=== PATIENT | female | born 1950 | race Hispanic/Latino ===

== ENCOUNTER 2018-12-31 17:37 | Inpatient (IN) | payer MEDICARE ==
--- NOTE | 2018-12-31 18:53 | Cat Scan Report ---
CT head/brain wo con INDICATION / CLINICAL INFORMATION: 68 years Female; fall. TECHNIQUE: Routine CT head without contrast. All CT scans at this location are performed using CT dos e reduction for ALARA by means of automated exposure control. COMPARISON: None. FINDINGS: BRAIN / INTRACRANIAL CONTENTS: The motion and positioning degrade the image quality. However,, the br ain appears to demonstrate appropriate attenuation for age. There is no clear CT evidence of acute in tracranial hemorrhage or significant mass effect. There is prominence of the CSF attenuation along th e cerebral convexities compatible with milder to moderate atrophy at. ORBITS: No significant abnormality of visualized orbits. SINUSES / MASTOIDS: No significant abnormality the visualized paranasal sinuses or mastoid air cells. CRANIOCERVICAL JUNCTION: No significant abnormality. ADDITIONAL FINDINGS: None. IMPRESSION: 1. There is no clear CT evidence of acute intracranial process. Signer Name: Calvin Paige MD Signed: 12/31/2018 6:49 PM Workstation Name: [id number]
[2018-12-31] MEDS ORDERED: TORADOL IV ONE (18:56)
--- NOTE | 2018-12-31 19:02 | Emergency Department Report ---
HPI - General Chief Complaint: Fall Time Seen by Provider: 12/31/18 18:47 - HPI HPI: Room 36 The patient is a 68-year-old female presenting with a chief complaint frequent falls. Family states the patient has showed progressive weakness with increasing falls over the past 6 months. Over the past 2 weeks patient has fallen 5 times injuring her head. The patient states it feels as though her feet give him and she feels weak diffusely. Patient denies loss of consciousness during her falls. Patient has complained of headache and a septal region for the past 2-3 days. The patient received a nerve block in her back this morning and subsequently went to her primary physician afterwards about the frequent falls. The primary physician (Dr. Urrutia) sent the patient to the ED in preparation for admission. The patient gives her pain a score 7/10 ED Past Medical Hx - Past Medical History Previous Medical History?: Yes Hx Hypertension: Yes Hx Congestive Heart Failure: Yes Hx Diabetes: Yes Hx Arthritis: Yes Hx Headaches / Migraines: Yes Hx COPD: Yes (2 L nasal cannula) - Surgical History Past Surgical History?: Yes Additional Surgical History: thyroid surgery. neck surgery - Family History Family history: no significant - Social History Smoking Status: Former Smoker (none 1 year) Substance Use Type: None - Medications Home Medications: Home Medications Medication Instructions Recorded Confirmed Last Taken Type AtorvaSTATin [Lipitor] 40 mg PO HS #30 tablet 02/08/15 09/28/17 Unknown Rx FLUoxetine [PROzac] 40 mg PO QDAY #30 capsule 02/08/15 09/28/17 09/28/17 Rx Haloperidol 5 mg PO BID #60 tablet 02/08/15 09/28/17 09/28/17 Rx Omeprazole [PriLOSEC] 20 mg PO DAILY #30 capsule. 02/08/15 09/28/17 09/28/17 Rx Donepezil [Aricept] 10 mg PO HS 09/28/17 09/28/17 Unknown History Gabapentin [Neurontin] 900 mg PO Q8H 09/28/17 09/28/17 09/28/17 History Lisinopril [Zestril] 20 mg PO QDAY 09/28/17 09/28/17 09/28/17 History predniSONE [Deltasone] 10 mg PO QDAY 09/28/17 09/28/17 09/28/17 History hydrALAZINE [Apresoline TAB] 50 mg PO Q8HR #90 tablet 10/03/17 Unknown Rx ED Review of Systems ROS: Stated complaint: COPD/FREQUENT FALLS Other details as noted in HPI Constitutional: no symptoms reported Eyes: denies: eye pain ENT: denies: throat pain Respiratory: no symptoms reported Cardiovascular: denies: chest pain Endocrine: no symptoms reported Gastrointestinal: denies: abdominal pain Genitourinary: denies: dysuria Musculoskeletal: arthralgia Neurological: headache Physical Exam - Physical Exam Vital Signs: Vital Signs 12/31/18 17:47 Temperature 97.8 F Pulse Rate 55 L Respiratory 18 Rate Blood Pressure 111/33 O2 Sat by Pulse 93 Oximetry Physical Exam: GENERAL: The patient is well-developed well-nourished sitting in wheelchair not appearing to be in acute distress HEENT: Normocephalic. Atraumatic. Extraocular motions are intact. Patient has moist mucous membranes. NECK: Supple. Trachea midline CHEST/LUNGS: Clear to auscultation. There is no respiratory distress noted. HEART/CARDIOVASCULAR: Regular. There is no tachycardia. There is no gallop rub or murmur. ABDOMEN: Abdomen is soft, nontender. Patient has normal bowel sounds. There is no abdominal distention. SKIN: There is no rash. There is no edema. There is no diaphoresis. NEURO: The patient is awake, alert, and oriented. The patient is cooperative. The patient has normal speech MUSCULOSKELETAL: There is mild tenderness to palpation in the level of approximately C7. There is no evidence of acute injury. ED Course Vital Signs 12/31/18 17:47 Temperature 97.8 F Pulse Rate 55 L Respiratory 18 Rate Blood Pressure 111/33 O2 Sat by Pulse 93 Oximetry - Consultations Consultation #1: 12/31/18 20:43 Dr. Urrutia paged ED Medical Decision Making - Lab Data Result diagrams: 12/31/18 19:16 12/31/18 19:16 Laboratory Tests 12/31/18 12/31/18 12/31/18 19:16 19:16 19:16 WBC 8.2 RBC 3.04 L Hgb 8.6 L Hct 27.6 L MCV 91 MCH 28 MCHC 31 RDW 16.0 H Plt Count 318 Lymph % (Auto) 17.5 [place] % (Auto) 8.2 H Eos % (Auto) 3.3 Baso % (Auto) 1.0 Lymph # 1.4 [place] # 0.7 Eos # 0.3 Baso # 0.1 Seg Neutrophils % 70.0 Seg Neutrophils # 5.7 PT 13.3 INR 1.04 APTT 31.7 Sodium 141 Potassium 4.9 Chloride 100.9 Carbon Dioxide 28 Anion Gap 17 BUN 25 H Creatinine 1.0 Estimated GFR 55 BUN/Creatinine Ratio 25 Glucose 126 H Calcium 9.0 Total Creatine Kinase 121 CK-MB (CK-2) 3.7 CK-MB (CK-2) Rel Index 3.0 Troponin T < 0.010 TSH Free T4 12/31/18 19:16 WBC RBC Hgb Hct MCV MCH MCHC RDW Plt Count Lymph % (Auto) [place] % (Auto) Eos % (Auto) Baso % (Auto) Lymph # [place] # Eos # Baso # Seg Neutrophils % Seg Neutrophils # PT INR APTT Sodium Potassium Chloride Carbon Dioxide Anion Gap BUN Creatinine Estimated GFR BUN/Creatinine Ratio Glucose Calcium Total Creatine Kinase CK-MB (CK-2) CK-MB (CK-2) Rel Index Troponin T TSH 9.940 H Free T4 0.99 - EKG Data -: EKG Interpreted by Tx EKG shows normal: sinus rhythm Rate: bradycardia (53 beats per minute) - EKG Data When compared to previous EKG there are: previous EKG unavailable Interpretation: nonspecific ST-T wave charly (biphasic T-wave in lead V6) - Radiology Data Radiology results: report reviewed (CT head, CT cervical spine, CT facial bones), image reviewed (CT head, CT cervical spine, CT facial bones) [place] [address] Cat Scan Report Signed Patient: LANI SOSA MR#: [id number] : 1950 Acct:[id number] Age/Sex: 68 / F ADM Date: 12/31/18 Loc: ED Attending Dr: Ordering Physician: MARILOU KELLOGG Date of Service: 12/31/18 Procedure(s): CT head/brain wo con Accession Number(s): [id number] cc: MARILOU KELLOGG CT head/brain wo con INDICATION / CLINICAL INFORMATION: 68 years Female; fall. TECHNIQUE: Routine CT head without contrast. All CT scans at this location are performed using CT dose reduction for ALARA by means of automated exposure control. COMPARISON: None. FINDINGS: BRAIN / INTRACRANIAL CONTENTS: The motion and positioning degrade the image quality. However,, the brain appears to demonstrate appropriate attenuation for age. There is no clear CT evidence of acute intracranial hemorrhage or significant mass effect. There is prominence of the CSF attenuation along the cerebral convexities compatible with milder to moderate atrophy at. ORBITS: No significant abnormality of visualized orbits. SINUSES / MASTOIDS: No significant abnormality the visualized paranasal sinuses or mastoid air cells. CRANIOCERVICAL JUNCTION: No significant abnormality. ADDITIONAL FINDINGS: None. IMPRESSION: 1. There is no clear CT evidence of acute intracranial process. Signer Name: Calvin Paige MD Signed: 12/31/2018 6:49 PM Workstation Name: [id number] Transcribed By: MR Dictated By: Calvin Paige MD Electronically Authenticated By: Calvin Paige MD Signed Date/Time: 12/31/181848 DD/ 45 TD/TT: [place] [address] Cat Scan Report Signed Patient: LANI SOSA MR#: [id number] : 1950 Acct:[id number] Age/Sex: 68 / F ADM Date: 12/31/18 Loc: ED Attending Dr: Ordering Physician: MICHAEL SIMTH MD Date of Service: 12/31/18 Procedure(s): CT cervical spine wo con Accession Number(s): [id number] cc: MICHAEL SMITH MD Exam: CT cervical spine History: pain after fall; Technique: Contiguous thin cut axial images obtained through the cervical spine. Sagittal and coronal reconstructions performed by the technologist. All CT scans at this location are performed using CT dose reduction for ALARA by means of automated exposure control. Findings: No priors. Anterior cervical disc fusion is seen at C4-C5 C5-C6 disc levels with the ventral plate, vertebral body screws and disc spacer. Solid fusion is seen. I do not see vertebral compression fracture. Prevertebral space is normal. In the transverse images, I do not see fracture involving the bony canal. C2-C3 disc level, facet joint hypertrophic changes are seen on the right side. Neuroforamina are normal. At C3-C4 disc level, right neuroforamen is narrowed due to marked facet joint hypertrophic changes. Soft disc protrusion is seen towards the right side. At C4-C5 disc level, I do not see bony overgrowth. Neuroforamina are normal. At C5-C6 disc level, bony overgrowth is seen in the left paramedian area. Neuroforamina are normal. At C6-C7 disc level, broad-based bony spur is seen towards the left side. Neuroforamina are normal. Bony defect is seen in the left lamina of C7. This, unable to comment on this further. This is not a fracture. At C7-T1 disc level, grade 1 spondylolisthesis seen due to marked facet joint degenerative changes bilaterally. Erosive changes are seen along the lamina. IMPRESSION: I do not see fracture in the cervical spine Spondylotic changes as described about Signer Name: Vipul Verma MD Signed: 12/31/2018 7:40 PM Workstation Name: [id number] Transcribed By: BS Dictated By: Vipul Chavarria MD Electronically Authenticated By: Vipul Chavarria MD Signed Date/Time: 12/31/181939 DD/ 34 TD/TT: [place] [address] Cat Scan Report Signed Patient: LANI SOSA MR#: [id number] : 1950 Acct:[id number] Age/Sex: 68 / F ADM Date: 12/31/18 Loc: ED Attending Dr: Ordering Physician: MICHAEL SMITH MD Date of Service: 12/31/18 Procedure(s): CT facial bones wo con Accession Number(s): [id number] cc: MICHAEL SMITH MD CT FACE HISTORY: Pain after fall COMPARISON: Acute TECHNIQUE: Axial images of the face were obtained. Coronal and sagittal reformats were generated. All CT scans at this location are performed using CT dose reduction for ALARA by means of automated exposure control. CONTRAST: None. FINDINGS: Facial bones: Midface: Nasal bones normal. Perpendicular plate of ethmoid and median nasal septum deviating towards the right side. I do not see fracture. I do not see hematoma along the nasal septum. Bony orbit is normal bilaterally. Zygomaticomaxillary complexes normal bilaterally. Mandible is normal. Paranasal sinuses: Clear. Orbits: No significant abnormality. Additional findings: None. IMPRESSION: 1. No significant abnormality. Signer Name: Vipul Verma MD Signed: 12/31/2018 7:35 PM Workstation Name: [id number] Transcribed By: BS Dictated By: Vipul Chavarria MD Electronically Authenticated By: Vipul Chavarria MD Signed Date/Time: 12/31/181934 DD/ 28 TD/TT: - Differential Diagnosis closed head injury, ICH, facial fracture, cervical fracture Critical care attestation.: If time is entered above; I have spent that time in minutes in the direct care of this critically ill patient, excluding procedure time. ED Disposition Clinical Impression: Closed head injury, Frequent falls, Weakness Disposition: DC-09 OP ADMIT IP TO THIS HOSP Is pt being admited?: Yes Condition: Fair
[2018-12-31 19:31] LABS: Basophils # (Auto) 0.1 K/mm3 (0.0-0.1); Eosinophils # (Auto) 0.3 K/mm3 (0.0-0.4); Eosinophils % (Auto) 3.3 % (0.0-4.3); Hematocrit 27.6 % (30.3-42.9); Hemoglobin 8.6 gm/dl (10.1-14.3); Lymphocytes # (Auto) 1.4 K/mm3 (1.2-5.4); Lymphocytes % (Auto) 17.5 % (13.4-35.0); Mean Corpuscular HGB Conc 31 % (30-34); Mean Corpuscular Volume 91 fl (79-97); Monocytes # (Auto) 0.7 K/mm3 (0.0-0.8); Monocytes % (Auto) 8.2 % (0.0-7.3); Platelet Count 318 K/mm3 (140-440); Red Blood Count 3.04 M/mm3 (3.65-5.03)
--- NOTE | 2018-12-31 19:40 | Cat Scan Report ---
CT FACE HISTORY: Pain after fall COMPARISON: Acute TECHNIQUE: Axial images of the face were obtained. Coronal and sagittal reformats were generated. All CT scans at this location are performed using CT dose reduction for ALARA by means of automated expo sure control. CONTRAST: None. FINDINGS: Facial bones: Midface: Nasal bones normal. Perpendicular plate of ethmoid and median nasal septum deviating towards the righ t side. I do not see fracture. I do not see hematoma along the nasal septum. Bony orbit is normal bilaterally. Zygomaticomaxillary complexes normal bilaterally. Mandible is normal. Paranasal sinuses: Clear. Orbits: No significant abnormality. Additional findings: None. IMPRESSION: 1. No significant abnormality. Signer Name: Vipul Verma MD Signed: 12/31/2018 7:35 PM Workstation Name: [id number]
--- NOTE | 2018-12-31 19:45 | Cat Scan Report ---
Exam: CT cervical spine History: pain after fall; Technique: Contiguous thin cut axial images obtained through the cervical spine. Sagittal and dennis l reconstructions performed by the technologist. All CT scans at this location are performed using CT dose reduction for ALARA by means of automated exposure control. Findings: No priors. Anterior cervical disc fusion is seen at C4-C5 C5-C6 disc levels with the ventral plate, vertebral ever dy screws and disc spacer. Solid fusion is seen. I do not see vertebral compression fracture. Prevert ebral space is normal. In the transverse images, I do not see fracture involving the bony canal. C2-C3 disc level, facet joint hypertrophic changes are seen on the right side. Neuroforamina are norm al. At C3-C4 disc level, right neuroforamen is narrowed due to marked facet joint hypertrophic changes. S oft disc protrusion is seen towards the right side. At C4-C5 disc level, I do not see bony overgrowth. Neuroforamina are normal. At C5-C6 disc level, bony overgrowth is seen in the left paramedian area. Neuroforamina are normal. At C6-C7 disc level, broad-based bony spur is seen towards the left side. Neuroforamina are normal. B komal defect is seen in the left lamina of C7. This, unable to comment on this further. This is not a f racture. At C7-T1 disc level, grade 1 spondylolisthesis seen due to marked facet joint degenerative changes bi laterally. Erosive changes are seen along the lamina. IMPRESSION: I do not see fracture in the cervical spine Spondylotic changes as described about Signer Name: Vipul Verma MD Signed: 12/31/2018 7:40 PM Workstation Name: [id number]
[2018-12-31 19:46] LABS: INR 1.04 (0.87-1.13)
[2018-12-31 19:47] LABS: Partial Thromboplastin Time 31.7 Sec. (24.2-36.6)
[2018-12-31 19:59] LABS: Creatine Kinase MB 3.7 ng/mL (0.0-4.0)
[2018-12-31 20:00] LABS: BUN/Creatinine Ratio 25; Blood Urea Nitrogen 25 mg/dL (7-17); Hemolysis Index 2
[2018-12-31 20:05] LABS: Free T4 (Free Thyroxine) 0.99 ng/dL (0.76-1.46)
[2018-12-31] MEDS ORDERED: SODIUM CHLORIDE FLUSH SYRINGE 10 ML IV PRN (22:31)
[2018-12-31] MEDS ORDERED: ZOFRAN IV PRN (22:31)
[2018-12-31] MEDS ORDERED: NON-FORMULARY (Ipratropium/Albuter (Nf) 1 PUFF) IH PRN (22:43)
--- NOTE | 2018-12-31 22:54 | History and Physical Report ---
History of Present Illness Date of examination: 12/31/18 Date of admission: 12/31/18 Chief complaint: frequent falls with shortness of breath for 2 weeks History of present illness: The patient is a 68-year-old female well known to me present to my office, 12/31/18 in company of her adult daughter c/o or worsening shortness of breath, and frequent falls, 5x in the past two week. Her daughter states the patient has showed progressive weakness with increasing falls over the past 6 months. Over the past 2 weeks patient has fallen 5 times injuring her head. The patient states it feels as though her feet give out on her and she feels weak diffusely. Patient denies loss of consciousness during her falls. Patient has complained of headache for the past 2-3 days. Has shortness of breath on slight exertion. No orthopnea respiratory dyspnea. On admission to the ER, CT head was unremarkable for any acute event. Past History Past Medical History: COPD, diabetes, hypertension, hyperlipidemia, other Past Surgical History: Other (ankle surgery and ) Social history: denies: smoking (Quit smoking a year ago), alcohol abuse, prescription drug abuse, IV drug use Family history: other (COPD in her half sister) Medications and Allergies Allergies Allergy/AdvReac Type Severity Reaction Status Date / Time No Known Allergies Allergy Verified 12/10/12 08:15 Home Medications Medication Instructions Recorded Confirmed Last Taken Type Donepezil [Aricept] 10 mg PO HS 09/28/17 12/31/18 Unknown History ARIPiprazole [Abilify] 10 mg PO QAM 12/31/18 12/31/18 Unknown History AtorvaSTATin [Lipitor] 40 mg PO QPM 12/31/18 12/31/18 Unknown History Buprenorphine [Butrans] 1 each TD Q7D 12/31/18 12/31/18 Unknown History Diclofenac 1% topical gel 1 applic TP QID 12/31/18 12/31/18 Unknown History FLUoxetine HCL [PROzac] 40 mg PO QAM 12/31/18 12/31/18 Unknown History Fluticasone/Umeclidin/Vilanter 1 each IH QAM 12/31/18 12/31/18 Unknown History [Trelegy Ellipta 100-62.5-25] Gabapentin [Neurontin] 800 mg PO TID 12/31/18 12/31/18 Unknown History HYDROcodone/APAP 5-325 [[place] 1 each PO Q8H PRN 12/31/18 12/31/18 Unknown History 5-325 mg TAB] Haloperidol 5 mg PO QPM 12/31/18 12/31/18 Unknown History Ipratropium/Albuter (Nf) 1 puff IH Q6H PRN 12/31/18 12/31/18 Unknown History [Combivent (Nf)] Levothyroxine [Synthroid] 88 mcg PO QAM 12/31/18 12/31/18 Unknown History Lisinopril [Zestril] 20 mg PO QAM 12/31/18 12/31/18 Unknown History Metformin HCl [Metformin HCl ER] 500 mg PO QAM 12/31/18 12/31/18 Unknown History hydrALAZINE [Apresoline TAB] 25 mg PO TID 12/31/18 12/31/18 Unknown History Active Meds: Active Medications Acetaminophen (Tylenol) 650 mg PO Q4H PRN PRN Reason: Pain MILD(1-3)/Fever >100.5/SNYDER Aripiprazole (Abilify) 10 mg PO QAM MARKO Atorvastatin Calcium (Lipitor) 40 mg PO QPM MARKO Docusate Sodium (Colace) 100 mg PO BID MARKO Donepezil HCl (Aricept) 10 mg PO HS MARKO Hydralazine HCl (Apresoline) 25 mg PO TID MARKO Sodium Chloride (Nacl 0.45% 1000 Ml) 1,000 mls @ 100 mls/hr IV DIRECT MARKO Levothyroxine Sodium (Synthroid) 88 mcg PO QAM MARKO Lisinopril (Zestril) 20 mg PO QAM MARKO Metformin HCl (Glucophage Xr) 500 mg PO QAM [facility] Miscellaneous Medication (Fluoxetine Hcl [Prozac]) 40 mg PO QAM MARKO Miscellaneous Medication (Fluticasone/Umeclidin/Vilanter [Trelegy Ellipta 100-62.5-25]) 1 each IH QAM MARKO Miscellaneous Medication (Gabapentin [Neurontin]) 800 mg PO TID MARKO Miscellaneous Medication (Haloperidol [Haloperidol]) 5 mg PO QPM MARKO Miscellaneous Medication (Ipratropium/Albuter (Nf)) 1 puff IH Q6H PRN PRN Reason: Shortness Of Breath Ondansetron HCl (Zofran) 4 mg IV Q8H PRN PRN Reason: Nausea And Vomiting Sodium Chloride (Sodium Chloride Flush Syringe 10 Ml) 10 ml IV BID MARKO Sodium Chloride (Sodium Chloride Flush Syringe 10 Ml) 10 ml IV PRN PRN PRN Reason: LINE FLUSH Review of Systems Constitutional: no fever, no chills, no sweats Ears, nose, mouth and throat: no ear pain, no ear discharge, no tinnitis, no decreased hearing Breasts: tender (rashes under both breast) Cardiovascular: shortness of breath, no orthopnea Respiratory: shortness of breath, dyspnea on exertion, no cough, no cough with sputum, no excessive sputum, no hemoptysis Gastrointestinal: no nausea, no vomiting, no diarrhea, no constipation Menstruation: no premenarcheal, no post hysterectomy, no ammenorrhea, no ammenorrhea on BC Musculoskeletal: shooting arm pain, arm numbness/tingling, no neck pain, no low back pain Integumentary: rash (undere both breast), no pruritis, no redness Exam - Constitutional Vitals: Temp Pulse Resp BP Pulse Ox 97.8 F 55 L 18 111/33 93 12/31/18 17:47 12/31/18 17:47 12/31/18 17:47 12/31/18 17:47 12/31/18 17:47 General appearance: Present: no acute distress, well-nourished - EENT Eyes: Present: PERRL ENT: hearing intact - Neck Neck: Present: supple, normal ROM - Respiratory Respiratory effort: normal Respiratory: bilateral: diminished - Cardiovascular Heart Sounds: Present: S1 & S2. Absent: rub, click - Extremities Extremities: pulses symmetrical, No edema Peripheral Pulses: within normal limits - Abdominal General gastrointestinal: Present: soft, non-tender, non-distended, normal bowel sounds Female genitourinary: Present: normal - Integumentary Integumentary: Present: clear, warm, dry, erythema, rash (under bothj breasts) - Musculoskeletal Musculoskeletal: gait normal, strength equal bilaterally - Psychiatric Psychiatric: appropriate mood/affect, intact judgment & insight - Neurologic Neurologic: CNII-XII intact, moves all extremities Results - Labs CBC & Chem 7: 01/01/19 04:26 01/01/19 04:26 Labs: Abnormal lab results 12/31/18 12/31/18 12/31/18 Range/Units 19:16 19:16 19:16 RBC 3.04 L (3.65-5.03) M/mm3 Hgb 8.6 L (10.1-14.3) gm/dl Hct 27.6 L (30.3-42.9) % RDW 16.0 H (13.2-15.2) % [place] % (Auto) 8.2 H (0.0-7.3) % BUN 25 H (7-17) mg/dL Glucose 126 H (65-100) mg/dL TSH 9.940 H (0.270-4.200) mlU/mL Assessment and Plan The patient is a 68-year-old female well known to me present to my office, 12/31/18 in company of her adult daughter c/o or worsening shorntess of breath, and frequent falls, 5x in the past two week. Her daughter states the patient has showed progressive weakness with increasing falls over the past 6 months. Over the past 2 weeks patient has fallen 5 times injuring her head. The patient states it feels as though her feet give him and she feels weak diffusely. Patient denies loss of consciousness during her falls. Patient has complained of headache for the past 2-3 days. The patient received a nerve block in her back this morning pror to coming to my office. On admission to the ER, CT head was unremarkable for any acute event. - Frequent falls Fall precaution CT head was unremakable -Shortness of breath Bronchodilators in antibiotic adn iv solumedrol - Tenia cruris Ketoconazole crm - COPD execebation Dupplental oxygen brodnchodilatos IV solumderol Iv antibioic - Hypothyroidism Continue with supplementation with Synthroid - T2 DM Consistent carbohydrates diet Sliding Scale insulin - DVT and GI PPx with lovenox and pepcid
[2018-12-31] MEDS ORDERED: PROVENTIL IH PRN (23:00)
[2018-12-31] MEDS: SODIUM CHLORIDE FLUSH SYRINGE 10 ML IV SCH (23:06)
[2018-12-31] MEDS: COLACE PO SCH (23:06)
--- NOTE | 2018-12-31 23:59 | XRay Report ---
CHEST 1 VIEW INDICATION / CLINICAL INFORMATION: shorness of breath. COMPARISON: None available. FINDINGS: SUPPORT DEVICES: None. HEART / MEDIASTINUM: No significant abnormality. LUNGS / PLEURA: No significant pulmonary or pleural abnormality. No pneumothorax. ADDITIONAL FINDINGS: No significant additional findings. IMPRESSION: 1. No acute findings. Signer Name: Zackery Calvillo MD Signed: 12/31/2018 11:55 PM Workstation Name: [id number]
--- NOTE | 2019-01-01 00:02 | XRay Report ---
RIGHT FOOT, 2 VIEWS 12/31/2018 INDICATION / CLINICAL INFORMATION: pain right foot. COMPARISON: None available. FINDINGS: Orthopedic hardware in the calcaneus, talus and tibia. There is generalized bony demineralization of the foot and ankle. No acute fractures are demonstrated. Signer Name: Zackery Calvillo MD Signed: 12/31/2018 11:58 PM Workstation Name: [id number]
--- NOTE | 2019-01-01 00:02 | XRay Report ---
RIGHT ANKLE, AP AND LATERAL VIEWS 2018 INDICATION / CLINICAL INFORMATION: pain right foot and ankle. COMPARISON: None available. FINDINGS: Intramedullary hamlet transfixing the tibia talus and calcaneus. There is soft tissue swelling the lateral aspect of the ankle. No acute fractures demonstrated. No destructive bony change. Signer Name: Zackery Calvillo MD Signed: 12/31/2018 11:57 PM Workstation Name: [id number]
[2019-01-01] MEDS: NACL 0.45% 1000 ML 1,000 ML IV SCH ×3 (01:17→21:56)
[2019-01-01] MEDS: TYLENOL PO PRN (01:18)
[2019-01-01 05:16] LABS: Basophils # (Auto) 0.1 K/mm3 (0.0-0.1); Basophils % (Auto) 0.9 % (0.0-1.8); Eosinophils # (Auto) 0.4 K/mm3 (0.0-0.4); Eosinophils % (Auto) 4.8 % (0.0-4.3); Hematocrit 26.1 % (30.3-42.9); Hemoglobin 8.3 gm/dl (10.1-14.3); Lymphocytes # (Auto) 1.8 K/mm3 (1.2-5.4); Lymphocytes % (Auto) 24.6 % (13.4-35.0); Mean Corpuscular HGB Conc 32 % (30-34); Mean Corpuscular Volume 90 fl (79-97); Monocytes # (Auto) 0.6 K/mm3 (0.0-0.8); Monocytes % (Auto) 8.5 % (0.0-7.3); Platelet Count 299 K/mm3 (140-440); Red Blood Count 2.89 M/mm3 (3.65-5.03); Red Cell Distribution Width 16.2 % (13.2-15.2)
[2019-01-01 05:38] LABS: Alanine Aminotransferase 11 units/L (7-56); Albumin 3.6 g/dL (3.9-5); BUN/Creatinine Ratio 34; Blood Urea Nitrogen 31 mg/dL (7-17); Calcium 8.8 mg/dL (8.4-10.2); Hemolysis Index 2
[2019-01-01] MEDS: APRESOLINE PO SCH ×4 (07:46→20:15)
[2019-01-01] MEDS: NEURONTIN PO SCH ×3 (07:46→22:00)
[2019-01-01] MEDS ORDERED: NON-FORMULARY (Gabapentin [Neurontin] 800 MG) PO SCH (08:00)
[2019-01-01] MEDS: COLACE PO SCH ×2 (09:26→22:01)
[2019-01-01] MEDS: GLUCOPHAGE XR PO SCH (09:26)
[2019-01-01] MEDS: ZESTRIL PO SCH (09:27)
[2019-01-01] MEDS: SODIUM CHLORIDE FLUSH SYRINGE 10 ML IV SCH ×2 (09:27→22:02)
[2019-01-01] MEDS: PROzac PO SCH (09:27)
[2019-01-01] MEDS ORDERED: UMECLIDIN IH SCH (10:00)
[2019-01-01] MEDS ORDERED: FLUTICASONE IH SCH (10:00)
[2019-01-01] MEDS ORDERED: VILANTER IH SCH (10:00)
[2019-01-01] MEDS ORDERED: NON-FORMULARY (Fluoxetine Hcl [Prozac] 40 MG) PO SCH (10:00)
[2019-01-01] MEDS: ARIPiprazole PO SCH (10:25)
[2019-01-01] MEDS ORDERED: BUTRAN TP SCH (17:00)
[2019-01-01] MEDS ORDERED: HALOPERIDOL 5 MG PO SCH (18:00)
[2019-01-01] MEDS: HALDOL PO SCH (18:34)
[2019-01-01] MEDS: SYNTHROID PO SCH ×2 (21:59→22:43)
[2019-01-01] MEDS: ARICEPT PO SCH (22:00)
[2019-01-02 05:57] LABS: Alanine Aminotransferase 11 units/L (7-56); Albumin 3.3 g/dL (3.9-5); BUN/Creatinine Ratio 25; Blood Urea Nitrogen 15 mg/dL (7-17); Calcium 8.4 mg/dL (8.4-10.2); Hemolysis Index 4
[2019-01-02] MEDS: NACL 0.45% 1000 ML 1,000 ML IV SCH ×2 (06:03→09:51)
[2019-01-02] MEDS: SYNTHROID PO SCH (06:03)
[2019-01-02 06:31] LABS: Hematocrit 26.7 % (30.3-42.9); Hemoglobin 8.2 gm/dl (10.1-14.3); Mean Corpuscular HGB Conc 31 % (30-34); Mean Corpuscular Volume 90 fl (79-97); Platelet Count 294 K/mm3 (140-440); Red Blood Count 2.97 M/mm3 (3.65-5.03); Red Cell Distribution Width 16.4 % (13.2-15.2)
[2019-01-02] MEDS: APRESOLINE PO SCH ×2 (09:09→14:18)
[2019-01-02] MEDS: NEURONTIN PO SCH ×3 (09:09→22:26)
[2019-01-02] MEDS: PROzac PO SCH (09:46)
[2019-01-02] MEDS: COLACE PO SCH ×2 (09:47→22:29)
[2019-01-02] MEDS: SODIUM CHLORIDE FLUSH SYRINGE 10 ML IV SCH ×2 (09:47→22:28)
[2019-01-02] MEDS: ARIPiprazole PO SCH (09:47)
[2019-01-02] MEDS: GLUCOPHAGE XR PO SCH (09:47)
[2019-01-02] MEDS: ZESTRIL PO SCH (09:47)
[2019-01-02] MEDS: TYLENOL PO PRN ×2 (10:06→20:22)
[2019-01-02] MEDS: HALDOL PO SCH (17:25)
--- NOTE | 2019-01-02 22:02 | Progress Note ---
Assessment and Plan The patient is a 68-year-old female well known to me present to my office, 12/31/18 in company of her adult daughter c/o or worsening shorntess of breath, and frequent falls, 5x in the past two week. Her daughter states the patient has showed progressive weakness with increasing falls over the past 6 months. Over the past 2 weeks patient has fallen 5 times injuring her head. The patient states it feels as though her feet give him and she feels weak diffusely. Patient denies loss of consciousness during her falls. Patient has complained of headache for the past 2-3 days. The patient received a nerve block in her back this morning pror to coming to my office. On admission to the ER, CT head was unremarkable for any acute event. - Frequent falls Fall precaution CT head was unremakable for any acute event -Shortness of breath Bronchodilators in antibiotic adn iv solumedrol - Tenia cruris Ketoconazole 2%crm - COPD execebation Dupplental oxygen brodnchodilatos IV solumderol Iv antibioic - Pain Right ankle X-ray right apical shows intramedullary nail No bony destruction - Hypothyroidism Continue with supplementation with Synthroid - T2 DM Consistent carbohydrates diet Sliding Scale insulin - DVT and GI PPx with lovenox and pepcid - Disposition: Discussed with patient's daughter who wants patient is to be p laced in a group home facility as she is no longer capable of taking care of the Patient Subjective Date of service: 01/02/19 Principal diagnosis: COPD exacerbation, frequent falls, T2DM Interval history: Patient seen and examined. Remains afebrile. No chest pain. Shortness of breath improved. No falls since admission Objective - Exam Narrative Exam: Constitutional: Well-nourished well-developed. In no distress Head: Normocephalic atraumatic Eyes: Pupils are equal round and reactive to light Nose: No enlarged turbinates, no septal deviation. Mouth: Moist mucous membranes. Neck: Supple no thyromegaly. No bruit. No JVD Heart: Regular rate and rhythm, S1-S2 normal. No rubs murmurs or gallop Lungs: Clear to auscultation bilaterally. no rales or rhonchi Abdomen: Soft, nontender. Bowel sound are present. Extremities: No edema, no cyanosis, no clubbing. Neuro: Alert oriented Oriented x3. No focal sensory or motor deficit. Skin: No rashes or hyperpigmented spots Musculoskeletal system: No joint pain or swelling Hematological: No petechia or subcutanous hemorrhages. Immunological: No multiple septic spots on the skin Lymphatic: No generalized lymphadenopathy Psychiatry: Euthymic. Calm. - Constitutional Vitals: Vital Signs - 12hr 01/02/19 01/02/19 01/02/19 11:00 14:16 20:29 Temperature 98.0 F 98.7 F Pulse Rate 52 L 57 L Respiratory 18 18 Rate Blood Pressure 101/39 132/46 O2 Sat by Pulse 93 92 94 Oximetry 01/02/19 20:35 Temperature Pulse Rate Respiratory Rate Blood Pressure O2 Sat by Pulse 94 Oximetry - Labs CBC & Chem 7: 01/02/19 05:59 01/02/19 05:00 Labs: Abnormal lab results 01/02/19 01/02/19 01/02/19 Range/Units 05:00 05:59 07:30 RBC 2.97 L (3.65-5.03) M/mm3 Hgb 8.2 L (10.1-14.3) gm/dl Hct 26.7 L (30.3-42.9) % RDW 16.4 H (13.2-15.2) % Creatinine 0.6 L (0.7-1.2) mg/dL Glucose 105 H (65-100) mg/dL POC Glucose 109 H (70-105) Albumin 3.3 L (3.9-5) g/dL 01/02/19 01/02/19 01/02/19 Range/Units 12:59 16:15 21:53 RBC (3.65-5.03) M/mm3 Hgb (10.1-14.3) gm/dl Hct (30.3-42.9) % RDW (13.2-15.2) % Creatinine (0.7-1.2) mg/dL Glucose (65-100) mg/dL POC Glucose 136 H 107 H 141 H (70-105) Albumin (3.9-5) g/dL
--- NOTE | 2019-01-02 22:03 | Progress Note ---
Assessment and Plan The patient is a 68-year-old female well known to me present to my office, 12/31/18 in company of her adult daughter c/o or worsening shorntess of breath, and frequent falls, 5x in the past two week. Her daughter states the patient has showed progressive weakness with increasing falls over the past 6 months. Over the past 2 weeks patient has fallen 5 times injuring her head. The patient states it feels as though her feet give him and she feels weak diffusely. Patient denies loss of consciousness during her falls. Patient has complained of headache for the past 2-3 days. The patient received a nerve block in her back this morning pror to coming to my office. On admission to the ER, CT head was unremarkable for any acute event. - Frequent falls Fall precaution CT head was unremakable -Shortness of breath Bronchodilators in antibiotic adn iv solumedrol - Tenia cruris Ketoconazole crm - COPD execebation Dupplental oxygen brodnchodilatos IV solumderol Iv antibioic - Hypothyroidism Continue with supplementation with Synthroid - T2 DM Consistent carbohydrates diet Sliding Scale insulin - DVT and GI PPx with lovenox and pepcid - Disposition: Discussed with patient's daughter who wants patient is to be placed in a assisted facility as she is no longer capable of taking care of the Patient Subjective Date of service: 01/01/19 Principal diagnosis: Shortness of breath Interval history: Patient seen and examined. Remains afebrile. No chest pain. Shortness of breath improved. No falls since admission Objective - Exam Narrative Exam: Constitutional: Well-nourished well-developed. In no distress Head: Normocephalic atraumatic Eyes: Pupils are equal round and reactive to light Nose: No enlarged turbinates, no septal deviation. Mouth: Moist mucous membranes. Neck: Supple no thyromegaly. No bruit. No JVD Heart: Regular rate and rhythm, S1-S2 normal. No rubs murmurs or gallop Lungs: Clear to auscultation bilaterally. no rales or rhonchi Abdomen: Soft, nontender. Bowel sound are present. Extremities: No edema, no cyanosis, no clubbing. Neuro: Alert oriented Oriented x3. No focal sensory or motor deficit. Skin: No rashes or hyperpigmented spots Musculoskeletal system: No joint pain or swelling Hematological: No petechia or subcutanous hemorrhages. Immunological: No multiple septic spots on the skin Lymphatic: No generalized lymphadenopathy Psychiatry: Euthymic. Calm. - Constitutional Vitals: Vital Signs - 12hr 01/02/19 01/02/19 01/02/19 11:00 14:16 20:29 Temperature 98.0 F 98.7 F Pulse Rate 52 L 57 L Respiratory 18 18 Rate Blood Pressure 101/39 132/46 O2 Sat by Pulse 93 92 94 Oximetry 01/02/19 20:35 Temperature Pulse Rate Respiratory Rate Blood Pressure O2 Sat by Pulse 94 Oximetry - Labs CBC & Chem 7: 01/02/19 05:59 01/02/19 05:00 Labs: Abnormal lab results 01/02/19 01/02/19 01/02/19 Range/Units 05:00 05:59 07:30 RBC 2.97 L (3.65-5.03) M/mm3 Hgb 8.2 L (10.1-14.3) gm/dl Hct 26.7 L (30.3-42.9) % RDW 16.4 H (13.2-15.2) % Creatinine 0.6 L (0.7-1.2) mg/dL Glucose 105 H (65-100) mg/dL POC Glucose 109 H (70-105) Albumin 3.3 L (3.9-5) g/dL 01/02/19 01/02/19 01/02/19 Range/Units 12:59 16:15 21:53 RBC (3.65-5.03) M/mm3 Hgb (10.1-14.3) gm/dl Hct (30.3-42.9) % RDW (13.2-15.2) % Creatinine (0.7-1.2) mg/dL Glucose (65-100) mg/dL POC Glucose 136 H 107 H 141 H (70-105) Albumin (3.9-5) g/dL
[2019-01-02] MEDS: ARICEPT PO SCH (22:27)
[2019-01-03] MEDS: APRESOLINE PO SCH ×4 (03:42→22:44)
[2019-01-03] MEDS: TYLENOL PO PRN ×3 (05:50→22:44)
[2019-01-03] MEDS: SYNTHROID PO SCH (05:50)
[2019-01-03] MEDS: NACL 0.45% 1000 ML 1,000 ML IV SCH ×2 (05:53→17:42)
[2019-01-03 07:15] LABS: Basophils # (Auto) 0.1 K/mm3 (0.0-0.1); Basophils % (Auto) 0.9 % (0.0-1.8); Eosinophils # (Auto) 0.2 K/mm3 (0.0-0.4); Eosinophils % (Auto) 4.2 % (0.0-4.3); Hematocrit 25.8 % (30.3-42.9); Hemoglobin 8.1 gm/dl (10.1-14.3); Lymphocytes # (Auto) 1.3 K/mm3 (1.2-5.4); Lymphocytes % (Auto) 22.2 % (13.4-35.0); Mean Corpuscular HGB Conc 31 % (30-34); Mean Corpuscular Volume 90 fl (79-97); Monocytes # (Auto) 0.7 K/mm3 (0.0-0.8); Monocytes % (Auto) 12.4 % (0.0-7.3); Platelet Count 275 K/mm3 (140-440); Red Blood Count 2.87 M/mm3 (3.65-5.03); Red Cell Distribution Width 15.3 % (13.2-15.2)
[2019-01-03 07:33] LABS: Alanine Aminotransferase 13 units/L (7-56); Albumin 3.6 g/dL (3.9-5); BUN/Creatinine Ratio 20; Blood Urea Nitrogen 12 mg/dL (7-17); Calcium 8.6 mg/dL (8.4-10.2); Hemolysis Index 0
--- NOTE | 2019-01-03 10:02 | Progress Note ---
Assessment and Plan The patient is a 68-year-old female well known to me present to my office, 12/31/18 in company of her adult daughter c/o or worsening shorntess of breath, and frequent falls, 5x in the past two week. Her daughter states the patient has showed progressive weakness with increasing falls over the past 6 months. Over the past 2 weeks patient has fallen 5 times injuring her head. The patient states it feels as though her feet give him and she feels weak diffusely. Patient denies loss of consciousness during her falls. Patient has complained of headache for the past 2-3 days. The patient received a nerve block in her back this morning pror to coming to my office. On admission to the ER, CT head was unremarkable for any acute event. - Frequent falls Fall precaution CT head was unremakable for any acute event PT eval -Shortness of breath Bronchodilators in antibiotic and iv solumedrol - Tenia cruris Ketoconazole 2% crm - COPD execebation Dupplental oxygen brodnchodilatos IV solumderol Iv antibioic - Pain Right ankle X-ray right apical shows intramedullary nail No bony destruction - Hypothyroidism Continue with supplementation with Synthroid - T2 DM Consistent carbohydrates diet Sliding Scale insulin - DVT and GI PPx with lovenox and pepcid - Disposition: Discussed with patient's daughter who wants patient is to be placed in a care home facility as she is no longer capable of taking care of the Patient Subjective Date of service: 01/03/19 Principal diagnosis: COPD exacerbation, frequent falls, T2DM Interval history: Patient seen and examined. Remains afebrile. No chest pain. Shortness of breath improved. No falls since admission. c/o rahse under the breasts Objective - Exam Narrative Exam: Constitutional: Well-nourished well-developed. In no distress Head: Normocephalic atraumatic Eyes: Pupils are equal round and reactive to light Nose: No enlarged turbinates, no septal deviation. Mouth: Moist mucous membranes. Neck: Supple no thyromegaly. No bruit. No JVD Heart: Regular rate and rhythm, S1-S2 normal. No rubs murmurs or gallop Lungs: Clear to auscultation bilaterally. no rales or rhonchi Abdomen: Soft, nontender. Bowel sound are present. Extremities: No edema, no cyanosis, no clubbing. Neuro: Alert oriented Oriented x3. No focal sensory or motor deficit. Skin: No rashes or hyperpigmented spots Musculoskeletal system: No joint pain or swelling Hematological: No petechia or subcutanous hemorrhages. Immunological: No multiple septic spots on the skin Lymphatic: No generalized lymphadenopathy Psychiatry: Euthymic. Calm. - Constitutional Vitals: Vital Signs - 12hr 01/03/19 01/03/19 01/03/19 02:44 03:42 09:56 Temperature 98.7 F Pulse Rate 55 L 57 L Respiratory 16 Rate Blood Pressure 131/46 132/46 O2 Sat by Pulse 92 94 Oximetry - Labs CBC & Chem 7: 01/03/19 06:40 01/03/19 06:40 Labs: Abnormal lab results 01/02/19 01/02/19 01/02/19 Range/Units 12:59 16:15 21:53 RBC (3.65-5.03) M/mm3 Hgb (10.1-14.3) gm/dl Hct (30.3-42.9) % RDW (13.2-15.2) % [place] % (Auto) (0.0-7.3) % Creatinine (0.7-1.2) mg/dL Glucose (65-100) mg/dL POC Glucose 136 H 107 H 141 H (70-105) Albumin (3.9-5) g/dL 01/03/19 01/03/19 01/03/19 Range/Units 06:40 06:40 08:01 RBC 2.87 L (3.65-5.03) M/mm3 Hgb 8.1 L (10.1-14.3) gm/dl Hct 25.8 L (30.3-42.9) % RDW 15.3 H (13.2-15.2) % [place] % (Auto) 12.4 H (0.0-7.3) % Creatinine 0.6 L (0.7-1.2) mg/dL Glucose 143 H (65-100) mg/dL POC Glucose 121 H (70-105) Albumin 3.6 L (3.9-5) g/dL
[2019-01-03] MEDS: PROzac PO SCH (10:06)
[2019-01-03] MEDS: ARIPiprazole PO SCH (10:06)
[2019-01-03] MEDS: ZESTRIL PO SCH (10:06)
[2019-01-03] MEDS: NEURONTIN PO SCH ×3 (10:07→22:43)
[2019-01-03] MEDS: GLUCOPHAGE XR PO SCH (10:07)
[2019-01-03] MEDS: COLACE PO SCH ×2 (10:08→22:43)
[2019-01-03] MEDS: SODIUM CHLORIDE FLUSH SYRINGE 10 ML IV SCH ×2 (10:10→22:45)
[2019-01-03] MEDS: NIZORAL TP SCH ×2 (17:36→22:45)
[2019-01-03] MEDS: HALDOL PO SCH (17:36)
[2019-01-03] MEDS: ARICEPT PO SCH (22:43)
[2019-01-04] MEDS: SYNTHROID PO SCH (05:22)
[2019-01-04 06:28] LABS: Basophils # (Auto) 0.1 K/mm3 (0.0-0.1); Basophils % (Auto) 0.9 % (0.0-1.8); Eosinophils # (Auto) 0.3 K/mm3 (0.0-0.4); Eosinophils % (Auto) 3.3 % (0.0-4.3); Hematocrit 26.6 % (30.3-42.9); Hemoglobin 8.3 gm/dl (10.1-14.3); Lymphocytes # (Auto) 1.4 K/mm3 (1.2-5.4); Lymphocytes % (Auto) 14.2 % (13.4-35.0); Mean Corpuscular HGB Conc 31 % (30-34); Mean Corpuscular Volume 90 fl (79-97); Monocytes # (Auto) 0.7 K/mm3 (0.0-0.8); Monocytes % (Auto) 6.5 % (0.0-7.3); Platelet Count 290 K/mm3 (140-440); Red Blood Count 2.95 M/mm3 (3.65-5.03); Red Cell Distribution Width 15.7 % (13.2-15.2)
[2019-01-04 06:57] LABS: Alanine Aminotransferase 12 units/L (7-56); Albumin 3.4 g/dL (3.9-5); BUN/Creatinine Ratio 20; Blood Urea Nitrogen 10 mg/dL (7-17); Calcium 8.6 mg/dL (8.4-10.2); Hemolysis Index 4
[2019-01-04] MEDS: NEURONTIN PO SCH ×3 (08:45→22:53)
--- NOTE | 2019-01-04 09:07 | Discharge Summary ---
Providers - Providers Date of Admission: 12/31/18 22:31 Date of discharge: 01/04/19 Attending physician: YESSY HUSTON 01/03/19 10:03 Physical Therapy Evaluation and Treat [CONS] Routine Comment: Reason For Exam: frequent fall 01/04/19 08:49 Occupational Therapy Evaluate and Treat [CONS] Routine Comment: Reason For Exam: Debility Primary care physician: WELDER/FABRICATOR Hospitalization Reason for admission: shortness of breath, frequent falls, T2DM, Anemia of chronic disease Condition: Fair Pertinent studies: CT scan of the head was unremarkable for any acute event. CT scan of the cervical spine and neck showed no fracture or dislocation Chest x-ray was normal X-ray of the right ankle showed intramedullary nail with no new fractures Procedures: none Hospital course: The patient is a 68-year-old female well known to me present to my office, 12/31/18 in company of her adult daughter c/o or worsening shortness of breath, and frequent falls, 5x in the past two week. Her daughter states the patient has showed progressive weakness with increasing falls over the past 6 months. Over the past 2 weeks patient has fallen 5 times injuring her head. The patient states it feels as though her feet give out on her and she feels weak diffusely. Patient denies loss of consciousness during her falls. Patient has complained of headache for the past 2-3 days. Has shortness of breath on slight exertion. No orthopnea respiratory dyspnea. On admission to the ER, CT head was unremarkable for any acute event. CT scan of the cervical spine and face were normal. Conjunctivae is that patient had tinea coporis. Commenced on ketoconazole cream. Shortness of breath improved. Continue to be on oxygen while on admission as patient has been on home oxygen. Disposition: DC-01 TO HOME OR SELFCARE Time spent for discharge: 35 min - Discharge Diagnoses (1) Tinea corporis Status: Acute (2) Closed head injury Status: Acute (3) Frequent falls Status: Acute (4) COPD exacerbation Status: Acute (5) Generalized pain Status: Acute Core Measure Documentation - Palliative Care Palliative Care/ Comfort Measures: Not Applicable - Core Measures Any of the following diagnoses?: none Exam - Physical Exam Narrative exam: Constitutional: Well-nourished well-developed. In no distress Head: Normocephalic atraumatic Eyes: Pupils are equal round and reactive to light. Hematoma over the right Nose: No enlarged turbinates, no septal deviation. Mouth: Moist mucous membranes. Neck: Supple no thyromegaly. No bruit. No JVD Heart: Regular rate and rhythm, S1-S2 normal. No rubs murmurs or gallop Lungs: Clear to auscultation bilaterally. no rales or rhonchi Abdomen: Soft, nontender. Bowel sound are present. Extremities: No edema, no cyanosis, no clubbing. Neuro: Alert oriented Oriented x3. No focal sensory or motor deficit. Skin: rashes on the good breast or hyperpigmented spots Musculoskeletal system: No joint pain or swelling Hematological: No petechia or subcutanous hemorrhages. Immunological: No multiple septic spots on the skin Lymphatic: No generalized lymphadenopathy Psychiatry: Euthymic. Calm. - Constitutional Vitals: Temp Pulse Resp BP Pulse Ox 97.9 F 59 L 20 109/45 95 01/04/19 07:00 01/04/19 07:00 01/04/19 07:00 01/04/19 07:00 01/04/19 07:00 Plan Follow up with: PRIMARY MD CRISTOBAL [Primary Care Provider] - 7 Days
[2019-01-04] MEDS: GLUCOPHAGE XR PO SCH (09:14)
[2019-01-04] MEDS: ARIPiprazole PO SCH (09:14)
[2019-01-04] MEDS: PROzac PO SCH (09:14)
[2019-01-04] MEDS: COLACE PO SCH ×2 (09:14→22:54)
[2019-01-04] MEDS: APRESOLINE PO SCH ×3 (09:15→23:01)
[2019-01-04] MEDS: SODIUM CHLORIDE FLUSH SYRINGE 10 ML IV SCH ×2 (09:15→22:54)
[2019-01-04] MEDS: TYLENOL PO PRN ×2 (09:16→20:01)
[2019-01-04] MEDS: NIZORAL TP SCH ×2 (09:18→22:56)
--- NOTE | 2019-01-04 09:24 | Discharge Summary ---
Providers - Providers Date of Admission: 12/31/18 22:31 Date of discharge: 01/04/19 Attending physician: YESSY HUSTON 01/03/19 10:03 Physical Therapy Evaluation and Treat [CONS] Routine Comment: Reason For Exam: frequent fall 01/04/19 08:49 Occupational Therapy Evaluate and Treat [CONS] Routine Comment: Reason For Exam: Debility Primary care physician: DIRECTOR LOAN Hospitalization Reason for admission: shortness of breath, Frequent fall, COPD exacerbation, hypoxemia. Condition: Fair Pertinent studies: CT scan of the head was unremarkable for any acute event. CT scan of the cervical spine and neck showed no fracture or dislocation Chest x-ray was normal X-ray of the right ankle showed intramedullary nail with no new fractures Procedures: none Hospital course: The patient is a 68-year-old female well known to me present to my office, in company of her adult daughter c/o or worsening shortness of breath, and frequent falls, 5x in the past two week. Her daughter states the patient has showed progressive weakness with increasing falls over the past 6 months. Over the past 2 weeks patient has fallen 5 times injuring her head. The patient states it feels as though her feet give out on her and she feels weak diffusely. Patient denies loss of consciousness during her falls. Patient has complained of headache for the past 2-3 days. Has shortness of breath on slight exertion. No orthopnea respiratory dyspnea. On admission to the ER, CT head was unremarkable for any acute event. CT scan of the cervical spine and face were normal. Conjunctivae is that patient had tinea coporis. Commenced on ketoconazole cream. Shortness of breath improved. Continue to be on oxygen while on admission as patient has been on home oxygen. PT eval was done. Patient's daughter, her, care give had indicated that she can no longer take care of patient, therefore requested a SNF placement Disposition: DC-01 TO HOME OR SELFCARE Time spent for discharge: 33 min - Discharge Diagnoses (1) Tinea corporis Status: Acute (2) Closed head injury Status: Acute (3) Frequent falls Status: Acute (4) COPD exacerbation Status: Acute (5) Generalized pain Status: Acute Core Measure Documentation - Palliative Care Palliative Care/ Comfort Measures: Not Applicable Exam - Physical Exam Narrative exam: Constitutional: Well-nourished well-developed. In no distress Head: Normocephalic atraumatic Eyes: Pupils are equal round and reactive to light. Hematoma over the right Nose: No enlarged turbinates, no septal deviation. Mouth: Moist mucous membranes. Neck: Supple no thyromegaly. No bruit. No JVD Heart: Regular rate and rhythm, S1-S2 normal. No rubs murmurs or gallop Lungs: Clear to auscultation bilaterally. no rales or rhonchi Abdomen: Soft, nontender. Bowel sound are present. Extremities: No edema, no cyanosis, no clubbing. Neuro: Alert oriented Oriented x3. No focal sensory or motor deficit. Skin: rashes on the good breast or hyperpigmented spots Musculoskeletal system: No joint pain or swelling Hematological: No petechia or subcutanous hemorrhages. Immunological: No multiple septic spots on the skin Lymphatic: No generalized lymphadenopathy Psychiatry: Euthymic. Calm. - Constitutional Vitals: Temp Pulse Resp BP Pulse Ox 97.9 F 59 L 20 109/45 95 01/04/19 07:00 01/04/19 07:00 01/04/19 07:00 01/04/19 07:00 01/04/19 07:00 Plan Activity: fall precautions Weight Bearing Status: Non-Weight Bearing Diet: diabetic Follow up with: PRIMARY MD CRISTOBAL [Primary Care Provider] - 7 Days YESSY HUSTON MD [Staff Physician] - 3 Days Prescriptions: Clotrimazole/Betamethasone 1 applic TP BID #60 tube Docusate Sodium [Colace CAP] 100 mg PO BID #60 capsule fentaNYL [Fentanyl] 1 each TD Q72HR #3 patch.[id number]
[2019-01-04] MEDS: ZESTRIL PO SCH (10:21)
[2019-01-04] MEDS: HALDOL PO SCH (17:43)
[2019-01-04] MEDS: ARICEPT PO SCH (23:01)
[2019-01-05] MEDS: NACL 0.45% 1000 ML 1,000 ML IV SCH ×2 (01:53→22:36)
[2019-01-05] MEDS: SYNTHROID PO SCH (06:10)
[2019-01-05] MEDS: TYLENOL PO PRN ×4 (06:21→22:33)
[2019-01-05] MEDS: APRESOLINE PO SCH ×3 (07:27→22:52)
[2019-01-05] MEDS: NEURONTIN PO SCH ×3 (07:27→22:33)
[2019-01-05] MEDS: COLACE PO SCH ×2 (09:08→22:34)
[2019-01-05] MEDS: PROzac PO SCH (09:08)
[2019-01-05] MEDS: GLUCOPHAGE XR PO SCH (09:09)
[2019-01-05] MEDS: ARIPiprazole PO SCH (09:09)
[2019-01-05] MEDS: SODIUM CHLORIDE FLUSH SYRINGE 10 ML IV SCH (09:09)
[2019-01-05] MEDS: ZESTRIL PO SCH (09:10)
[2019-01-05] MEDS: NIZORAL TP SCH ×2 (09:10→22:34)
--- NOTE | 2019-01-05 15:54 | Progress Note ---
Assessment and Plan The patient is a 68-year-old female well known to me present to my office, 12/31/18 in company of her adult daughter c/o or worsening shorntess of breath, and frequent falls, 5x in the past two week. Her daughter states the patient has showed progressive weakness with increasing falls over the past 6 months. Over the past 2 weeks patient has fallen 5 times injuring her head. The patient states it feels as though her feet give him and she feels weak diffusely. Patient denies loss of consciousness during her falls. Patient has complained of headache for the past 2-3 days. The patient received a nerve block in her back this morning pror to coming to my office. On admission to the ER, CT head was unremarkable for any acute event. - Frequent falls Fall precaution CT head was unremarkable for any acute event PT eval -Acute on chronic hypoxemic respiratory failure with Shortness of breath Continue with Bronchodilators in antibiotic and iv solumedrol - Tenia corporis and cruris Ketoconazole 2% crm Oral Fluconazole - COPD execebation Dupplental oxygen brodnchodilatos IV solumderol Iv antibioic - Pain Right ankle X-ray right apical shows intramedullary nail No bony destruction - Hypothyroidism Continue with supplementation with Synthroid - T2 DM Consistent carbohydrates diet Sliding Scale insulin - DVT and GI PPx with lovenox and pepcid - Disposition: Discussed with patient's daughter who wants patient is to be placed in a custodial facility as she is no longer capable of taking care of the Patient. Discuissed with pt's nurse. Awaiting insurance approval of placement i ANT - Patient Problems (1) Tinea corporis Current Visit: Yes Status: Acute (2) Closed head injury Current Visit: Yes Status: Acute (3) Frequent falls Current Visit: Yes Status: Acute (4) COPD exacerbation Onset Date: 02/05/15 Current Visit: No Status: Acute (5) Generalized pain Current Visit: No Status: Acute Subjective Date of service: 01/05/19 Principal diagnosis: COPD exacerbation, frequent falls, T2DM, rashesd uner the breast Interval history: Patient seen and examined. Remains afebrile. No chest pain. Shortness of breath improved. No falls since admission. c/o rashes under the breasts Objective - Exam Narrative Exam: Constitutional: Well-nourished well-developed. In no distress Head: Normocephalic atraumatic Eyes: Pupils are equal round and reactive to light. Hematoma over the right Nose: No enlarged turbinates, no septal deviation. Mouth: Moist mucous membranes. Neck: Supple no thyromegaly. No bruit. No JVD Heart: Regular rate and rhythm, S1-S2 normal. No rubs murmurs or gallop Lungs: Clear to auscultation bilaterally. no rales or rhonchi Abdomen: Soft, nontender. Bowel sound are present. Extremities: No edema, no cyanosis, no clubbing. Neuro: Alert oriented Oriented x3. No focal sensory or motor deficit. Skin: rashes under the good breasts and armpit Musculoskeletal system: No joint pain or swelling Hematological: No petechia or subcutanous hemorrhages. Immunological: No multiple septic spots on the skin Lymphatic: No generalized lymphadenopathy Psychiatry: Euthymic. Calm. - Constitutional Vitals: Vital Signs - 12hr 01/05/19 01/05/19 01/05/19 07:24 07:27 08:11 Temperature 97.8 F Pulse Rate 54 L Pulse Rate [ From Monitor] Respiratory 22 Rate Blood Pressure 111/37 111/37 O2 Sat by Pulse 90 Oximetry 01/05/19 01/05/19 01/05/19 09:10 09:27 09:29 Temperature Pulse Rate 54 L 53 L Pulse Rate [ 53 L From Monitor] Respiratory 18 Rate Blood Pressure 112/37 O2 Sat by Pulse 90 Oximetry 01/05/19 01/05/19 13:10 13:23 Temperature 98.2 F Pulse Rate 52 L 52 L Pulse Rate [ From Monitor] Respiratory 20 Rate Blood Pressure 110/37 110/37 O2 Sat by Pulse 95 Oximetry - Labs CBC & Chem 7: 01/04/19 05:34 01/04/19 05:34 Labs: Abnormal lab results 01/04/19 01/04/19 01/05/19 Range/Units 16:25 21:51 07:10 POC Glucose 141 H 115 H 166 H (70-105) 01/05/19 Range/Units 11:32 POC Glucose 157 H (70-105)
[2019-01-05] MEDS: K-DUR PO SCH (16:59)
[2019-01-05] MEDS: DIFLUCAN PO SCH (16:59)
[2019-01-05] MEDS: HALDOL PO SCH (17:00)
[2019-01-05] MEDS: CLOTRIMAZOLE/BETAMETHASONE TP SCH ×2 (17:42→22:34)
[2019-01-05] MEDS: ARICEPT PO SCH (22:33)
[2019-01-06] MEDS: SYNTHROID PO SCH (05:39)
[2019-01-06] MEDS: SODIUM CHLORIDE FLUSH SYRINGE 10 ML IV SCH ×2 (05:39→09:18)
[2019-01-06 05:52] LABS: Basophils % (Auto) 0.7 % (0.0-1.8); Eosinophils # (Auto) 0.3 K/mm3 (0.0-0.4); Eosinophils % (Auto) 5.1 % (0.0-4.3); Hematocrit 25.3 % (30.3-42.9); Lymphocytes # (Auto) 1.5 K/mm3 (1.2-5.4); Lymphocytes % (Auto) 24.7 % (13.4-35.0); Mean Corpuscular HGB Conc 32 % (30-34); Mean Corpuscular Volume 90 fl (79-97); Monocytes # (Auto) 0.6 K/mm3 (0.0-0.8); Monocytes % (Auto) 10.1 % (0.0-7.3); Platelet Count 271 K/mm3 (140-440); Red Cell Distribution Width 15.6 % (13.2-15.2)
[2019-01-06 06:16] LABS: Alanine Aminotransferase 11 units/L (7-56); Albumin 3.4 g/dL (3.9-5); BUN/Creatinine Ratio 24; Blood Urea Nitrogen 12 mg/dL (7-17); Calcium 8.9 mg/dL (8.4-10.2); Hemolysis Index 0
[2019-01-06] MEDS: TYLENOL PO PRN ×3 (06:17→13:55)
[2019-01-06] MEDS: PROzac PO SCH (09:15)
[2019-01-06] MEDS: COLACE PO SCH (09:15)
[2019-01-06] MEDS: DIFLUCAN PO SCH (09:15)
[2019-01-06] MEDS: GLUCOPHAGE XR PO SCH (09:15)
[2019-01-06] MEDS: K-DUR PO SCH (09:15)
[2019-01-06] MEDS: NEURONTIN PO SCH ×2 (09:15→13:55)
[2019-01-06] MEDS: CLOTRIMAZOLE/BETAMETHASONE TP SCH (09:16)
[2019-01-06] MEDS: NACL 0.45% 1000 ML 1,000 ML IV SCH (09:16)
[2019-01-06] MEDS: APRESOLINE PO SCH (09:16)
[2019-01-06] MEDS: ZESTRIL PO SCH (09:17)
[2019-01-06] MEDS: NIZORAL TP SCH (09:17)
[2019-01-06] MEDS: ARIPiprazole PO SCH (09:24)
--- NOTE | 2019-01-06 11:22 | Progress Note ---
Assessment and Plan The patient is a 68-year-old female well known to me present to my office, 12/31/18 in company of her adult daughter c/o or worsening shorntess of breath, and frequent falls, 5x in the past two week. Her daughter states the patient has showed progressive weakness with increasing falls over the past 6 months. Over the past 2 weeks patient has fallen 5 times injuring her head. The patient states it feels as though her feet give him and she feels weak diffusely. Patient denies loss of consciousness during her falls. Patient has complained of headache for the past 2-3 days. The patient received a nerve block in her back this morning pror to coming to my office. On admission to the ER, CT head was unremarkable for any acute event. -Acute on chronic hypoxemic respiratory failure with Shortness of breath Continue with Bronchodilators in antibiotic and iv solumedrol - Frequent falls Fall precaution CT head was unremarkable for any acute event PT eval - Tenia corporis and cruris Ketoconazole 2% crm Oral Fluconazole - COPD execebation Dupplental oxygen brodnchodilatos IV solumderol Iv antibioic - Pain Right ankle X-ray right apical shows intramedullary nail No bony destruction - Hypothyroidism Continue with supplementation with Synthroid - T2 DM Consistent carbohydrates diet Sliding Scale insulin - DVT and GI PPx with lovenox and pepcid - Disposition: Discussed with patient's daughter who wants patient is to be placed in a snf facility as she is no longer capable of taking care of the Patient. Discuissed with pt's nurse. Awaiting insurance approval of placement i ANT - Patient Problems (1) Tinea corporis Current Visit: Yes Status: Acute (2) Closed head injury Current Visit: Yes Status: Acute (3) Frequent falls Current Visit: Yes Status: Acute (4) COPD exacerbation Onset Date: 02/05/15 Current Visit: No Status: Acute (5) Generalized pain Current Visit: No Status: Acute Subjective Date of service: 01/06/19 Principal diagnosis: COPD exacerbation, frequent falls, T2DM, rashesd uner the breast Interval history: Patient seen and examined. Remains afebrile. Shortness of breath improved. No falls since admission. c/o rashes under the breasts and groins. Getting better Objective - Exam Narrative Exam: Constitutional: Well-nourished well-developed. In no distress Head: Normocephalic atraumatic Eyes: Pupils are equal round and reactive to light. Hematoma over the right Nose: No enlarged turbinates, no septal deviation. Mouth: Moist mucous membranes. Neck: Supple no thyromegaly. No bruit. No JVD Heart: Regular rate and rhythm, S1-S2 normal. No rubs murmurs or gallop Lungs: Clear to auscultation bilaterally. no rales or rhonchi Abdomen: Soft, nontender. Bowel sound are present. Extremities: No edema, no cyanosis, no clubbing. Neuro: Alert oriented Oriented x3. No focal sensory or motor deficit. Skin: rashes under the good breasts and armpit Musculoskeletal system: No joint pain or swelling Hematological: No petechia or subcutanous hemorrhages. Immunological: No multiple septic spots on the skin Lymphatic: No generalized lymphadenopathy Psychiatry: Euthymic. Calm. - Constitutional Vitals: Vital Signs - 12hr 01/06/19 01/06/19 01/06/19 01:36 01:58 07:10 Temperature 98.3 F 97.9 F Pulse Rate 57 L 54 L 50 L Respiratory 20 18 Rate Blood Pressure 166/57 126/47 O2 Sat by Pulse 92 96 Oximetry 01/06/19 01/06/19 08:06 10:00 Temperature Pulse Rate 50 L Respiratory Rate Blood Pressure O2 Sat by Pulse 94 Oximetry - Labs CBC & Chem 7: 01/06/19 04:57 01/06/19 04:57 Labs: Abnormal lab results 01/05/19 01/05/19 01/05/19 Range/Units 11:32 16:48 21:14 RBC (3.65-5.03) M/mm3 Hgb (10.1-14.3) gm/dl Hct (30.3-42.9) % RDW (13.2-15.2) % [place] % (Auto) (0.0-7.3) % Eos % (Auto) (0.0-4.3) % Carbon Dioxide (22-30) mmol/L Creatinine (0.7-1.2) mg/dL Glucose (65-100) mg/dL POC Glucose 157 H 109 H 115 H (70-105) Albumin (3.9-5) g/dL 01/06/19 01/06/19 01/06/19 Range/Units 04:57 04:57 07:21 RBC 2.80 L (3.65-5.03) M/mm3 Hgb 8.0 L (10.1-14.3) gm/dl Hct 25.3 L (30.3-42.9) % RDW 15.6 H (13.2-15.2) % [place] % (Auto) 10.1 H (0.0-7.3) % Eos % (Auto) 5.1 H (0.0-4.3) % Carbon Dioxide 34 H (22-30) mmol/L Creatinine 0.5 L (0.7-1.2) mg/dL Glucose 102 H (65-100) mg/dL POC Glucose 112 H (70-105) Albumin 3.4 L (3.9-5) g/dL
[2019-01-06 13:54] VITALS: BP 153/47
== END 2019-01-06 15:15 | DRG 189 ==
LOC: ED 17:37 → 2B-ACE 22:31
PROVIDERS: ADMIT Family Medicine; ATTEND Family Medicine
DX: J96.21 Acute and chronic respiratory failure with hypoxia (principal); J44.1 Chronic obstructive pulmonary disease with (acute) exacerbation; E03.9 Hypothyroidism, unspecified; E11.9 Type 2 diabetes mellitus without complications; M25.571 Pain in right ankle and joints of right foot; B35.4 Tinea corporis; S09.90XA Unspecified injury of head, initial encounter; R29.6 Repeated falls; I11.0 Hypertensive heart disease with heart failure; I50.9 Heart failure, unspecified; M19.90 Unspecified osteoarthritis, unspecified site; G43.909 Migraine, unspecified, not intractable, without status migrainosus; Y93.89 Activity, other specified; Y92.89 Other specified places as the place of occurrence of the external cause; Y99.8 Other external cause status; Z79.899 Other long term (current) drug therapy
CPT/HCPCS: 36415; 70450; 70486; 71045; 72125; 80048; 80053; 82550; 82553; 82962; 83036; 84439; 84443; 84484; 85025; 85610; 85730; 93005; 93010; 94640; 94760; 96374; G0378; A9270-GY; J1885; J7030

== ENCOUNTER 2019-01-08 14:17 | Inpatient (IN) | payer MEDICARE ==
[2019-01-08] MEDS ORDERED: ACETAMINOPHEN 500 MG TAB PO STA (14:35)
[2019-01-08] MEDS ORDERED: ONDANSETRON 4 MG/2 ML INJ IV ONE (14:37)
[2019-01-08] MEDS ORDERED: SODIUM CHLORIDE 0.9% 250ML 250 ML ONE (14:52)
[2019-01-08] MEDS ORDERED: SODIUM CHLORIDE 0.9% 250ML 250 ML IV ONE (14:54)
--- NOTE | 2019-01-08 14:54 | Emergency Department Report ---
ED General Adult HPI - General Chief complaint: Dyspnea/Respdistress Stated complaint: DIFFICULTY BREATHING Time Seen by Provider: 01/08/19 14:51 Source: EMS Mode of arrival: Stretcher Limitations: No Limitations - History of Present Illness Initial comments: 68-year-old female with a history of COPD on home oxygen, diabetes, dementia and anemia presents with the complaint of shortness of breath. Patient was recently discharged from this hospital after having a fall. Patient has been transitioned to a rehabilitation facility where the daughter states that patient noted to be in respiratory distress and had a low-grade temp and EMS was called. Patient currently denies any chest pain. Patient appears in mild respiratory distress. - Related Data Home Medications Medication Instructions Recorded Confirmed Last Taken ARIPiprazole [Abilify TAB] 10 mg PO QAM 12/31/18 12/31/18 Unknown AtorvaSTATin [Lipitor] 40 mg PO QPM 12/31/18 12/31/18 Unknown Buprenorphine [Butrans] 1 each TD Q7D 12/31/18 12/31/18 Unknown Diclofenac 1% topical gel 1 applic TP QID 12/31/18 12/31/18 Unknown FLUoxetine HCL [PROzac] 40 mg PO QAM 12/31/18 12/31/18 Unknown Fluticasone/Umeclidin/Vilanter 1 each IH QAM 12/31/18 12/31/18 Unknown [Trelegy Ellipta 100-62.5-25] Gabapentin [Neurontin] 800 mg PO TID 12/31/18 12/31/18 Unknown Ipratropium/Albuter (Nf) 1 puff IH Q6H PRN 12/31/18 12/31/18 Unknown [Combivent Inhaler] Metformin HCl [Metformin HCl ER] 500 mg PO QAM 12/31/18 12/31/18 Unknown Previous Rx's Medication Instructions Recorded Last Taken Type ALBUTEROL NEB's [Proventil 0.083% 2.5 mg IH Q4HRT PRN nebu 01/04/19 Unknown Rx NEBS] Donepezil [Aricept] 10 mg PO HS tablet 01/04/19 Unknown Rx Haloperidol [Haldol] 5 mg PO QPM tablet 01/04/19 Unknown Rx Ketoconazole 2% [Nizoral] 1 applic TP BID tube 01/04/19 Unknown Rx Levothyroxine [Synthroid] 88 mcg PO QAM@0600 tablet 01/04/19 Unknown Rx Lisinopril [Zestril TAB] 20 mg PO QAM tablet 01/04/19 Unknown Rx Clotrimazole/Betamethasone 1 applic TP BID #60 tube 01/06/19 Unknown Rx Docusate Sodium [Colace CAP] 100 mg PO BID #60 capsule 01/06/19 Unknown Rx fentaNYL [Fentanyl] 1 each TD Q72HR #3 patch.td72 01/06/19 Unknown Rx Allergies Allergy/AdvReac Type Severity Reaction Status Date / Time No Known Allergies Allergy Verified 12/10/12 08:15 ED Review of Systems ROS: Stated complaint: DIFFICULTY BREATHING Other details as noted in HPI Constitutional: denies: chills, fever Eyes: denies: eye pain, eye discharge, vision change ENT: denies: ear pain, throat pain Respiratory: SOB at rest Cardiovascular: denies: chest pain, palpitations Endocrine: no symptoms reported Gastrointestinal: denies: abdominal pain, nausea, diarrhea Genitourinary: denies: urgency, dysuria, discharge Musculoskeletal: denies: back pain, joint swelling, arthralgia Skin: denies: rash, lesions Neurological: denies: headache, weakness, paresthesias Psychiatric: denies: anxiety, depression Hematological/Lymphatic: denies: easy bleeding, easy bruising ED Past Medical Hx - Past Medical History Previous Medical History?: Yes Hx Hypertension: Yes Hx Congestive Heart Failure: Yes Hx Diabetes: Yes Hx Arthritis: Yes Hx Headaches / Migraines: Yes Hx Asthma: No Hx COPD: Yes - Surgical History Past Surgical History?: Yes Additional Surgical History: thyroid surgery. neck surgery - Social History Smoking Status: Unknown if ever smoked Substance Use Type: None - Medications Home Medications: Home Medications Medication Instructions Recorded Confirmed Last Taken Type ARIPiprazole [Abilify TAB] 10 mg PO QAM 12/31/18 12/31/18 Unknown History AtorvaSTATin [Lipitor] 40 mg PO QPM 12/31/18 12/31/18 Unknown History Buprenorphine [Butrans] 1 each TD Q7D 12/31/18 12/31/18 Unknown History Diclofenac 1% topical gel 1 applic TP QID 12/31/18 12/31/18 Unknown History FLUoxetine HCL [PROzac] 40 mg PO QAM 12/31/18 12/31/18 Unknown History Fluticasone/Umeclidin/Vilanter 1 each IH QAM 12/31/18 12/31/18 Unknown History [Trelegy Ellipta 100-62.5-25] Gabapentin [Neurontin] 800 mg PO TID 12/31/18 12/31/18 Unknown History Ipratropium/Albuter (Nf) 1 puff IH Q6H PRN 12/31/18 12/31/18 Unknown History [Combivent Inhaler] Metformin HCl [Metformin HCl ER] 500 mg PO QAM 12/31/18 12/31/18 Unknown History ALBUTEROL NEB's [Proventil 0.083% 2.5 mg IH Q4HRT PRN nebu 01/04/19 Unknown Rx NEBS] Donepezil [Aricept] 10 mg PO HS tablet 01/04/19 Unknown Rx Haloperidol [Haldol] 5 mg PO QPM tablet 01/04/19 Unknown Rx Ketoconazole 2% [Nizoral] 1 applic TP BID tube 01/04/19 Unknown Rx Levothyroxine [Synthroid] 88 mcg PO QAM@0600 tablet 01/04/19 Unknown Rx Lisinopril [Zestril TAB] 20 mg PO QAM tablet 01/04/19 Unknown Rx Clotrimazole/Betamethasone 1 applic TP BID #60 tube 01/06/19 Unknown Rx Docusate Sodium [Colace CAP] 100 mg PO BID #60 capsule 01/06/19 Unknown Rx fentaNYL [Fentanyl] 1 each TD Q72HR #3 patch.td72 01/06/19 Unknown Rx ED Physical Exam - General Limitations: No Limitations General appearance: alert, other (moderate respiratory distress; uncomfortable) - Head Head exam: Present: normocephalic, other (facial bruising noted) - Eye Eye exam: Present: normal appearance - ENT ENT exam: Present: mucous membranes dry - Neck Neck exam: Present: normal inspection - Respiratory Respiratory exam: Present: respiratory distress, wheezes (diffuse) - Cardiovascular Cardiovascular Exam: Present: normal rhythm, tachycardia. Absent: systolic murmur, diastolic murmur, rubs, gallop - GI/Abdominal GI/Abdominal exam: Present: soft, normal bowel sounds. Absent: tenderness - Extremities Exam Extremities exam: Present: normal inspection - Back Exam Back exam: Present: normal inspection - Neurological Exam Neurological exam: Present: alert, oriented X3 - Psychiatric Psychiatric exam: Present: normal affect, normal mood - Skin Skin exam: Present: warm, dry, intact, normal color. Absent: rash ED Course Vital Signs 01/08/19 01/08/19 01/08/19 14:31 15:26 15:28 Temperature 100 F H Pulse Rate 68 64 Pulse Rate [ 67 Anterior Bilateral] Respiratory 20 18 Rate Respiratory 10 L Rate [Anterior Bilateral] Blood Pressure 93/38 Blood Pressure 85/59 [Right] O2 Sat by Pulse 93 95 Oximetry 01/08/19 15:53 Temperature Pulse Rate 72 Pulse Rate [ Anterior Bilateral] Respiratory 16 Rate Respiratory Rate [Anterior Bilateral] Blood Pressure Blood Pressure 100/42 [Right] O2 Sat by Pulse 94 Oximetry - Central Line Placement Left Femoral Consent Obtained: written consent Time Out Performed: Yes Patient Placed on Monitor/Pulse Ox: Yes MD Prep: mask, gown, gloves Central Line Prep: Chlorhexidine scrub, sterile drapes applied Local Anesthesia Used: Lidocaine 1% Amount of Anesthesia Used (mls): 5 Ultrasound Used for Placement: Yes Central Line Lumen Inserted: triple Bloods Obtained for Lab: No Central Line Position: good blood return, all ports aspirated, flus, sutured in place with 2-0 Dressing Applied: Tegaderm Patient Tolerated Procedure: well ED Medical Decision Making - Lab Data Result diagrams: 01/08/19 14:39 01/08/19 14:39 - EKG Data EKG shows normal: sinus rhythm Rate: normal - Differential Diagnosis Arrythmia; Dehydration; Electrolyte Abnormality; COPD exacerbation Critical Care Time: Yes Critical care time in (mins) excluding proc time.: 50 Critical care attestation.: If time is entered above; I have spent that time in minutes in the direct care of this critically ill patient, excluding procedure time. Critical care time includes time spent on physician consultation, bedside care, and physician consultation. ED Disposition Clinical Impression: COPD exacerbation, Acute respiratory failure, Hypotension Disposition: OP ADMIT IP TO THIS HOSP Is pt being admited?: Yes Does the pt Need Aspirin: No Condition: Fair Instructions: Chronic Bronchitis (ED) Time of Disposition: 16:53 Print Language: TAJIK
[2019-01-08] MEDS: SODIUM CHLORIDE 0.9% 500 ML 500 ML IV ONE ×2 (14:55→15:25)
[2019-01-08] MEDS ORDERED: ALBUTEROL 2.5 MG/3 ML NEBU IH ONE (15:00)
[2019-01-08] MEDS ORDERED: IPRATROPIUM 0.02% NEBU 2.5 ML IH ONE (15:00)
[2019-01-08] MEDS ORDERED: methylPREDNISolone Sod Succinate 125 MG/2 ML INJ IV ONE (15:00)
[2019-01-08] MEDS ORDERED: MAGNESIUM SULFATE 2 GM/50 ML BAG IV ONE (15:01)
[2019-01-08 15:02] LABS: Basophils # (Auto) 0.1 K/mm3 (0.0-0.1); Basophils % (Auto) 0.6 % (0.0-1.8); Eosinophils % (Auto) 0.2 % (0.0-4.3); Hematocrit 28.4 % (30.3-42.9); Lymphocytes # (Auto) 1.7 K/mm3 (1.2-5.4); Lymphocytes % (Auto) 19.5 % (13.4-35.0); Mean Corpuscular HGB Conc 32 % (30-34); Mean Corpuscular Volume 90 fl (79-97); Monocytes # (Auto) 0.7 K/mm3 (0.0-0.8); Monocytes % (Auto) 7.8 % (0.0-7.3); Platelet Count 303 K/mm3 (140-440); Red Blood Count 3.17 M/mm3 (3.65-5.03); Red Cell Distribution Width 15.9 % (13.2-15.2)
[2019-01-08] MEDS ORDERED: cefTRIAXone/NS 1 GM/50 ML 1 GM/50 ML BAG IV ONE (15:07)
[2019-01-08 15:12] LABS: INR 1.04 (0.87-1.13)
--- NOTE | 2019-01-08 15:19 | XRay Report ---
CHEST 1 VIEW INDICATION / CLINICAL INFORMATION: possible Sepsis. COMPARISON: None available. FINDINGS: SUPPORT DEVICES: None. HEART / MEDIASTINUM: Stable. LUNGS / PLEURA: No significant pulmonary or pleural abnormality. No pneumothorax. IMPRESSION: 1. No acute finding. Signer Name: Axel Estrada MD Signed: 01/08/2019 3:14 PM Workstation Name: [id number]
[2019-01-08 15:40] LABS: Bilirubin,Urine NEG (Negative); Blood,Urine NEG (Negative); Color,Urine Yellow (Yellow); Mucus,Urine FEW /HPF; Protein,Urine <15 mg/dL mg/dL (Negative); Urobilinogen,Urine < 2.0 mg/dL (<2.0)
[2019-01-08 15:46] LABS: Alanine Aminotransferase 9 units/L (7-56); Albumin 3.7 g/dL (3.9-5); BUN/Creatinine Ratio 16; Blood Urea Nitrogen 14 mg/dL (7-17); Calcium 8.9 mg/dL (8.4-10.2); Hemolysis Index 6
[2019-01-08] MEDS ORDERED: NORepinephrine/NS 4 MG-250 ML 4 MG/250 ML BAG IV ONE (16:23)
[2019-01-08] MEDS: NORepinephrine/NS 4 MG-250 ML 4 MG/250 ML BAG IV SCH ×3 (16:56→23:06)
[2019-01-08] MEDS ORDERED: SODIUM CHLORIDE 0.9% 1000 ML 1,000 ML IV ONE ×2 (17:19→20:00)
[2019-01-08] MEDS ORDERED: SODIUM CHLORIDE 0.9% 1000 ML 1,000 ML ONE (17:22)
[2019-01-08] MEDS ORDERED: fentaNYL 12 MCG/HR PATCH 72HR TD SCH (19:00)
--- NOTE | 2019-01-08 19:57 | History and Physical Report ---
History of Present Illness Date of examination: 01/08/19 Date of admission: 01/08/19 16:54 Chief complaint: Shortness of breath Denies weakness Cough Generalized body pain History of present illness: Covering for Dr. Urrutia Patient seen and examined medical records from the emergency department reviewed. 68-year-old female patient of Dr. Urrutiafor whom Im covering admitted to the emergency department for worsening shortness of breath as well as cough generalized body pain and weakness. The patient was recently admitted to [facility] was started home last by Dr. Urrutia after initial hospitalization for multiple fall shortness of breath and weakness patient was treated and discharged to rehabilitation due to inability to ambulate effectively. Patient [facility] and has been on treatment there but her breathing got progressively worse over the past 24 Hours and was thus referred back to the ER for further evaluation and treatment . Patient has history of COPD hypertension on therapy diabetes and has had multiple hospitalizations over the last year on account of recurrence of COPD. After the time of evaluation patient has ongoing shortness of breath, her blood pressure was also reported to be low in the emergency department for which patient was started on Levophed which is currently maxed out with MAP still low. Patient stated that her shortness of breath has not improved significantly since he was discharged from the hospital 2 days ago, cough is productive and she denied any chest pain, no fever or chills but appetite has been poor and she feels generally weak. Patient is currently on treatment for diabetes level of control is not clear at this time, patient also has history of chronic pain for which she is almost multiple medication including fentanyl. Patient is not very admitted to the intensive care unit for further evaluation and treatment for sepsis as well as exacerbation of COPD and hypertension Past History Past Medical History: COPD, diabetes, heart failure, hypertension Social history: , lives with family Family history: hypertension Medications and Allergies Allergies Allergy/AdvReac Type Severity Reaction Status Date / Time No Known Allergies Allergy Verified 12/10/12 08:15 Home Medications Medication Instructions Recorded Confirmed Last Taken Type ARIPiprazole [Abilify TAB] 10 mg PO QAM 12/31/18 12/31/18 Unknown History AtorvaSTATin [Lipitor] 40 mg PO QPM 12/31/18 12/31/18 Unknown History Buprenorphine [Butrans] 1 each TD Q7D 12/31/18 12/31/18 Unknown History Diclofenac 1% topical gel 1 applic TP QID 12/31/18 12/31/18 Unknown History FLUoxetine HCL [PROzac] 40 mg PO QAM 12/31/18 12/31/18 Unknown History Fluticasone/Umeclidin/Vilanter 1 each IH QAM 12/31/18 12/31/18 Unknown History [Trelegy Ellipta 100-62.5-25] Gabapentin [Neurontin] 800 mg PO TID 12/31/18 12/31/18 Unknown History Ipratropium/Albuter (Nf) 1 puff IH Q6H PRN 12/31/18 12/31/18 Unknown History [Combivent Inhaler] Metformin HCl [Metformin HCl ER] 500 mg PO QAM 12/31/18 12/31/18 Unknown History ALBUTEROL NEB's [Proventil 0.083% 2.5 mg IH Q4HRT PRN nebu 01/04/19 Unknown Rx NEBS] Donepezil [Aricept] 10 mg PO HS tablet 01/04/19 Unknown Rx Haloperidol [Haldol] 5 mg PO QPM tablet 01/04/19 Unknown Rx Ketoconazole 2% [Nizoral] 1 applic TP BID tube 01/04/19 Unknown Rx Levothyroxine [Synthroid] 88 mcg PO QAM@0600 tablet 01/04/19 Unknown Rx Lisinopril [Zestril TAB] 20 mg PO QAM tablet 01/04/19 Unknown Rx Clotrimazole/Betamethasone 1 applic TP BID #60 tube 01/06/19 Unknown Rx Docusate Sodium [Colace CAP] 100 mg PO BID #60 capsule 01/06/19 Unknown Rx Fluticasone/Umeclidin/Vilanter 1 each IH QAM 01/08/19 01/08/19 Unknown History [Trelegy Ellipta 100-62.5-25] HYDROcodone/APAP 5-325 Q8HR PRN 01/08/19 Unknown History Active Meds: Active Medications Fentanyl (Duragesic) mcg TD Q72HR MARKO Fluoxetine HCl (Prozac) 40 mg PO QDAY MARKO Gabapentin (Neurontin) 800 mg PO TID MARKO Haloperidol (Haldol) 5 mg PO QPM MARKO Norepinephrine (Levophed Drip 4 Mg/Ns 250 Ml) 4 mg in 250 mls @ 7.5 mls/hr IV TITR MARKO; Protocol Last Titration: 01/08/19 17:51 Dose: 25 mcg/min, 93.75 mls/hr Documented by: Sodium Chloride (Nacl 0.9% 1000 Ml) 1,000 mls @ 999 mls/hr IV BOLUS ONE Stop: 01/08/19 21:00 Piperacillin Sod/Tazobactam Sod (Zosyn/Ns 3.375gm/50ml) 3.375 gm in 50 mls @ 100 mls/hr IV Q8HR MARKO; Protocol Levothyroxine Sodium (Synthroid) 88 mcg PO QAM@0600 MARKO Review of Systems Constitutional: chills, anorexia, fatigue, weakness, poor appetite, daytime sleepiness, chronic pain Ears, nose, mouth and throat: decreased hearing Cardiovascular: orthopnea, edema, lightheadedness, shortness of breath, high blood pressure, decreased exercise tolerance Respiratory: cough, cough with sputum, shortness of breath, dyspnea on exertion, wheezing Gastrointestinal: nausea Genitourinary Female: urinary frequency, mixed incontinence Musculoskeletal: morning stiffness, limitation of motion, gait dysfunction Integumentary: blisters Neurological: weakness, parathesias, numbness Psychiatric: change in sleep habits, hallucinations, depression, irritability Allergic/Immunologic: wheezing Exam - Physical Exam Narrative exam: GENERAL:[Patient resting comfortably in bed, mild respiratory distress percent on facemask O2 saturation in the lower 90s moderately obese] HEENT: [Head examination showed normocephalic. Patient is not pale, not jaundiced, and not cyanosed.] [Mucous membrane is moist, pharynx is clear, no exudates or hemorrhage. Dentition is normal.] NECK: [Supple. Neck showed good range of motion. There is no adenopathy noted. No jugular venous distention and no thyromegaly.] [Neck auscultation showed no carotid bruit.] CHEST/LUNGS: [Poor air Exchange bilaterally reduced air exchange bibasilarly scattered inspiratory wheeze prolonged expiration.] HEART/CARDIOVASCULAR: [No murmur. Regular rate and rhythm. S1 and S2 only, no S3 gallop, no S4.] ABDOMEN: [Abdomen is soft, nontender. Patient has normal bowel sounds. There is no abdominal distention. Liver and spleen not palpably enlarged.] SKIN: [There is no rash. There is no edema. There is no diaphoresis.] NEURO: [The patient is awake, alert, and oriented. The patient is cooperative. The patient has no focal neurologic deficits. Cranial nerves 2-12 grossly normal, power is 5/5 in all the extremities tested. The patient has normal speech and gait.] MUSCULOSKELETAL: [There is no tenderness or deformity. There is no limitation range of motion. There is no evidence of acute injury.] EXTREMITIES: [No pedal edema, no varicose veins, good peripheral pulses symmetrical and bilaterally, no pretibial edema, no finger or toe clubbing.] - Constitutional Vitals: Temp Pulse Resp BP Pulse Ox 100 F H 68 12 97/58 93 01/08/19 14:31 01/08/19 19:41 01/08/19 19:41 01/08/19 19:41 01/08/19 19:41 Results - Labs CBC & Chem 7: 01/08/19 14:39 01/08/19 14:39 Labs: Abnormal lab results 01/08/19 01/08/19 01/08/19 Range/Units 14:39 14:39 16:55 RBC 3.17 L (3.65-5.03) M/mm3 Hgb 9.0 L (10.1-14.3) gm/dl Hct 28.4 L (30.3-42.9) % RDW 15.9 H (13.2-15.2) % [place] % (Auto) 7.8 H (0.0-7.3) % Seg Neutrophils % 71.9 H (40.0-70.0) % Glucose 140 H (65-100) mg/dL Lactic Acid 2.90 H* (0.7-2.0) mmol/L Albumin 3.7 L (3.9-5) g/dL Assessment and Plan - Patient Problems (1) Sepsis associated hypotension Current Visit: Yes Status: Acute Plan to address problem: Patient currently maxed out on Levophed we'll continue aggressive fluid rehydration had epinephrine IV is blood pressure continued to remain marginal patient was given Rocephin in the emergency room will Zosyn IV monitor input and outputs closely and continue IV fluids (2) Acute respiratory failure Current Visit: Yes Status: Acute Plan to address problem: History of COPD with recurrent COPD exacerbation we'll continue to maximize treatment including steroid has treatments and IV antibiotics (3) COPD exacerbation Onset Date: 02/05/15 Current Visit: Yes Status: Acute Plan to address problem: Continue aerosol treatment and steroids and O2 supplementation. We'll consult pulmonary for management of COPD and acute respiratory failure (4) Hypotension Current Visit: Yes Status: Acute Qualifiers: Hypotension type: other hypotension type Qualified Code(s): I95.89 - Other hypotension Plan to address problem: After potential possibly underlying sepsis protocol tonight. Antibiotics and aggressive fluid resuscitation continue vasopressors as ordered (5) Type 2 diabetes mellitus without complications Current Visit: Yes Status: Acute Plan to address problem: We will hold metformin and start patient on sliding scale coverage with regular insulin with parameters. (6) Essential (primary) hypertension Current Visit: Yes Status: Acute Plan to address problem: Her current blood pressure medications and consider monitor blood pressure until the patient is hemodynamically stable
[2019-01-08] MEDS ORDERED: NON-FORMULARY EACH (Gabapentin [Neurontin] 800 MG) PO SCH (20:00)
[2019-01-08] MEDS: GABAPENTIN 400 MG CAP PO SCH (20:10)
[2019-01-08] MEDS: ALBUTEROL 2.5 MG/3 ML NEBU IH SCH (20:15)
[2019-01-08] MEDS: IPRATROPIUM 0.02% NEBU 2.5 ML IH SCH (20:15)
[2019-01-08] MEDS: methylPREDNISolone Sod Succinate 40 MG/1 ML INJ IV SCH (21:19)
[2019-01-08] MEDS ORDERED: PIPERACILLIN/TAZOBACTAM 3.375 3.375 GM/50 ML BAG IV SCH (22:00)
[2019-01-08] MEDS: PIPERACILLIN/TAZOBACTAM 3.375 3.375 GM/50 ML BAG IV SCH (23:00)
[2019-01-08] MEDS: HALOPERIDOL 5 MG TAB PO SCH (23:13)
[2019-01-09] MEDS: IPRATROPIUM 0.02% NEBU 2.5 ML IH SCH ×4 (01:43→20:15)
[2019-01-09] MEDS: ALBUTEROL 2.5 MG/3 ML NEBU IH SCH ×4 (01:43→20:15)
[2019-01-09 05:25] LABS: Hematocrit 28.4 % (30.3-42.9); Hemoglobin 8.7 gm/dl (10.1-14.3); Mean Corpuscular HGB Conc 31 % (30-34); Mean Corpuscular Volume 91 fl (79-97); Platelet Count 287 K/mm3 (140-440); Red Blood Count 3.12 M/mm3 (3.65-5.03); Red Cell Distribution Width 16.2 % (13.2-15.2)
[2019-01-09] MEDS: LEVOTHYROXINE 88 MCG TAB PO SCH (05:25)
[2019-01-09] MEDS: methylPREDNISolone Sod Succinate 40 MG/1 ML INJ IV SCH ×3 (05:25→21:37)
[2019-01-09] MEDS: PIPERACILLIN/TAZOBACTAM 3.375 3.375 GM/50 ML BAG IV SCH ×3 (05:27→21:37)
[2019-01-09 05:52] LABS: Alanine Aminotransferase 10 units/L (7-56); Albumin 3.8 g/dL (3.9-5); BUN/Creatinine Ratio 21; Blood Urea Nitrogen 19 mg/dL (7-17); Calcium 8.4 mg/dL (8.4-10.2); Hemolysis Index 1
[2019-01-09 06:24] LABS: Basophils % (Manual) 0 % (0.0-1.8); Eosinophils % (Manual) 0 % (0.0-4.3); Total Cells Counted 100
[2019-01-09 06:25] LABS: Anisocytosis 1+; Platelet Estimate Consistent w Auto; Poikilocytosis 1+; Tear Drop Cells Few
--- NOTE | 2019-01-09 07:39 | Progress Note ---
Assessment and Plan - Patient Problems (1) Sepsis associated hypotension Current Visit: Yes Status: Acute Plan to address problem: Clinical improvement with aggressive hydration as well as a suppressor suppressor now discontinued will continue with IV fluid only continue IV antibiotics as ordered. Follow-up pending cultures for additional adjustments in antimicrobials as needed (2) Acute respiratory failure Current Visit: Yes Status: Acute Plan to address problem: Continue O2 supplementation patient currently on BiPAP will continue, IV antibiotics and aerosol treatments and steroids are started (3) COPD exacerbation Onset Date: 02/05/15 Current Visit: Yes Status: Acute Plan to address problem: Continue aerosol treatment and steroids and O2 supplementation. We'll consult pulmonary for management of COPD and acute respiratory failure (4) Hypotension Current Visit: Yes Status: Acute Qualifiers: Hypotension type: other hypotension type Qualified Code(s): I95.89 - Other hypotension Plan to address problem: Hypertension resolved with continued gentle hydration and monitor blood pressures closely as possible (5) Type 2 diabetes mellitus without complications Current Visit: Yes Status: Acute Plan to address problem: We will hold metformin and start patient on sliding scale coverage with regular insulin with parameters. (6) Essential (primary) hypertension Current Visit: Yes Status: Acute Plan to address problem: Her current blood pressure medications and consider monitor blood pressure until the patient is hemodynamically stable Subjective Date of service: 01/09/19 Principal diagnosis: sepsis, exacerbation of COPD Interval history: Patient seen and examined and charts reviewed. Patient feels better, less short of breath no fever reported. Blood pressure more stable and was able to be weaned off vasopressor during the night, still having intermittent drop in O2 saturation and now on BiPAP with improvement in saturation otherwise more hemodynamically stable. Patient complaining of pain in the lower back and the lower extremities Objective - Exam Narrative Exam: GENERAL:[Patient resting comfortably in bed, mild respiratory distress percent on facemask O2 saturation in the lower 90s moderately obese] HEENT: [Head examination showed normocephalic. Patient is not pale, not jaundiced, and not cyanosed.] [Mucous membrane is moist, pharynx is clear, no exudates or hemorrhage. Dentition is normal.] NECK: [Supple. Neck showed good range of motion. There is no adenopathy noted. No jugular venous distention and no thyromegaly.] [Neck auscultation showed no carotid bruit.] CHEST/LUNGS: [Poor air Exchange bilaterally reduced air exchange bibasilarly scattered inspiratory wheeze prolonged expiration.] HEART/CARDIOVASCULAR: [No murmur. Regular rate and rhythm. S1 and S2 only, no S3 gallop, no S4.] ABDOMEN: [Abdomen is soft, nontender. Patient has normal bowel sounds. There is no abdominal distention. Liver and spleen not palpably enlarged.] SKIN: [There is no rash. There is no edema. There is no diaphoresis.] NEURO: [The patient is awake, alert, and oriented. The patient is cooperative. The patient has no focal neurologic deficits. Cranial nerves 2-12 grossly normal, power is 5/5 in all the extremities tested. The patient has normal speech and gait.] MUSCULOSKELETAL: [There is no tenderness or deformity. There is no limitation range of motion. There is no evidence of acute injury.] EXTREMITIES: [No pedal edema, no varicose veins, good peripheral pulses symmet rical and bilaterally, no pretibial edema, no finger or toe clubbing.] - Constitutional Vitals: Vital Signs - 12hr 01/08/19 01/08/19 01/08/19 19:41 19:51 20:00 Temperature 98.7 F Pulse Rate 68 69 Pulse Rate [ Anterior Bilateral] Pulse Rate [ From Monitor] Respiratory 12 12 Rate Respiratory Rate [Anterior Bilateral] Blood Pressure 97/58 97/58 O2 Sat by Pulse 93 95 Oximetry 01/08/19 01/08/19 01/08/19 20:01 20:11 20:21 Temperature Pulse Rate 68 63 63 Pulse Rate [ Anterior Bilateral] Pulse Rate [ From Monitor] Respiratory 13 13 21 Rate Respiratory Rate [Anterior Bilateral] Blood Pressure 93/62 93/62 93/62 O2 Sat by Pulse 98 97 98 Oximetry 01/08/19 01/08/19 01/08/19 20:31 20:32 20:41 Temperature Pulse Rate 65 65 Pulse Rate [ Anterior Bilateral] Pulse Rate [ 63 From Monitor] Respiratory 15 16 Rate Respiratory Rate [Anterior Bilateral] Blood Pressure 93/62 123/62 O2 Sat by Pulse 99 95 100 Oximetry 01/08/19 01/08/19 01/08/19 20:51 21:01 21:10 Temperature Pulse Rate 65 65 61 Pulse Rate [ Anterior Bilateral] Pulse Rate [ From Monitor] Respiratory 17 14 17 Rate Respiratory Rate [Anterior Bilateral] Blood Pressure 142/81 138/56 O2 Sat by Pulse 95 97 98 Oximetry 01/08/19 01/08/19 01/08/19 21:20 21:31 21:41 Temperature Pulse Rate 64 72 66 Pulse Rate [ Anterior Bilateral] Pulse Rate [ From Monitor] Respiratory 15 19 22 Rate Respiratory Rate [Anterior Bilateral] Blood Pressure 130/43 103/56 130/43 O2 Sat by Pulse 96 97 94 Oximetry 01/08/19 01/08/19 01/08/19 21:51 22:00 22:01 Temperature Pulse Rate 66 94 H 65 Pulse Rate [ Anterior Bilateral] Pulse Rate [ From Monitor] Respiratory 16 17 Rate Respiratory Rate [Anterior Bilateral] Blood Pressure 120/52 109/58 O2 Sat by Pulse 91 100 Oximetry 01/08/19 01/08/19 01/08/19 22:11 22:21 22:31 Temperature Pulse Rate 69 73 74 Pulse Rate [ Anterior Bilateral] Pulse Rate [ From Monitor] Respiratory 23 20 20 Rate Respiratory Rate [Anterior Bilateral] Blood Pressure 109/58 113/41 139/62 O2 Sat by Pulse 93 91 93 Oximetry 01/08/19 01/08/19 01/08/19 22:32 22:41 22:51 Temperature Pulse Rate 75 67 Pulse Rate [ Anterior Bilateral] Pulse Rate [ 63 From Monitor] Respiratory 21 13 Rate Respiratory Rate [Anterior Bilateral] Blood Pressure 139/62 147/51 O2 Sat by Pulse 95 91 95 Oximetry 01/08/19 01/08/19 01/08/19 23:01 23:11 23:21 Temperature Pulse Rate 75 63 65 Pulse Rate [ Anterior Bilateral] Pulse Rate [ From Monitor] Respiratory 37 H 9 L 10 L Rate Respiratory Rate [Anterior Bilateral] Blood Pressure 143/58 143/58 104/36 O2 Sat by Pulse 86 96 98 Oximetry 01/08/19 01/08/19 01/08/19 23:31 23:34 23:41 Temperature Pulse Rate 66 63 62 Pulse Rate [ Anterior Bilateral] Pulse Rate [ From Monitor] Respiratory 11 L 17 20 Rate Respiratory Rate [Anterior Bilateral] Blood Pressure 116/99 116/99 116/99 O2 Sat by Pulse 83 L 93 97 Oximetry 01/08/19 01/08/19 01/08/19 23:48 23:51 23:52 Temperature 98.2 F Pulse Rate 63 60 62 Pulse Rate [ Anterior Bilateral] Pulse Rate [ From Monitor] Respiratory 18 17 16 Rate Respiratory Rate [Anterior Bilateral] Blood Pressure 116/99 116/99 116/99 O2 Sat by Pulse 90 91 90 Oximetry 01/09/19 01/09/19 01/09/19 00:00 00:11 00:21 Temperature Pulse Rate 62 63 59 L Pulse Rate [ Anterior Bilateral] Pulse Rate [ 63 From Monitor] Respiratory 18 18 16 Rate Respiratory Rate [Anterior Bilateral] Blood Pressure 132/55 132/55 132/55 O2 Sat by Pulse 91 89 88 Oximetry 01/09/19 01/09/19 01/09/19 00:31 00:41 00:51 Temperature Pulse Rate 65 62 62 Pulse Rate [ Anterior Bilateral] Pulse Rate [ From Monitor] Respiratory 15 13 13 Rate Respiratory Rate [Anterior Bilateral] Blood Pressure 99/30 99/30 99/30 O2 Sat by Pulse 97 96 97 Oximetry 01/09/19 01/09/19 01/09/19 01:00 01:11 01:21 Temperature Pulse Rate 62 58 L 59 L Pulse Rate [ Anterior Bilateral] Pulse Rate [ From Monitor] Respiratory 14 11 L 13 Rate Respiratory Rate [Anterior Bilateral] Blood Pressure 99/30 120/51 120/51 O2 Sat by Pulse 97 97 96 Oximetry 01/09/19 01/09/19 01/09/19 01:31 01:41 01:51 Temperature Pulse Rate 61 60 59 L Pulse Rate [ Anterior Bilateral] Pulse Rate [ From Monitor] Respiratory 13 12 14 Rate Respiratory Rate [Anterior Bilateral] Blood Pressure 109/39 109/39 120/51 O2 Sat by Pulse 96 100 93 Oximetry 01/09/19 01/09/19 01/09/19 02:00 02:03 02:04 Temperature Pulse Rate 59 L Pulse Rate [ 80 Anterior Bilateral] Pulse Rate [ From Monitor] Respiratory 13 Rate Respiratory 20 Rate [Anterior Bilateral] Blood Pressure 130/60 O2 Sat by Pulse 97 96 Oximetry 01/09/19 01/09/19 01/09/19 02:11 02:21 02:31 Temperature Pulse Rate 61 61 59 L Pulse Rate [ Anterior Bilateral] Pulse Rate [ From Monitor] Respiratory 19 17 25 H Rate Respiratory Rate [Anterior Bilateral] Blood Pressure 130/60 130/60 112/46 O2 Sat by Pulse 79 L 89 89 Oximetry 01/09/19 01/09/19 01/09/19 02:41 02:51 03:00 Temperature Pulse Rate 58 L 60 63 Pulse Rate [ Anterior Bilateral] Pulse Rate [ From Monitor] Respiratory 16 17 15 Rate Respiratory Rate [Anterior Bilateral] Blood Pressure 112/46 112/46 107/47 O2 Sat by Pulse 90 87 89 Oximetry 01/09/19 01/09/19 01/09/19 03:11 03:21 03:31 Temperature Pulse Rate 62 66 62 Pulse Rate [ Anterior Bilateral] Pulse Rate [ From Monitor] Respiratory 14 14 15 Rate Respiratory Rate [Anterior Bilateral] Blood Pressure 107/47 107/47 124/49 O2 Sat by Pulse 84 85 87 Oximetry 01/09/19 01/09/19 01/09/19 03:40 03:41 03:51 Temperature Pulse Rate 58 L 56 L Pulse Rate [ Anterior Bilateral] Pulse Rate [ From Monitor] Respiratory 16 15 Rate Respiratory Rate [Anterior Bilateral] Blood Pressure 124/49 124/49 O2 Sat by Pulse 92 90 87 Oximetry 01/09/19 01/09/19 01/09/19 04:00 04:01 04:11 Temperature 98.9 F Pulse Rate 57 L 56 L Pulse Rate [ Anterior Bilateral] Pulse Rate [ 57 L From Monitor] Respiratory 15 15 Rate Respiratory Rate [Anterior Bilateral] Blood Pressure 140/53 140/53 O2 Sat by Pulse 95 86 89 Oximetry 01/09/19 01/09/19 01/09/19 04:20 04:21 04:41 Temperature Pulse Rate 58 L 52 L Pulse Rate [ Anterior Bilateral] Pulse Rate [ From Monitor] Respiratory 15 12 Rate Respiratory Rate [Anterior Bilateral] Blood Pressure 140/53 152/59 O2 Sat by Pulse 84 87 92 Oximetry 01/09/19 01/09/19 01/09/19 04:46 05:50 06:00 Temperature Pulse Rate 56 L 55 L 57 L Pulse Rate [ Anterior Bilateral] Pulse Rate [ From Monitor] Respiratory 18 Rate Respiratory Rate [Anterior Bilateral] Blood Pressure 135/55 O2 Sat by Pulse 94 Oximetry - Labs CBC & Chem 7: 01/09/19 04:52 01/09/19 04:52 Labs: Abnormal lab results 01/08/19 01/08/19 01/08/19 Range/Units 14:39 14:39 16:55 RBC 3.17 L (3.65-5.03) M/mm3 Hgb 9.0 L (10.1-14.3) gm/dl Hct 28.4 L (30.3-42.9) % RDW 15.9 H (13.2-15.2) % [place] % (Auto) 7.8 H (0.0-7.3) % Seg Neutrophils % 71.9 H (40.0-70.0) % Seg Neuts % (Manual) (40.0-70.0) % Lymphocytes % (Manual) (13.4-35.0) % Seg Neutrophils # Man (1.8-7.7) K/mm3 Lymphocytes # (Manual) (1.2-5.4) K/mm3 POC ABG pH (7.35-7.45) POC ABG pCO2 (35-45) POC ABG pO2 (80-105) BUN (7-17) mg/dL Glucose 140 H (65-100) mg/dL POC Glucose (70-105) Lactic Acid 2.90 H* (0.7-2.0) mmol/L Albumin 3.7 L (3.9-5) g/dL 01/08/19 01/08/19 01/08/19 Range/Units 19:34 21:15 23:37 RBC (3.65-5.03) M/mm3 Hgb (10.1-14.3) gm/dl Hct (30.3-42.9) % RDW (13.2-15.2) % [place] % (Auto) (0.0-7.3) % Seg Neutrophils % (40.0-70.0) % Seg Neuts % (Manual) (40.0-70.0) % Lymphocytes % (Manual) (13.4-35.0) % Seg Neutrophils # Man (1.8-7.7) K/mm3 Lymphocytes # (Manual) (1.2-5.4) K/mm3 POC ABG pH (7.35-7.45) POC ABG pCO2 (35-45) POC ABG pO2 (80-105) BUN (7-17) mg/dL Glucose (65-100) mg/dL POC Glucose 224 H (70-105) Lactic Acid 3.50 H* 3.80 H* (0.7-2.0) mmol/L Albumin (3.9-5) g/dL 01/09/19 01/09/19 01/09/19 Range/Units 04:52 04:52 05:23 RBC 3.12 L (3.65-5.03) M/mm3 Hgb 8.7 L (10.1-14.3) gm/dl Hct 28.4 L (30.3-42.9) % RDW 16.2 H (13.2-15.2) % [place] % (Auto) (0.0-7.3) % Seg Neutrophils % (40.0-70.0) % Seg Neuts % (Manual) 95.0 H (40.0-70.0) % Lymphocytes % (Manual) 4.0 L (13.4-35.0) % Seg Neutrophils # Man 8.9 H (1.8-7.7) K/mm3 Lymphocytes # (Manual) 0.4 L (1.2-5.4) K/mm3 POC ABG pH 7.278 L (7.35-7.45) POC ABG pCO2 67.9 H (35-45) POC ABG pO2 73 L (80-105) BUN 19 H (7-17) mg/dL Glucose 173 H (65-100) mg/dL POC Glucose (70-105) Lactic Acid (0.7-2.0) mmol/L Albumin 3.8 L (3.9-5) g/dL 01/09/19 Range/Units 05:37 RBC (3.65-5.03) M/mm3 Hgb (10.1-14.3) gm/dl Hct (30.3-42.9) % RDW (13.2-15.2) % [place] % (Auto) (0.0-7.3) % Seg Neutrophils % (40.0-70.0) % Seg Neuts % (Manual) (40.0-70.0) % Lymphocytes % (Manual) (13.4-35.0) % Seg Neutrophils # Man (1.8-7.7) K/mm3 Lymphocytes # (Manual) (1.2-5.4) K/mm3 POC ABG pH (7.35-7.45) POC ABG pCO2 (35-45) POC ABG pO2 (80-105) BUN (7-17) mg/dL Glucose (65-100) mg/dL POC Glucose 177 H (70-105) Lactic Acid (0.7-2.0) mmol/L Albumin (3.9-5) g/dL
[2019-01-09] MEDS: GABAPENTIN 400 MG CAP PO SCH ×3 (08:00→20:17)
[2019-01-09] MEDS ORDERED: DEXTROSE 50% IN WATER (25GM) 50 ML SYRINGE IV PRN ×2 (08:00→19:18)
[2019-01-09] MEDS: FLUoxetine 20 MG CAP PO SCH (09:20)
[2019-01-09] MEDS: SODIUM CHLORIDE 0.9% 1000 ML 1,000 ML IV SCH ×2 (09:21→21:36)
[2019-01-09] MEDS ORDERED: NON-FORMULARY EACH (Fluoxetine Hcl [Prozac] 40 MG) PO SCH (10:00)
[2019-01-09] MEDS: ACETAMINOPHEN 325 MG TAB PO PRN ×3 (12:00→23:19)
--- NOTE | 2019-01-09 14:55 | Consultation ---
History of Present Illness Reason for consult: dyspnea, COPD History of present illness: This is an elderly WF with hx of copd who comes in with sob and cough. In the er she was noted to be in distress and hypoxic. She has been treated w neb tx, high flow o2 and Bipap. She reports that she is feeling better. She still has a cough productive of thick yellow to green sputum. She also was noted to be hypotensive and was started on pressors with improvement of MAP She has just been recently dc to rehab after a recent hospitalization for weakness. Her son has gotten progressively worse since her admission to rehab She has had multiple hospitalizations in the past year for copd exacerbation Past History Past Medical History: COPD, diabetes, heart failure, hypertension Past Surgical History: No surgical history Social history: , lives with family, other (presently in rehab, hx of tobacco abuse) Family history: hypertension Medications and Allergies Allergies Allergy/AdvReac Type Severity Reaction Status Date / Time No Known Allergies Allergy Verified 12/10/12 08:15 Home Medications Medication Instructions Recorded Confirmed Last Taken Type ARIPiprazole [Abilify TAB] 10 mg PO QAM 12/31/18 01/08/19 Unknown History AtorvaSTATin [Lipitor] 40 mg PO QPM 12/31/18 01/08/19 Unknown History Buprenorphine [Butrans] 1 each TD Q7D 12/31/18 01/08/19 Unknown History Diclofenac 1% topical gel 1 applic TP QID 12/31/18 01/08/19 Unknown History FLUoxetine HCL [PROzac] 40 mg PO QAM 12/31/18 01/08/19 Unknown History Fluticasone/Umeclidin/Vilanter 1 each IH QAM 12/31/18 01/09/19 Unknown History [Trelegy Ellipta 100-62.5-25] Gabapentin [Neurontin] 800 mg PO TID 12/31/18 01/08/19 Unknown History Ipratropium/Albuter (Nf) 1 puff IH Q6H PRN 12/31/18 01/08/19 Unknown History [Combivent Inhaler] Metformin HCl [Metformin HCl ER] 500 mg PO QAM 12/31/18 01/08/19 Unknown History ALBUTEROL NEB's [Proventil 0.083% 2.5 mg IH Q4HRT PRN nebu 01/04/19 01/08/19 Unknown Rx NEBS] Donepezil [Aricept] 10 mg PO HS tablet 01/04/19 01/08/19 Unknown Rx Haloperidol [Haldol] 5 mg PO QPM tablet 01/04/19 01/08/19 Unknown Rx Ketoconazole 2% [Nizoral] 1 applic TP BID tube 01/04/19 01/09/19 Unknown Rx Levothyroxine [Synthroid] 88 mcg PO QAM@0600 tablet 01/04/19 01/08/19 Unknown Rx Lisinopril [Zestril TAB] 20 mg PO QAM tablet 01/04/19 01/08/19 Unknown Rx Clotrimazole/Betamethasone 1 applic TP BID #60 tube 01/06/19 01/09/19 Unknown Rx Docusate Sodium [Colace CAP] 100 mg PO BID #60 capsule 01/06/19 01/09/19 Unknown Rx Fluticasone/Umeclidin/Vilanter 1 each IH QAM 01/08/19 01/08/19 Unknown History [Trelegy Ellipta 100-62.5-25] HYDROcodone/APAP 5-325 5 mg PO Q8HR PRN 01/08/19 01/09/19 Unknown History Active Meds: Active Medications Acetaminophen (Tylenol) 650 mg PO Q6H PRN PRN Reason: Pain, Mild (1-3) Last Admin: 01/09/19 12:00 Dose: 650 mg Documented by: Albuterol (Proventil) 2.5 mg IH Q6HRT [facility] Last Admin: 01/09/19 14:38 Dose: 2.5 mg Documented by: Dextrose (D50w (25gm) Syringe) 50 ml IV Q30MIN PRN PRN Reason: Hypoglycemia Fluoxetine HCl (Prozac) 40 mg PO QDAY [facility] Last Admin: 01/09/19 09:20 Dose: 40 mg Documented by: Gabapentin (Neurontin) 800 mg PO TID [facility] Last Admin: 01/09/19 08:00 Dose: 800 mg Documented by: Haloperidol (Haldol) 5 mg PO QPM [facility] Last Admin: 01/08/19 23:13 Dose: 5 mg Documented by: Norepinephrine (Levophed Drip 4 Mg/Ns 250 Ml) 4 mg in 250 mls @ 7.5 mls/hr IV TITR [facility]; Protocol Last Titration: 01/08/19 23:17 Dose: 0 mcg/min, 0 mls/hr Documented by: Piperacillin Sod/Tazobactam Sod (Zosyn/Ns 3.375gm/50ml) 3.375 gm in 50 mls @ 100 mls/hr IV Q8HR [facility]; Protocol Last Infusion: 01/09/19 06:00 Dose: Infused Documented by: Sodium Chloride (Nacl 0.9% 1000 Ml) 1,000 mls @ 75 mls/hr IV DIRECT [facility] Last Admin: 01/09/19 09:21 Dose: 75 mls/hr Documented by: Ipratropium [place] (Atrovent) 0.5 mg IH Q6HRT [facility] Last Admin: 01/09/19 14:38 Dose: 0.5 mg Documented by: Levothyroxine Sodium (Synthroid) 88 mcg PO QAM@0600 [facility] Last Admin: 01/09/19 05:25 Dose: 88 mcg Documented by: Methylprednisolone Sodium Succinate (Solu-Medrol) 60 mg IV Q8HR [facility] Last Admin: 01/09/19 05:25 Dose: 60 mg Documented by: Review of Systems Constitutional: poor appetite Ears, nose, mouth and throat: nasal congestion, nasal discharge Breasts: deferred Respiratory: cough with sputum, excessive sputum, shortness of breath, dyspnea on exertion, congestion, wheezing, respiratory infections Musculoskeletal: muscle weakness, frequent falls Allergic/Immunologic: wheezing Physical Examination Vital signs: Vital Signs Pulse Ox 92 01/08/19 14:24 General appearance: alert (mild distress on hi yolanda 50%), other Eyes: non-icteric ENT: oropharynx moist, other (adentulous) Neck: supple Effort: normal Ascultation: Bilateral: wheezes Tactile fremitus: Bilateral: normal Cardiovascular: regular rate and rhythm Gastrointestinal: normoactive bowel sounds, soft, non-tender, non-distended Integumentary: normal Extremities: no cyanosis, no edema Musculoskeletal: no deformities normal mental status, non-focal exam mood appropriate, affect normal Results - Laboratory Findings CBC and BMP: 01/09/19 04:52 01/09/19 04:52 ABG POC ABG pH 7.278 (7.35-7.45) L 01/09/19 05:23 POC ABG pCO2 67.9 (35-45) H 01/09/19 05:23 POC ABG pO2 73 (80-105) L 01/09/19 05:23 POC ABG HCO3 31.7 (22-26 mml/L) 01/09/19 05:23 POC ABG Total CO2 34 (23-27mmol/L) 01/09/19 05:23 POC ABG O2 Sat 91 01/09/19 05:23 PT/INR, D-dimer PT 13.3 Sec. (12.2-14.9) 01/08/19 14:39 INR 1.04 (0.87-1.13) 01/08/19 14:39 Abnormal lab findings: Abnormal Labs 01/08/19 01/08/19 01/08/19 14:39 14:39 16:55 RBC 3.17 L Hgb 9.0 L Hct 28.4 L RDW 15.9 H [place] % (Auto) 7.8 H Seg Neutrophils % 71.9 H Seg Neuts % (Manual) Lymphocytes % (Manual) Seg Neutrophils # Man Lymphocytes # (Manual) POC ABG pH POC ABG pCO2 POC ABG pO2 BUN Glucose 140 H POC Glucose Lactic Acid 2.90 H* Albumin 3.7 L 01/08/19 01/08/19 01/08/19 19:34 21:15 23:37 RBC Hgb Hct RDW [place] % (Auto) Seg Neutrophils % Seg Neuts % (Manual) Lymphocytes % (Manual) Seg Neutrophils # Man Lymphocytes # (Manual) POC ABG pH POC ABG pCO2 POC ABG pO2 BUN Glucose POC Glucose 224 H Lactic Acid 3.50 H* 3.80 H* Albumin 01/09/19 01/09/19 01/09/19 04:52 04:52 05:23 RBC 3.12 L Hgb 8.7 L Hct 28.4 L RDW 16.2 H [place] % (Auto) Seg Neutrophils % Seg Neuts % (Manual) 95.0 H Lymphocytes % (Manual) 4.0 L Seg Neutrophils # Man 8.9 H Lymphocytes # (Manual) 0.4 L POC ABG pH 7.278 L POC ABG pCO2 67.9 H POC ABG pO2 73 L BUN 19 H Glucose 173 H POC Glucose Lactic Acid Albumin 3.8 L 01/09/19 01/09/19 05:37 12:01 RBC Hgb Hct RDW [place] % (Auto) Seg Neutrophils % Seg Neuts % (Manual) Lymphocytes % (Manual) Seg Neutrophils # Man Lymphocytes # (Manual) POC ABG pH POC ABG pCO2 POC ABG pO2 BUN Glucose POC Glucose 177 H 186 H Lactic Acid Albumin - Diagnostic Findings Chest x-ray: report reviewed Assessment and Plan - Patient Problems (1) Acute respiratory failure Current Visit: Yes Status: Acute (2) COPD exacerbation Onset Date: 02/05/15 Current Visit: Yes Status: Acute (3) Essential (primary) hypertension Current Visit: Yes Status: Acute (4) Hypotension Current Visit: Yes Status: Acute Qualifiers: Hypotension type: other hypotension type Qualified Code(s): I95.89 - Other hypotension (5) Sepsis associated hypotension Current Visit: Yes Status: Acute (6) Type 2 diabetes mellitus without complications Current Visit: Yes Status: Acute (7) Frequent falls Current Visit: No Status: Acute (8) Obesity (BMI 30-39.9) Onset Date: 02/05/15 Current Visit: No Status: Acute (9) Sepsis Current Visit: No Status: Acute Qualifiers: Sepsis type: sepsis due to unspecified organism Qualified Code(s): A41.9 - Sepsis, unspecified organism (10) COPD (chronic obstructive pulmonary disease) Current Visit: No Status: Chronic (11) Dementia Current Visit: No Status: Chronic
[2019-01-09] MEDS: HALOPERIDOL 5 MG TAB PO SCH (17:47)
[2019-01-09] MEDS: INSULIN LISPRO 100 UNIT/ML SUB-Q SCH (23:14)
[2019-01-10] MEDS: IPRATROPIUM 0.02% NEBU 2.5 ML IH SCH ×4 (01:43→21:28)
[2019-01-10] MEDS: ALBUTEROL 2.5 MG/3 ML NEBU IH SCH ×4 (01:43→21:28)
[2019-01-10] MEDS: methylPREDNISolone Sod Succinate 40 MG/1 ML INJ IV SCH ×3 (05:54→21:54)
[2019-01-10] MEDS: LEVOTHYROXINE 88 MCG TAB PO SCH (05:55)
[2019-01-10] MEDS: PIPERACILLIN/TAZOBACTAM 3.375 3.375 GM/50 ML BAG IV SCH ×3 (05:55→21:54)
[2019-01-10] MEDS: ACETAMINOPHEN 325 MG TAB PO PRN ×3 (07:00→20:51)
[2019-01-10] MEDS: INSULIN LISPRO 100 UNIT/ML SUB-Q SCH ×4 (07:30→22:17)
[2019-01-10] MEDS: GABAPENTIN 400 MG CAP PO SCH ×3 (08:00→21:53)
--- NOTE | 2019-01-10 09:34 | Progress Note ---
Assessment and Plan Patient seen and examined medical records from the emergency department reviewed. 68-year-old female patient admitted to the emergency department for worsening shortness of breath as well as cough generalized body pain and weakness. The patient was admitteed to admitted to [facility] and has been on treatment there but her breathing got progressively worse over the past 24 Hours and was thus referred back to the ER for further evaluation and treatment . Patient has history of COPD hypertension on therapy diabetes and has had multiple hospitalizations over the last year on account of recurrence of COPD. After the time of evaluation patient has ongoing shortness of breath, her blood pressure was also reported to be low in the emergency department for which patient was started on Levophed which is currently maxed out with MAP still low. Patient stated that her shortness of breath has not improved significantly s anders he was discharged from the hospital 2 days ago, cough is productive and she denied any chest pain, no fever or chills but appetite has been poor and she feels generally weak. - Sepsis associated hypotension Has Leukocytosis with initial elevated lactic acid level Hypotension improved with iv hydration, pressors now discontinued Continue IV antibiotics as ordered. Blood culture no growth so far. - Acute respiratory failure Supplemental oxygen and Bronchodilator Continue O2 supplementation patient currently on BiPAP will continue, IV antibiotics and aerosol treatments and steroids are started Pulmonology has been consulted from admission and seeing the patient. - COPD exacerbation Continue aerosol treatment and steroids and O2 supplementation. IV antibiotics We'll consult pulmonary for management of COPD and acute respiratory failure - Hypotension - resolved Hypotension resolved with continued gentle hydration. monitor blood pressures closely as possible - Type 2 diabetes mellitus without complications We will hold metformin and start patient on sliding scale coverage with regular insulin with parameters. - Essential (primary) hypertension Her current blood pressure medications and consider monitor blood pressure until the patient is hemodynamically stable - DVT prophylaxis with Lovenox and GI with Pepcid Critical care time: 32 minutes Subjective Date of service: 01/10/19 Principal diagnosis: sepsis, exacerbation of COPD Interval history: Pt seen and examined. C/o pain and want pain meds. No longer on pressors. Afebrile Objective - Constitutional Vitals: Vital Signs - 12hr 01/09/19 01/09/19 01/09/19 21:41 21:51 22:00 Temperature Pulse Rate 59 L 71 58 L Pulse Rate [ Anterior Bilateral] Pulse Rate [ From Monitor] Respiratory 17 14 Rate Respiratory Rate [Anterior Bilateral] Blood Pressure 127/43 127/43 O2 Sat by Pulse 88 78 L Oximetry 01/09/19 01/09/19 01/09/19 22:01 22:11 22:21 Temperature Pulse Rate 57 L 60 56 L Pulse Rate [ Anterior Bilateral] Pulse Rate [ From Monitor] Respiratory 21 14 19 Rate Respiratory Rate [Anterior Bilateral] Blood Pressure 127/34 127/34 127/34 O2 Sat by Pulse 89 91 92 Oximetry 01/09/19 01/09/19 01/09/19 22:31 22:41 22:51 Temperature Pulse Rate 57 L 56 L 57 L Pulse Rate [ Anterior Bilateral] Pulse Rate [ From Monitor] Respiratory 19 16 15 Rate Respiratory Rate [Anterior Bilateral] Blood Pressure 118/43 127/34 127/34 O2 Sat by Pulse 91 90 90 Oximetry 01/09/19 01/09/19 01/09/19 23:01 23:11 23:21 Temperature Pulse Rate 58 L 61 62 Pulse Rate [ Anterior Bilateral] Pulse Rate [ From Monitor] Respiratory 16 17 16 Rate Respiratory Rate [Anterior Bilateral] Blood Pressure 118/43 118/43 118/43 O2 Sat by Pulse 93 87 91 Oximetry 01/09/19 01/09/19 01/09/19 23:31 23:41 23:51 Temperature Pulse Rate 57 L 57 L 58 L Pulse Rate [ Anterior Bilateral] Pulse Rate [ From Monitor] Respiratory 15 15 16 Rate Respiratory Rate [Anterior Bilateral] Blood Pressure 123/46 118/43 118/43 O2 Sat by Pulse 90 90 88 Oximetry 01/10/19 01/10/19 01/10/19 00:00 00:01 00:11 Temperature 98.8 F Pulse Rate 58 L 58 L Pulse Rate [ Anterior Bilateral] Pulse Rate [ 60 From Monitor] Respiratory 16 20 Rate Respiratory Rate [Anterior Bilateral] Blood Pressure 133/39 133/39 O2 Sat by Pulse 95 91 86 Oximetry 01/10/19 01/10/19 01/10/19 00:20 00:31 00:41 Temperature Pulse Rate 59 L 57 L 60 Pulse Rate [ Anterior Bilateral] Pulse Rate [ From Monitor] Respiratory 20 22 20 Rate Respiratory Rate [Anterior Bilateral] Blood Pressure 133/39 131/37 133/39 O2 Sat by Pulse 87 90 85 Oximetry 01/10/19 01/10/19 01/10/19 00:51 01:01 01:11 Temperature Pulse Rate 61 55 L 59 L Pulse Rate [ Anterior Bilateral] Pulse Rate [ From Monitor] Respiratory 13 17 20 Rate Respiratory Rate [Anterior Bilateral] Blood Pressure 133/39 133/39 133/39 O2 Sat by Pulse 89 88 86 Oximetry 01/10/19 01/10/19 01/10/19 01:21 01:30 01:41 Temperature Pulse Rate 58 L 57 L 57 L Pulse Rate [ Anterior Bilateral] Pulse Rate [ From Monitor] Respiratory 19 21 21 Rate Respiratory Rate [Anterior Bilateral] Blood Pressure 133/39 133/39 150/49 O2 Sat by Pulse 90 93 90 Oximetry 01/10/19 01/10/19 01/10/19 01:43 01:51 02:01 Temperature Pulse Rate 56 L 55 L Pulse Rate [ 54 L Anterior Bilateral] Pulse Rate [ From Monitor] Respiratory 17 18 Rate Respiratory 19 Rate [Anterior Bilateral] Blood Pressure 150/49 118/46 O2 Sat by Pulse 98 96 Oximetry 01/10/19 01/10/19 01/10/19 02:02 02:11 02:21 Temperature Pulse Rate 54 L 56 L 54 L Pulse Rate [ Anterior Bilateral] Pulse Rate [ From Monitor] Respiratory 16 19 18 Rate Respiratory Rate [Anterior Bilateral] Blood Pressure 118/46 118/46 150/49 O2 Sat by Pulse 97 96 98 Oximetry 01/10/19 01/10/19 01/10/19 02:31 02:41 02:51 Temperature Pulse Rate 57 L 55 L 56 L Pulse Rate [ Anterior Bilateral] Pulse Rate [ From Monitor] Respiratory 18 19 17 Rate Respiratory Rate [Anterior Bilateral] Blood Pressure 150/49 119/50 118/46 O2 Sat by Pulse 97 99 96 Oximetry 01/10/19 01/10/19 01/10/19 03:01 03:11 03:21 Temperature Pulse Rate 54 L 53 L 55 L Pulse Rate [ Anterior Bilateral] Pulse Rate [ From Monitor] Respiratory 18 16 16 Rate Respiratory Rate [Anterior Bilateral] Blood Pressure 155/57 155/57 155/57 O2 Sat by Pulse 96 88 97 Oximetry 01/10/19 01/10/19 01/10/19 03:31 03:41 03:51 Temperature Pulse Rate 59 L 60 59 L Pulse Rate [ Anterior Bilateral] Pulse Rate [ From Monitor] Respiratory 14 14 15 Rate Respiratory Rate [Anterior Bilateral] Blood Pressure 147/48 147/48 147/48 O2 Sat by Pulse 95 96 91 Oximetry 01/10/19 01/10/19 01/10/19 03:58 04:00 04:01 Temperature 98.7 F Pulse Rate 57 L 56 L Pulse Rate [ Anterior Bilateral] Pulse Rate [ 51 L From Monitor] Respiratory 16 16 Rate Respiratory Rate [Anterior Bilateral] Blood Pressure 147/48 143/41 O2 Sat by Pulse 96 98 100 Oximetry 01/10/19 01/10/19 01/10/19 04:11 06:00 08:00 Temperature 96.5 F L Pulse Rate 53 L 52 L Pulse Rate [ Anterior Bilateral] Pulse Rate [ 59 L From Monitor] Respiratory 14 Rate Respiratory Rate [Anterior Bilateral] Blood Pressure 143/41 O2 Sat by Pulse 100 98 Oximetry - Labs CBC & Chem 7: 01/10/19 10:09 01/10/19 10:09 Labs: Abnormal lab results 01/09/19 01/09/19 01/09/19 Range/Units 12:01 18:10 23:13 POC Glucose 186 H 257 H 187 H (70-105) 01/10/19 Range/Units 08:02 POC Glucose 185 H (70-105)
[2019-01-10] MEDS: FLUoxetine 20 MG CAP PO SCH (09:57)
[2019-01-10 10:24] LABS: Hemoglobin 8.2 gm/dl (10.1-14.3); Mean Corpuscular HGB Conc 31 % (30-34); Mean Corpuscular Volume 91 fl (79-97); Platelet Count 261 K/mm3 (140-440); Red Blood Count 2.97 M/mm3 (3.65-5.03); Red Cell Distribution Width 16.4 % (13.2-15.2)
[2019-01-10 10:45] LABS: Alanine Aminotransferase 24 units/L (7-56); Albumin 3.5 g/dL (3.9-5); BUN/Creatinine Ratio 30; Blood Urea Nitrogen 18 mg/dL (7-17); Calcium 8.4 mg/dL (8.4-10.2); Hemolysis Index 1
[2019-01-10] MEDS: CLOTRIMAZOLE/BETAMETHASONE CREAM 15 GM TP SCH ×2 (11:00→21:55)
--- NOTE | 2019-01-10 11:21 | Progress Note ---
Assessment and Plan 68 y/o female with acute respiratory failure secondary to COPD exacerbation. 1. Continue HFNC at current rate and wean for sats >88% 2. Will continue steroids at current dosing 3. Patient is not hypotensive anymore. Overall positive fluid balance. If still having trouble weaning oxygen requirements, will try lasix, likely tomorrow. 4. Primary care physician has been managing COPD, would suggest adding some longer acting bronchodilators to regimen but will defer to them. 5. Stable for transfer out of ICU. Will send to [facility] unit with remote tele given her oxygen requirement. Subjective Date of service: 01/10/19 Principal diagnosis: sepsis, exacerbation of COPD Interval history: No acute events. Currently on HFNC but stable. Awake and alert. No family at bedside. Objective Vital Signs - 12hr 01/09/19 01/09/19 01/09/19 23:21 23:31 23:41 Temperature Pulse Rate 62 57 L 57 L Pulse Rate [ Anterior Bilateral] Pulse Rate [ From Monitor] Respiratory 16 15 15 Rate Respiratory Rate [Anterior Bilateral] Blood Pressure 118/43 123/46 118/43 O2 Sat by Pulse 91 90 90 Oximetry 01/09/19 01/10/19 01/10/19 23:51 00:00 00:01 Temperature 98.8 F Pulse Rate 58 L 58 L Pulse Rate [ Anterior Bilateral] Pulse Rate [ 60 From Monitor] Respiratory 16 16 Rate Respiratory Rate [Anterior Bilateral] Blood Pressure 118/43 133/39 O2 Sat by Pulse 88 95 91 Oximetry 01/10/19 01/10/19 01/10/19 00:11 00:20 00:31 Temperature Pulse Rate 58 L 59 L 57 L Pulse Rate [ Anterior Bilateral] Pulse Rate [ From Monitor] Respiratory 20 20 22 Rate Respiratory Rate [Anterior Bilateral] Blood Pressure 133/39 133/39 131/37 O2 Sat by Pulse 86 87 90 Oximetry 01/10/19 01/10/19 01/10/19 00:41 00:51 01:01 Temperature Pulse Rate 60 61 55 L Pulse Rate [ Anterior Bilateral] Pulse Rate [ From Monitor] Respiratory 20 13 17 Rate Respiratory Rate [Anterior Bilateral] Blood Pressure 133/39 133/39 133/39 O2 Sat by Pulse 85 89 88 Oximetry 01/10/19 01/10/19 01/10/19 01:11 01:21 01:30 Temperature Pulse Rate 59 L 58 L 57 L Pulse Rate [ Anterior Bilateral] Pulse Rate [ From Monitor] Respiratory 20 19 21 Rate Respiratory Rate [Anterior Bilateral] Blood Pressure 133/39 133/39 133/39 O2 Sat by Pulse 86 90 93 Oximetry 01/10/19 01/10/19 01/10/19 01:41 01:43 01:51 Temperature Pulse Rate 57 L 56 L Pulse Rate [ 54 L Anterior Bilateral] Pulse Rate [ From Monitor] Respiratory 21 17 Rate Respiratory 19 Rate [Anterior Bilateral] Blood Pressure 150/49 150/49 O2 Sat by Pulse 90 98 Oximetry 01/10/19 01/10/19 01/10/19 02:01 02:02 02:11 Temperature Pulse Rate 55 L 54 L 56 L Pulse Rate [ Anterior Bilateral] Pulse Rate [ From Monitor] Respiratory 18 16 19 Rate Respiratory Rate [Anterior Bilateral] Blood Pressure 118/46 118/46 118/46 O2 Sat by Pulse 96 97 96 Oximetry 01/10/19 01/10/19 01/10/19 02:21 02:31 02:41 Temperature Pulse Rate 54 L 57 L 55 L Pulse Rate [ Anterior Bilateral] Pulse Rate [ From Monitor] Respiratory 18 18 19 Rate Respiratory Rate [Anterior Bilateral] Blood Pressure 150/49 150/49 119/50 O2 Sat by Pulse 98 97 99 Oximetry 01/10/19 01/10/19 01/10/19 02:51 03:01 03:11 Temperature Pulse Rate 56 L 54 L 53 L Pulse Rate [ Anterior Bilateral] Pulse Rate [ From Monitor] Respiratory 17 18 16 Rate Respiratory Rate [Anterior Bilateral] Blood Pressure 118/46 155/57 155/57 O2 Sat by Pulse 96 96 88 Oximetry 01/10/19 01/10/19 01/10/19 03:21 03:31 03:41 Temperature Pulse Rate 55 L 59 L 60 Pulse Rate [ Anterior Bilateral] Pulse Rate [ From Monitor] Respiratory 16 14 14 Rate Respiratory Rate [Anterior Bilateral] Blood Pressure 155/57 147/48 147/48 O2 Sat by Pulse 97 95 96 Oximetry 01/10/19 01/10/19 01/10/19 03:51 03:58 04:00 Temperature 98.7 F Pulse Rate 59 L 57 L Pulse Rate [ Anterior Bilateral] Pulse Rate [ 51 L From Monitor] Respiratory 15 16 Rate Respiratory Rate [Anterior Bilateral] Blood Pressure 147/48 147/48 O2 Sat by Pulse 91 96 98 Oximetry 01/10/19 01/10/1901/10/19 04:01 04:11 06:00 Temperature Pulse Rate 56 L 53 L 52 L Pulse Rate [ Anterior Bilateral] Pulse Rate [ From Monitor] Respiratory 16 14 Rate Respiratory Rate [Anterior Bilateral] Blood Pressure 143/41 143/41 O2 Sat by Pulse 100 100 Oximetry 01/10/19 01/10/19 07:06 08:00 Temperature 96.5 F L Pulse Rate Pulse Rate [ 55 L Anterior Bilateral] Pulse Rate [ 59 L From Monitor] Respiratory Rate Respiratory 18 Rate [Anterior Bilateral] Blood Pressure O2 Sat by Pulse 98 Oximetry Constitutional: alert (mild distress on hi yolanda 50%), other Eyes: non-icteric ENT: oropharynx moist, other (adentulous) Neck: supple Effort: normal Ascultation: Bilateral: wheezes Tactile fremitus: Bilateral: normal Cardiovascular: regular rate and rhythm Gastrointestinal: normoactive bowel sounds, soft, non-tender, non-distended Integumentary: normal Extremities: no cyanosis, no edema Neurologic: normal mental status, non-focal exam Psychiatric: mood appropriate, affect normal CBC and BMP: 01/10/19 10:09 01/10/19 10:09 ABG, PT/INR, D-dimer: ABG POC ABG pH 7.278 (7.35-7.45) L 01/09/19 05:23 POC ABG pCO2 67.9 (35-45) H 01/09/19 05:23 POC ABG pO2 73 (80-105) L 01/09/19 05:23 POC ABG HCO3 31.7 (22-26 mml/L) 01/09/19 05:23 POC ABG Total CO2 34 (23-27mmol/L) 01/09/19 05:23 POC ABG O2 Sat 91 01/09/19 05:23 PT/INR, D-dimer PT 13.3 Sec. (12.2-14.9) 01/08/19 14:39 INR 1.04 (0.87-1.13) 01/08/19 14:39 Abnormal lab findings: Abnormal Labs 01/08/19 01/08/19 01/08/19 14:39 14:39 16:55 WBC RBC 3.17 L Hgb 9.0 L Hct 28.4 L RDW 15.9 H [place] % (Auto) 7.8 H Seg Neutrophils % 71.9 H Seg Neuts % (Manual) Lymphocytes % (Manual) Seg Neutrophils # Man Lymphocytes # (Manual) POC ABG pH POC ABG pCO2 POC ABG pO2 BUN Creatinine Glucose 140 H POC Glucose Lactic Acid 2.90 H* Albumin 3.7 L 01/08/19 01/08/19 01/08/19 19:34 21:15 23:37 WBC RBC Hgb Hct RDW [place] % (Auto) Seg Neutrophils % Seg Neuts % (Manual) Lymphocytes % (Manual) Seg Neutrophils # Man Lymphocytes # (Manual) POC ABG pH POC ABG pCO2 POC ABG pO2 BUN Creatinine Glucose POC Glucose 224 H Lactic Acid 3.50 H* 3.80 H* Albumin 01/09/19 01/09/19 01/09/19 04:52 04:52 05:23 WBC RBC 3.12 L Hgb 8.7 L Hct 28.4 L RDW 16.2 H [place] % (Auto) Seg Neutrophils % Seg Neuts % (Manual) 95.0 H Lymphocytes % (Manual) 4.0 L Seg Neutrophils # Man 8.9 H Lymphocytes # (Manual) 0.4 L POC ABG pH 7.278 L POC ABG pCO2 67.9 H POC ABG pO2 73 L BUN 19 H Creatinine Glucose 173 H POC Glucose Lactic Acid Albumin 3.8 L 01/09/19 01/09/19 01/09/19 05:37 12:01 18:10 WBC RBC Hgb Hct RDW [place] % (Auto) Seg Neutrophils % Seg Neuts % (Manual) Lymphocytes % (Manual) Seg Neutrophils # Man Lymphocytes # (Manual) POC ABG pH POC ABG pCO2 POC ABG pO2 BUN Creatinine Glucose POC Glucose 177 H 186 H 257 H Lactic Acid Albumin 01/09/19 01/10/19 01/10/19 23:13 08:02 10:09 WBC 14.0 H RBC 2.97 L Hgb 8.2 L Hct 27.0 L RDW 16.4 H [place] % (Auto) Seg Neutrophils % Seg Neuts % (Manual) Lymphocytes % (Manual) Seg Neutrophils # Man Lymphocytes # (Manual) POC ABG pH POC ABG pCO2 POC ABG pO2 BUN Creatinine Glucose POC Glucose 187 H 185 H Lactic Acid Albumin 01/10/19 01/10/19 10:09 10:09 WBC RBC Hgb Hct RDW [place] % (Auto) Seg Neutrophils % Seg Neuts % (Manual) Lymphocytes % (Manual) Seg Neutrophils # Man Lymphocytes # (Manual) POC ABG pH POC ABG pCO2 POC ABG pO2 BUN 18 H Creatinine 0.6 L Glucose 251 H POC Glucose Lactic Acid 2.10 H* Albumin 3.5 L
[2019-01-10 13:29] LABS: Anisocytosis 1+; Basophils % (Manual) 0 % (0.0-1.8); Eosinophils % (Manual) 0 % (0.0-4.3); Hypochromasia 1+; Monocytes % (Manual) 0 % (0.0-7.3); Platelet Estimate Consistent w Auto; Total Cells Counted 100
[2019-01-10] MEDS: HALOPERIDOL 5 MG TAB PO SCH (17:21)
[2019-01-10] MEDS: ARFORMOTEROL 15 MCG/2 ML NEBU IH SCH (21:28)
[2019-01-11] MEDS: ALBUTEROL 2.5 MG/3 ML NEBU IH SCH ×3 (02:23→13:42)
[2019-01-11] MEDS: IPRATROPIUM 0.02% NEBU 2.5 ML IH SCH ×3 (02:23→13:42)
[2019-01-11] MEDS: methylPREDNISolone Sod Succinate 40 MG/1 ML INJ IV SCH ×3 (05:49→21:58)
[2019-01-11] MEDS: PIPERACILLIN/TAZOBACTAM 3.375 3.375 GM/50 ML BAG IV SCH ×2 (05:49→14:16)
[2019-01-11] MEDS: LEVOTHYROXINE 88 MCG TAB PO SCH (05:49)
[2019-01-11] MEDS: ACETAMINOPHEN 325 MG TAB PO PRN ×2 (05:59→19:56)
[2019-01-11] MEDS: GABAPENTIN 400 MG CAP PO SCH ×3 (08:03→21:59)
[2019-01-11] MEDS: INSULIN LISPRO 100 UNIT/ML SUB-Q SCH ×4 (08:04→23:47)
--- NOTE | 2019-01-11 08:18 | Progress Note ---
Assessment and Plan Patient seen and examined medical records from the emergency department reviewed. 68-year-old female patient admitted to the emergency department for worsening shortness of breath as well as cough generalized body pain and weakness. The patient was admitteed to admitted to [facility] and has been on treatment there but her breathing got progressively worse over the past 24 Hours and was thus referred back to the ER for further evaluation and treatment . Patient has history of COPD hypertension on therapy diabetes and has had multiple hospitalizations over the last year on account of recurrence of COPD. After the time of evaluation patient has ongoing shortness of breath, her blood pressure was also reported to be low in the emergency department for which patient was started on Levophed which is currently maxed out with MAP still low. Patient stated that her shortness of breath has not improved significantly s anders he was discharged from the hospital 2 days ago, cough is productive and she denied any chest pain, no fever or chills but appetite has been poor and she feels generally weak. - Sepsis associated hypotension Has Leukocytosis with initial elevated lactic acid level Hypotension improved with iv hydration, pressors now discontinued Continue IV antibiotics as ordered. Blood culture no growth so far. - Acute respiratory failure Supplemental oxygen and Bronchodilator Continue O2 supplementation patient currently on BiPAP will continue, IV antibiotics and aerosol treatments and steroids are started Pulmonology has been consulted from admission and seeing the patient. - COPD exacerbation Continue aerosol treatment and steroids and O2 supplementation. IV antibiotics We'll consult pulmonary for management of COPD and acute respiratory failure - Hypotension - resolved Hypotension resolved with continued gentle hydration. monitor blood pressures closely as possible - Type 2 diabetes mellitus without complications We will hold metformin and start patient on sliding scale coverage with regular insulin with parameters. - Essential (primary) hypertension Her current blood pressure medications and consider monitor blood pressure until the patient is hemodynamically stable - DVT prophylaxis with Lovenox and GI with Pepcid Time spent: 30 minutes Subjective Date of service: 01/11/19 Principal diagnosis: sepsis, exacerbation of COPD Interval history: Pt seen and examined. C/o pain and want pain meds. No longer on pressors. Afebrile. On supplemental oxygen via nasal cannula Objective - Exam Narrative Exam: Constitutional: Well-nourished well-developed. In no distress Head: Normocephalic atraumatic Eyes: Pupils are equal round and reactive to light Nose: No enlarged turbinates, no septal deviation. Mouth: Moist mucous membranes. Neck: Supple no thyromegaly. No bruit. No JVD Heart: Regular rate and rhythm, S1-S2 normal. No rubs murmurs or gallop Lungs: Decreased breath sounds on auscultation bilaterally. Abdomen: Soft, nontender. Bowel sound are present. Extremities: No edema, no cyanosis, no clubbing. Neuro: Alert oriented Oriented x3. No focal sensory or motor deficit. Skin: No rashes or hyperpigmented spots Musculoskeletal system: No joint pain or swelling Hematological: No petechia or subcutanous hemorrhages. Immunological: No multiple septic spots on the skin Lymphatic: No generalized lymphadenopathy Psychiatry: Euthymic. Calm. - Constitutional Vitals: Vital Signs - 12hr 01/10/19 01/10/19 01/10/19 21:25 21:39 21:40 Temperature Pulse Rate Pulse Rate [ 89 Anterior Bilateral] Respiratory Rate Respiratory 20 Rate [Anterior Bilateral] Blood Pressure O2 Sat by Pulse 92 92 Oximetry 01/11/19 01/11/19 01/11/19 00:07 02:25 02:48 Temperature 98.1 F Pulse Rate 57 L 54 L Pulse Rate [ 58 L Anterior Bilateral] Respiratory 20 Rate Respiratory 22 Rate [Anterior Bilateral] Blood Pressure 124/67 O2 Sat by Pulse 92 Oximetry 01/11/19 07:19 Temperature 97.8 F Pulse Rate 55 L Pulse Rate [ Anterior Bilateral] Respiratory 22 Rate Respiratory Rate [Anterior Bilateral] Blood Pressure 165/71 O2 Sat by Pulse 90 Oximetry - Labs CBC & Chem 7: 01/10/19 10:09 01/10/19 10:09 Labs: Abnormal lab results 01/10/19 01/10/19 01/10/19 Range/Units 10:09 10:09 10:09 WBC 14.0 H (4.5-11.0) K/mm3 RBC 2.97 L (3.65-5.03) M/mm3 Hgb 8.2 L (10.1-14.3) gm/dl Hct 27.0 L (30.3-42.9) % RDW 16.4 H (13.2-15.2) % Seg Neuts % (Manual) 95.0 H (40.0-70.0) % Lymphocytes % (Manual) 5.0 L (13.4-35.0) % Seg Neutrophils # Man 13.3 H (1.8-7.7) K/mm3 Lymphocytes # (Manual) 0.7 L (1.2-5.4) K/mm3 BUN 18 H (7-17) mg/dL Creatinine 0.6 L (0.7-1.2) mg/dL Glucose 251 H (65-100) mg/dL POC Glucose (70-105) Lactic Acid 2.10 H* (0.7-2.0) mmol/L Albumin 3.5 L (3.9-5) g/dL 01/10/19 01/10/19 01/10/19 Range/Units 12:25 16:27 21:44 WBC (4.5-11.0) K/mm3 RBC (3.65-5.03) M/mm3 Hgb (10.1-14.3) gm/dl Hct (30.3-42.9) % RDW (13.2-15.2) % Seg Neuts % (Manual) (40.0-70.0) % Lymphocytes % (Manual) (13.4-35.0) % Seg Neutrophils # Man (1.8-7.7) K/mm3 Lymphocytes # (Manual) (1.2-5.4) K/mm3 BUN (7-17) mg/dL Creatinine (0.7-1.2) mg/dL Glucose (65-100) mg/dL POC Glucose 216 H 160 H 210 H (70-105) Lactic Acid (0.7-2.0) mmol/L Albumin (3.9-5) g/dL 01/11/19 Range/Units 07:27 WBC (4.5-11.0) K/mm3 RBC (3.65-5.03) M/mm3 Hgb (10.1-14.3) gm/dl Hct (30.3-42.9) % RDW (13.2-15.2) % Seg Neuts % (Manual) (40.0-70.0) % Lymphocytes % (Manual) (13.4-35.0) % Seg Neutrophils # Man (1.8-7.7) K/mm3 Lymphocytes # (Manual) (1.2-5.4) K/mm3 BUN (7-17) mg/dL Creatinine (0.7-1.2) mg/dL Glucose (65-100) mg/dL POC Glucose 191 H (70-105) Lactic Acid (0.7-2.0) mmol/L Albumin (3.9-5) g/dL
[2019-01-11 08:54] LABS: Hematocrit 26.9 % (30.3-42.9); Hemoglobin 8.1 gm/dl (10.1-14.3); Mean Corpuscular HGB Conc 30 % (30-34); Mean Corpuscular Volume 91 fl (79-97); Platelet Count 284 K/mm3 (140-440); Red Blood Count 2.96 M/mm3 (3.65-5.03); Red Cell Distribution Width 16.3 % (13.2-15.2)
[2019-01-11] MEDS: ARFORMOTEROL 15 MCG/2 ML NEBU IH SCH (09:00)
[2019-01-11 09:22] LABS: Alanine Aminotransferase 30 units/L (7-56); BUN/Creatinine Ratio 35; Blood Urea Nitrogen 21 mg/dL (7-17); Calcium 8.9 mg/dL (8.4-10.2); Hemolysis Index 3
[2019-01-11] MEDS: BUDESONIDE 0.5 MG/2 ML NEBU IH SCH ×2 (10:03→10:04)
[2019-01-11] MEDS: FLUoxetine 20 MG CAP PO SCH (10:08)
[2019-01-11] MEDS: CLOTRIMAZOLE/BETAMETHASONE CREAM 15 GM TP SCH ×2 (10:08→22:00)
[2019-01-11 10:41] LABS: Basophils % (Manual) 0 % (0.0-1.8); Eosinophils % (Manual) 0 % (0.0-4.3); Total Cells Counted 100
[2019-01-11 10:42] LABS: Anisocytosis 1+
[2019-01-11 10:43] LABS: Ovalocytes Few; Platelet Estimate Consistent w Auto; Poikilocytosis Few
[2019-01-11] MEDS: amLODIPine 10 MG TAB PO SCH (14:17)
--- NOTE | 2019-01-11 15:42 | Consultation ---
History of Present Illness - Reason for Consult Consult date: 01/11/19 Sepsis, diarrhea Requesting physician: YESSY HUSTON - History of Present Illness The patient is a 68-year-old female with COPD, hypertension, diabetes, acute hypoxic respiratory failure on home oxygen, was recently [facility] from the [facility], returned back to the hospital in ~2 days with respiratory distress. Accordingly to her family member at bedside, patient had not been receiving her inhalers. Initially, patient was noted to have high PCO2, hypotension, requiring fluids and low-dose pressors. She was admitted to ICU. He was doing well, and was transferred to the floor yesterday. Overnight, she had 3 episodes of diarrhea, hence infectious diseases was consulted. Patient is a poor historian, denies any specific complaints at this time. Has pain all over her body. Review of Systems: General: no fevers, chills or rigors HEENT: no new visual disturbance Respiratory: shortness of breath + no cough or hemoptysis Cardiovascular: No chest pain, syncope Gastrointestinal: No nausea, vomiting. Few loose stools today Genitourinary: No dysuria or hematuria Musculoskeletal: No new or worsening neck pain or back pain Neurologic: No headaches, seizures Hematologic: No easy bruising or bleeding Endocrine: No night sweats or acute weight loss Skin: negative for rash, jaundice Psychiatric: No suicidal or homicidal ideation Past History Past Medical History: COPD, diabetes, heart failure, hypertension Past Surgical History: No surgical history Social history: , lives with family, other (presently in rehab, hx of tobacco abuse) Family history: hypertension Medications and Allergies Allergies Allergy/AdvReac Type Severity Reaction Status Date / Time No Known Allergies Allergy Verified 12/10/12 08:15 Home Medications Medication Instructions Recorded Confirmed Last Taken Type ARIPiprazole [Abilify TAB] 10 mg PO QAM 12/31/18 01/08/19 Unknown History AtorvaSTATin [Lipitor] 40 mg PO QPM 12/31/18 01/08/19 Unknown History Buprenorphine [Butrans] 1 each TD Q7D 12/31/18 01/08/19 Unknown History Diclofenac 1% topical gel 1 applic TP QID 12/31/18 01/08/19 Unknown History FLUoxetine HCL [PROzac] 40 mg PO QAM 12/31/18 01/08/19 Unknown History Fluticasone/Umeclidin/Vilanter 1 each IH QAM 12/31/18 01/09/19 Unknown History [Trelegy Ellipta 100-62.5-25] Gabapentin [Neurontin] 800 mg PO TID 12/31/18 01/08/19 Unknown History Ipratropium/Albuter (Nf) 1 puff IH Q6H PRN 12/31/18 01/08/19 Unknown History [Combivent Inhaler] Metformin HCl [Metformin HCl ER] 500 mg PO QAM 12/31/18 01/08/19 Unknown History ALBUTEROL NEB's [Proventil 0.083% 2.5 mg IH Q4HRT PRN nebu 01/04/19 01/08/19 Unknown Rx NEBS] Donepezil [Aricept] 10 mg PO HS tablet 01/04/19 01/08/19 Unknown Rx Haloperidol [Haldol] 5 mg PO QPM tablet 01/04/19 01/08/19 Unknown Rx Ketoconazole 2% [Nizoral] 1 applic TP BID tube 01/04/19 01/09/19 Unknown Rx Levothyroxine [Synthroid] 88 mcg PO QAM@0600 tablet 01/04/19 01/08/19 Unknown Rx Lisinopril [Zestril TAB] 20 mg PO QAM tablet 01/04/19 01/08/19 Unknown Rx Clotrimazole/Betamethasone 1 applic TP BID #60 tube 01/06/19 01/09/19 Unknown Rx Docusate Sodium [Colace CAP] 100 mg PO BID #60 capsule 01/06/19 01/09/19 Unknown Rx Fluticasone/Umeclidin/Vilanter 1 each IH QAM 01/08/19 01/08/19 Unknown History [Trelegy Ellipta 100-62.5-25] HYDROcodone/APAP 5-325 5 mg PO Q8HR PRN 01/08/19 01/09/19 Unknown History Active Meds: Active Medications Acetaminophen (Tylenol) 650 mg PO Q6H PRN PRN Reason: Pain, Mild (1-3) Last Admin: 01/11/19 05:59 Dose: 650 mg Documented by: Albuterol (Proventil) 2.5 mg IH Q6HRT [facility] Last Admin: 01/11/19 13:42 Dose: 2.5 mg Documented by: Amlodipine Besylate (Norvasc) 10 mg PO QDAY [facility] Last Admin: 01/11/19 14:17 Dose: 10 mg Documented by: Arformoterol Tartrate (Brovana Nebu) 15 mcg IH Q12HRT [facility] Last Admin: 01/11/19 09:00 Dose: 15 mcg Documented by: Budesonide (Pulmicort) 0.5 mg IH Q12HRT [facility] Last Admin: 01/11/19 10:04 Dose: 0.5 mg Documented by: Clotrimazole (Clotrimazole/Betamethasone) 1 applic TP BID [facility] Last Admin: 01/11/19 10:08 Dose: 1 applic Documented by: Dextrose (D50w (25gm) Syringe) 50 ml IV Q30MIN PRN PRN Reason: Hypoglycemia Fluoxetine HCl (Prozac) 40 mg PO QDAY [facility] Last Admin: 01/11/19 10:08 Dose: 40 mg Documented by: Gabapentin (Neurontin) 800 mg PO TID [facility] Last Admin: 01/11/19 14:16 Dose: 800 mg Documented by: Haloperidol (Haldol) 5 mg PO QPM [facility] Last Admin: 01/10/19 17:21 Dose: 5 mg Documented by: Hydralazine HCl (Apresoline) 10 mg IV Q6H PRN PRN Reason: Hypertension Piperacillin Sod/Tazobactam Sod (Zosyn/Ns 3.375gm/50ml) 3.375 gm in 50 mls @ 100 mls/hr IV Q8HR [facility]; Protocol Stop: 01/12/19 21:59 Last Admin: 01/11/19 14:16 Dose: 100 mls/hr Documented by: Insulin Human Lispro (Humalog) 0 unit SUB-Q ACHS [facility]; Protocol Last Admin: 01/11/19 12:00 Dose: 1 unit Documented by: Ipratropium [place] (Atrovent) 0.5 mg IH Q6HRT [facility] Last Admin: 01/11/19 13:42 Dose: 0.5 mg Documented by: Levothyroxine Sodium (Synthroid) 88 mcg PO QAM@0600 [facility] Last Admin: 01/11/19 05:49 Dose: 88 mcg Documented by: Methylprednisolone Sodium Succinate (Solu-Medrol) 60 mg IV Q8HR [facility] Last Admin: 01/11/19 14:18 Dose: 60 mg Documented by: Physical Examination - Physical Exam Narrative exam: Physical Exam: Constitutional: Alert, cooperative. No acute distress Head, Ears, Nose: Normocephalic, atraumatic. External ears, nose normal Eyes: Conjunctivae/corneas clear. No icterus. No ptosis. Neck: Supple, no meningeal signs Oral: edentulous, no thrush Cardiovascular: S1, S2 normal. Respiratory: diffuse rhonchi bilaterally GI: Soft, non-tender; bowel sounds normal. No peritoneal signs Musculoskeletal: No pedal edema, no cyanosis. Skin: No rash or abscess Hem/Lymphatic: No palpable cervical or supraclavicular nodes. No lymphangitis Psych: no agitation, flat affect Neurological: Awake, alert. - Constitutional Vitals: Vital Signs Temp Pulse Resp BP Pulse Ox 99.4 F 61 22 206/68 92 01/11/19 12:56 01/11/19 12:56 01/11/19 12:56 01/11/19 12:58 01/11/19 12:56 Temperature -Last 24 Hours Temperature 99.4 F Temperature 97.8 F Temperature 98.1 F Temperature 98.2 F Temperature 100.1 F Results - Labs CBC & Chem 7: 01/11/19 07:57 01/11/19 07:57 Labs: Abnormal lab results 01/10/19 01/10/19 01/10/19 Range/Units 12:25 16:27 21:44 WBC (4.5-11.0) K/mm3 RBC (3.65-5.03) M/mm3 Hgb (10.1-14.3) gm/dl Hct (30.3-42.9) % MCH (28-32) pg RDW (13.2-15.2) % Seg Neuts % (Manual) (40.0-70.0) % Lymphocytes % (Manual) (13.4-35.0) % Seg Neutrophils # Man (1.8-7.7) K/mm3 Lymphocytes # (Manual) (1.2-5.4) K/mm3 Sodium (137-145) mmol/L Carbon Dioxide (22-30) mmol/L BUN (7-17) mg/dL Creatinine (0.7-1.2) mg/dL Glucose (65-100) mg/dL POC Glucose 216 H 160 H 210 H (70-105) 01/11/19 01/11/19 01/11/19 Range/Units 07:27 07:57 07:57 WBC 12.2 H (4.5-11.0) K/mm3 RBC 2.96 L (3.65-5.03) M/mm3 Hgb 8.1 L (10.1-14.3) gm/dl Hct 26.9 L (30.3-42.9) % MCH 27 L (28-32) pg RDW 16.3 H (13.2-15.2) % Seg Neuts % (Manual) 90.0 H (40.0-70.0) % Lymphocytes % (Manual) 7.0 L (13.4-35.0) % Seg Neutrophils # Man 11.0 H (1.8-7.7) K/mm3 Lymphocytes # (Manual) 0.9 L (1.2-5.4) K/mm3 Sodium 147 H (137-145) mmol/L Carbon Dioxide 31 H (22-30) mmol/L BUN 21 H (7-17) mg/dL Creatinine 0.6 L (0.7-1.2) mg/dL Glucose 190 H (65-100) mg/dL POC Glucose 191 H (70-105) 01/11/19 Range/Units 11:16 WBC (4.5-11.0) K/mm3 RBC (3.65-5.03) M/mm3 Hgb (10.1-14.3) gm/dl Hct (30.3-42.9) % MCH (28-32) pg RDW (13.2-15.2) % Seg Neuts % (Manual) (40.0-70.0) % Lymphocytes % (Manual) (13.4-35.0) % Seg Neutrophils # Man (1.8-7.7) K/mm3 Lymphocytes # (Manual) (1.2-5.4) K/mm3 Sodium (137-145) mmol/L Carbon Dioxide (22-30) mmol/L BUN (7-17) mg/dL Creatinine (0.7-1.2) mg/dL Glucose (65-100) mg/dL POC Glucose 177 H (70-105) - Imaging and Cardiology Chest x-ray: report reviewed, image reviewed (no pneumonia seen) Assessment and Plan Cultures: 01/08/2019 blood culture: No growth 01/08/2019 urine culture: No growth A/P: 68-year-old female with COPD, hypertension, diabetes, acute hypoxic respiratory failure on home oxygen, was recently discharged from the hospital to [facility], returned back to the hospital in ~2 days with respiratory distress. Accordingly to her family member at bedside, patient had not been receiving her inhalers. Initially, patient was noted to have high PCO2, hypotension, requiring fluids and low-dose pressors: 1) Hypotension, possibly secondary to acute hypercapneic respiratory failure, acidosis: pulm following. No bacteremia, no fever, no initial leucocytosis, no UTI, no pneumonia on CXR. Leucocytosis now is likely from steroids. Sepsis seems unlikely. 2) Diarrhea: possibly overflow from constipation and impaction. Per RN, patient passed a hard chunk of stool. Recs: Zosyn d/marco a (avoid additional salt load) C.diff unlikely, possibly overflow diarrhea from constipation and impaction. Can d/c contact precautions monitor off abx procalcitonin, pro-BNP ordered d/w Dr. Renan Jimenez MD, FACP [facility] C: [phone] O: [phone] F: [phone]
[2019-01-11] MEDS: hydrALAZINE 20 MG/1 ML INJ IV PRN (17:20)
[2019-01-11] MEDS: HALOPERIDOL 5 MG TAB PO SCH (17:21)
[2019-01-11] MEDS ORDERED: FUROSEMIDE 40 MG/4 ML INJ IV ONE ×2 (17:39→19:38)
--- NOTE | 2019-01-11 17:42 | Progress Note ---
Assessment and Plan 68 y/o female with acute respiratory failure secondary to COPD exacerbation. 1. Continue HFNC at current rate and wean for sats >88% 2. Will continue steroids at current dosing 3. Lasix 40mg IVx1 today. 4. Per daughter, patient sees. Dr. Salazar who prescribed Trelegy but this is nonformulary. Will do a request and ask the patient's daughter bring in meds like last time for pharmacy to verify. 5. Will continue to follow. Subjective Date of service: 01/11/19 Principal diagnosis: sepsis, exacerbation of COPD Interval history: Per patient feels worse today. Daughter at bedside. Remains on HFNC at 40 and 45%. Reviewed ID note. BNP is greater than 2K Objective Vital Signs - 12hr 01/11/19 01/11/19 01/11/19 07:19 09:00 10:00 Temperature 97.8 F Pulse Rate 55 L 55 L Pulse Rate [ 101 H Anterior Bilateral] Respiratory 22 Rate Respiratory 23 Rate [Anterior Bilateral] Blood Pressure 165/71 O2 Sat by Pulse 90 97 Oximetry 01/11/19 01/11/19 01/11/19 12:56 12:58 17:20 Temperature 99.4 F Pulse Rate 61 54 L Pulse Rate [ Anterior Bilateral] Respiratory 22 Rate Respiratory Rate [Anterior Bilateral] Blood Pressure 192/77 206/68 187/45 O2 Sat by Pulse 92 Oximetry Constitutional: alert (mild distress on hi yolanda 50%), other Eyes: non-icteric ENT: oropharynx moist, other (adentulous) Neck: supple Effort: normal Ascultation: Bilateral: wheezes Tactile fremitus: Bilateral: normal Cardiovascular: regular rate and rhythm Gastrointestinal: normoactive bowel sounds, soft, non-tender, non-distended Integumentary: normal Extremities: no cyanosis, no edema Neurologic: normal mental status, non-focal exam Psychiatric: mood appropriate, affect normal CBC and BMP: 01/11/19 07:57 01/11/19 07:57 ABG, PT/INR, D-dimer: ABG POC ABG pH 7.278 (7.35-7.45) L 01/09/19 05:23 POC ABG pCO2 67.9 (35-45) H 01/09/19 05:23 POC ABG pO2 73 (80-105) L 01/09/19 05:23 POC ABG HCO3 31.7 (22-26 mml/L) 01/09/19 05:23 POC ABG Total CO2 34 (23-27mmol/L) 01/09/19 05:23 POC ABG O2 Sat 91 01/09/19 05:23 PT/INR, D-dimer PT 13.3 Sec. (12.2-14.9) 01/08/19 14:39 INR 1.04 (0.87-1.13) 01/08/19 14:39 Abnormal lab findings: Abnormal Labs 01/08/19 01/08/19 01/08/19 14:39 14:39 16:55 WBC RBC 3.17 L Hgb 9.0 L Hct 28.4 L MCH RDW 15.9 H [place] % (Auto) 7.8 H Seg Neutrophils % 71.9 H Seg Neuts % (Manual) Lymphocytes % (Manual) Seg Neutrophils # Man Lymphocytes # (Manual) POC ABG pH POC ABG pCO2 POC ABG pO2 Sodium Carbon Dioxide BUN Creatinine Glucose 140 H POC Glucose Lactic Acid 2.90 H* NT-Pro-B Natriuret Pep Albumin 3.7 L 01/08/19 01/08/19 01/08/19 19:34 21:15 23:37 WBC RBC Hgb Hct MCH RDW [place] % (Auto) Seg Neutrophils % Seg Neuts % (Manual) Lymphocytes % (Manual) Seg Neutrophils # Man Lymphocytes # (Manual) POC ABG pH POC ABG pCO2 POC ABG pO2 Sodium Carbon Dioxide BUN Creatinine Glucose POC Glucose 224 H Lactic Acid 3.50 H* 3.80 H* NT-Pro-B Natriuret Pep Albumin 01/09/19 01/09/19 01/09/19 04:52 04:52 05:23 WBC RBC 3.12 L Hgb 8.7 L Hct 28.4 L MCH RDW 16.2 H [place] % (Auto) Seg Neutrophils % Seg Neuts % (Manual) 95.0 H Lymphocytes % (Manual) 4.0 L Seg Neutrophils # Man 8.9 H Lymphocytes # (Manual) 0.4 L POC ABG pH 7.278 L POC ABG pCO2 67.9 H POC ABG pO2 73 L Sodium Carbon Dioxide BUN 19 H Creatinine Glucose 173 H POC Glucose Lactic Acid NT-Pro-B Natriuret Pep Albumin 3.8 L 10/01/09/19 01/09/19 05:37 12:01 18:10 WBC RBC Hgb Hct MCH RDW [place] % (Auto) Seg Neutrophils % Seg Neuts % (Manual) Lymphocytes % (Manual) Seg Neutrophils # Man Lymphocytes # (Manual) POC ABG pH POC ABG pCO2 POC ABG pO2 Sodium Carbon Dioxide BUN Creatinine Glucose POC Glucose 177 H 186 H 257 H Lactic Acid NT-Pro-B Natriuret Pep Albumin 01/09/19 01/10/19 01/10/19 23:13 08:02 10:09 WBC 14.0 H RBC 2.97 L Hgb 8.2 L Hct 27.0 L MCH RDW 16.4 H [place] % (Auto) Seg Neutrophils % Seg Neuts % (Manual) 95.0 H Lymphocytes % (Manual) 5.0 L Seg Neutrophils # Man 13.3 H Lymphocytes # (Manual) 0.7 L POC ABG pH POC ABG pCO2 POC ABG pO2 Sodium Carbon Dioxide BUN Creatinine Glucose POC Glucose 187 H 185 H Lactic Acid NT-Pro-B Natriuret Pep Albumin 01/10/19 01/10/19 01/10/19 10:09 10:09 12:25 WBC RBC Hgb Hct MCH RDW [place] % (Auto) Seg Neutrophils % Seg Neuts % (Manual) Lymphocytes % (Manual) Seg Neutrophils # Man Lymphocytes # (Manual) POC ABG pH POC ABG pCO2 POC ABG pO2 Sodium Carbon Dioxide BUN 18 H Creatinine 0.6 L Glucose 251 H POC Glucose 216 H Lactic Acid 2.10 H* NT-Pro-B Natriuret Pep Albumin 3.5 L 01/10/19 01/10/19 01/11/19 16:27 21:44 07:27 WBC RBC Hgb Hct MCH RDW [place] % (Auto) Seg Neutrophils % Seg Neuts % (Manual) Lymphocytes % (Manual) Seg Neutrophils # Man Lymphocytes # (Manual) POC ABG pH POC ABG pCO2 POC ABG pO2 Sodium Carbon Dioxide BUN Creatinine Glucose POC Glucose 160 H 210 H 191 H Lactic Acid NT-Pro-B Natriuret Pep Albumin 01/11/19 01/11/19 01/11/19 07:57 07:57 11:16 WBC 12.2 H RBC 2.96 L Hgb 8.1 L Hct 26.9 L MCH 27 L RDW 16.3 H [place] % (Auto) Seg Neutrophils % Seg Neuts % (Manual) 90.0 H Lymphocytes % (Manual) 7.0 L Seg Neutrophils # Man 11.0 H Lymphocytes # (Manual) 0.9 L POC ABG pH POC ABG pCO2 POC ABG pO2 Sodium 147 H Carbon Dioxide 31 H BUN 21 H Creatinine 0.6 L Glucose 190 H POC Glucose 177 H Lactic Acid NT-Pro-B Natriuret Pep Albumin 01/11/19 01/11/19 16:03 16:27 WBC RBC Hgb Hct MCH RDW [place] % (Auto) Seg Neutrophils % Seg Neuts % (Manual) Lymphocytes % (Manual) Seg Neutrophils # Man Lymphocytes # (Manual) POC ABG pH POC ABG pCO2 POC ABG pO2 Sodium Carbon Dioxide BUN Creatinine Glucose POC Glucose 217 H Lactic Acid NT-Pro-B Natriuret Pep 2547 H Albumin
[2019-01-11] MEDS ORDERED: ALBUTEROL 2.5 MG/3 ML NEBU IH PRN (17:51)
[2019-01-11] MEDS: IPRATROPIUM/ALBUTEROL SULFATE 3 ML AMPUL.NEB IH SCH (20:20)
[2019-01-12] MEDS: ACETAMINOPHEN 325 MG TAB PO PRN ×2 (03:22→10:37)
[2019-01-12] MEDS: hydrALAZINE 20 MG/1 ML INJ IV PRN (03:43)
[2019-01-12] MEDS: IPRATROPIUM/ALBUTEROL SULFATE 3 ML AMPUL.NEB IH SCH ×5 (03:53→20:15)
[2019-01-12] MEDS: LEVOTHYROXINE 88 MCG TAB PO SCH (05:52)
[2019-01-12] MEDS: methylPREDNISolone Sod Succinate 40 MG/1 ML INJ IV SCH ×2 (05:52→13:59)
[2019-01-12 06:30] LABS: Hematocrit 27.4 % (30.3-42.9); Hemoglobin 8.6 gm/dl (10.1-14.3); Lymphocytes # (Auto) 0.6 K/mm3 (1.2-5.4); Mean Corpuscular HGB Conc 32 % (30-34); Mean Corpuscular Volume 88 fl (79-97); Monocytes # (Auto) 0.5 K/mm3 (0.0-0.8); Monocytes % (Auto) 5.5 % (0.0-7.3); Platelet Count 279 K/mm3 (140-440); Red Blood Count 3.11 M/mm3 (3.65-5.03); Red Cell Distribution Width 15.6 % (13.2-15.2)
[2019-01-12 06:52] LABS: Alanine Aminotransferase 30 units/L (7-56); Albumin 3.9 g/dL (3.9-5); BUN/Creatinine Ratio 28; Blood Urea Nitrogen 17 mg/dL (7-17); Calcium 8.7 mg/dL (8.4-10.2); Hemolysis Index 0
[2019-01-12] MEDS: GABAPENTIN 400 MG CAP PO SCH ×3 (08:03→23:34)
[2019-01-12] MEDS: INSULIN LISPRO 100 UNIT/ML SUB-Q SCH ×4 (08:04→23:41)
--- NOTE | 2019-01-12 08:29 | Progress Note ---
Assessment and Plan Patient seen and examined medical records from the emergency department reviewed. 68-year-old female patient admitted to the emergency department for worsening shortness of breath as well as cough generalized body pain and weakness. The patient was admitteed to admitted to [facility] and has been on treatment there but her breathing got progressively worse over the past 24 Hours and was thus referred back to the ER for further evaluation and treatment . Patient has history of COPD hypertension on therapy diabetes and has had multiple hospitalizations over the last year on account of recurrence of COPD. After the time of evaluation patient has ongoing shortness of breath, her blood pressure was also reported to be low in the emergency department for which patient was started on Levophed which is currently maxed out with MAP still low. Patient stated that her shortness of breath has not improved significantly s anders he was discharged from the hospital 2 days ago, cough is productive and she denied any chest pain, no fever or chills but appetite has been poor and she feels generally weak. - Acute respiratory failure Supplemental oxygen and Bronchodilator Continue O2 supplementation patient currently on BiPAP , IV antibiotics and aerosol treatments and steroids are started Pulmonology has been consulted from admission and seeing the patient. - Heart Failure with elevated BNP 2547 Will obtains ECHO for ventricular function eval. Commence ACEI, BB, stain and diuresis with stick Is and Os Cardiology consult - Sepsis associated hypotension- resolved. Now hypertensive Has Leukocytosis with initial elevated lactic acid level - resolved Hypotension improved with iv hydration, pressors now discontinued Continue IV antibiotics as ordered. Blood culture no growth so far. - Hypokalemia Will supplement and recheck - COPD exacerbation Continue aerosol treatment and steroids and O2 supplementation. IV antibiotics We'll consult pulmonary for management of COPD and acute respiratory failure - Type 2 diabetes mellitus without complications We will hold metformin and start patient on sliding scale coverage with regular insulin with parameters. - Essential (primary) hypertension Her current blood pressure medications and consider monitor blood pressure until the patient is hemodynamically stable - DVT prophylaxis with Lovenox and GI with Pepcid Time spent: 30 minutes Subjective Date of service: 01/12/19 Principal diagnosis: sepsis, exacerbation of COPD Interval history: Pt seen and examined. C/o pain and want pain meds. still having shortness of breath. No longer on pressors. Afebrile. On supplemental oxygen via nasal cannula. No diarrhea Objective - Exam Narrative Exam: Constitutional: Well-nourished well-developed. In no distress Head: Normocephalic atraumatic Eyes: Pupils are equal round and reactive to light Nose: No enlarged turbinates, no septal deviation. Mouth: Moist mucous membranes. Neck: Supple no thyromegaly. No bruit. No JVD Heart: Regular rate and rhythm, S1-S2 normal. No rubs murmurs or gallop Lungs: Decreased breath sounds on auscultation bilaterally. Abdomen: Soft, nontender. Bowel sound are present. Extremities: No edema, no cyanosis, no clubbing. Neuro: Alert oriented Oriented x3. No focal sensory or motor deficit. Skin: No rashes or hyperpigmented spots Musculoskeletal system: No joint pain or swelling Hematological: No petechia or subcutanous hemorrhages. Immunological: No multiple septic spots on the skin Lymphatic: No generalized lymphadenopathy Psychiatry: Euthymic. Calm. - Constitutional Vitals: Vital Signs - 12hr 01/11/19 01/11/19 01/11/19 20:22 20:28 22:00 Temperature 97.5 F L Pulse Rate 61 Pulse Rate [ 74 Anterior Bilateral] Pulse Rate [ 52 L From Monitor] Respiratory 24 18 Rate Respiratory 24 Rate [Anterior Bilateral] Blood Pressure 171/55 Blood Pressure [Right] O2 Sat by Pulse 91 94 90 Oximetry 01/12/19 01/12/19 01/12/19 02:02 03:42 03:43 Temperature 98.0 F Pulse Rate 47 L 52 L 52 L Pulse Rate [ Anterior Bilateral] Pulse Rate [ From Monitor] Respiratory 22 Rate Respiratory Rate [Anterior Bilateral] Blood Pressure 168/69 174/54 Blood Pressure 174/54 [Right] O2 Sat by Pulse 90 90 Oximetry 01/12/19 01/12/19 01/12/19 03:54 04:23 07:23 Temperature 98.8 F Pulse Rate 49 L 59 L Pulse Rate [ 62 Anterior Bilateral] Pulse Rate [ From Monitor] Respiratory 20 Rate Respiratory 24 Rate [Anterior Bilateral] Blood Pressure 175/65 Blood Pressure [Right] O2 Sat by Pulse 90 Oximetry - Labs CBC & Chem 7: 01/12/19 05:34 01/12/19 05:34 Labs: Abnormal lab results 01/11/19 01/11/19 01/11/19 Range/Units 07:57 07:57 11:16 WBC 12.2 H (4.5-11.0) K/mm3 RBC 2.96 L (3.65-5.03) M/mm3 Hgb 8.1 L (10.1-14.3) gm/dl Hct 26.9 L (30.3-42.9) % MCH 27 L (28-32) pg RDW 16.3 H (13.2-15.2) % Lymph % (Auto) (13.4-35.0) % Lymph # (1.2-5.4) K/mm3 Seg Neutrophils % (40.0-70.0) % Seg Neuts % (Manual) 90.0 H (40.0-70.0) % Lymphocytes % (Manual) 7.0 L (13.4-35.0) % Seg Neutrophils # Man 11.0 H (1.8-7.7) K/mm3 Lymphocytes # (Manual) 0.9 L (1.2-5.4) K/mm3 Sodium 147 H (137-145) mmol/L Potassium (3.6-5.0) mmol/L Chloride (98-107) mmol/L Carbon Dioxide 31 H (22-30) mmol/L BUN 21 H (7-17) mg/dL Creatinine 0.6 L (0.7-1.2) mg/dL Glucose 190 H (65-100) mg/dL POC Glucose 177 H (70-105) NT-Pro-B Natriuret Pep (0-900) pg/mL 01/11/19 01/11/19 01/11/19 Range/Units 16:03 16:27 22:23 WBC (4.5-11.0) K/mm3 RBC (3.65-5.03) M/mm3 Hgb (10.1-14.3) gm/dl Hct (30.3-42.9) % MCH (28-32) pg RDW (13.2-15.2) % Lymph % (Auto) (13.4-35.0) % Lymph # (1.2-5.4) K/mm3 Seg Neutrophils % (40.0-70.0) % Seg Neuts % (Manual) (40.0-70.0) % Lymphocytes % (Manual) (13.4-35.0) % Seg Neutrophils # Man (1.8-7.7) K/mm3 Lymphocytes # (Manual) (1.2-5.4) K/mm3 Sodium (137-145) mmol/L Potassium (3.6-5.0) mmol/L Chloride (98-107) mmol/L Carbon Dioxide (22-30) mmol/L BUN (7-17) mg/dL Creatinine (0.7-1.2) mg/dL Glucose (65-100) mg/dL POC Glucose 217 H 243 H (70-105) NT-Pro-B Natriuret Pep 2547 H (0-900) pg/mL 01/12/19 01/12/19 01/12/19 Range/Units 05:34 05:34 07:22 WBC (4.5-11.0) K/mm3 RBC 3.11 L (3.65-5.03) M/mm3 Hgb 8.6 L (10.1-14.3) gm/dl Hct 27.4 L (30.3-42.9) % MCH (28-32) pg RDW 15.6 H (13.2-15.2) % Lymph % (Auto) 7.0 L (13.4-35.0) % Lymph # 0.6 L (1.2-5.4) K/mm3 Seg Neutrophils % 87.5 H (40.0-70.0) % Seg Neuts % (Manual) (40.0-70.0) % Lymphocytes % (Manual) (13.4-35.0) % Seg Neutrophils # Man (1.8-7.7) K/mm3 Lymphocytes # (Manual) (1.2-5.4) K/mm3 Sodium 146 H (137-145) mmol/L Potassium 3.5 L D (3.6-5.0) mmol/L Chloride 95.9 L (98-107) mmol/L Carbon Dioxide 35 H (22-30) mmol/L BUN (7-17) mg/dL Creatinine 0.6 L (0.7-1.2) mg/dL Glucose 248 H (65-100) mg/dL POC Glucose 249 H (70-105) NT-Pro-B Natriuret Pep (0-900) pg/mL
[2019-01-12] MEDS ORDERED: POTASSIUM CHLORIDE 20 MEQ 20 MEQ/100 ML BAG IV ONE (08:41)
--- NOTE | 2019-01-12 09:04 | XRay Report ---
CHEST 1 VIEW INDICATION: copd. COMPARISON: 01/08/2019 FINDINGS: Support devices: None. Heart: Borderline heart size Lungs/Pleura: Interstitial markings in both lungs are prominent. This probably represents chronic int erstitial changes as well as mild pulmonary venous congestion. No consolidation, pleural effusion or pneumothorax is identified. Additional findings: None. IMPRESSION: Borderline heart size and mild congestive changes. Signer Name: Daren Miguel Jr, MD Signed: 01/12/2019 9:00 AM Workstation Name: [id number]
--- NOTE | 2019-01-12 09:53 | Consultation ---
History of Present Illness Consult date: 01/12/19 Requesting physician: YESSY HUSTON Consult reason: congestive heart failure History of present illness: The pt is a 68 YO female with a past medical history significant for HTN, HLP, DM, CAD s/p angioplasty approx 10 years ago at [facility] per pt report, COPD, chronic respiratory failure (noncompliant with home O2), RAE (noncompliant with CPAP), former tobacco smoker, hypothyroidism, spinal stenosis, dementia. She has been seen by our practice on prior hospitalization. Her PCP is Dr. Huston. She presented with complaints "COPD". She reports progressively worsening SOB and productive cough over the past few days. She denies any chest pain, palpitations, n/v, diaphoresis, dizziness or syncope. Cardiology has been co nsulted for HF. Echo done 09/2017 showed EF 50%, mild LVH, mod LA enlargement, thickened mitral valve leaflets, dense mitral annular calcification, mild TR, 1.24cm size posterior MV echo dense calcified structure, negative bubble study. LUCY done 09/2017 showed no evidence of valve related vegetations, thickened and mildly calcified MV leaflets with dense mitral annular calcification, calcification more marked over posterior mitral valve leavlet, no MS, trace MR, negative bubble study, no thrombus. Past History Past Medical History: CAD, COPD, diabetes, hypertension, hyperlipidemia, hypothyroidism Past Surgical History: No surgical history Social history: , lives with family, other (presently in rehab, hx of tobacco abuse) Family history: hypertension Medications and Allergies Allergies Allergy/AdvReac Type Severity Reaction Status Date / Time No Known Allergies Allergy Verified 12/10/12 08:15 Home Medications Medication Instructions Recorded Confirmed Last Taken Type ARIPiprazole [Abilify TAB] 10 mg PO QAM 12/31/18 01/08/19 Unknown History AtorvaSTATin [Lipitor] 40 mg PO QPM 12/31/18 01/08/19 Unknown History Buprenorphine [Butrans] 1 each TD Q7D 12/31/18 01/08/19 Unknown History Diclofenac 1% topical gel 1 applic TP QID 12/31/18 01/08/19 Unknown History FLUoxetine HCL [PROzac] 40 mg PO QAM 12/31/18 01/08/19 Unknown History Fluticasone/Umeclidin/Vilanter 1 each IH QAM 12/31/18 01/09/19 Unknown History [Trelegy Ellipta 100-62.5-25] Gabapentin [Neurontin] 800 mg PO TID 12/31/18 01/08/19 Unknown History Ipratropium/Albuter (Nf) 1 puff IH Q6H PRN 12/31/18 01/08/19 Unknown History [Combivent Inhaler] Metformin HCl [Metformin HCl ER] 500 mg PO QAM 12/31/18 01/08/19 Unknown History ALBUTEROL NEB's [Proventil 0.083% 2.5 mg IH Q4HRT PRN nebu 01/04/19 01/08/19 Unknown Rx NEBS] Donepezil [Aricept] 10 mg PO HS tablet 01/04/19 01/08/19 Unknown Rx Haloperidol [Haldol] 5 mg PO QPM tablet 01/04/19 01/08/19 Unknown Rx Ketoconazole 2% [Nizoral] 1 applic TP BID tube 01/04/19 01/09/19 Unknown Rx Levothyroxine [Synthroid] 88 mcg PO QAM@0600 tablet 01/04/19 01/08/19 Unknown Rx Lisinopril [Zestril TAB] 20 mg PO QAM tablet 01/04/19 01/08/19 Unknown Rx Clotrimazole/Betamethasone 1 applic TP BID #60 tube 01/06/19 01/09/19 Unknown Rx Docusate Sodium [Colace CAP] 100 mg PO BID #60 capsule 01/06/19 01/09/19 Unknown Rx Fluticasone/Umeclidin/Vilanter 1 each IH QAM 01/08/19 01/08/19 Unknown History [Trelegy Ellipta 100-62.5-25] HYDROcodone/APAP 5-325 5 mg PO Q8HR PRN 01/08/19 01/09/19 Unknown History Active Meds: Active Medications Acetaminophen (Tylenol) 650 mg PO Q6H PRN PRN Reason: Pain, Mild (1-3) Last Admin: 01/12/19 03:22 Dose: 650 mg Documented by: Albuterol (Proventil) 2.5 mg IH Q6HRT PRN PRN Reason: Wheezing Albuterol/Ipratropium (Duoneb *Not For Prn Use*) 1 ampul IH Q6HRT [facility] Last Admin: 01/12/19 03:53 Dose: 1 ampul Documented by: Amlodipine Besylate (Norvasc) 10 mg PO QDAY [facility] Last Admin: 01/11/19 14:17 Dose: 10 mg Documented by: Aripiprazole (Aripiprazole) 10 mg PO QAM [facility] Carvedilol (Coreg) 25 mg PO BID [facility] Clotrimazole (Clotrimazole/Betamethasone) 1 applic TP BID [facility] Last Admin: 01/11/19 22:00 Dose: 1 applic Documented by: Dextrose (D50w (25gm) Syringe) 50 ml IV Q30MIN PRN PRN Reason: Hypoglycemia Donepezil HCl (Aricept) 10 mg PO HS [facility] Fluoxetine HCl (Prozac) 40 mg PO QDAY [facility] Last Admin: 01/11/19 10:08 Dose: 40 mg Documented by: Furosemide (Lasix) 20 mg IV QDAY [facility] Gabapentin (Neurontin) 800 mg PO TID [facility] Last Admin: 01/12/19 08:03 Dose: 800 mg Documented by: Haloperidol (Haldol) 5 mg PO QPM [facility] Last Admin: 01/11/19 17:21 Dose: 5 mg Documented by: Hydralazine HCl (Apresoline) 10 mg IV Q6H PRN PRN Reason: Hypertension Last Admin: 01/12/19 03:43 Dose: 10 mg Documented by: Potassium Chloride (Kcl 10meq/100ml) 10 meq in 100 mls @ 100 mls/hr IV Q1H [facility] Stop: 01/12/19 11:59 Insulin Human Lispro (Humalog) 0 unit SUB-Q ACHS [facility]; Protocol Last Admin: 01/12/19 08:04 Dose: 2 unit Documented by: Levothyroxine Sodium (Synthroid) 88 mcg PO QAM@0600 [facility] Last Admin: 01/12/19 05:52 Dose: 88 mcg Documented by: Lisinopril (Zestril) 20 mg PO QAM [facility] Methylprednisolone Sodium Succinate (Solu-Medrol) 60 mg IV Q8HR [facility] Last Admin: 01/12/19 05:52 Dose: 60 mg Documented by: Miscellaneous Medication (Nf Trelegy) 1 puff PO DAILY [facility] Review of Systems Constitutional: no weight loss, no weight gain, no fever, no chills, no sweats Ears, nose, mouth and throat: no ear pain, no nose pain, no sinus pressure, no sinus pain Cardiovascular: shortness of breath, dyspnea on exertion, no chest pain, no orthopnea, no palpitations, no rapid/irregular heart beat, no edema, no syncope, no lightheadedness, no leg edema Respiratory: cough with sputum, shortness of breath, dyspnea on exertion, congestion, wheezing, no pain on inspiration Gastrointestinal: no abdominal pain, no nausea, no vomiting, no diarrhea, no constipation, no change in bowel habits Genitourinary Female: no pelvic pain, no flank pain, no dysuria, no urinary frequency, no urgency Musculoskeletal: no neck stiffness, no neck pain, no shooting arm pain, no arm numbness/tingling, no low back pain, no shooting leg pain Integumentary: no rash, no pruritis, no redness, no sores, no wounds Neurological: no head injury, no paralysis, no weakness, no parathesias, no numbness, no tingling, no seizures, no syncope Psychiatric: no anxiety Endocrine: no cold intolerance, no heat intolerance Hematologic/Lymphatic: no easy bruising, no easy bleeding Allergic/Immunologic: no urticaria Physical Examination Vital Signs Pulse Ox 92 01/08/19 14:24 General appearance: no acute distress HEENT: Positive: PERRL, Normocephaly, Mucus Membranes Moist Neck: Positive: neck supple Cardiac: Positive: Reg Rate and Rhythm, S1/S2 Lungs: Positive: Decreased Breath Sounds, Oxygen Neuro: Positive: Grossly Intact Abdomen: Negative: Tender Skin: Negative: Rash Musculoskeletal: No Pain Extremities: Absent: edema Results 01/12/19 05:34 01/12/19 05:34 Cardiac Enzymes 01/12/19 Range/Units 05:34 AST 22 (5-40) units/L CBC 01/12/19 Range/Units 05:34 WBC 8.5 (4.5-11.0) K/mm3 RBC 3.11 L (3.65-5.03) M/mm3 Hgb 8.6 L (10.1-14.3) gm/dl Hct 27.4 L (30.3-42.9) % Plt Count 279 (140-440) K/mm3 Lymph # 0.6 L (1.2-5.4) K/mm3 Josephine # 0.5 (0.0-0.8) K/mm3 Eos # 0.0 (0.0-0.4) K/mm3 Baso # 0.0 (0.0-0.1) K/mm3 Comprehensive Metabolic Panel 01/12/19 Range/Units 05:34 Sodium 146 H (137-145) mmol/L Potassium 3.5 L D (3.6-5.0) mmol/L Chloride 95.9 L (98-107) mmol/L Carbon Dioxide 35 H (22-30) mmol/L BUN 17 (7-17) mg/dL Creatinine 0.6 L (0.7-1.2) mg/dL Glucose 248 H (65-100) mg/dL Calcium 8.7 (8.4-10.2) mg/dL AST 22 (5-40) units/L ALT 30 (7-56) units/L Alkaline Phosphatase 75 (35-129) units/L Total Protein 7.1 (6.3-8.2) g/dL Albumin 3.9 (3.9-5) g/dL - Imaging and Cardiology Echo: report reviewed ( 09/2017 showed EF 50%, mild LVH, mod LA enlargement, thickened mitral valve leaflets, dense mitral annular calcification, mild TR, 1.24cm size posterior MV echo dense calcified structure, negative bubble study. ) EKG: report reviewed, image reviewed EKG interpretations - Telemetry EKG Rhythm: Sinus Rhythm - EKG Sinus rhythms and dysrhythmias: sinus rhythm Assessment and Plan Resume home ASA and statin. Optimize BPs - avoid coreg in setting of COPD with acute exacerbation, initiate hydralazine and titrate as necessary. Agree with gentle diuresis. F/u echo. The patient has been seen in conjunction with Dr. KHARI Galindo who agrees with the assessment and plan of care. - Patient Problems (1) Acute on chronic respiratory failure Current Visit: Yes Status: Acute (2) COPD exacerbation Current Visit: Yes Status: Acute (3) Acute heart failure with preserved ejection fraction Current Visit: Yes Status: Acute (4) CAD (coronary artery disease) Current Visit: Yes Status: Chronic (5) Mitral valve annular calcification Current Visit: Yes Status: Chronic (6) HTN (hypertension) Current Visit: Yes Status: Chronic (7) Obstructive sleep apnea Current Visit: Yes Status: Chronic (8) Hyperlipidemia Current Visit: Yes Status: Chronic (9) Diabetes Current Visit: Yes Status: Chronic Qualifiers: Diabetes mellitus type: type 2 Diabetes mellitus intermediate insulin use: without intermediate use Diabetes mellitus complication status: without complication Qualified Code(s): E11.9 - Type 2 diabetes mellitus without complications (10) Hypothyroidism Current Visit: Yes Status: Chronic
[2019-01-12] MEDS ORDERED: LOSARTAN 50 MG TAB PO SCH (10:00)
[2019-01-12] MEDS ORDERED: carvediloL 25 MG TAB PO SCH (10:00)
[2019-01-12] MEDS: FLUoxetine 20 MG CAP PO SCH (10:22)
[2019-01-12] MEDS: CLOTRIMAZOLE/BETAMETHASONE CREAM 15 GM TP SCH ×2 (10:23→23:42)
[2019-01-12] MEDS: TRELEGY PO SCH (10:23)
[2019-01-12] MEDS: amLODIPine 10 MG TAB PO SCH (10:24)
[2019-01-12] MEDS: FUROSEMIDE 20 MG/2 ML INJ IV SCH (10:24)
[2019-01-12] MEDS: LISINOPRIL 20 MG TAB PO SCH (10:25)
[2019-01-12] MEDS: POTASSIUM CHLORIDE 10 MEQ 10 MEQ/100 ML BAG IV SCH ×2 (10:41→11:50)
[2019-01-12] MEDS: ARIPiprazole 10 MG TAB PO SCH (11:25)
--- NOTE | 2019-01-12 12:36 | Progress Note ---
Assessment and Plan Cultures: 01/08/2019 blood culture: No growth 01/08/2019 urine culture: No growth A/P: 68-year-old female with COPD, hypertension, diabetes, acute hypoxic respiratory failure on home oxygen, was [facility], returned back to the hospital in ~2 days with respiratory distress. Accordingly to her family member at bedside, patient had not been receiving her inhalers. Initially, patient was noted to have high PCO2, hypotension, requiring fluids and low-dose pressors: 1) Hypotension, possibly secondary to acute hypercapneic respiratory failure, acidosis: pulm following. No bacteremia, no fever, no initial leucocytosis, no UTI, no pneumonia on CXR. Leucocytosis now is likely from steroids. Sepsis seems unlikely. Procalcitonin is low (<0.05) and pro-BNP is high suggestive of possible CHF 2) Diarrhea: possibly overflow from constipation and impaction. Per RN, patient passed a hard chunk of stool. Recs: procalcitonin is low (<0.05) and pro-BNP is high suggestive of possible CHF Continue off abx Diuresis per cardiology and IMS Diarrhea probably overflow from constipation Lb Jimenez MD, FACP [facility] C: [phone] O: [phone] F: [phone] Subjective Date of service: 01/12/19 Principal diagnosis: sepsis, exacerbation of COPD Interval history: No fever. Still having loose stools. Denies any new breathing complaints. Getting breathing treatment. Objective - Exam Narrative Exam: Physical Exam: Constitutional: Alert, cooperative. No acute distress Head, Ears, Nose: Normocephalic, atraumatic. External ears, nose normal Eyes: Conjunctivae/corneas clear. No icterus. No ptosis. Neck: Supple, no meningeal signs Oral: edentulous, no thrush Cardiovascular: S1, S2 normal Respiratory: more clear bilaterally GI: Soft, non-tender; bowel sounds normal. No peritoneal signs Musculoskeletal: No pedal edema, no cyanosis. Skin: No rash or abscess Hem/Lymphatic: No palpable cervical or supraclavicular nodes. No lymphangitis Psych: no agitation, flat affect Neurological: Awake, alert - Constitutional Vitals: Vital Signs Temp Pulse Resp BP Pulse Ox 98.8 F 58 L 20 177/68 90 01/12/19 07:23 01/12/19 10:24 01/12/19 07:23 01/12/19 10:24 01/12/19 07:23 Temperature -Last 24 Hours Temperature 98.8 F Temperature 98.0 F Temperature 97.5 F Temperature 99.4 F - Labs CBC & Chem 7: 01/12/19 05:34 01/12/19 05:34 Labs: Abnormal lab results 01/11/19 01/11/19 01/11/19 Range/Units 16:03 16:27 22:23 RBC (3.65-5.03) M/mm3 Hgb (10.1-14.3) gm/dl Hct (30.3-42.9) % RDW (13.2-15.2) % Lymph % (Auto) (13.4-35.0) % Lymph # (1.2-5.4) K/mm3 Seg Neutrophils % (40.0-70.0) % Sodium (137-145) mmol/L Potassium (3.6-5.0) mmol/L Chloride (98-107) mmol/L Carbon Dioxide (22-30) mmol/L Creatinine (0.7-1.2) mg/dL Glucose (65-100) mg/dL POC Glucose 217 H 243 H (70-105) NT-Pro-B Natriuret Pep 2547 H (0-900) pg/mL 01/12/19 01/12/19 01/12/19 Range/Units 05:34 05:34 07:22 RBC 3.11 L (3.65-5.03) M/mm3 Hgb 8.6 L (10.1-14.3) gm/dl Hct 27.4 L (30.3-42.9) % RDW 15.6 H (13.2-15.2) % Lymph % (Auto) 7.0 L (13.4-35.0) % Lymph # 0.6 L (1.2-5.4) K/mm3 Seg Neutrophils % 87.5 H (40.0-70.0) % Sodium 146 H (137-145) mmol/L Potassium 3.5 L D (3.6-5.0) mmol/L Chloride 95.9 L (98-107) mmol/L Carbon Dioxide 35 H (22-30) mmol/L Creatinine 0.6 L (0.7-1.2) mg/dL Glucose 248 H (65-100) mg/dL POC Glucose 249 H (70-105) NT-Pro-B Natriuret Pep (0-900) pg/mL 01/12/19 Range/Units 11:35 RBC (3.65-5.03) M/mm3 Hgb (10.1-14.3) gm/dl Hct (30.3-42.9) % RDW (13.2-15.2) % Lymph % (Auto) (13.4-35.0) % Lymph # (1.2-5.4) K/mm3 Seg Neutrophils % (40.0-70.0) % Sodium (137-145) mmol/L Potassium (3.6-5.0) mmol/L Chloride (98-107) mmol/L Carbon Dioxide (22-30) mmol/L Creatinine (0.7-1.2) mg/dL Glucose (65-100) mg/dL POC Glucose 190 H (70-105) NT-Pro-B Natriuret Pep (0-900) pg/mL
--- NOTE | 2019-01-12 13:52 | Progress Note ---
Assessment and Plan 68 y/o female with acute respiratory failure secondary to COPD exacerbation. 1. Continue HFNC at current rate and wean for sats >88% 2. Will continue steroids at current dosing 3. Lasix 40mg IVx1 again today. 4. Ordered daily Trelegy to be used by patient. Nursing states they can administer 5. Will continue to follow. Subjective Date of service: 01/12/19 Principal diagnosis: sepsis, exacerbation of COPD Interval history: Not sure if I/O accurate but patient still positive based upon charting. No changes in HFNC. BP remains elevated Objective Vital Signs - 12hr 01/12/19 01/12/19 01/12/19 02:02 03:42 03:43 Temperature 98.0 F Pulse Rate 47 L 52 L 52 L Pulse Rate [ Anterior Bilateral] Respiratory 22 Rate Respiratory Rate [Anterior Bilateral] Blood Pressure 168/69 174/54 Blood Pressure 174/54 [Right] O2 Sat by Pulse 90 90 Oximetry 01/12/19 01/12/19 01/12/19 03:54 04:23 07:23 Temperature 98.8 F Pulse Rate 49 L 59 L Pulse Rate [ 62 Anterior Bilateral] Respiratory 20 Rate Respiratory 24 Rate [Anterior Bilateral] Blood Pressure 175/65 Blood Pressure [Right] O2 Sat by Pulse 90 Oximetry 01/12/19 01/12/19 10:00 10:24 Temperature Pulse Rate 73 58 L Pulse Rate [ Anterior Bilateral] Respiratory 18 Rate Respiratory Rate [Anterior Bilateral] Blood Pressure 177/68 Blood Pressure [Right] O2 Sat by Pulse Oximetry Constitutional: alert (mild distress on hi yolanda 50%), other Eyes: non-icteric ENT: oropharynx moist, other (adentulous) Neck: supple Effort: normal Ascultation: Bilateral: wheezes Tactile fremitus: Bilateral: normal Cardiovascular: regular rate and rhythm Gastrointestinal: normoactive bowel sounds, soft, non-tender, non-distended Integumentary: normal Extremities: no cyanosis, no edema Neurologic: normal mental status, non-focal exam Psychiatric: mood appropriate, affect normal CBC and BMP: 01/12/19 05:34 01/12/19 05:34 ABG, PT/INR, D-dimer: ABG POC ABG pH 7.278 (7.35-7.45) L 01/09/19 05:23 POC ABG pCO2 67.9 (35-45) H 01/09/19 05:23 POC ABG pO2 73 (80-105) L 01/09/19 05:23 POC ABG HCO3 31.7 (22-26 mml/L) 01/09/19 05:23 POC ABG Total CO2 34 (23-27mmol/L) 01/09/19 05:23 POC ABG O2 Sat 91 01/09/19 05:23 PT/INR, D-dimer PT 13.3 Sec. (12.2-14.9) 01/08/19 14:39 INR 1.04 (0.87-1.13) 01/08/19 14:39 Abnormal lab findings: Abnormal Labs 01/08/19 01/08/19 01/08/19 14:39 14:39 16:55 WBC RBC 3.17 L Hgb 9.0 L Hct 28.4 L MCH RDW 15.9 H Lymph % (Auto) Bonner % (Auto) 7.8 H Lymph # Seg Neutrophils % 71.9 H Seg Neuts % (Manual) Lymphocytes % (Manual) Seg Neutrophils # Man Lymphocytes # (Manual) POC ABG pH POC ABG pCO2 POC ABG pO2 Sodium Potassium Chloride Carbon Dioxide BUN Creatinine Glucose 140 H POC Glucose Lactic Acid 2.90 H* NT-Pro-B Natriuret Pep Albumin 3.7 L 01/08/19 01/08/19 01/08/19 19:34 21:15 23:37 WBC RBC Hgb Hct MCH RDW Lymph % (Auto) Bonner % (Auto) Lymph # Seg Neutrophils % Seg Neuts % (Manual) Lymphocytes % (Manual) Seg Neutrophils # Man Lymphocytes # (Manual) POC ABG pH POC ABG pCO2 POC ABG pO2 Sodium Potassium Chloride Carbon Dioxide BUN Creatinine Glucose POC Glucose 224 H Lactic Acid 3.50 H* 3.80 H* NT-Pro-B Natriuret Pep Albumin 01/09/19 01/09/19 01/09/19 04:52 04:52 05:23 WBC RBC 3.12 L Hgb 8.7 L Hct 28.4 L MCH RDW 16.2 H Lymph % (Auto) Bonner % (Auto) Lymph # Seg Neutrophils % Seg Neuts % (Manual) 95.0 H Lymphocytes % (Manual) 4.0 L Seg Neutrophils # Man 8.9 H Lymphocytes # (Manual) 0.4 L POC ABG pH 7.278 L POC ABG pCO2 67.9 H POC ABG pO2 73 L Sodium Potassium Chloride Carbon Dioxide BUN 19 H Creatinine Glucose 173 H POC Glucose Lactic Acid NT-Pro-B Natriuret Pep Albumin 3.8 L 01/09/19 01/09/19 01/09/19 05:37 12:01 18:10 WBC RBC Hgb Hct MCH RDW Lymph % (Auto) Bonner % (Auto) Lymph # Seg Neutrophils % Seg Neuts % (Manual) Lymphocytes % (Manual) Seg Neutrophils # Man Lymphocytes # (Manual) POC ABG pH POC ABG pCO2 POC ABG pO2 Sodium Potassium Chloride Carbon Dioxide BUN Creatinine Glucose POC Glucose 177 H 186 H 257 H Lactic Acid NT-Pro-B Natriuret Pep Albumin 01/09/19 01/10/19 01/10/19 23:13 08:02 10:09 WBC 14.0 H RBC 2.97 L Hgb 8.2 L Hct 27.0 L MCH RDW 16.4 H Lymph % (Auto) Bonner % (Auto) Lymph # Seg Neutrophils % Seg Neuts % (Manual) 95.0 H Lymphocytes % (Manual) 5.0 L Seg Neutrophils # Man 13.3 H Lymphocytes # (Manual) 0.7 L POC ABG pH POC ABG pCO2 POC ABG pO2 Sodium Potassium Chloride Carbon Dioxide BUN Creatinine Glucose POC Glucose 187 H 185 H Lactic Acid NT-Pro-B Natriuret Pep Albumin 01/10/19 01/10/19 01/10/19 10:09 10:09 12:25 WBC RBC Hgb Hct MCH RDW Lymph % (Auto) Bonner % (Auto) Lymph # Seg Neutrophils % Seg Neuts % (Manual) Lymphocytes % (Manual) Seg Neutrophils # Man Lymphocytes # (Manual) POC ABG pH POC ABG pCO2 POC ABG pO2 Sodium Potassium Chloride Carbon Dioxide BUN 18 H Creatinine 0.6 L Glucose 251 H POC Glucose 216 H Lactic Acid 2.10 H* NT-Pro-B Natriuret Pep Albumin 3.5 L 01/10/19 01/10/19 01/11/19 16:27 21:44 07:27 WBC RBC Hgb Hct MCH RDW Lymph % (Auto) Bonner % (Auto) Lymph # Seg Neutrophils % Seg Neuts % (Manual) Lymphocytes % (Manual) Seg Neutrophils # Man Lymphocytes # (Manual) POC ABG pH POC ABG pCO2 POC ABG pO2 Sodium Potassium Chloride Carbon Dioxide BUN Creatinine Glucose POC Glucose 160 H 210 H 191 H Lactic Acid NT-Pro-B Natriuret Pep Albumin 01/11/19 01/11/19 01/11/19 07:57 07:57 11:16 WBC 12.2 H RBC 2.96 L Hgb 8.1 L Hct 26.9 L MCH 27 L RDW 16.3 H Lymph % (Auto) Bonner % (Auto) Lymph # Seg Neutrophils % Seg Neuts % (Manual) 90.0 H Lymphocytes % (Manual) 7.0 L Seg Neutrophils # Man 11.0 H Lymphocytes # (Manual) 0.9 L POC ABG pH POC ABG pCO2 POC ABG pO2 Sodium 147 H Potassium Chloride Carbon Dioxide 31 H BUN 21 H Creatinine 0.6 L Glucose 190 H POC Glucose 177 H Lactic Acid NT-Pro-B Natriuret Pep Albumin 01/11/19 01/11/19 01/11/19 16:03 16:27 22:23 WBC RBC Hgb Hct MCH RDW Lymph % (Auto) Bonner % (Auto) Lymph # Seg Neutrophils % Seg Neuts % (Manual) Lymphocytes % (Manual) Seg Neutrophils # Man Lymphocytes # (Manual) POC ABG pH POC ABG pCO2 POC ABG pO2 Sodium Potassium Chloride Carbon Dioxide BUN Creatinine Glucose POC Glucose 217 H 243 H Lactic Acid NT-Pro-B Natriuret Pep 2547 H Albumin 01/12/19 01/12/19 01/12/19 05:34 05:34 07:22 WBC RBC 3.11 L Hgb 8.6 L Hct 27.4 L MCH RDW 15.6 H Lymph % (Auto) 7.0 L Bonner % (Auto) Lymph # 0.6 L Seg Neutrophils % 87.5 H Seg Neuts % (Manual) Lymphocytes % (Manual) Seg Neutrophils # Man Lymphocytes # (Manual) POC ABG pH POC ABG pCO2 POC ABG pO2 Sodium 146 H Potassium 3.5 L D Chloride 95.9 L Carbon Dioxide 35 H BUN Creatinine 0.6 L Glucose 248 H POC Glucose 249 H Lactic Acid NT-Pro-B Natriuret Pep Albumin 01/12/19 11:35 WBC RBC Hgb Hct MCH RDW Lymph % (Auto) Bonner % (Auto) Lymph # Seg Neutrophils % Seg Neuts % (Manual) Lymphocytes % (Manual) Seg Neutrophils # Man Lymphocytes # (Manual) POC ABG pH POC ABG pCO2 POC ABG pO2 Sodium Potassium Chloride Carbon Dioxide BUN Creatinine Glucose POC Glucose 190 H Lactic Acid NT-Pro-B Natriuret Pep Albumin
[2019-01-12] MEDS ORDERED: FUROSEMIDE 40 MG/4 ML INJ IV NR (13:53)
[2019-01-12] MEDS: hydrALAZINE 25 MG TAB PO SCH ×2 (14:00→23:35)
[2019-01-12] MEDS ORDERED: APAP PO PRN (16:50)
[2019-01-12] MEDS ORDERED: HYDROCODONE PO PRN (16:50)
[2019-01-12] MEDS ORDERED: BUPRENORPHINE TP SCH (17:00)
[2019-01-12] MEDS ORDERED: HYDROcodone/ACETAMINOPHEN 5-325 MG TAB PO PRN (17:01)
[2019-01-12] MEDS: HALOPERIDOL 5 MG TAB PO SCH (17:15)
[2019-01-12] MEDS: HYDROcodone/ACETAMINOPHEN 5-325 MG TAB PO PRN ×2 (17:17→23:38)
[2019-01-12] MEDS: DONEPEZIL 10 MG TAB PO SCH (23:38)
[2019-01-13] MEDS: IPRATROPIUM/ALBUTEROL SULFATE 3 ML AMPUL.NEB IH SCH ×4 (02:00→20:21)
[2019-01-13] MEDS: methylPREDNISolone Sod Succinate 125 MG/2 ML INJ IV SCH ×3 (05:57→21:30)
[2019-01-13] MEDS: hydrALAZINE 25 MG TAB PO SCH ×3 (05:57→21:31)
[2019-01-13] MEDS: LEVOTHYROXINE 88 MCG TAB PO SCH (05:58)
[2019-01-13 06:03] LABS: Basophils % (Auto) 0.2 % (0.0-1.8); Hematocrit 29.3 % (30.3-42.9); Hemoglobin 9.2 gm/dl (10.1-14.3); Lymphocytes # (Auto) 1.2 K/mm3 (1.2-5.4); Lymphocytes % (Auto) 15.2 % (13.4-35.0); Mean Corpuscular HGB Conc 31 % (30-34); Mean Corpuscular Volume 88 fl (79-97); Monocytes # (Auto) 0.8 K/mm3 (0.0-0.8); Monocytes % (Auto) 9.8 % (0.0-7.3); Platelet Count 285 K/mm3 (140-440); Red Blood Count 3.32 M/mm3 (3.65-5.03); Red Cell Distribution Width 15.3 % (13.2-15.2)
[2019-01-13 06:26] LABS: Alanine Aminotransferase 28 units/L (7-56); Albumin 3.6 g/dL (3.9-5); BUN/Creatinine Ratio 32; Blood Urea Nitrogen 16 mg/dL (7-17); Calcium 8.8 mg/dL (8.4-10.2); Hemolysis Index 6
[2019-01-13] MEDS: INSULIN LISPRO 100 UNIT/ML SUB-Q SCH ×4 (08:13→21:32)
[2019-01-13] MEDS: amLODIPine 10 MG TAB PO SCH ×2 (08:18→16:53)
[2019-01-13] MEDS: HYDROcodone/ACETAMINOPHEN 5-325 MG TAB PO PRN ×2 (08:18→18:10)
[2019-01-13] MEDS: LISINOPRIL 20 MG TAB PO SCH (08:19)
[2019-01-13] MEDS: GABAPENTIN 400 MG CAP PO SCH ×3 (08:19→21:30)
[2019-01-13] MEDS: TRELEGY PO SCH ×2 (08:39→10:59)
--- NOTE | 2019-01-13 08:56 | Progress Note ---
Assessment and Plan Patient seen and examined medical records from the emergency department reviewed. 68-year-old female patient admitted to the emergency department for worsening shortness of breath as well as cough generalized body pain and weakness. The patient was admitteed to admitted to [facility] and has been on treatment there but her breathing got progressively worse over the past 24 Hours and was thus referred back to the ER for further evaluation and treatment . Patient has history of COPD hypertension on therapy diabetes and has had multiple hospitalizations over the last year on account of recurrence of COPD. After the time of evaluation patient has ongoing shortness of breath, her blood pressure was also reported to be low in the emergency department for which patient was started on Levophed which is currently maxed out with MAP still low. Patient stated that her shortness of breath has not improved significantly s anders he was discharged from the hospital 2 days ago, cough is productive and she denied any chest pain, no fever or chills but appetite has been poor and she feels generally weak. - Acute respiratory failure Supplemental oxygen and Bronchodilator Continue O2 supplementation patient currently on BiPAP, IV antibiotics and aerosol treatments and steroids Pulmonology consulted amnd following - Heart Failure preserved EF (LVEF as of 10/07 was 50%) F/u ECHO Commence ACEI, hold BB b/c acute respiratory failure, gently diuresis with strick Is and Os Cardiology consult and following -CAD s/p angioplasty 10 yrs ago ASA, Statin. Holding BB b/c acute on chr Respr failure - Sepsis associated hypotension- resolved. Now hypertensive Has Leukocytosis with initial elevated lactic acid level - resolved Hypotension improved with iv hydration, pressors now discontinued Continue IV antibiotics as ordered. Blood culture no growth so far. - Diarrhea - overflow resolved - Chronic pain continue with hydrocordone APAP - Hypokalemia -corrected Will supplement and recheck - COPD exacerbation Continue aerosol treatment and steroids and O2 supplementation. IV antibiotics We'll consult pulmonary for management of COPD and acute respiratory failure - Type 2 diabetes mellitus without complications We will hold metformin and start patient on sliding scale coverage with regular insulin with parameters. - Essential (primary) hypertension Optimized BP control - DVT prophylaxis with Lovenox and GI with Pepcid Time spent: 32 minutes Subjective Date of service: 01/13/19 Principal diagnosis: sepsis, exacerbation of COPD, acute on Chronic HFpEF, CAD Interval history: Pt seen and examined. Still having shortness of breath. No longer on pressors. Afebrile. On supplemental oxygen via nasal cannula. No diarrhea. Objective - Exam Narrative Exam: Constitutional: Well-nourished well-developed. In no distress Head: Normocephalic atraumatic Eyes: Pupils are equal round and reactive to light Nose: No enlarged turbinates, no septal deviation. Mouth: Moist mucous membranes. Neck: Supple no thyromegaly. No bruit. No JVD Heart: Regular rate and rhythm, S1-S2 normal. No rubs murmurs or gallop Lungs: Decreased breath sounds on auscultation bilaterally. Abdomen: Soft, nontender. Bowel sound are present. Extremities: No edema, no cyanosis, no clubbing. Neuro: Alert oriented Oriented x3. No focal sensory or motor deficit. Skin: No rashes or hyperpigmented spots Musculoskeletal system: No joint pain or swelling Hematological: No petechia or subcutanous hemorrhages. Immunological: No multiple septic spots on the skin Lymphatic: No generalized lymphadenopathy Psychiatry: Euthymic. Calm. - Constitutional Vitals: Vital Signs - 12hr 01/12/19 01/12/19 01/13/19 22:00 23:35 01:55 Temperature 98.3 F Pulse Rate 46 L Pulse Rate [ Anterior Bilateral] Pulse Rate [ 58 L From Monitor] Respiratory 20 20 Rate Respiratory Rate [Anterior Bilateral] Blood Pressure 158/55 170/63 O2 Sat by Pulse 94 97 Oximetry 01/13/19 01/13/19 01/13/19 02:00 05:57 06:39 Temperature Pulse Rate 43 L 51 L Pulse Rate [ 45 L Anterior Bilateral] Pulse Rate [ From Monitor] Respiratory Rate Respiratory 20 Rate [Anterior Bilateral] Blood Pressure 177/53 O2 Sat by Pulse 97 Oximetry 01/13/19 08:18 Temperature Pulse Rate Pulse Rate [ Anterior Bilateral] Pulse Rate [ From Monitor] Respiratory Rate Respiratory Rate [Anterior Bilateral] Blood Pressure 180/56 O2 Sat by Pulse Oximetry - Labs CBC & Chem 7: 01/13/19 05:07 01/13/19 05:07 Labs: Abnormal lab results 01/12/19 01/12/19 01/12/19 Range/Units 11:35 16:21 22:07 RBC (3.65-5.03) M/mm3 Hgb (10.1-14.3) gm/dl Hct (30.3-42.9) % RDW (13.2-15.2) % [place] % (Auto) (0.0-7.3) % Seg Neutrophils % (40.0-70.0) % Chloride (98-107) mmol/L Carbon Dioxide (22-30) mmol/L Creatinine (0.7-1.2) mg/dL Glucose (65-100) mg/dL POC Glucose 190 H 268 H 263 H (70-105) Albumin (3.9-5) g/dL 01/13/19 01/13/19 01/13/19 Range/Units 05:07 05:07 07:31 RBC 3.32 L (3.65-5.03) M/mm3 Hgb 9.2 L (10.1-14.3) gm/dl Hct 29.3 L (30.3-42.9) % RDW 15.3 H (13.2-15.2) % [place] % (Auto) 9.8 H (0.0-7.3) % Seg Neutrophils % 74.8 H (40.0-70.0) % Chloride 97.9 L (98-107) mmol/L Carbon Dioxide 37 H (22-30) mmol/L Creatinine 0.5 L (0.7-1.2) mg/dL Glucose 165 H (65-100) mg/dL POC Glucose 147 H (70-105) Albumin 3.6 L (3.9-5) g/dL
--- NOTE | 2019-01-13 10:16 | Progress Note ---
Assessment and Plan Cont home ASA and statin. Optimize BPs - avoid coreg in setting of COPD with acute exacerbation and sinus bradycardia, increase hydralazine, lisinopril initiated per primary team. Agree with gentle diuresis. Await echo. The patient has been seen in conjunction with Dr. Marsha Galindo who agrees with the assessment and plan of care. - Patient Problems (1) Acute on chronic respiratory failure Current Visit: Yes Status: Acute (2) COPD exacerbation Current Visit: Yes Status: Acute (3) Acute heart failure with preserved ejection fraction Current Visit: Yes Status: Acute (4) CAD (coronary artery disease) Current Visit: Yes Status: Chronic (5) Mitral valve annular calcification Current Visit: Yes Status: Chronic (6) HTN (hypertension) Current Visit: Yes Status: Chronic (7) Obstructive sleep apnea Current Visit: Yes Status: Chronic (8) Hyperlipidemia Current Visit: Yes Status: Chronic (9) Diabetes Current Visit: Yes Status: Chronic Qualifiers: Diabetes mellitus type: type 2 Diabetes mellitus usp insulin use: without long term care pharmacist use Diabetes mellitus complication status: without complication Qualified Code(s): E11.9 - Type 2 diabetes mellitus without complications (10) Hypothyroidism Current Visit: Yes Status: Chronic Subjective Date of service: 01/13/19 Principal diagnosis: sepsis, exacerbation of COPD Interval history: pt resting in bed, no current complaints, remains on HiFlo NC. in SR HR 50s with HR low 43bpm overnight. Objective Last Vital Signs Temp 97.7 F 01/13/19 07:27 Pulse 49 L 01/13/19 07:27 Resp 22 01/13/19 07:27 BP 180/56 01/13/19 08:18 Pulse Ox 93 01/13/19 07:27 - Physical Examination General: No Apparent Distress HEENT: Positive: PERRL, Normocephaly, Mucus Membranes Moist Neck: Positive: neck supple Cardiac: Positive: Reg Rate and Rhythm, S1/S2 Lungs: Positive: Decreased Breath Sounds, Oxygen Neuro: Positive: Grossly Intact Abdomen: Negative: Tender Skin: Negative: Rash Musculoskeletal: No Pain Extremities: Absent: edema - Labs and Meds Cardiac Enzymes 01/13/19 Range/Units 05:07 AST 18 (5-40) units/L CBC 01/13/19 Range/Units 05:07 WBC 7.7 (4.5-11.0) K/mm3 RBC 3.32 L (3.65-5.03) M/mm3 Hgb 9.2 L (10.1-14.3) gm/dl Hct 29.3 L (30.3-42.9) % Plt Count 285 (140-440) K/mm3 Lymph # 1.2 (1.2-5.4) K/mm3 [place] # 0.8 (0.0-0.8) K/mm3 Eos # 0.0 (0.0-0.4) K/mm3 Baso # 0.0 (0.0-0.1) K/mm3 Comprehensive Metabolic Panel 01/13/19 Range/Units 05:07 Sodium 145 (137-145) mmol/L Potassium 3.8 (3.6-5.0) mmol/L Chloride 97.9 L (98-107) mmol/L Carbon Dioxide 37 H (22-30) mmol/L BUN 16 (7-17) mg/dL Creatinine 0.5 L (0.7-1.2) mg/dL Glucose 165 H (65-100) mg/dL Calcium 8.8 (8.4-10.2) mg/dL AST 18 (5-40) units/L ALT 28 (7-56) units/L Alkaline Phosphatase 70 (35-129) units/L Total Protein 6.8 (6.3-8.2) g/dL Albumin 3.6 L (3.9-5) g/dL - Imaging and Cardiology EKG: report reviewed, image reviewed Echo: report reviewed ( 09/2017 showed EF 50%, mild LVH, mod LA enlargement, thickened mitral valve leaflets, dense mitral annular calcification, mild TR, 1.24cm size posterior MV echo dense calcified structure, negative bubble study. ) - EKG Sinus rhythms and dysrhythmias: sinus rhythm
[2019-01-13] MEDS: FUROSEMIDE 20 MG/2 ML INJ IV SCH ×2 (10:57→13:00)
[2019-01-13] MEDS: ARIPiprazole 10 MG TAB PO SCH (10:57)
[2019-01-13] MEDS: FLUoxetine 20 MG CAP PO SCH (10:57)
[2019-01-13] MEDS: ASPIRIN 81 MG TAB CHEW PO SCH (10:57)
[2019-01-13] MEDS: CLOTRIMAZOLE/BETAMETHASONE CREAM 15 GM TP SCH ×2 (10:58→21:33)
[2019-01-13] MEDS: LISINOPRIL 40 MG TAB PO SCH ×2 (11:03→21:32)
--- NOTE | 2019-01-13 12:33 | Progress Note ---
Assessment and Plan Cultures: 01/08/2019 blood culture: No growth 01/08/2019 urine culture: No growth A/P: 68-year-old female with COPD, hypertension, diabetes, acute hypoxic respiratory failure on home oxygen, was [facility], returned back to the hospital in ~2 days with respiratory distress. Accordingly to her family member at bedside, patient had not been receiving her inhalers. Initially, patient was noted to have high PCO2, hypotension, requiring fluids and low-dose pressors: 1) Hypotension, possibly secondary to acute hypercapneic respiratory failure, acidosis: pulm following. No bacteremia, no fever, no initial leucocytosis, no UTI, no pneumonia on CXR. Leucocytosis now is likely from steroids. Sepsis seems unlikely. Procalcitonin is low (<0.05) and pro-BNP is high suggestive of possible CHF 2) Diarrhea: possibly overflow from constipation and impaction. Per RN, patient passed a hard chunk of stool. Resolved. Recs: Diarrhea resolved Procalcitonin is low (<0.05) and pro-BNP is high suggestive of possible CHF Continue off abx ID will sign off. Please call with questions. Lb Jimenez MD, FACP [facility] C: [phone] O: [phone] F: [phone] Subjective Date of service: 01/13/19 Principal diagnosis: sepsis, exacerbation of COPD Interval history: No fever. Diarrhea has resolved, patient had formed stools per RN. No new complaints. Objective - Exam Narrative Exam: Physical Exam: Constitutional: Alert, cooperative. No acute distress Head, Ears, Nose: Normocephalic, atraumatic. External ears, nose normal Eyes: Conjunctivae/corneas clear. No icterus. No ptosis. Neck: Supple, no meningeal signs Oral: edentulous, no thrush Cardiovascular: S1, S2 normal Respiratory: clear b/l GI: Soft, non-tender; bowel sounds normal. No peritoneal signs Musculoskeletal: No pedal edema, no cyanosis. Skin: No rash or abscess Hem/Lymphatic: No palpable cervical or supraclavicular nodes. No lymphangitis Psych: no agitation, flat affect Neurological: Awake, alert - Constitutional Vitals: Vital Signs Temp Pulse Resp BP Pulse Ox 97.7 F 56 L 18 180/56 97 01/13/19 07:27 01/13/19 08:10 01/13/19 08:10 01/13/19 08:18 01/13/19 08:25 Temperature -Last 24 Hours Temperature 97.7 F Temperature 98.3 F Temperature 98.0 F Temperature 98.9 F - Labs CBC & Chem 7: 01/13/19 05:07 01/13/19 05:07 Labs: Abnormal lab results 01/12/19 01/12/19 01/13/19 Range/Units 16:21 22:07 05:07 RBC 3.32 L (3.65-5.03) M/mm3 Hgb 9.2 L (10.1-14.3) gm/dl Hct 29.3 L (30.3-42.9) % RDW 15.3 H (13.2-15.2) % [place] % (Auto) 9.8 H (0.0-7.3) % Seg Neutrophils % 74.8 H (40.0-70.0) % Chloride (98-107) mmol/L Carbon Dioxide (22-30) mmol/L Creatinine (0.7-1.2) mg/dL Glucose (65-100) mg/dL POC Glucose 268 H 263 H (70-105) Albumin (3.9-5) g/dL 01/13/19 01/13/19 Range/Units 05:07 07:31 RBC (3.65-5.03) M/mm3 Hgb (10.1-14.3) gm/dl Hct (30.3-42.9) % RDW (13.2-15.2) % [place] % (Auto) (0.0-7.3) % Seg Neutrophils % (40.0-70.0) % Chloride 97.9 L (98-107) mmol/L Carbon Dioxide 37 H (22-30) mmol/L Creatinine 0.5 L (0.7-1.2) mg/dL Glucose 165 H (65-100) mg/dL POC Glucose 147 H (70-105) Albumin 3.6 L (3.9-5) g/dL
--- NOTE | 2019-01-13 12:51 | Progress Note ---
Assessment and Plan 68 y/o female with acute respiratory failure secondary to COPD exacerbation. 1. Continue HFNC at current rate and wean for sats >88%. Sats have been in the high 90's on each documentation. 2. Would suggest starting to wean steroids. 3. Ordered daily Trelegy to be used by patient. Nursing states they can administer 4. Will continue to follow. At this point, will see on a PRN basis. If patient cannot be compliant or does not want to be compliant with my care and suggestions, not much else I can offer. Subjective Date of service: 01/13/19 Principal diagnosis: sepsis, exacerbation of COPD Interval history: patient refused additional lasix on yesterday. Nursing called and informed me of this. Remains on HFNC at same flow and FiO2. Objective Vital Signs - 12hr 01/13/19 01/13/19 01/13/19 01:55 02:00 05:57 Temperature 98.3 F Pulse Rate 46 L 43 L Pulse Rate [ 45 L Anterior Bilateral] Respiratory 20 Rate Respiratory 20 Rate [Anterior Bilateral] Blood Pressure 170/63 177/53 O2 Sat by Pulse 97 97 Oximetry 01/13/19 01/13/19 01/13/19 06:39 07:27 08:10 Temperature 97.7 F Pulse Rate 51 L 49 L Pulse Rate [ 56 L Anterior Bilateral] Respiratory 22 Rate Respiratory 18 Rate [Anterior Bilateral] Blood Pressure 180/56 O2 Sat by Pulse 93 Oximetry 01/13/19 01/13/19 08:18 08:25 Temperature Pulse Rate Pulse Rate [ Anterior Bilateral] Respiratory Rate Respiratory Rate [Anterior Bilateral] Blood Pressure 180/56 O2 Sat by Pulse 97 Oximetry Constitutional: alert (mild distress on hi yolanda 50%), other Eyes: non-icteric ENT: oropharynx moist, other (adentulous) Neck: supple Effort: normal Ascultation: Bilateral: wheezes Tactile fremitus: Bilateral: normal Cardiovascular: regular rate and rhythm Gastrointestinal: normoactive bowel sounds, soft, non-tender, non-distended Integumentary: normal Extremities: no cyanosis, no edema Neurologic: normal mental status, non-focal exam Psychiatric: mood appropriate, affect normal CBC and BMP: 01/13/19 05:07 01/13/19 05:07 ABG, PT/INR, D-dimer: ABG POC ABG pH 7.278 (7.35-7.45) L 01/09/19 05:23 POC ABG pCO2 67.9 (35-45) H 01/09/19 05:23 POC ABG pO2 73 (80-105) L 01/09/19 05:23 POC ABG HCO3 31.7 (22-26 mml/L) 01/09/19 05:23 POC ABG Total CO2 34 (23-27mmol/L) 01/09/19 05:23 POC ABG O2 Sat 91 01/09/19 05:23 PT/INR, D-dimer PT 13.3 Sec. (12.2-14.9) 01/08/19 14:39 INR 1.04 (0.87-1.13) 01/08/19 14:39 Abnormal lab findings: Abnormal Labs 01/08/19 01/08/19 01/08/19 14:39 14:39 16:55 WBC RBC 3.17 L Hgb 9.0 L Hct 28.4 L MCH RDW 15.9 H Lymph % (Auto) [place] % (Auto) 7.8 H Lymph # Seg Neutrophils % 71.9 H Seg Neuts % (Manual) Lymphocytes % (Manual) Seg Neutrophils # Man Lymphocytes # (Manual) POC ABG pH POC ABG pCO2 POC ABG pO2 Sodium Potassium Chloride Carbon Dioxide BUN Creatinine Glucose 140 H POC Glucose Lactic Acid 2.90 H* NT-Pro-B Natriuret Pep Albumin 3.7 L 01/08/19 01/08/19 01/08/19 19:34 21:15 23:37 WBC RBC Hgb Hct MCH RDW Lymph % (Auto) [place] % (Auto) Lymph # Seg Neutrophils % Seg Neuts % (Manual) Lymphocytes % (Manual) Seg Neutrophils # Man Lymphocytes # (Manual) POC ABG pH POC ABG pCO2 POC ABG pO2 Sodium Potassium Chloride Carbon Dioxide BUN Creatinine Glucose POC Glucose 224 H Lactic Acid 3.50 H* 3.80 H* NT-Pro-B Natriuret Pep Albumin 01/09/19 01/09/19 01/09/19 04:52 04:52 05:23 WBC RBC 3.12 L Hgb 8.7 L Hct 28.4 L MCH RDW 16.2 H Lymph % (Auto) [place] % (Auto) Lymph # Seg Neutrophils % Seg Neuts % (Manual) 95.0 H Lymphocytes % (Manual) 4.0 L Seg Neutrophils # Man 8.9 H Lymphocytes # (Manual) 0.4 L POC ABG pH 7.278 L POC ABG pCO2 67.9 H POC ABG pO2 73 L Sodium Potassium Chloride Carbon Dioxide BUN 19 H Creatinine Glucose 173 H POC Glucose Lactic Acid NT-Pro-B Natriuret Pep Albumin 3.8 L 01/09/19 01/09/19 01/09/19 05:37 12:01 18:10 WBC RBC Hgb Hct MCH RDW Lymph % (Auto) [place] % (Auto) Lymph # Seg Neutrophils % Seg Neuts % (Manual) Lymphocytes % (Manual) Seg Neutrophils # Man Lymphocytes # (Manual) POC ABG pH POC ABG pCO2 POC ABG pO2 Sodium Potassium Chloride Carbon Dioxide BUN Creatinine Glucose POC Glucose 177 H 186 H 257 H Lactic Acid NT-Pro-B Natriuret Pep Albumin 01/09/19 01/10/19 01/10/19 23:13 08:02 10:09 WBC 14.0 H RBC 2.97 L Hgb 8.2 L Hct 27.0 L MCH RDW 16.4 H Lymph % (Auto) [place] % (Auto) Lymph # Seg Neutrophils % Seg Neuts % (Manual) 95.0 H Lymphocytes % (Manual) 5.0 L Seg Neutrophils # Man 13.3 H Lymphocytes # (Manual) 0.7 L POC ABG pH POC ABG pCO2 POC ABG pO2 Sodium Potassium Chloride Carbon Dioxide BUN Creatinine Glucose POC Glucose 187 H 185 H Lactic Acid NT-Pro-B Natriuret Pep Albumin 01/10/19 01/10/19 01/10/19 10:09 10:09 12:25 WBC RBC Hgb Hct MCH RDW Lymph % (Auto) [place] % (Auto) Lymph # Seg Neutrophils % Seg Neuts % (Manual) Lymphocytes % (Manual) Seg Neutrophils # Man Lymphocytes # (Manual) POC ABG pH POC ABG pCO2 POC ABG pO2 Sodium Potassium Chloride Carbon Dioxide BUN 18 H Creatinine 0.6 L Glucose 251 H POC Glucose 216 H Lactic Acid 2.10 H* NT-Pro-B Natriuret Pep Albumin 3.5 L 01/10/19 01/10/19 01/11/19 16:27 21:44 07:27 WBC RBC Hgb Hct MCH RDW Lymph % (Auto) [place] % (Auto) Lymph # Seg Neutrophils % Seg Neuts % (Manual) Lymphocytes % (Manual) Seg Neutrophils # Man Lymphocytes # (Manual) POC ABG pH POC ABG pCO2 POC ABG pO2 Sodium Potassium Chloride Carbon Dioxide BUN Creatinine Glucose POC Glucose 160 H 210 H 191 H Lactic Acid NT-Pro-B Natriuret Pep Albumin 01/11/19 01/11/19 01/11/19 07:57 07:57 11:16 WBC 12.2 H RBC 2.96 L Hgb 8.1 L Hct 26.9 L MCH 27 L RDW 16.3 H Lymph % (Auto) [place] % (Auto) Lymph # Seg Neutrophils % Seg Neuts % (Manual) 90.0 H Lymphocytes % (Manual) 7.0 L Seg Neutrophils # Man 11.0 H Lymphocytes # (Manual) 0.9 L POC ABG pH POC ABG pCO2 POC ABG pO2 Sodium 147 H Potassium Chloride Carbon Dioxide 31 H BUN 21 H Creatinine 0.6 L Glucose 190 H POC Glucose 177 H Lactic Acid NT-Pro-B Natriuret Pep Albumin 01/11/19 01/11/19 01/11/19 16:03 16:27 22:23 WBC RBC Hgb Hct MCH RDW Lymph % (Auto) [place] % (Auto) Lymph # Seg Neutrophils % Seg Neuts % (Manual) Lymphocytes % (Manual) Seg Neutrophils # Man Lymphocytes # (Manual) POC ABG pH POC ABG pCO2 POC ABG pO2 Sodium Potassium Chloride Carbon Dioxide BUN Creatinine Glucose POC Glucose 217 H 243 H Lactic Acid NT-Pro-B Natriuret Pep 2547 H Albumin 01/12/19 01/12/19 01/12/19 05:34 05:34 07:22 WBC RBC 3.11 L Hgb 8.6 L Hct 27.4 L MCH RDW 15.6 H Lymph % (Auto) 7.0 L [place] % (Auto) Lymph # 0.6 L Seg Neutrophils % 87.5 H Seg Neuts % (Manual) Lymphocytes % (Manual) Seg Neutrophils # Man Lymphocytes # (Manual) POC ABG pH POC ABG pCO2 POC ABG pO2 Sodium 146 H Potassium 3.5 L D Chloride 95.9 L Carbon Dioxide 35 H BUN Creatinine 0.6 L Glucose 248 H POC Glucose 249 H Lactic Acid NT-Pro-B Natriuret Pep Albumin 01/12/19 01/12/19 01/12/19 11:35 16:21 22:07 WBC RBC Hgb Hct MCH RDW Lymph % (Auto) [place] % (Auto) Lymph # Seg Neutrophils % Seg Neuts % (Manual) Lymphocytes % (Manual) Seg Neutrophils # Man Lymphocytes # (Manual) POC ABG pH POC ABG pCO2 POC ABG pO2 Sodium Potassium Chloride Carbon Dioxide BUN Creatinine Glucose POC Glucose 190 H 268 H 263 H Lactic Acid NT-Pro-B Natriuret Pep Albumin 01/13/19 01/13/19 01/13/19 05:07 05:07 07:31 WBC RBC 3.32 L Hgb 9.2 L Hct 29.3 L MCH RDW 15.3 H Lymph % (Auto) [place] % (Auto) 9.8 H Lymph # Seg Neutrophils % 74.8 H Seg Neuts % (Manual) Lymphocytes % (Manual) Seg Neutrophils # Man Lymphocytes # (Manual) POC ABG pH POC ABG pCO2 POC ABG pO2 Sodium Potassium Chloride 97.9 L Carbon Dioxide 37 H BUN Creatinine 0.5 L Glucose 165 H POC Glucose 147 H Lactic Acid NT-Pro-B Natriuret Pep Albumin 3.6 L 01/13/19 12:37 WBC RBC Hgb Hct MCH RDW Lymph % (Auto) [place] % (Auto) Lymph # Seg Neutrophils % Seg Neuts % (Manual) Lymphocytes % (Manual) Seg Neutrophils # Man Lymphocytes # (Manual) POC ABG pH POC ABG pCO2 POC ABG pO2 Sodium Potassium Chloride Carbon Dioxide BUN Creatinine Glucose POC Glucose 301 H Lactic Acid NT-Pro-B Natriuret Pep Albumin
[2019-01-13] MEDS: ACETAMINOPHEN 325 MG TAB PO PRN ×2 (13:10→21:31)
[2019-01-13] MEDS: HALOPERIDOL 5 MG TAB PO SCH (18:11)
[2019-01-13] MEDS: DONEPEZIL 10 MG TAB PO SCH (21:31)
[2019-01-14] MEDS: IPRATROPIUM/ALBUTEROL SULFATE 3 ML AMPUL.NEB IH SCH ×4 (01:47→20:07)
[2019-01-14 05:40] LABS: Hematocrit 30.9 % (30.3-42.9); Hemoglobin 9.7 gm/dl (10.1-14.3); Mean Corpuscular HGB Conc 31 % (30-34); Mean Corpuscular Volume 88 fl (79-97); Platelet Count 322 K/mm3 (140-440); Red Cell Distribution Width 15.5 % (13.2-15.2)
[2019-01-14] MEDS: HYDROcodone/ACETAMINOPHEN 5-325 MG TAB PO PRN ×2 (05:41→18:49)
[2019-01-14] MEDS: LEVOTHYROXINE 88 MCG TAB PO SCH (05:42)
[2019-01-14] MEDS: methylPREDNISolone Sod Succinate 125 MG/2 ML INJ IV SCH ×3 (05:42→22:00)
[2019-01-14] MEDS: hydrALAZINE 25 MG TAB PO SCH ×3 (05:42→22:00)
[2019-01-14 06:08] LABS: Alanine Aminotransferase 26 units/L (7-56); Albumin 3.8 g/dL (3.9-5); BUN/Creatinine Ratio 30; Blood Urea Nitrogen 18 mg/dL (7-17); Calcium 9.1 mg/dL (8.4-10.2); Hemolysis Index 12
[2019-01-14] MEDS: INSULIN LISPRO 100 UNIT/ML SUB-Q SCH ×4 (08:30→22:00)
[2019-01-14] MEDS: GABAPENTIN 400 MG CAP PO SCH ×3 (09:00→20:00)
[2019-01-14] MEDS: ARIPiprazole 10 MG TAB PO SCH (09:03)
[2019-01-14] MEDS: FUROSEMIDE 20 MG/2 ML INJ IV SCH (09:04)
[2019-01-14] MEDS: FLUoxetine 20 MG CAP PO SCH (09:04)
[2019-01-14] MEDS: ASPIRIN 81 MG TAB CHEW PO SCH (09:05)
[2019-01-14] MEDS: LISINOPRIL 40 MG TAB PO SCH ×2 (09:05→22:00)
[2019-01-14] MEDS: amLODIPine 10 MG TAB PO SCH (09:05)
[2019-01-14 09:07] LABS: Basophils % (Manual) 0 % (0.0-1.8); Eosinophils % (Manual) 0 % (0.0-4.3); Total Cells Counted 100
[2019-01-14 09:08] LABS: Stomatocytes Few
[2019-01-14 09:09] LABS: Platelet Estimate Consistent w Auto
[2019-01-14] MEDS: CLOTRIMAZOLE/BETAMETHASONE CREAM 15 GM TP SCH (09:10)
[2019-01-14] MEDS: TRELEGY PO SCH (09:21)
--- NOTE | 2019-01-14 10:47 | Progress Note ---
Assessment and Plan Echo reviewed - EF 55-60%, impaired relaxation, pulm HTN with RVSP 44mmHg. Optimize anti-hypertensive regimen - increase hydralazine. Cont all other present cardiac management. The patient has been seen in conjunction with Dr. Marsha Galindo who agrees with the assessment and plan of care. - Patient Problems (1) Acute on chronic respiratory failure Current Visit: Yes Status: Acute (2) COPD exacerbation Current Visit: Yes Status: Acute (3) Acute heart failure with preserved ejection fraction Current Visit: Yes Status: Acute (4) CAD (coronary artery disease) Current Visit: Yes Status: Chronic (5) Mitral valve annular calcification Current Visit: Yes Status: Chronic (6) HTN (hypertension) Current Visit: Yes Status: Chronic (7) Obstructive sleep apnea Current Visit: Yes Status: Chronic (8) Hyperlipidemia Current Visit: Yes Status: Chronic (9) Diabetes Current Visit: Yes Status: Chronic Qualifiers: Diabetes mellitus type: type 2 Diabetes mellitus watcher autom[employer] goods insulin use: without watcher automat [employer] goods use Diabetes mellitus complication status: without complication Qualified Code(s): E11.9 - Type 2 diabetes mellitus without complications (10) Hypothyroidism Current Visit: Yes Status: Chronic (11) Pulmonary HTN Current Visit: Yes Status: Chronic Subjective Date of service: 01/14/19 Principal diagnosis: sepsis, exacerbation of COPD Interval history: pt resting in bed, no current complaints, remains on HiFlo NC. Objective Last Vital Signs Temp 98.2 F 01/14/19 07:26 Pulse 59 L 01/14/19 09:05 Resp 20 01/14/19 07:36 BP 167/64 01/14/19 09:05 Pulse Ox 98 01/14/19 07:46 - Physical Examination General: No Apparent Distress HEENT: Positive: PERRL, Normocephaly, Mucus Membranes Moist Neck: Positive: neck supple Cardiac: Positive: Reg Rate and Rhythm, S1/S2 Lungs: Positive: Decreased Breath Sounds, Oxygen Neuro: Positive: Grossly Intact Abdomen: Negative: Tender Skin: Negative: Rash Musculoskeletal: No Pain Extremities: Absent: edema - Labs and Meds Cardiac Enzymes 01/14/19 Range/Units 04:02 AST 14 (5-40) units/L CBC 01/14/19 Range/Units 04:02 WBC 8.6 (4.5-11.0) K/mm3 RBC 3.50 L (3.65-5.03) M/mm3 Hgb 9.7 L (10.1-14.3) gm/dl Hct 30.9 (30.3-42.9) % Plt Count 322 (140-440) K/mm3 Comprehensive Metabolic Panel 01/14/19 Range/Units 04:02 Sodium 143 (137-145) mmol/L Potassium 3.9 (3.6-5.0) mmol/L Chloride 97.0 L (98-107) mmol/L Carbon Dioxide 34 H (22-30) mmol/L BUN 18 H (7-17) mg/dL Creatinine 0.6 L (0.7-1.2) mg/dL Glucose 287 H (65-100) mg/dL Calcium 9.1 (8.4-10.2) mg/dL AST 14 (5-40) units/L ALT 26 (7-56) units/L Alkaline Phosphatase 69 (35-129) units/L Total Protein 7.1 (6.3-8.2) g/dL Albumin 3.8 L (3.9-5) g/dL - Imaging and Cardiology EKG: report reviewed, image reviewed Echo: report reviewed ( 09/2017 showed EF 50%, mild LVH, mod LA enlargement, thickened mitral valve leaflets, dense mitral annular calcification, mild TR, 1.24cm size posterior MV echo dense calcified structure, negative bubble study. ) - EKG Sinus rhythms and dysrhythmias: sinus rhythm
--- NOTE | 2019-01-14 12:21 | Progress Note ---
Assessment and Plan 68 y/o female with acute respiratory failure secondary to COPD exacerbation. No new recs, same from below. 1. Continue HFNC at current rate and wean for sats >88%. Sats have been in the high 90's on each documentation. 2. Would suggest starting to wean steroids. 3. Ordered daily Trelegy to be used by patient. Nursing states they can administer 4. Will continue to follow. At this point, will see on a PRN basis. If patient cannot be compliant or does not want to be compliant with my care and suggestions, not much else I can offer. Subjective Date of service: 01/14/19 Principal diagnosis: sepsis, exacerbation of COPD Interval history: Down to Venturi mask today. Objective Vital Signs - 12hr 01/14/19 01/14/19 01/14/19 01:39 01:47 01:48 Temperature 98.7 F Pulse Rate 54 L Pulse Rate [ 55 L Anterior Bilateral] Pulse Rate [ From Monitor] Respiratory 18 Rate Respiratory 20 Rate [Anterior Bilateral] Blood Pressure 174/57 O2 Sat by Pulse 90 88 Oximetry 01/14/19 01/14/19 01/14/19 07:26 07:34 07:36 Temperature 98.2 F Pulse Rate 59 L Pulse Rate [ 50 L Anterior Bilateral] Pulse Rate [ From Monitor] Respiratory 22 Rate Respiratory 20 Rate [Anterior Bilateral] Blood Pressure 167/64 O2 Sat by Pulse 90 94 Oximetry 01/14/19 01/14/19 01/14/19 07:46 09:05 10:00 Temperature Pulse Rate 59 L Pulse Rate [ Anterior Bilateral] Pulse Rate [ 58 L From Monitor] Respiratory Rate Respiratory Rate [Anterior Bilateral] Blood Pressure 167/64 O2 Sat by Pulse 98 Oximetry Constitutional: alert (mild distress on hi yolanda 50%), other Eyes: non-icteric ENT: oropharynx moist, other (adentulous) Neck: supple Effort: normal Ascultation: Bilateral: wheezes Tactile fremitus: Bilateral: normal Cardiovascular: regular rate and rhythm Gastrointestinal: normoactive bowel sounds, soft, non-tender, non-distended Integumentary: normal Extremities: no cyanosis, no edema Neurologic: normal mental status, non-focal exam Psychiatric: mood appropriate, affect normal CBC and BMP: 01/14/19 04:02 01/14/19 04:02 ABG, PT/INR, D-dimer: ABG POC ABG pH 7.278 (7.35-7.45) L 01/09/19 05:23 POC ABG pCO2 67.9 (35-45) H 01/09/19 05:23 POC ABG pO2 73 (80-105) L 01/09/19 05:23 POC ABG HCO3 31.7 (22-26 mml/L) 01/09/19 05:23 POC ABG Total CO2 34 (23-27mmol/L) 01/09/19 05:23 POC ABG O2 Sat 91 01/09/19 05:23 PT/INR, D-dimer PT 13.3 Sec. (12.2-14.9) 01/08/19 14:39 INR 1.04 (0.87-1.13) 01/08/19 14:39 Abnormal lab findings: Abnormal Labs 01/08/19 01/08/19 01/08/19 14:39 14:39 16:55 WBC RBC 3.17 L Hgb 9.0 L Hct 28.4 L MCH RDW 15.9 H Lymph % (Auto) [place] % (Auto) 7.8 H Lymph # Seg Neutrophils % 71.9 H Seg Neuts % (Manual) Lymphocytes % (Manual) Seg Neutrophils # Man Lymphocytes # (Manual) POC ABG pH POC ABG pCO2 POC ABG pO2 Sodium Potassium Chloride Carbon Dioxide BUN Creatinine Glucose 140 H POC Glucose Lactic Acid 2.90 H* NT-Pro-B Natriuret Pep Albumin 3.7 L 01/08/19 01/08/19 01/08/19 19:34 21:15 23:37 WBC RBC Hgb Hct MCH RDW Lymph % (Auto) [place] % (Auto) Lymph # Seg Neutrophils % Seg Neuts % (Manual) Lymphocytes % (Manual) Seg Neutrophils # Man Lymphocytes # (Manual) POC ABG pH POC ABG pCO2 POC ABG pO2 Sodium Potassium Chloride Carbon Dioxide BUN Creatinine Glucose POC Glucose 224 H Lactic Acid 3.50 H* 3.80 H* NT-Pro-B Natriuret Pep Albumin 01/09/19 01/09/19 01/09/19 04:52 04:52 05:23 WBC RBC 3.12 L Hgb 8.7 L Hct 28.4 L MCH RDW 16.2 H Lymph % (Auto) [place] % (Auto) Lymph # Seg Neutrophils % Seg Neuts % (Manual) 95.0 H Lymphocytes % (Manual) 4.0 L Seg Neutrophils # Man 8.9 H Lymphocytes # (Manual) 0.4 L POC ABG pH 7.278 L POC ABG pCO2 67.9 H POC ABG pO2 73 L Sodium Potassium Chloride Carbon Dioxide BUN 19 H Creatinine Glucose 173 H POC Glucose Lactic Acid NT-Pro-B Natriuret Pep Albumin 3.8 L 01/09/19 01/09/19 01/09/19 05:37 12:01 18:10 WBC RBC Hgb Hct MCH RDW Lymph % (Auto) [place] % (Auto) Lymph # Seg Neutrophils % Seg Neuts % (Manual) Lymphocytes % (Manual) Seg Neutrophils # Man Lymphocytes # (Manual) POC ABG pH POC ABG pCO2 POC ABG pO2 Sodium Potassium Chloride Carbon Dioxide BUN Creatinine Glucose POC Glucose 177 H 186 H 257 H Lactic Acid NT-Pro-B Natriuret Pep Albumin 01/09/19 01/10/19 01/10/19 23:13 08:02 10:09 WBC 14.0 H RBC 2.97 L Hgb 8.2 L Hct 27.0 L MCH RDW 16.4 H Lymph % (Auto) [place] % (Auto) Lymph # Seg Neutrophils % Seg Neuts % (Manual) 95.0 H Lymphocytes % (Manual) 5.0 L Seg Neutrophils # Man 13.3 H Lymphocytes # (Manual) 0.7 L POC ABG pH POC ABG pCO2 POC ABG pO2 Sodium Potassium Chloride Carbon Dioxide BUN Creatinine Glucose POC Glucose 187 H 185 H Lactic Acid NT-Pro-B Natriuret Pep Albumin 01/10/19 01/10/19 01/10/19 10:09 10:09 12:25 WBC RBC Hgb Hct MCH RDW Lymph % (Auto) [place] % (Auto) Lymph # Seg Neutrophils % Seg Neuts % (Manual) Lymphocytes % (Manual) Seg Neutrophils # Man Lymphocytes # (Manual) POC ABG pH POC ABG pCO2 POC ABG pO2 Sodium Potassium Chloride Carbon Dioxide BUN 18 H Creatinine 0.6 L Glucose 251 H POC Glucose 216 H Lactic Acid 2.10 H* NT-Pro-B Natriuret Pep Albumin 3.5 L 01/10/19 01/10/19 01/11/19 16:27 21:44 07:27 WBC RBC Hgb Hct MCH RDW Lymph % (Auto) [place] % (Auto) Lymph # Seg Neutrophils % Seg Neuts % (Manual) Lymphocytes % (Manual) Seg Neutrophils # Man Lymphocytes # (Manual) POC ABG pH POC ABG pCO2 POC ABG pO2 Sodium Potassium Chloride Carbon Dioxide BUN Creatinine Glucose POC Glucose 160 H 210 H 191 H Lactic Acid NT-Pro-B Natriuret Pep Albumin 01/11/19 01/11/19 01/11/19 07:57 07:57 11:16 WBC 12.2 H RBC 2.96 L Hgb 8.1 L Hct 26.9 L MCH 27 L RDW 16.3 H Lymph % (Auto) [place] % (Auto) Lymph # Seg Neutrophils % Seg Neuts % (Manual) 90.0 H Lymphocytes % (Manual) 7.0 L Seg Neutrophils # Man 11.0 H Lymphocytes # (Manual) 0.9 L POC ABG pH POC ABG pCO2 POC ABG pO2 Sodium 147 H Potassium Chloride Carbon Dioxide 31 H BUN 21 H Creatinine 0.6 L Glucose 190 H POC Glucose 177 H Lactic Acid NT-Pro-B Natriuret Pep Albumin 01/11/19 01/11/19 01/11/19 16:03 16:27 22:23 WBC RBC Hgb Hct MCH RDW Lymph % (Auto) [place] % (Auto) Lymph # Seg Neutrophils % Seg Neuts % (Manual) Lymphocytes % (Manual) Seg Neutrophils # Man Lymphocytes # (Manual) POC ABG pH POC ABG pCO2 POC ABG pO2 Sodium Potassium Chloride Carbon Dioxide BUN Creatinine Glucose POC Glucose 217 H 243 H Lactic Acid NT-Pro-B Natriuret Pep 2547 H Albumin 01/12/19 01/12/19 01/12/19 05:34 05:34 07:22 WBC RBC 3.11 L Hgb 8.6 L Hct 27.4 L MCH RDW 15.6 H Lymph % (Auto) 7.0 L [place] % (Auto) Lymph # 0.6 L Seg Neutrophils % 87.5 H Seg Neuts % (Manual) Lymphocytes % (Manual) Seg Neutrophils # Man Lymphocytes # (Manual) POC ABG pH POC ABG pCO2 POC ABG pO2 Sodium 146 H Potassium 3.5 L D Chloride 95.9 L Carbon Dioxide 35 H BUN Creatinine 0.6 L Glucose 248 H POC Glucose 249 H Lactic Acid NT-Pro-B Natriuret Pep Albumin 01/12/19 01/12/19 01/12/19 11:35 16:21 22:07 WBC RBC Hgb Hct MCH RDW Lymph % (Auto) [place] % (Auto) Lymph # Seg Neutrophils % Seg Neuts % (Manual) Lymphocytes % (Manual) Seg Neutrophils # Man Lymphocytes # (Manual) POC ABG pH POC ABG pCO2 POC ABG pO2 Sodium Potassium Chloride Carbon Dioxide BUN Creatinine Glucose POC Glucose 190 H 268 H 263 H Lactic Acid NT-Pro-B Natriuret Pep Albumin 01/13/19 01/13/19 01/13/19 05:07 05:07 07:31 WBC RBC 3.32 L Hgb 9.2 L Hct 29.3 L MCH RDW 15.3 H Lymph % (Auto) [place] % (Auto) 9.8 H Lymph # Seg Neutrophils % 74.8 H Seg Neuts % (Manual) Lymphocytes % (Manual) Seg Neutrophils # Man Lymphocytes # (Manual) POC ABG pH POC ABG pCO2 POC ABG pO2 Sodium Potassium Chloride 97.9 L Carbon Dioxide 37 H BUN Creatinine 0.5 L Glucose 165 H POC Glucose 147 H Lactic Acid NT-Pro-B Natriuret Pep Albumin 3.6 L 01/13/19 01/13/19 01/13/19 12:37 16:51 21:25 WBC RBC Hgb Hct MCH RDW Lymph % (Auto) [place] % (Auto) Lymph # Seg Neutrophils % Seg Neuts % (Manual) Lymphocytes % (Manual) Seg Neutrophils # Man Lymphocytes # (Manual) POC ABG pH POC ABG pCO2 POC ABG pO2 Sodium Potassium Chloride Carbon Dioxide BUN Creatinine Glucose POC Glucose 301 H 149 H 318 H Lactic Acid NT-Pro-B Natriuret Pep Albumin 01/14/19 01/14/19 01/14/19 04:02 04:02 07:34 WBC RBC 3.50 L Hgb 9.7 L Hct MCH RDW 15.5 H Lymph % (Auto) [place] % (Auto) Lymph # Seg Neutrophils % Seg Neuts % (Manual) 94.0 H Lymphocytes % (Manual) 3.0 L Seg Neutrophils # Man 8.1 H Lymphocytes # (Manual) 0.3 L POC ABG pH POC ABG pCO2 POC ABG pO2 Sodium Potassium Chloride 97.0 L Carbon Dioxide 34 H BUN 18 H Creatinine 0.6 L Glucose 287 H POC Glucose 266 H Lactic Acid NT-Pro-B Natriuret Pep Albumin 3.8 L 01/14/19 11:28 WBC RBC Hgb Hct MCH RDW Lymph % (Auto) [place] % (Auto) Lymph # Seg Neutrophils % Seg Neuts % (Manual) Lymphocytes % (Manual) Seg Neutrophils # Man Lymphocytes # (Manual) POC ABG pH POC ABG pCO2 POC ABG pO2 Sodium Potassium Chloride Carbon Dioxide BUN Creatinine Glucose POC Glucose 396 H Lactic Acid NT-Pro-B Natriuret Pep Albumin
[2019-01-14] MEDS: ACETAMINOPHEN 325 MG TAB PO PRN (13:12)
--- NOTE | 2019-01-14 14:38 | Progress Note ---
Assessment and Plan Patient seen and examined medical records from the emergency department reviewed. 68-year-old female patient admitted to the emergency department for worsening shortness of breath as well as cough generalized body pain and weakness. The patient was admitteed to admitted to [facility] and has been on treatment there but her breathing got progressively worse over the past 24 Hours and was thus referred back to the ER for further evaluation and treatment . Patient has history of COPD hypertension on therapy diabetes and has had multiple hospitalizations over the last year on account of recurrence of COPD. After the time of evaluation patient has ongoing shortness of breath, her blood pressure was also reported to be low in the emergency department for which patient was started on Levophed which is currently maxed out with MAP still low. Patient stated that her shortness of breath has not improved significantly s anders he was discharged from the hospital 2 days ago, cough is productive and she denied any chest pain, no fever or chills but appetite has been poor and she feels generally weak. - Acute respiratory failure. Still on HF oxygen. Continue with same made and other Supplemental oxygen and Bronchodilator Continue O2 supplementation patient currently on BiPAP , IV antibiotics and aerosol treatments and steroids are started Pulmonology has been consulted from admission and seeing the patient. - Heart Failure with elevated BNP 2547 Will obtains ECHO for ventricular function eval. Commence ACEI, BB, stain and diuresis with stick Is and Os Cardiology consult - Sepsis associated hypotension- resolved. Now hypertensive Has Leukocytosis with initial elevated lactic acid level - resolved Hypotension improved with iv hydration, pressors now discontinued Continue IV antibiotics as ordered. Blood culture no growth so far. - Hypokalemia Will supplement and recheck - COPD exacerbation Continue aerosol treatment and steroids and O2 supplementation. IV antibiotics We'll consult pulmonary for management of COPD and acute respiratory failure - Type 2 diabetes mellitus without complications We will hold metformin and start patient on sliding scale coverage with regular insulin with parameters. - Essential (primary) hypertension Her current blood pressure medications and consider monitor blood pressure until the patient is hemodynamically stable - DVT prophylaxis with Lovenox and GI with Pepcid Time spent: 30 minutes Subjective Date of service: 01/14/19 Principal diagnosis: sepsis, exacerbation of COPD Interval history: Pt seen and examined. C/o pain and want pain meds. still having shortness of breath. No longer on pressors. Afebrile. On supplemental oxygen via nasal cannula. No diarrhea. Pt refusing diuresis. Objective - Exam Narrative Exam: Constitutional: Well-nourished well-developed. In no distress Head: Normocephalic atraumatic Eyes: Pupils are equal round and reactive to light Nose: No enlarged turbinates, no septal deviation. Mouth: Moist mucous membranes. Neck: Supple no thyromegaly. No bruit. No JVD Heart: Regular rate and rhythm, S1-S2 normal. No rubs murmurs or gallop Lungs: Decreased breath sounds on auscultation bilaterally. Abdomen: Soft, nontender. Bowel sound are present. Extremities: No edema, no cyanosis, no clubbing. Neuro: Alert oriented Oriented x3. No focal sensory or motor deficit. Skin: No rashes or hyperpigmented spots Musculoskeletal system: No joint pain or swelling Hematological: No petechia or subcutanous hemorrhages. Immunological: No multiple septic spots on the skin Lymphatic: No generalized lymphadenopathy Psychiatry: Euthymic. Calm. - Constitutional Vitals: Vital Signs - 12hr 01/14/19 01/14/19 01/14/19 07:26 07:34 07:36 Temperature 98.2 F Pulse Rate 59 L Pulse Rate [ 50 L Anterior Bilateral] Pulse Rate [ From Monitor] Respiratory 22 Rate Respiratory 20 Rate [Anterior Bilateral] Blood Pressure 167/64 O2 Sat by Pulse 90 94 Oximetry 01/14/19 01/14/19 01/14/19 07:46 09:05 10:00 Temperature Pulse Rate 59 L Pulse Rate [ Anterior Bilateral] Pulse Rate [ 58 L From Monitor] Respiratory Rate Respiratory Rate [Anterior Bilateral] Blood Pressure 167/64 O2 Sat by Pulse 98 Oximetry 01/14/19 01/14/19 01/14/19 13:12 13:14 13:23 Temperature 98.2 F Pulse Rate 61 61 Pulse Rate [ Anterior Bilateral] Pulse Rate [ From Monitor] Respiratory 22 18 Rate Respiratory Rate [Anterior Bilateral] Blood Pressure 150/68 150/68 O2 Sat by Pulse 96 Oximetry - Labs CBC & Chem 7: 01/14/19 04:02 01/14/19 04:02 Labs: Abnormal lab results 01/13/19 01/13/19 01/14/19 Range/Units 16:51 21:25 04:02 RBC 3.50 L (3.65-5.03) M/mm3 Hgb 9.7 L (10.1-14.3) gm/dl RDW 15.5 H (13.2-15.2) % Seg Neuts % (Manual) 94.0 H (40.0-70.0) % Lymphocytes % (Manual) 3.0 L (13.4-35.0) % Seg Neutrophils # Man 8.1 H (1.8-7.7) K/mm3 Lymphocytes # (Manual) 0.3 L (1.2-5.4) K/mm3 Chloride (98-107) mmol/L Carbon Dioxide (22-30) mmol/L BUN (7-17) mg/dL Creatinine (0.7-1.2) mg/dL Glucose (65-100) mg/dL POC Glucose 149 H 318 H (70-105) Albumin (3.9-5) g/dL 01/14/19 01/14/19 01/14/19 Range/Units 04:02 07:34 11:28 RBC (3.65-5.03) M/mm3 Hgb (10.1-14.3) gm/dl RDW (13.2-15.2) % Seg Neuts % (Manual) (40.0-70.0) % Lymphocytes % (Manual) (13.4-35.0) % Seg Neutrophils # Man (1.8-7.7) K/mm3 Lymphocytes # (Manual) (1.2-5.4) K/mm3 Chloride 97.0 L (98-107) mmol/L Carbon Dioxide 34 H (22-30) mmol/L BUN 18 H (7-17) mg/dL Creatinine 0.6 L (0.7-1.2) mg/dL Glucose 287 H (65-100) mg/dL POC Glucose 266 H 396 H (70-105) Albumin 3.8 L (3.9-5) g/dL
[2019-01-14] MEDS: HALOPERIDOL 5 MG TAB PO SCH (18:35)
[2019-01-14] MEDS: DONEPEZIL 10 MG TAB PO SCH (22:00)
[2019-01-15] MEDS: IPRATROPIUM/ALBUTEROL SULFATE 3 ML AMPUL.NEB IH SCH ×4 (02:12→19:04)
[2019-01-15] MEDS: ACETAMINOPHEN 325 MG TAB PO PRN ×2 (05:17→15:36)
[2019-01-15] MEDS: INSULIN LISPRO 100 UNIT/ML SUB-Q SCH ×4 (08:42→22:36)
[2019-01-15] MEDS: FLUoxetine 20 MG CAP PO SCH (09:23)
[2019-01-15] MEDS: ASPIRIN 81 MG TAB CHEW PO SCH (09:23)
[2019-01-15] MEDS: GABAPENTIN 400 MG CAP PO SCH ×3 (09:23→20:59)
[2019-01-15] MEDS: amLODIPine 10 MG TAB PO SCH (09:24)
[2019-01-15] MEDS: LISINOPRIL 40 MG TAB PO SCH ×2 (09:24→21:17)
[2019-01-15] MEDS: ARIPiprazole 10 MG TAB PO SCH (09:25)
[2019-01-15] MEDS: FUROSEMIDE 20 MG/2 ML INJ IV SCH (09:26)
[2019-01-15 09:35] LABS: Alanine Aminotransferase 35 units/L (7-56); Albumin 3.7 g/dL (3.9-5); BUN/Creatinine Ratio 30; Blood Urea Nitrogen 18 mg/dL (7-17); Calcium 8.6 mg/dL (8.4-10.2); Hemolysis Index 3
[2019-01-15 09:36] LABS: Hematocrit 30.7 % (30.3-42.9); Hemoglobin 9.4 gm/dl (10.1-14.3); Mean Corpuscular HGB Conc 31 % (30-34); Mean Corpuscular Volume 88 fl (79-97); Platelet Count 333 K/mm3 (140-440); Red Blood Count 3.48 M/mm3 (3.65-5.03); Red Cell Distribution Width 15.4 % (13.2-15.2)
[2019-01-15] MEDS: TRELEGY PO SCH (10:24)
[2019-01-15 10:42] LABS: Basophils % (Manual) 0 % (0.0-1.8); Total Cells Counted 100
[2019-01-15 10:43] LABS: Anisocytosis 1+; Eosinophils % (Manual) 0 % (0.0-4.3); Hypochromasia Few; Platelet Estimate Consistent w Auto
[2019-01-15] MEDS: methylPREDNISolone Sod Succinate 125 MG/2 ML INJ IV SCH ×3 (15:17→21:18)
[2019-01-15] MEDS: hydrALAZINE 25 MG TAB PO SCH ×4 (15:18→21:18)
[2019-01-15] MEDS: CLOTRIMAZOLE/BETAMETHASONE CREAM 15 GM TP SCH ×3 (15:44→21:19)
[2019-01-15] MEDS: HALOPERIDOL 5 MG TAB PO SCH (17:28)
[2019-01-15] MEDS: LEVOTHYROXINE 88 MCG TAB PO SCH (20:00)
--- NOTE | 2019-01-15 20:50 | Progress Note ---
Assessment and Plan Patient seen and examined medical records from the emergency department reviewed. 68-year-old female patient admitted to the emergency department for worsening shortness of breath as well as cough generalized body pain and weakness. The patient was admitteed to admitted to [facility] and has been on treatment there but her breathing got progressively worse over the past 24 Hours and was thus referred back to the ER for further evaluation and treatment . Patient has history of COPD hypertension on therapy diabetes and has had multiple hospitalizations over the last year on account of recurrence of COPD. After the time of evaluation patient has ongoing shortness of breath, her blood pressure was also reported to be low in the emergency department for which patient was started on Levophed which is currently maxed out with MAP still low. Patient stated that her shortness of breath has not improved significantly s anders he was discharged from the hospital 2 days ago, cough is productive and she denied any chest pain, no fever or chills but appetite has been poor and she feels generally weak. - Acute respiratory failure. Still on HF oxygen. Continue with same made and other Supplemental HF oxygen. wean to [place] Continue with Bronchodilator IV antibiotics and aerosol treatments and steroids are started Pulmonology has been consulted from admission and seeing the patient. - Heart Failure with preserved EF of 55-60% Commence ACEI, BB, stain and gentle with strick Is and Os Cardiology consult - Cor Pulm Continue with Hydrallazina nd gently diuresis - Sepsis associated hypotension - resolved. Now hypertensive Has Leukocytosis with initial elevated lactic acid level - resolved Hypotension improved with iv hydration, pressors now discontinued Continue IV antibiotics as ordered. Blood culture no growth so far. - Hypokalemia Will supplement and recheck - COPD exacerbation Continue aerosol treatment and steroids and O2 supplementation. IV antibiotics We'll consult pulmonary for management of COPD and acute respiratory failure - Type 2 diabetes mellitus without complications We will hold metformin and start patient on sliding scale coverage with regular insulin with parameters. - Essential (primary) hypertension Her current blood pressure medications and consider monitor blood pressure until the patient is hemodynamically stable - DVT prophylaxis with Lovenox and GI with Pepcid Time spent: 25 minutes Subjective Date of service: 01/15/19 Principal diagnosis: sepsis, exacerbation of COPD Interval history: Pt seen and examined. still C/o pain and wants more pain meds. Still having shortness of breath though better. No longer on pressors. Afebrile. On supplemental oxygen via nasal canula. No diarrhea. Pt refusing diuretics. Objective - Exam Narrative Exam: Constitutional: Well-nourished well-developed. In no distress Head: Normocephalic atraumatic Eyes: Pupils are equal round and reactive to light Nose: No enlarged turbinates, no septal deviation. On high flow oxygen via NC Mouth: Moist mucous membranes. Neck: Supple no thyromegaly. No bruit. No JVD Heart: Regular rate and rhythm, S1-S2 normal. No rubs murmurs or gallop Lungs: Decreased breath sounds on auscultation bilaterally. Abdomen: Soft, nontender. Bowel sound are present. Extremities: No edema, no cyanosis, no clubbing. Neuro: Alert oriented Oriented x3. No focal sensory or motor deficit. Skin: No rashes or hyperpigmented spots Musculoskeletal system: No joint pain or swelling Hematological: No petechia or subcutanous hemorrhages. Immunological: No multiple septic spots on the skin Lymphatic: No generalized lymphadenopathy Psychiatry: Euthymic. Calm. - Constitutional Vitals: Vital Signs - 12hr 01/15/19 01/15/19 01/15/19 09:17 09:24 13:17 Temperature 98.7 F Pulse Rate 57 L Pulse Rate [ Anterior Bilateral] Respiratory 20 Rate Respiratory Rate [Anterior Bilateral] Blood Pressure 139/107 139/107 121/33 O2 Sat by Pulse 93 Oximetry 01/15/19 01/15/19 01/15/19 13:34 15:14 15:20 Temperature Pulse Rate Pulse Rate [ 94 H Anterior Bilateral] Respiratory Rate Respiratory 17 Rate [Anterior Bilateral] Blood Pressure 153/56 153/56 O2 Sat by Pulse Oximetry 01/15/19 01/15/19 19:05 19:47 Temperature 99.1 F Pulse Rate 57 L Pulse Rate [ 96 H Anterior Bilateral] Respiratory 20 Rate Respiratory 17 Rate [Anterior Bilateral] Blood Pressure 142/56 O2 Sat by Pulse 93 90 Oximetry - Labs CBC & Chem 7: 01/15/19 08:31 01/15/19 08:31 Labs: Abnormal lab results 01/14/19 01/15/19 01/15/19 Range/Units 22:08 07:38 08:31 WBC 11.3 H (4.5-11.0) K/mm3 RBC 3.48 L (3.65-5.03) M/mm3 Hgb 9.4 L (10.1-14.3) gm/dl MCH 27 L (28-32) pg RDW 15.4 H (13.2-15.2) % Seg Neuts % (Manual) 98.0 H (40.0-70.0) % Lymphocytes % (Manual) 0 L (13.4-35.0) % Seg Neutrophils # Man 11.1 H (1.8-7.7) K/mm3 Lymphocytes # (Manual) 0.0 L (1.2-5.4) K/mm3 Chloride (98-107) mmol/L Carbon Dioxide (22-30) mmol/L BUN (7-17) mg/dL Creatinine (0.7-1.2) mg/dL Glucose (65-100) mg/dL POC Glucose 315 H 321 H (70-105) Albumin (3.9-5) g/dL 01/15/19 01/15/19 01/15/19 Range/Units 08:31 11:13 16:13 WBC (4.5-11.0) K/mm3 RBC (3.65-5.03) M/mm3 Hgb (10.1-14.3) gm/dl MCH (28-32) pg RDW (13.2-15.2) % Seg Neuts % (Manual) (40.0-70.0) % Lymphocytes % (Manual) (13.4-35.0) % Seg Neutrophils # Man (1.8-7.7) K/mm3 Lymphocytes # (Manual) (1.2-5.4) K/mm3 Chloride 96.0 L (98-107) mmol/L Carbon Dioxide 33 H (22-30) mmol/L BUN 18 H (7-17) mg/dL Creatinine 0.6 L (0.7-1.2) mg/dL Glucose 371 H (65-100) mg/dL POC Glucose 353 H 150 H (70-105) Albumin 3.7 L (3.9-5) g/dL
[2019-01-15] MEDS: DONEPEZIL 10 MG TAB PO SCH (21:17)
[2019-01-15] MEDS: HYDROcodone/ACETAMINOPHEN 5-325 MG TAB PO PRN (21:58)
[2019-01-16] MEDS: IPRATROPIUM/ALBUTEROL SULFATE 3 ML AMPUL.NEB IH SCH ×4 (01:57→19:35)
[2019-01-16] MEDS: hydrALAZINE 100 MG TAB PO SCH ×3 (05:33→22:36)
[2019-01-16] MEDS: methylPREDNISolone Sod Succinate 125 MG/2 ML INJ IV SCH ×3 (05:33→22:17)
[2019-01-16] MEDS: LEVOTHYROXINE 88 MCG TAB PO SCH (05:33)
[2019-01-16] MEDS: INSULIN LISPRO 100 UNIT/ML SUB-Q SCH ×4 (08:14→22:31)
[2019-01-16] MEDS: GABAPENTIN 400 MG CAP PO SCH ×3 (08:14→19:57)
[2019-01-16] MEDS: FLUoxetine 20 MG CAP PO SCH (09:12)
[2019-01-16] MEDS: ASPIRIN 81 MG TAB CHEW PO SCH (09:12)
[2019-01-16] MEDS: LISINOPRIL 40 MG TAB PO SCH ×2 (09:12→22:36)
[2019-01-16] MEDS: FUROSEMIDE 20 MG/2 ML INJ IV SCH (09:13)
[2019-01-16] MEDS: TRELEGY PO SCH (09:13)
[2019-01-16] MEDS: amLODIPine 10 MG TAB PO SCH (09:13)
[2019-01-16] MEDS: ARIPiprazole 10 MG TAB PO SCH (09:13)
[2019-01-16] MEDS: CLOTRIMAZOLE/BETAMETHASONE CREAM 15 GM TP SCH ×2 (09:14→22:45)
[2019-01-16] MEDS: ACETAMINOPHEN 325 MG TAB PO PRN ×2 (09:51→19:18)
[2019-01-16] MEDS: HYDROcodone/ACETAMINOPHEN 5-325 MG TAB PO PRN (13:30)
--- NOTE | 2019-01-16 13:36 | Progress Note ---
Assessment and Plan 68 y/o female with acute respiratory failure secondary to COPD exacerbation. patient appears to be stagnant or even worsening given documented sats. She is positive daily since I last saw her. If she is continuing to refuse therapy, not much else can be done. Given her High oxygen requirements, may need to look at LTACH for further weaning. Would continue IV steroids, may need to increase the frequency At this point, will see on a PRN basis. If patient cannot be compliant or does not want to be compliant with my care and suggestions, not much else I can offer. Subjective Date of service: 01/16/19 Principal diagnosis: sepsis, exacerbation of COPD Interval history: Following peripherally. Remains on HFNC Objective Vital Signs - 12hr 01/16/19 01/16/19 01/16/19 01:58 01:59 02:07 Temperature 98.3 F Pulse Rate 57 L 52 L Pulse Rate [ 90 Anterior Bilateral] Respiratory 16 16 Rate Respiratory 20 Rate [Anterior Bilateral] Blood Pressure 142/56 130/52 O2 Sat by Pulse 97 94 Oximetry 01/16/19 01/16/19 01/16/19 02:14 04:30 07:17 Temperature 97.7 F Pulse Rate 66 52 L Pulse Rate [ Anterior Bilateral] Respiratory 18 Rate Respiratory Rate [Anterior Bilateral] Blood Pressure 156/53 O2 Sat by Pulse 97 95 92 Oximetry 01/16/19 01/16/19 01/16/19 07:46 07:48 09:51 Temperature Pulse Rate Pulse Rate [ 59 L Anterior Bilateral] Respiratory 16 Rate Respiratory 17 Rate [Anterior Bilateral] Blood Pressure O2 Sat by Pulse 89 Oximetry Constitutional: alert (mild distress on hi yolanda 50%), other Eyes: non-icteric ENT: oropharynx moist, other (adentulous) Neck: supple Effort: normal Ascultation: Bilateral: wheezes Tactile fremitus: Bilateral: normal Cardiovascular: regular rate and rhythm Gastrointestinal: normoactive bowel sounds, soft, non-tender, non-distended Integumentary: normal Extremities: no cyanosis, no edema Neurologic: normal mental status, non-focal exam Psychiatric: mood appropriate, affect normal CBC and BMP: 01/15/19 08:31 01/15/19 08:31 ABG, PT/INR, D-dimer: ABG POC ABG pH 7.278 (7.35-7.45) L 01/09/19 05:23 POC ABG pCO2 67.9 (35-45) H 01/09/19 05:23 POC ABG pO2 73 (80-105) L 01/09/19 05:23 POC ABG HCO3 31.7 (22-26 mml/L) 01/09/19 05:23 POC ABG Total CO2 34 (23-27mmol/L) 01/09/19 05:23 POC ABG O2 Sat 91 01/09/19 05:23 PT/INR, D-dimer PT 13.3 Sec. (12.2-14.9) 01/08/19 14:39 INR 1.04 (0.87-1.13) 01/08/19 14:39 Abnormal lab findings: Abnormal Labs 01/08/19 01/08/19 01/08/19 14:39 14:39 16:55 WBC RBC 3.17 L Hgb 9.0 L Hct 28.4 L MCH RDW 15.9 H Lymph % (Auto) [place] % (Auto) 7.8 H Lymph # Seg Neutrophils % 71.9 H Seg Neuts % (Manual) Lymphocytes % (Manual) Seg Neutrophils # Man Lymphocytes # (Manual) POC ABG pH POC ABG pCO2 POC ABG pO2 Sodium Potassium Chloride Carbon Dioxide BUN Creatinine Glucose 140 H POC Glucose Lactic Acid 2.90 H* NT-Pro-B Natriuret Pep Albumin 3.7 L 01/08/19 01/08/19 01/08/19 19:34 21:15 23:37 WBC RBC Hgb Hct MCH RDW Lymph % (Auto) [place] % (Auto) Lymph # Seg Neutrophils % Seg Neuts % (Manual) Lymphocytes % (Manual) Seg Neutrophils # Man Lymphocytes # (Manual) POC ABG pH POC ABG pCO2 POC ABG pO2 Sodium Potassium Chloride Carbon Dioxide BUN Creatinine Glucose POC Glucose 224 H Lactic Acid 3.50 H* 3.80 H* NT-Pro-B Natriuret Pep Albumin 01/09/19 01/09/19 01/09/19 04:52 04:52 05:23 WBC RBC 3.12 L Hgb 8.7 L Hct 28.4 L MCH RDW 16.2 H Lymph % (Auto) [place] % (Auto) Lymph # Seg Neutrophils % Seg Neuts % (Manual) 95.0 H Lymphocytes % (Manual) 4.0 L Seg Neutrophils # Man 8.9 H Lymphocytes # (Manual) 0.4 L POC ABG pH 7.278 L POC ABG pCO2 67.9 H POC ABG pO2 73 L Sodium Potassium Chloride Carbon Dioxide BUN 19 H Creatinine Glucose 173 H POC Glucose Lactic Acid NT-Pro-B Natriuret Pep Albumin 3.8 L 01/09/19 01/09/19 01/09/19 05:37 12:01 18:10 WBC RBC Hgb Hct MCH RDW Lymph % (Auto) [place] % (Auto) Lymph # Seg Neutrophils % Seg Neuts % (Manual) Lymphocytes % (Manual) Seg Neutrophils # Man Lymphocytes # (Manual) POC ABG pH POC ABG pCO2 POC ABG pO2 Sodium Potassium Chloride Carbon Dioxide BUN Creatinine Glucose POC Glucose 177 H 186 H 257 H Lactic Acid NT-Pro-B Natriuret Pep Albumin 01/09/19 01/10/19 01/10/19 23:13 08:02 10:09 WBC 14.0 H RBC 2.97 L Hgb 8.2 L Hct 27.0 L MCH RDW 16.4 H Lymph % (Auto) [place] % (Auto) Lymph # Seg Neutrophils % Seg Neuts % (Manual) 95.0 H Lymphocytes % (Manual) 5.0 L Seg Neutrophils # Man 13.3 H Lymphocytes # (Manual) 0.7 L POC ABG pH POC ABG pCO2 POC ABG pO2 Sodium Potassium Chloride Carbon Dioxide BUN Creatinine Glucose POC Glucose 187 H 185 H Lactic Acid NT-Pro-B Natriuret Pep Albumin 01/10/19 01/10/19 01/10/19 10:09 10:09 12:25 WBC RBC Hgb Hct MCH RDW Lymph % (Auto) [place] % (Auto) Lymph # Seg Neutrophils % Seg Neuts % (Manual) Lymphocytes % (Manual) Seg Neutrophils # Man Lymphocytes # (Manual) POC ABG pH POC ABG pCO2 POC ABG pO2 Sodium Potassium Chloride Carbon Dioxide BUN 18 H Creatinine 0.6 L Glucose 251 H POC Glucose 216 H Lactic Acid 2.10 H* NT-Pro-B Natriuret Pep Albumin 3.5 L 01/10/19 01/10/19 01/11/19 16:27 21:44 07:27 WBC RBC Hgb Hct MCH RDW Lymph % (Auto) [place] % (Auto) Lymph # Seg Neutrophils % Seg Neuts % (Manual) Lymphocytes % (Manual) Seg Neutrophils # Man Lymphocytes # (Manual) POC ABG pH POC ABG pCO2 POC ABG pO2 Sodium Potassium Chloride Carbon Dioxide BUN Creatinine Glucose POC Glucose 160 H 210 H 191 H Lactic Acid NT-Pro-B Natriuret Pep Albumin 01/11/19 01/11/19 01/11/19 07:57 07:57 11:16 WBC 12.2 H RBC 2.96 L Hgb 8.1 L Hct 26.9 L MCH 27 L RDW 16.3 H Lymph % (Auto) [place] % (Auto) Lymph # Seg Neutrophils % Seg Neuts % (Manual) 90.0 H Lymphocytes % (Manual) 7.0 L Seg Neutrophils # Man 11.0 H Lymphocytes # (Manual) 0.9 L POC ABG pH POC ABG pCO2 POC ABG pO2 Sodium 147 H Potassium Chloride Carbon Dioxide 31 H BUN 21 H Creatinine 0.6 L Glucose 190 H POC Glucose 177 H Lactic Acid NT-Pro-B Natriuret Pep Albumin 01/11/19 01/11/19 01/11/19 16:03 16:27 22:23 WBC RBC Hgb Hct MCH RDW Lymph % (Auto) [place] % (Auto) Lymph # Seg Neutrophils % Seg Neuts % (Manual) Lymphocytes % (Manual) Seg Neutrophils # Man Lymphocytes # (Manual) POC ABG pH POC ABG pCO2 POC ABG pO2 Sodium Potassium Chloride Carbon Dioxide BUN Creatinine Glucose POC Glucose 217 H 243 H Lactic Acid NT-Pro-B Natriuret Pep 2547 H Albumin 01/12/19 01/12/19 01/12/19 05:34 05:34 07:22 WBC RBC 3.11 L Hgb 8.6 L Hct 27.4 L MCH RDW 15.6 H Lymph % (Auto) 7.0 L [place] % (Auto) Lymph # 0.6 L Seg Neutrophils % 87.5 H Seg Neuts % (Manual) Lymphocytes % (Manual) Seg Neutrophils # Man Lymphocytes # (Manual) POC ABG pH POC ABG pCO2 POC ABG pO2 Sodium 146 H Potassium 3.5 L D Chloride 95.9 L Carbon Dioxide 35 H BUN Creatinine 0.6 L Glucose 248 H POC Glucose 249 H Lactic Acid NT-Pro-B Natriuret Pep Albumin 01/12/19 01/12/19 01/12/19 11:35 16:21 22:07 WBC RBC Hgb Hct MCH RDW Lymph % (Auto) [place] % (Auto) Lymph # Seg Neutrophils % Seg Neuts % (Manual) Lymphocytes % (Manual) Seg Neutrophils # Man Lymphocytes # (Manual) POC ABG pH POC ABG pCO2 POC ABG pO2 Sodium Potassium Chloride Carbon Dioxide BUN Creatinine Glucose POC Glucose 190 H 268 H 263 H Lactic Acid NT-Pro-B Natriuret Pep Albumin 01/13/19 01/13/19 01/13/19 05:07 05:07 07:31 WBC RBC 3.32 L Hgb 9.2 L Hct 29.3 L MCH RDW 15.3 H Lymph % (Auto) [place] % (Auto) 9.8 H Lymph # Seg Neutrophils % 74.8 H Seg Neuts % (Manual) Lymphocytes % (Manual) Seg Neutrophils # Man Lymphocytes # (Manual) POC ABG pH POC ABG pCO2 POC ABG pO2 Sodium Potassium Chloride 97.9 L Carbon Dioxide 37 H BUN Creatinine 0.5 L Glucose 165 H POC Glucose 147 H Lactic Acid NT-Pro-B Natriuret Pep Albumin 3.6 L 01/13/19 01/13/19 01/13/19 12:37 16:51 21:25 WBC RBC Hgb Hct MCH RDW Lymph % (Auto) [place] % (Auto) Lymph # Seg Neutrophils % Seg Neuts % (Manual) Lymphocytes % (Manual) Seg Neutrophils # Man Lymphocytes # (Manual) POC ABG pH POC ABG pCO2 POC ABG pO2 Sodium Potassium Chloride Carbon Dioxide BUN Creatinine Glucose POC Glucose 301 H 149 H 318 H Lactic Acid NT-Pro-B Natriuret Pep Albumin 01/14/19 01/14/19 01/14/19 04:02 04:02 07:34 WBC RBC 3.50 L Hgb 9.7 L Hct MCH RDW 15.5 H Lymph % (Auto) [place] % (Auto) Lymph # Seg Neutrophils % Seg Neuts % (Manual) 94.0 H Lymphocytes % (Manual) 3.0 L Seg Neutrophils # Man 8.1 H Lymphocytes # (Manual) 0.3 L POC ABG pH POC ABG pCO2 POC ABG pO2 Sodium Potassium Chloride 97.0 L Carbon Dioxide 34 H BUN 18 H Creatinine 0.6 L Glucose 287 H POC Glucose 266 H Lactic Acid NT-Pro-B Natriuret Pep Albumin 3.8 L 01/14/19 01/14/19 01/14/19 11:28 16:40 22:08 WBC RBC Hgb Hct MCH RDW Lymph % (Auto) [place] % (Auto) Lymph # Seg Neutrophils % Seg Neuts % (Manual) Lymphocytes % (Manual) Seg Neutrophils # Man Lymphocytes # (Manual) POC ABG pH POC ABG pCO2 POC ABG pO2 Sodium Potassium Chloride Carbon Dioxide BUN Creatinine Glucose POC Glucose 396 H 272 H 315 H Lactic Acid NT-Pro-B Natriuret Pep Albumin 01/15/19 01/15/19 01/15/19 07:38 08:31 08:31 WBC 11.3 H RBC 3.48 L Hgb 9.4 L Hct MCH 27 L RDW 15.4 H Lymph % (Auto) [place] % (Auto) Lymph # Seg Neutrophils % Seg Neuts % (Manual) 98.0 H Lymphocytes % (Manual) 0 L Seg Neutrophils # Man 11.1 H Lymphocytes # (Manual) 0.0 L POC ABG pH POC ABG pCO2 POC ABG pO2 Sodium Potassium Chloride 96.0 L Carbon Dioxide 33 H BUN 18 H Creatinine 0.6 L Glucose 371 H POC Glucose 321 H Lactic Acid NT-Pro-B Natriuret Pep Albumin 3.7 L 01/15/19 01/15/19 01/15/19 11:13 16:13 22:38 WBC RBC Hgb Hct MCH RDW Lymph % (Auto) [place] % (Auto) Lymph # Seg Neutrophils % Seg Neuts % (Manual) Lymphocytes % (Manual) Seg Neutrophils # Man Lymphocytes # (Manual) POC ABG pH POC ABG pCO2 POC ABG pO2 Sodium Potassium Chloride Carbon Dioxide BUN Creatinine Glucose POC Glucose 353 H 150 H 404 H Lactic Acid NT-Pro-B Natriuret Pep Albumin 01/16/19 01/16/19 07:36 12:09 WBC RBC Hgb Hct MCH RDW Lymph % (Auto) [place] % (Auto) Lymph # Seg Neutrophils % Seg Neuts % (Manual) Lymphocytes % (Manual) Seg Neutrophils # Man Lymphocytes # (Manual) POC ABG pH POC ABG pCO2 POC ABG pO2 Sodium Potassium Chloride Carbon Dioxide BUN Creatinine Glucose POC Glucose 317 H 351 H Lactic Acid NT-Pro-B Natriuret Pep Albumin
--- NOTE | 2019-01-16 14:44 | Progress Note ---
Assessment and Plan Patient seen and examined medical records from the emergency department reviewed. 68-year-old female patient admitted to the emergency department for worsening shortness of breath as well as cough generalized body pain and weakness. The patient was [facility]te[facility] and has been on treatment there but her breathing got progressively worse over the past 24 Hours and was thus referred back to the ER for further evaluation and treatment . Patient has history of COPD hypertension on therapy diabetes and has had multiple hospitalizations over the last year on account of recurrence of COPD. After the time of evaluation patient has ongoing shortness of breath, her blood pressure was also reported to be low in the emergency department for which patient was started on Levophed and weaned off of same. Has cough that is productive and she denied any chest pain, no fever or chills but appetite has been poor and she feels generally weak. - Acute respiratory failure. Still on HF oxygen. Continue with same made and other Supplemental HF oxygen. Wean off HC oxygen Continue with Bronchodilator IV antibiotics and aerosol treatments and steroids are started Pulmonology has been consulted from admission and seeing the patient. - Heart Failure with preserved EF of 55-60% Commence ACEI, hold b/c acute of chronic respr failure, continue statin and gentle with strick Is and Os Cardiology consult - Cor Pulm Continue with Hydrallazine and gently diuresis - Sepsis associated hypotension - resolved. Now hypertensive Has Leukocytosis with initial elevated lactic acid level - resolved Hypotension improved with iv hydration, pressors now discontinued Continue IV antibiotics as ordered. Blood culture no growth so far. - Hypokalemia Will supplement and recheck - COPD exacerbation Continue aerosol treatment and steroids and O2 supplementation. IV antibiotics We'll consult pulmonary for management of COPD and acute respiratory failure - Type 2 diabetes mellitus without complications We will hold metformin and start patient on sliding scale coverage with regular insulin with parameters. - Essential (primary) hypertension Her current blood pressure medications and consider monitor blood pressure until the patient is hemodynamically stable - DVT prophylaxis with Lovenox and GI with Pepcid Time spent: 25 minutes Subjective Date of service: 01/16/19 Principal diagnosis: sepsis, exacerbation of COPD Interval history: Pt seen and examined. Still having shortness of breath though better. Afebrile. On supplemental oxygen via nasal canula. No diarrhea. Pt refusing diuretics. Objective - Exam Narrative Exam: Constitutional: Well-nourished well-developed. In no distress Head: Normocephalic atraumatic Eyes: Pupils are equal round and reactive to light Nose: No enlarged turbinates, no septal deviation. On high flow oxygen via NC Mouth: Moist mucous membranes. Neck: Supple no thyromegaly. No bruit. No JVD Heart: Regular rate and rhythm, S1-S2 normal. No rubs murmurs or gallop Lungs: Decreased breath sounds on auscultation bilaterally. Abdomen: Soft, nontender. Bowel sound are present. Extremities: No edema, no cyanosis, no clubbing. Neuro: Alert oriented Oriented x3. No focal sensory or motor deficit. Skin: No rashes or hyperpigmented spots Musculoskeletal system: No joint pain or swelling Hematological: No petechia or subcutanous hemorrhages. Immunological: No multiple septic spots on the skin Lymphatic: No generalized lymphadenopathy Psychiatry: Euthymic. Calm. - Constitutional Vitals: Vital Signs - 12hr 01/16/19 01/16/19 01/16/19 04:30 07:17 07:46 Temperature 97.7 F Pulse Rate 52 L Pulse Rate [ 59 L Anterior Bilateral] Respiratory 18 Rate Respiratory 17 Rate [Anterior Bilateral] Blood Pressure 156/53 O2 Sat by Pulse 95 92 Oximetry 01/16/19 01/16/19 01/16/19 07:48 09:51 13:48 Temperature 98.1 F Pulse Rate 59 L Pulse Rate [ Anterior Bilateral] Respiratory 16 18 Rate Respiratory Rate [Anterior Bilateral] Blood Pressure 143/52 O2 Sat by Pulse 89 91 Oximetry - Labs CBC & Chem 7: 01/15/19 08:31 01/15/19 08:31 Labs: Abnormal lab results 01/15/19 01/15/19 01/16/19 Range/Units 16:13 22:38 07:36 POC Glucose 150 H 404 H 317 H (70-105) 01/16/19 Range/Units 12:09 POC Glucose 351 H (70-105)
[2019-01-16] MEDS: HALOPERIDOL 5 MG TAB PO SCH (17:00)
[2019-01-16] MEDS: DONEPEZIL 10 MG TAB PO SCH (22:17)
[2019-01-17] MEDS: IPRATROPIUM/ALBUTEROL SULFATE 3 ML AMPUL.NEB IH SCH ×4 (01:39→21:57)
[2019-01-17] MEDS: methylPREDNISolone Sod Succinate 125 MG/2 ML INJ IV SCH ×3 (05:33→21:26)
[2019-01-17] MEDS: LEVOTHYROXINE 88 MCG TAB PO SCH (05:33)
[2019-01-17] MEDS: hydrALAZINE 100 MG TAB PO SCH ×3 (05:50→21:26)
[2019-01-17] MEDS: INSULIN LISPRO 100 UNIT/ML SUB-Q SCH ×4 (08:23→21:27)
[2019-01-17] MEDS: GABAPENTIN 400 MG CAP PO SCH ×3 (08:24→21:26)
[2019-01-17] MEDS: FLUoxetine 20 MG CAP PO SCH (09:11)
[2019-01-17] MEDS: amLODIPine 10 MG TAB PO SCH (09:11)
[2019-01-17] MEDS: ASPIRIN 81 MG TAB CHEW PO SCH (09:11)
[2019-01-17] MEDS: ARIPiprazole 10 MG TAB PO SCH (09:11)
[2019-01-17] MEDS: HYDROcodone/ACETAMINOPHEN 5-325 MG TAB PO PRN ×2 (09:12→21:25)
[2019-01-17] MEDS: LISINOPRIL 40 MG TAB PO SCH ×2 (09:12→21:26)
[2019-01-17] MEDS: TRELEGY PO SCH (09:13)
[2019-01-17] MEDS: CLOTRIMAZOLE/BETAMETHASONE CREAM 15 GM TP SCH ×2 (09:16→21:28)
[2019-01-17] MEDS: FUROSEMIDE 20 MG/2 ML INJ IV SCH (09:16)
--- NOTE | 2019-01-17 11:49 | Progress Note ---
Assessment and Plan Echo reviewed - EF 55-60%, impaired relaxation, pulm HTN with RVSP 44mmHg. Currently stable cardiac status. Convert IV lasix to PO lasix daily. Cont all other present cardiac management. Nothing further to add from cardiac perspective at this time. Will sign off. Recommend follow up in our office with Dr. KHARI Galindo within 3-5 days of hospital discharge ([phone]). The patient has been seen in conjunction with Dr. Antony who agrees with the assessment and plan of care. - Patient Problems (1) Acute on chronic respiratory failure Current Visit: Yes Status: Acute (2) COPD exacerbation Current Visit: Yes Status: Acute (3) Acute heart failure with preserved ejection fraction Current Visit: Yes Status: Acute (4) CAD (coronary artery disease) Current Visit: Yes Status: Chronic (5) Mitral valve annular calcification Current Visit: Yes Status: Chronic (6) HTN (hypertension) Current Visit: Yes Status: Chronic (7) Obstructive sleep apnea Current Visit: Yes Status: Chronic (8) Hyperlipidemia Current Visit: Yes Status: Chronic (9) Diabetes Current Visit: Yes Status: Chronic Qualifiers: Diabetes mellitus type: type 2 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 in SB with HR 50s on telemetry. Objective Last Vital Signs Temp 98.4 F 01/17/19 07:10 Pulse 54 L 01/17/19 09:12 Resp 18 01/17/19 07:48 BP 152/56 01/17/19 09:12 Pulse Ox 95 01/17/19 08:00 - Physical Examination General: No Apparent Distress HEENT: Positive: PERRL, Normocephaly, Mucus Membranes Moist Neck: Positive: neck supple Cardiac: Positive: Reg Rate and Rhythm, S1/S2 Lungs: Positive: Decreased Breath Sounds Neuro: Positive: Grossly Intact Abdomen: Negative: Tender Skin: Negative: Rash Musculoskeletal: No Pain Extremities: Absent: edema - Imaging and Cardiology EKG: report reviewed, image reviewed Echo: report reviewed ( 09/2017 showed EF 50%, mild LVH, mod LA enlargement, thickened mitral valve leaflets, dense mitral annular calcification, mild TR, 1.24cm size posterior MV echo dense calcified structure, negative bubble study. ) - Telemetry EKG Rhythm: Sinus Rhythm - EKG Sinus rhythms and dysrhythmias: sinus rhythm
--- NOTE | 2019-01-17 12:00 | Progress Note ---
Assessment and Plan Patient seen and examined medical records from the emergency department reviewed. 68-year-old female patient admitted to the emergency department for worsening shortness of breath as well as cough generalized body pain and weakness. The patient was admitteed to admitted to [facility] and has been on treatment there but her breathing got progressively worse over the past 24 Hours and was thus referred back to the ER for further evaluation and treatment . Patient has history of COPD hypertension on therapy diabetes and has had multiple hospitalizations over the last year on account of recurrence of COPD. After the time of evaluation patient has ongoing shortness of breath, her blood pressure was also reported to be low in the emergency department for which patient was started on Levophed and weaned off of same. Has cough that is productive and she denied any chest pain, no fever or chills but appetite has been poor and she feels generally weak. - Acute respiratory failure. NC oxygen. Continue with same Continue with Bronchodilator IV antibiotics and aerosol treatments and steroids are started Adolfo steriod Pulmonology has been consulted from admission and seeing the patient. - Heart Failure with preserved EF of 55-60% Commence ACEI, hold BB b/c acute of chronic respr failure, continue statin and gentle with strick Is and Os Cardiology consulted - Cor Pulm Continue with Hydrallazine and gently diuresis - Sepsis associated hypotension - resolved. Now hypertensive Has Leukocytosis with initial elevated lactic acid level - resolved No growth so far in the blood or urine Hypotension improved with iv hydration, pressors now discontinued Continue IV antibiotics as ordered. Blood culture no growth so far. - Hypokalemia corrected recheck -Debility of senility continue with PT - COPD exacerbation Continue aerosol treatment and steroids and O2 supplementation. IV antibiotics Weaned pt from High flow oxygen to NC and maintaining a saturation of > 90 on 5 liters - Type 2 diabetes mellitus without complications We will hold metformin and start patient on sliding scale coverage with regular insulin with parameters. - Essential (primary) hypertension Her current blood pressure medications and consider monitor blood pressure until the patient is hemodynamically stable - DVT prophylaxis with Lovenox and GI with Pepcid - Disposition: Patient now tolerating oxygen via NC. continue wit wean and t ransfer to SNF once insurance approves. Discussed at length with patients daughter. Time spent: 25 minutes Subjective Date of service: 01/17/19 Principal diagnosis: sepsis, exacerbation of COPD Interval history: Pt seen and examined. Still having shortness of breath though better. Afebrile. On supplemental oxygen via nasal canula. No diarrhea. Pt refusing diuretics. Objective - Exam Narrative Exam: Constitutional: Well-nourished well-developed. In no distress Head: Normocephalic atraumatic Eyes: Pupils are equal round and reactive to light Nose: No enlarged turbinates, no septal deviation. On high flow oxygen via NC Mouth: Moist mucous membranes. Neck: Supple no thyromegaly. No bruit. No JVD Heart: Regular rate and rhythm, S1-S2 normal. No rubs murmurs or gallop Lungs: Decreased breath sounds on auscultation bilaterally. Abdomen: Soft, nontender. Bowel sound are present. Extremities: No edema, no cyanosis, no clubbing. Neuro: Alert oriented Oriented x3. No focal sensory or motor deficit. Skin: No rashes or hyperpigmented spots Musculoskeletal system: No joint pain or swelling.unstable gait and has had frequent falls prior to admission because her legs give way. Hematological: No petechia or subcutanous hemorrhages. Immunological: No multiple septic spots on the skin Lymphatic: No generalized lymphadenopathy Psychiatry: Euthymic. Calm. - Constitutional Vitals: Vital Signs - 12hr 01/17/19 01/17/19 01/17/19 00:36 01:39 01:41 Temperature Pulse Rate Pulse Rate [ 66 Anterior Bilateral] Respiratory Rate Respiratory 19 Rate [Anterior Bilateral] Blood Pressure O2 Sat by Pulse 91 95 Oximetry 01/17/19 01/17/19 01/17/19 02:33 04:33 05:49 Temperature 98.9 F Pulse Rate 57 L 55 L 53 L Pulse Rate [ Anterior Bilateral] Respiratory 20 Rate Respiratory Rate [Anterior Bilateral] Blood Pressure 134/45 153/58 O2 Sat by Pulse 93 90 Oximetry 01/17/19 01/17/19 01/17/19 05:50 07:10 07:48 Temperature 98.4 F Pulse Rate 54 L 54 L Pulse Rate [ 60 Anterior Bilateral] Respiratory 20 Rate Respiratory 18 Rate [Anterior Bilateral] Blood Pressure 152/56 O2 Sat by Pulse 89 91 Oximetry 01/17/19 01/17/19 01/17/19 08:00 09:11 09:12 Temperature Pulse Rate 54 L 54 L Pulse Rate [ Anterior Bilateral] Respiratory Rate Respiratory Rate [Anterior Bilateral] Blood Pressure 152/56 152/56 O2 Sat by Pulse 95 Oximetry - Labs CBC & Chem 7: 01/18/19 04:09 01/18/19 04:09 Labs: Abnormal lab results 01/16/19 01/16/19 01/16/19 Range/Units 12:09 16:12 22:04 POC Glucose 351 H 293 H 382 H (70-105) 01/17/19 01/17/19 Range/Units 07:22 11:29 POC Glucose 356 H 376 H (70-105)
--- NOTE | 2019-01-17 13:47 | Progress Note ---
Assessment and Plan 68 y/o female with acute respiratory failure secondary to COPD exacerbation. Continue to wean oxygen for sats >88% agree with PO lasix therapy if patient will take it Continue home trelegy At discharge follow up with Martin in 10-14 days. Subjective Date of service: 01/17/19 Principal diagnosis: sepsis, exacerbation of COPD Interval history: No acute events. Down to Nasal cannula based on documentation. Objective Vital Signs - 12hr 01/17/19 01/17/19 01/17/19 02:33 04:33 05:49 Temperature 98.9 F Pulse Rate 57 L 55 L 53 L Pulse Rate [ Anterior Bilateral] Respiratory 20 Rate Respiratory Rate [Anterior Bilateral] Blood Pressure 134/45 153/58 O2 Sat by Pulse 93 90 Oximetry 01/17/19 01/17/19 01/17/19 05:50 07:10 07:48 Temperature 98.4 F Pulse Rate 54 L 54 L Pulse Rate [ 60 Anterior Bilateral] Respiratory 20 Rate Respiratory 18 Rate [Anterior Bilateral] Blood Pressure 152/56 O2 Sat by Pulse 89 91 Oximetry 01/17/19 01/17/19 01/17/19 08:00 09:11 09:12 Temperature Pulse Rate 54 L 54 L Pulse Rate [ Anterior Bilateral] Respiratory Rate Respiratory Rate [Anterior Bilateral] Blood Pressure 152/56 152/56 O2 Sat by Pulse 95 Oximetry Constitutional: alert (mild distress on hi yolanda 50%), other Eyes: non-icteric ENT: oropharynx moist, other (adentulous) Neck: supple Effort: normal Ascultation: Bilateral: wheezes Tactile fremitus: Bilateral: normal Cardiovascular: regular rate and rhythm Gastrointestinal: normoactive bowel sounds, soft, non-tender, non-distended Integumentary: normal Extremities: no cyanosis, no edema Neurologic: normal mental status, non-focal exam Psychiatric: mood appropriate, affect normal CBC and BMP: 01/15/19 08:31 01/15/19 08:31 ABG, PT/INR, D-dimer: ABG POC ABG pH 7.278 (7.35-7.45) L 01/09/19 05:23 POC ABG pCO2 67.9 (35-45) H 01/09/19 05:23 POC ABG pO2 73 (80-105) L 01/09/19 05:23 POC ABG HCO3 31.7 (22-26 mml/L) 01/09/19 05:23 POC ABG Total CO2 34 (23-27mmol/L) 01/09/19 05:23 POC ABG O2 Sat 91 01/09/19 05:23 PT/INR, D-dimer PT 13.3 Sec. (12.2-14.9) 01/08/19 14:39 INR 1.04 (0.87-1.13) 01/08/19 14:39 Abnormal lab findings: Abnormal Labs 01/08/19 01/08/19 01/08/19 14:39 14:39 16:55 WBC RBC 3.17 L Hgb 9.0 L Hct 28.4 L MCH RDW 15.9 H Lymph % (Auto) [place] % (Auto) 7.8 H Lymph # Seg Neutrophils % 71.9 H Seg Neuts % (Manual) Lymphocytes % (Manual) Seg Neutrophils # Man Lymphocytes # (Manual) POC ABG pH POC ABG pCO2 POC ABG pO2 Sodium Potassium Chloride Carbon Dioxide BUN Creatinine Glucose 140 H POC Glucose Lactic Acid 2.90 H* NT-Pro-B Natriuret Pep Albumin 3.7 L 01/08/19 01/08/19 01/08/19 19:34 21:15 23:37 WBC RBC Hgb Hct MCH RDW Lymph % (Auto) [place] % (Auto) Lymph # Seg Neutrophils % Seg Neuts % (Manual) Lymphocytes % (Manual) Seg Neutrophils # Man Lymphocytes # (Manual) POC ABG pH POC ABG pCO2 POC ABG pO2 Sodium Potassium Chloride Carbon Dioxide BUN Creatinine Glucose POC Glucose 224 H Lactic Acid 3.50 H* 3.80 H* NT-Pro-B Natriuret Pep Albumin 01/09/19 01/09/19 01/09/19 04:52 04:52 05:23 WBC RBC 3.12 L Hgb 8.7 L Hct 28.4 L MCH RDW 16.2 H Lymph % (Auto) [place] % (Auto) Lymph # Seg Neutrophils % Seg Neuts % (Manual) 95.0 H Lymphocytes % (Manual) 4.0 L Seg Neutrophils # Man 8.9 H Lymphocytes # (Manual) 0.4 L POC ABG pH 7.278 L POC ABG pCO2 67.9 H POC ABG pO2 73 L Sodium Potassium Chloride Carbon Dioxide BUN 19 H Creatinine Glucose 173 H POC Glucose Lactic Acid NT-Pro-B Natriuret Pep Albumin 3.8 L 01/09/19 01/09/19 01/09/19 05:37 12:01 18:10 WBC RBC Hgb Hct MCH RDW Lymph % (Auto) [place] % (Auto) Lymph # Seg Neutrophils % Seg Neuts % (Manual) Lymphocytes % (Manual) Seg Neutrophils # Man Lymphocytes # (Manual) POC ABG pH POC ABG pCO2 POC ABG pO2 Sodium Potassium Chloride Carbon Dioxide BUN Creatinine Glucose POC Glucose 177 H 186 H 257 H Lactic Acid NT-Pro-B Natriuret Pep Albumin 01/09/19 01/10/19 01/10/19 23:13 08:02 10:09 WBC 14.0 H RBC 2.97 L Hgb 8.2 L Hct 27.0 L MCH RDW 16.4 H Lymph % (Auto) [place] % (Auto) Lymph # Seg Neutrophils % Seg Neuts % (Manual) 95.0 H Lymphocytes % (Manual) 5.0 L Seg Neutrophils # Man 13.3 H Lymphocytes # (Manual) 0.7 L POC ABG pH POC ABG pCO2 POC ABG pO2 Sodium Potassium Chloride Carbon Dioxide BUN Creatinine Glucose POC Glucose 187 H 185 H Lactic Acid NT-Pro-B Natriuret Pep Albumin 01/10/19 01/10/19 01/10/19 10:09 10:09 12:25 WBC RBC Hgb Hct MCH RDW Lymph % (Auto) [place] % (Auto) Lymph # Seg Neutrophils % Seg Neuts % (Manual) Lymphocytes % (Manual) Seg Neutrophils # Man Lymphocytes # (Manual) POC ABG pH POC ABG pCO2 POC ABG pO2 Sodium Potassium Chloride Carbon Dioxide BUN 18 H Creatinine 0.6 L Glucose 251 H POC Glucose 216 H Lactic Acid 2.10 H* NT-Pro-B Natriuret Pep Albumin 3.5 L 01/10/19 01/10/19 01/11/19 16:27 21:44 07:27 WBC RBC Hgb Hct MCH RDW Lymph % (Auto) [place] % (Auto) Lymph # Seg Neutrophils % Seg Neuts % (Manual) Lymphocytes % (Manual) Seg Neutrophils # Man Lymphocytes # (Manual) POC ABG pH POC ABG pCO2 POC ABG pO2 Sodium Potassium Chloride Carbon Dioxide BUN Creatinine Glucose POC Glucose 160 H 210 H 191 H Lactic Acid NT-Pro-B Natriuret Pep Albumin 01/11/19 01/11/1919 07:57 07:57 11:16 WBC 12.2 H RBC 2.96 L Hgb 8.1 L Hct 26.9 L MCH 27 L RDW 16.3 H Lymph % (Auto) [place] % (Auto) Lymph # Seg Neutrophils % Seg Neuts % (Manual) 90.0 H Lymphocytes % (Manual) 7.0 L Seg Neutrophils # Man 11.0 H Lymphocytes # (Manual) 0.9 L POC ABG pH POC ABG pCO2 POC ABG pO2 Sodium 147 H Potassium Chloride Carbon Dioxide 31 H BUN 21 H Creatinine 0.6 L Glucose 190 H POC Glucose 177 H Lactic Acid NT-Pro-B Natriuret Pep Albumin 01/11/19 01/11/19 01/11/19 16:03 16:27 22:23 WBC RBC Hgb Hct MCH RDW Lymph % (Auto) [place] % (Auto) Lymph # Seg Neutrophils % Seg Neuts % (Manual) Lymphocytes % (Manual) Seg Neutrophils # Man Lymphocytes # (Manual) POC ABG pH POC ABG pCO2 POC ABG pO2 Sodium Potassium Chloride Carbon Dioxide BUN Creatinine Glucose POC Glucose 217 H 243 H Lactic Acid NT-Pro-B Natriuret Pep 2547 H Albumin 01/12/19 01/12/19 01/12/19 05:34 05:34 07:22 WBC RBC 3.11 L Hgb 8.6 L Hct 27.4 L MCH RDW 15.6 H Lymph % (Auto) 7.0 L [place] % (Auto) Lymph # 0.6 L Seg Neutrophils % 87.5 H Seg Neuts % (Manual) Lymphocytes % (Manual) Seg Neutrophils # Man Lymphocytes # (Manual) POC ABG pH POC ABG pCO2 POC ABG pO2 Sodium 146 H Potassium 3.5 L D Chloride 95.9 L Carbon Dioxide 35 H BUN Creatinine 0.6 L Glucose 248 H POC Glucose 249 H Lactic Acid NT-Pro-B Natriuret Pep Albumin 01/12/19 01/12/19 01/12/19 11:35 16:21 22:07 WBC RBC Hgb Hct MCH RDW Lymph % (Auto) [place] % (Auto) Lymph # Seg Neutrophils % Seg Neuts % (Manual) Lymphocytes % (Manual) Seg Neutrophils # Man Lymphocytes # (Manual) POC ABG pH POC ABG pCO2 POC ABG pO2 Sodium Potassium Chloride Carbon Dioxide BUN Creatinine Glucose POC Glucose 190 H 268 H 263 H Lactic Acid NT-Pro-B Natriuret Pep Albumin 01/13/19 01/13/19 01/13/19 05:07 05:07 07:31 WBC RBC 3.32 L Hgb 9.2 L Hct 29.3 L MCH RDW 15.3 H Lymph % (Auto) [place] % (Auto) 9.8 H Lymph # Seg Neutrophils % 74.8 H Seg Neuts % (Manual) Lymphocytes % (Manual) Seg Neutrophils # Man Lymphocytes # (Manual) POC ABG pH POC ABG pCO2 POC ABG pO2 Sodium Potassium Chloride 97.9 L Carbon Dioxide 37 H BUN Creatinine 0.5 L Glucose 165 H POC Glucose 147 H Lactic Acid NT-Pro-B Natriuret Pep Albumin 3.6 L 01/13/19 01/13/19 01/13/19 12:37 16:51 21:25 WBC RBC Hgb Hct MCH RDW Lymph % (Auto) [place] % (Auto) Lymph # Seg Neutrophils % Seg Neuts % (Manual) Lymphocytes % (Manual) Seg Neutrophils # Man Lymphocytes # (Manual) POC ABG pH POC ABG pCO2 POC ABG pO2 Sodium Potassium Chloride Carbon Dioxide BUN Creatinine Glucose POC Glucose 301 H 149 H 318 H Lactic Acid NT-Pro-B Natriuret Pep Albumin 01/14/19 01/14/19 01/14/19 04:02 04:02 07:34 WBC RBC 3.50 L Hgb 9.7 L Hct MCH RDW 15.5 H Lymph % (Auto) [place] % (Auto) Lymph # Seg Neutrophils % Seg Neuts % (Manual) 94.0 H Lymphocytes % (Manual) 3.0 L Seg Neutrophils # Man 8.1 H Lymphocytes # (Manual) 0.3 L POC ABG pH POC ABG pCO2 POC ABG pO2 Sodium Potassium Chloride 97.0 L Carbon Dioxide 34 H BUN 18 H Creatinine 0.6 L Glucose 287 H POC Glucose 266 H Lactic Acid NT-Pro-B Natriuret Pep Albumin 3.8 L 01/14/19 01/14/19 01/14/19 11:28 16:40 22:08 WBC RBC Hgb Hct MCH RDW Lymph % (Auto) [place] % (Auto) Lymph # Seg Neutrophils % Seg Neuts % (Manual) Lymphocytes % (Manual) Seg Neutrophils # Man Lymphocytes # (Manual) POC ABG pH POC ABG pCO2 POC ABG pO2 Sodium Potassium Chloride Carbon Dioxide BUN Creatinine Glucose POC Glucose 396 H 272 H 315 H Lactic Acid NT-Pro-B Natriuret Pep Albumin 01/15/19 01/15/19 01/15/19 07:38 08:31 08:31 WBC 11.3 H RBC 3.48 L Hgb 9.4 L Hct MCH 27 L RDW 15.4 H Lymph % (Auto) [place] % (Auto) Lymph # Seg Neutrophils % Seg Neuts % (Manual) 98.0 H Lymphocytes % (Manual) 0 L Seg Neutrophils # Man 11.1 H Lymphocytes # (Manual) 0.0 L POC ABG pH POC ABG pCO2 POC ABG pO2 Sodium Potassium Chloride 96.0 L Carbon Dioxide 33 H BUN 18 H Creatinine 0.6 L Glucose 371 H POC Glucose 321 H Lactic Acid NT-Pro-B Natriuret Pep Albumin 3.7 L 01/15/19 01/15/19 01/15/19 11:13 16:13 22:38 WBC RBC Hgb Hct MCH RDW Lymph % (Auto) [place] % (Auto) Lymph # Seg Neutrophils % Seg Neuts % (Manual) Lymphocytes % (Manual) Seg Neutrophils # Man Lymphocytes # (Manual) POC ABG pH POC ABG pCO2 POC ABG pO2 Sodium Potassium Chloride Carbon Dioxide BUN Creatinine Glucose POC Glucose 353 H 150 H 404 H Lactic Acid NT-Pro-B Natriuret Pep Albumin 01/16/19 01/16/19 01/16/19 07:36 12:09 16:12 WBC RBC Hgb Hct MCH RDW Lymph % (Auto) [place] % (Auto) Lymph # Seg Neutrophils % Seg Neuts % (Manual) Lymphocytes % (Manual) Seg Neutrophils # Man Lymphocytes # (Manual) POC ABG pH POC ABG pCO2 POC ABG pO2 Sodium Potassium Chloride Carbon Dioxide BUN Creatinine Glucose POC Glucose 317 H 351 H 293 H Lactic Acid NT-Pro-B Natriuret Pep Albumin 01/16/19 01/17/19 01/17/19 22:04 07:22 11:29 WBC RBC Hgb Hct MCH RDW Lymph % (Auto) [place] % (Auto) Lymph # Seg Neutrophils % Seg Neuts % (Manual) Lymphocytes % (Manual) Seg Neutrophils # Man Lymphocytes # (Manual) POC ABG pH POC ABG pCO2 POC ABG pO2 Sodium Potassium Chloride Carbon Dioxide BUN Creatinine Glucose POC Glucose 382 H 356 H 376 H Lactic Acid NT-Pro-B Natriuret Pep Albumin
[2019-01-17] MEDS: ACETAMINOPHEN 325 MG TAB PO PRN (15:53)
[2019-01-17] MEDS ORDERED: INSULIN LISPRO 100 UNIT/ML SUB-Q ONE (18:01)
[2019-01-17] MEDS: HALOPERIDOL 5 MG TAB PO SCH (18:27)
[2019-01-17] MEDS: DONEPEZIL 10 MG TAB PO SCH (21:26)
[2019-01-18] MEDS: IPRATROPIUM/ALBUTEROL SULFATE 3 ML AMPUL.NEB IH SCH ×4 (03:35→21:17)
[2019-01-18 04:56] LABS: Hematocrit 31.4 % (30.3-42.9); Hemoglobin 9.6 gm/dl (10.1-14.3); Mean Corpuscular HGB Conc 31 % (30-34); Mean Corpuscular Volume 89 fl (79-97); Platelet Count 331 K/mm3 (140-440); Red Blood Count 3.55 M/mm3 (3.65-5.03); Red Cell Distribution Width 15.6 % (13.2-15.2)
[2019-01-18] MEDS: ACETAMINOPHEN 325 MG TAB PO PRN (05:14)
[2019-01-18] MEDS: FUROSEMIDE 20 MG TAB PO SCH (05:15)
[2019-01-18] MEDS: LEVOTHYROXINE 88 MCG TAB PO SCH (05:15)
[2019-01-18] MEDS: methylPREDNISolone Sod Succinate 125 MG/2 ML INJ IV SCH (05:15)
[2019-01-18] MEDS: hydrALAZINE 100 MG TAB PO SCH ×3 (05:15→21:45)
[2019-01-18 05:17] LABS: Alanine Aminotransferase 22 units/L (7-56); Albumin 3.5 g/dL (3.9-5); BUN/Creatinine Ratio 31; Blood Urea Nitrogen 22 mg/dL (7-17); Calcium 8.7 mg/dL (8.4-10.2); Hemolysis Index 3
[2019-01-18 08:12] LABS: Basophils % (Manual) 0 % (0.0-1.8); Eosinophils % (Manual) 0 % (0.0-4.3); Monocytes % (Manual) 0 % (0.0-7.3); Total Cells Counted 100
[2019-01-18 08:13] LABS: Anisocytosis 1+; Ovalocytes Few; Platelet Estimate Consistent w Auto; Poikilocytosis 1+; Tear Drop Cells Few
[2019-01-18] MEDS: INSULIN LISPRO 100 UNIT/ML SUB-Q SCH ×4 (08:30→23:20)
[2019-01-18] MEDS: GABAPENTIN 400 MG CAP PO SCH ×3 (08:50→21:44)
--- NOTE | 2019-01-18 09:18 | Discharge Summary ---
Providers - Providers Date of Admission: 01/08/19 16:54 Date of discharge: 01/18/19 Attending physician: YESSY HUSTON 01/08/19 20:12 Consult to Physician [CONS] Routine Comment: Consulting Provider: JOSEE BENNETT Physician Instructions: Reason For Exam: Acute Respiratory failure 01/09/19 19:18 Consult to Dietitian/Nutrition [CONS] Routine Physician Instructions: Reason For Exam: Reason for Consult: Diet education 01/10/19 12:01 Occupational Therapy Evaluate and Treat [CONS] Routine Comment: Reason For Exam: Debility Physical Therapy Evaluation and Treat [CONS] Routine Comment: Reason For Exam: Debility 01/11/19 09:32 Consult to Physician [CONS] Routine Comment: Consulting Provider: CHANO MENEZES Physician Instructions: Reason For Exam: sepsis, diarrhea 01/12/19 08:33 Consult to Physician [CONS] Routine Comment: ROLDAN Consulting Provider: IVAN ACHARYA Physician Instructions: JASPAL WAS NOTIFIED. Reason For Exam: heart failure Primary care physician: KILN FEEDER Hospitalization Condition: Fair Pertinent studies: Chest x-ray Echocardiogram ejection fraction of 55-60% and diastolic dysfunction, increased right ventricular pressure Procedures: None Hospital course: Patient is a 68-year-old lady who has terminal COPD on home oxygen at 2 L/m recently was admitted to residential facility presented emergency department on 01/09/1940 was no shortness of breath cough congestion. On admission patient was commenced on broncho-dilators. Was still hypoxic. Was placed on high flow oxygen. Pulmonary Consult was obtained. Patient was also placed on IV Solu- Medrol and IV antibiotics. Chest x-ray was unremarkable for any acute event. Echocardiogram was done. Ejection fraction was found to be 55-60% with impaired relaxation. There was also evidence of increased right ventricular pressure. Diagnosis of carpal row was done. Patient was gently diuresed. Wean off of high flow oxygen and placed back oxygen via nasal cannula. Shortness of breath improved. Has chronic pain from spinal stenosis that was controlled with narcotics. Symptoms improved. Patient was therefore discharged back to residential facility. Condition on discharge was satisfactory. 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 Disposition: [id number] Time spent for discharge: 40 minutes - Discharge Diagnoses (1) Acute heart failure with preserved ejection fraction Status: Acute (2) Acute on chronic respiratory failure Status: Acute (3) Acute respiratory failure Status: Acute (4) COPD exacerbation Status: Acute Core Measure Documentation - Palliative Care Palliative Care/ Comfort Measures: Not Applicable - Core Measures Any of the following diagnoses?: heart failure - Heart Failure Discharge Requirements KASIE/ARB for LVSD if EF <40%: Yes Beta connor at discharge: No Reason for no beta connor on DC: COPD Exam - Physical Exam Narrative exam: Constitutional: Well-nourished well-developed. In no distress Head: Normocephalic atraumatic Eyes: Pupils are equal round and reactive to light Nose: No enlarged turbinates, no septal deviation. On high flow oxygen via NC Mouth: Moist mucous membranes. Neck: Supple no thyromegaly. No bruit. No JVD Heart: Regular rate and rhythm, S1-S2 normal. No rubs murmurs or gallop Lungs: Decreased breath sounds on auscultation bilaterally. Abdomen: Soft, nontender. Bowel sound are present. Extremities: No edema, no cyanosis, no clubbing. Neuro: Alert oriented Oriented x3. No focal sensory or motor deficit. Skin: No rashes or hyperpigmented spots Musculoskeletal system: No joint pain or swelling.unstable gait and has had frequent falls prior to admission because her legs give way. Hematological: No petechia or subcutanous hemorrhages. Immunological: No multiple septic spots on the skin Lymphatic: No generalized lymphadenopathy Psychiatry: Euthymic. Calm. - Constitutional Vitals: Temp Pulse Resp BP Pulse Ox 97.8 F 57 L 20 143/49 95 01/18/19 07:35 01/18/19 07:35 01/18/19 07:35 01/18/19 07:35 01/18/19 07:35 Plan Weight Bearing Status: Weight Bear as Tolerated Diet: diabetic Follow up with: YESSY HUSTON MD [Staff Physician] - 3 Days PRIMARY CARE, [Primary Care Provider] - 6 Weeks Prescriptions: HYDROcodone/APAP 5-325 5 mg PO Q8HR PRN #8 PRN Reason: Pain, Moderate (4-6) Prednisone [predniSONE (Doug) ER TAB] 20 mg PO QDAY #30 tablet.
[2019-01-18] MEDS: ARIPiprazole 10 MG TAB PO SCH (09:22)
[2019-01-18] MEDS: FLUoxetine 20 MG CAP PO SCH (09:22)
[2019-01-18] MEDS: ASPIRIN 81 MG TAB CHEW PO SCH (09:22)
[2019-01-18] MEDS: amLODIPine 10 MG TAB PO SCH (09:24)
[2019-01-18] MEDS: TRELEGY PO SCH (09:25)
[2019-01-18] MEDS: CLOTRIMAZOLE/BETAMETHASONE CREAM 15 GM TP SCH ×2 (09:26→21:46)
[2019-01-18] MEDS: HYDROcodone/ACETAMINOPHEN 5-325 MG TAB PO PRN ×2 (10:17→21:45)
[2019-01-18] MEDS: methylPREDNISolone Sod Succinate 40 MG/1 ML INJ IV SCH ×3 (10:17→21:43)
[2019-01-18] MEDS: LISINOPRIL 40 MG TAB PO SCH ×2 (12:17→21:44)
--- NOTE | 2019-01-18 13:45 | Progress Note ---
Assessment and Plan 68 y/o female with acute respiratory failure secondary to COPD exacerbation. Continue to wean oxygen for sats >88% agree with PO lasix therapy if patient will take it Continue home trelegy At discharge follow up with Martin in 10-14 days. Subjective Date of service: 01/18/19 Principal diagnosis: sepsis, exacerbation of COPD Interval history: Patient being discharged today. Objective Vital Signs - 12hr 01/18/19 01/18/19 01/18/19 02:25 02:27 03:35 Temperature 98.2 F Pulse Rate 49 L 54 L Pulse Rate [ 58 L Anterior Bilateral] Respiratory 18 Rate Respiratory 20 Rate [Anterior Bilateral] Blood Pressure 130/54 O2 Sat by Pulse 92 94 Oximetry 01/18/19 01/18/19 01/18/19 07:24 07:25 07:35 Temperature 97.8 F Pulse Rate 57 L Pulse Rate [ 62 Anterior Bilateral] Respiratory 20 Rate Respiratory 20 Rate [Anterior Bilateral] Blood Pressure 143/49 O2 Sat by Pulse 93 95 Oximetry 01/18/19 01/18/19 01/18/19 09:24 10:17 12:12 Temperature 98.2 F Pulse Rate 57 L 60 Pulse Rate [ Anterior Bilateral] Respiratory 20 20 Rate Respiratory Rate [Anterior Bilateral] Blood Pressure 143/49 133/50 O2 Sat by Pulse 95 Oximetry 01/18/19 12:17 Temperature Pulse Rate 60 Pulse Rate [ Anterior Bilateral] Respiratory Rate Respiratory Rate [Anterior Bilateral] Blood Pressure 133/50 O2 Sat by Pulse Oximetry Constitutional: alert (mild distress on hi yolanda 50%), other Eyes: non-icteric ENT: oropharynx moist, other (adentulous) Neck: supple Effort: normal Ascultation: Bilateral: wheezes Tactile fremitus: Bilateral: normal Cardiovascular: regular rate and rhythm Gastrointestinal: normoactive bowel sounds, soft, non-tender, non-distended Integumentary: normal Extremities: no cyanosis, no edema Neurologic: normal mental status, non-focal exam Psychiatric: mood appropriate, affect normal CBC and BMP: 01/18/19 04:09 01/18/19 04:09 ABG, PT/INR, D-dimer: ABG POC ABG pH 7.278 (7.35-7.45) L 01/09/19 05:23 POC ABG pCO2 67.9 (35-45) H 01/09/19 05:23 POC ABG pO2 73 (80-105) L 01/09/19 05:23 POC ABG HCO3 31.7 (22-26 mml/L) 01/09/19 05:23 POC ABG Total CO2 34 (23-27mmol/L) 01/09/19 05:23 POC ABG O2 Sat 91 01/09/19 05:23 PT/INR, D-dimer PT 13.3 Sec. (12.2-14.9) 01/08/19 14:39 INR 1.04 (0.87-1.13) 01/08/19 14:39 Abnormal lab findings: Abnormal Labs 01/08/19 01/08/19 01/08/19 14:39 14:39 16:55 WBC RBC 3.17 L Hgb 9.0 L Hct 28.4 L MCH RDW 15.9 H Lymph % (Auto) [place] % (Auto) 7.8 H Lymph # Seg Neutrophils % 71.9 H Seg Neuts % (Manual) Lymphocytes % (Manual) Seg Neutrophils # Man Lymphocytes # (Manual) POC ABG pH POC ABG pCO2 POC ABG pO2 Sodium Potassium Chloride Carbon Dioxide BUN Creatinine Glucose 140 H POC Glucose Lactic Acid 2.90 H* NT-Pro-B Natriuret Pep Albumin 3.7 L 01/08/19 01/08/19 01/08/19 19:34 21:15 23:37 WBC RBC Hgb Hct MCH RDW Lymph % (Auto) [place] % (Auto) Lymph # Seg Neutrophils % Seg Neuts % (Manual) Lymphocytes % (Manual) Seg Neutrophils # Man Lymphocytes # (Manual) POC ABG pH POC ABG pCO2 POC ABG pO2 Sodium Potassium Chloride Carbon Dioxide BUN Creatinine Glucose POC Glucose 224 H Lactic Acid 3.50 H* 3.80 H* NT-Pro-B Natriuret Pep Albumin 01/09/19 01/09/19 01/09/19 04:52 04:52 05:23 WBC RBC 3.12 L Hgb 8.7 L Hct 28.4 L MCH RDW 16.2 H Lymph % (Auto) [place] % (Auto) Lymph # Seg Neutrophils % Seg Neuts % (Manual) 95.0 H Lymphocytes % (Manual) 4.0 L Seg Neutrophils # Man 8.9 H Lymphocytes # (Manual) 0.4 L POC ABG pH 7.278 L POC ABG pCO2 67.9 H POC ABG pO2 73 L Sodium Potassium Chloride Carbon Dioxide BUN 19 H Creatinine Glucose 173 H POC Glucose Lactic Acid NT-Pro-B Natriuret Pep Albumin 3.8 L 01/09/19 01/09/19 01/09/19 05:37 12:01 18:10 WBC RBC Hgb Hct MCH RDW Lymph % (Auto) [place] % (Auto) Lymph # Seg Neutrophils % Seg Neuts % (Manual) Lymphocytes % (Manual) Seg Neutrophils # Man Lymphocytes # (Manual) POC ABG pH POC ABG pCO2 POC ABG pO2 Sodium Potassium Chloride Carbon Dioxide BUN Creatinine Glucose POC Glucose 177 H 186 H 257 H Lactic Acid NT-Pro-B Natriuret Pep Albumin 01/09/19 01/10/19 01/10/19 23:13 08:02 10:09 WBC 14.0 H RBC 2.97 L Hgb 8.2 L Hct 27.0 L MCH RDW 16.4 H Lymph % (Auto) [place] % (Auto) Lymph # Seg Neutrophils % Seg Neuts % (Manual) 95.0 H Lymphocytes % (Manual) 5.0 L Seg Neutrophils # Man 13.3 H Lymphocytes # (Manual) 0.7 L POC ABG pH POC ABG pCO2 POC ABG pO2 Sodium Potassium Chloride Carbon Dioxide BUN Creatinine Glucose POC Glucose 187 H 185 H Lactic Acid NT-Pro-B Natriuret Pep Albumin 01/10/19 01/10/19 01/10/19 10:09 10:09 12:25 WBC RBC Hgb Hct MCH RDW Lymph % (Auto) [place] % (Auto) Lymph # Seg Neutrophils % Seg Neuts % (Manual) Lymphocytes % (Manual) Seg Neutrophils # Man Lymphocytes # (Manual) POC ABG pH POC ABG pCO2 POC ABG pO2 Sodium Potassium Chloride Carbon Dioxide BUN 18 H Creatinine 0.6 L Glucose 251 H POC Glucose 216 H Lactic Acid 2.10 H* NT-Pro-B Natriuret Pep Albumin 3.5 L 01/10/19 01/10/19 01/11/19 16:27 21:44 07:27 WBC RBC Hgb Hct MCH RDW Lymph % (Auto) [place] % (Auto) Lymph # Seg Neutrophils % Seg Neuts % (Manual) Lymphocytes % (Manual) Seg Neutrophils # Man Lymphocytes # (Manual) POC ABG pH POC ABG pCO2 POC ABG pO2 Sodium Potassium Chloride Carbon Dioxide BUN Creatinine Glucose POC Glucose 160 H 210 H 191 H Lactic Acid NT-Pro-B Natriuret Pep Albumin 01/11/19 01/11/19 01/11/19 07:57 07:57 11:16 WBC 12.2 H RBC 2.96 L Hgb 8.1 L Hct 26.9 L MCH 27 L RDW 16.3 H Lymph % (Auto) [place] % (Auto) Lymph # Seg Neutrophils % Seg Neuts % (Manual) 90.0 H Lymphocytes % (Manual) 7.0 L Seg Neutrophils # Man 11.0 H Lymphocytes # (Manual) 0.9 L POC ABG pH POC ABG pCO2 POC ABG pO2 Sodium 147 H Potassium Chloride Carbon Dioxide 31 H BUN 21 H Creatinine 0.6 L Glucose 190 H POC Glucose 177 H Lactic Acid NT-Pro-B Natriuret Pep Albumin 01/11/19 01/11/19 01/11/19 16:03 16:27 22:23 WBC RBC Hgb Hct MCH RDW Lymph % (Auto) [place] % (Auto) Lymph # Seg Neutrophils % Seg Neuts % (Manual) Lymphocytes % (Manual) Seg Neutrophils # Man Lymphocytes # (Manual) POC ABG pH POC ABG pCO2 POC ABG pO2 Sodium Potassium Chloride Carbon Dioxide BUN Creatinine Glucose POC Glucose 217 H 243 H Lactic Acid NT-Pro-B Natriuret Pep 2547 H Albumin 01/12/19 01/12/19 01/12/19 05:34 05:34 07:22 WBC RBC 3.11 L Hgb 8.6 L Hct 27.4 L MCH RDW 15.6 H Lymph % (Auto) 7.0 L [place] % (Auto) Lymph # 0.6 L Seg Neutrophils % 87.5 H Seg Neuts % (Manual) Lymphocytes % (Manual) Seg Neutrophils # Man Lymphocytes # (Manual) POC ABG pH POC ABG pCO2 POC ABG pO2 Sodium 146 H Potassium 3.5 L D Chloride 95.9 L Carbon Dioxide 35 H BUN Creatinine 0.6 L Glucose 248 H POC Glucose 249 H Lactic Acid NT-Pro-B Natriuret Pep Albumin 01/12/19 01/12/19 01/12/19 11:35 16:21 22:07 WBC RBC Hgb Hct MCH RDW Lymph % (Auto) [place] % (Auto) Lymph # Seg Neutrophils % Seg Neuts % (Manual) Lymphocytes % (Manual) Seg Neutrophils # Man Lymphocytes # (Manual) POC ABG pH POC ABG pCO2 POC ABG pO2 Sodium Potassium Chloride Carbon Dioxide BUN Creatinine Glucose POC Glucose 190 H 268 H 263 H Lactic Acid NT-Pro-B Natriuret Pep Albumin 01/13/19 01/13/19 01/13/19 05:07 05:07 07:31 WBC RBC 3.32 L Hgb 9.2 L Hct 29.3 L MCH RDW 15.3 H Lymph % (Auto) [place] % (Auto) 9.8 H Lymph # Seg Neutrophils % 74.8 H Seg Neuts % (Manual) Lymphocytes % (Manual) Seg Neutrophils # Man Lymphocytes # (Manual) POC ABG pH POC ABG pCO2 POC ABG pO2 Sodium Potassium Chloride 97.9 L Carbon Dioxide 37 H BUN Creatinine 0.5 L Glucose 165 H POC Glucose 147 H Lactic Acid NT-Pro-B Natriuret Pep Albumin 3.6 L 01/13/19 01/13/19 01/13/19 12:37 16:51 21:25 WBC RBC Hgb Hct MCH RDW Lymph % (Auto) [place] % (Auto) Lymph # Seg Neutrophils % Seg Neuts % (Manual) Lymphocytes % (Manual) Seg Neutrophils # Man Lymphocytes # (Manual) POC ABG pH POC ABG pCO2 POC ABG pO2 Sodium Potassium Chloride Carbon Dioxide BUN Creatinine Glucose POC Glucose 301 H 149 H 318 H Lactic Acid NT-Pro-B Natriuret Pep Albumin 01/14/19 01/14/19 01/14/19 04:02 04:02 07:34 WBC RBC 3.50 L Hgb 9.7 L Hct MCH RDW 15.5 H Lymph % (Auto) [place] % (Auto) Lymph # Seg Neutrophils % Seg Neuts % (Manual) 94.0 H Lymphocytes % (Manual) 3.0 L Seg Neutrophils # Man 8.1 H Lymphocytes # (Manual) 0.3 L POC ABG pH POC ABG pCO2 POC ABG pO2 Sodium Potassium Chloride 97.0 L Carbon Dioxide 34 H BUN 18 H Creatinine 0.6 L Glucose 287 H POC Glucose 266 H Lactic Acid NT-Pro-B Natriuret Pep Albumin 3.8 L 01/14/19 01/14/19 01/14/19 11:28 16:40 22:08 WBC RBC Hgb Hct MCH RDW Lymph % (Auto) [place] % (Auto) Lymph # Seg Neutrophils % Seg Neuts % (Manual) Lymphocytes % (Manual) Seg Neutrophils # Man Lymphocytes # (Manual) POC ABG pH POC ABG pCO2 POC ABG pO2 Sodium Potassium Chloride Carbon Dioxide BUN Creatinine Glucose POC Glucose 396 H 272 H 315 H Lactic Acid NT-Pro-B Natriuret Pep Albumin 01/15/19 01/15/19 01/15/19 07:38 08:31 08:31 WBC 11.3 H RBC 3.48 L Hgb 9.4 L Hct MCH 27 L RDW 15.4 H Lymph % (Auto) [place] % (Auto) Lymph # Seg Neutrophils % Seg Neuts % (Manual) 98.0 H Lymphocytes % (Manual) 0 L Seg Neutrophils # Man 11.1 H Lymphocytes # (Manual) 0.0 L POC ABG pH POC ABG pCO2 POC ABG pO2 Sodium Potassium Chloride 96.0 L Carbon Dioxide 33 H BUN 18 H Creatinine 0.6 L Glucose 371 H POC Glucose 321 H Lactic Acid NT-Pro-B Natriuret Pep Albumin 3.7 L 01/15/19 01/15/19 01/15/19 11:13 16:13 22:38 WBC RBC Hgb Hct MCH RDW Lymph % (Auto) [place] % (Auto) Lymph # Seg Neutrophils % Seg Neuts % (Manual) Lymphocytes % (Manual) Seg Neutrophils # Man Lymphocytes # (Manual) POC ABG pH POC ABG pCO2 POC ABG pO2 Sodium Potassium Chloride Carbon Dioxide BUN Creatinine Glucose POC Glucose 353 H 150 H 404 H Lactic Acid NT-Pro-B Natriuret Pep Albumin 01/16/19 01/16/19 01/16/19 07:36 12:09 16:12 WBC RBC Hgb Hct MCH RDW Lymph % (Auto) [place] % (Auto) Lymph # Seg Neutrophils % Seg Neuts % (Manual) Lymphocytes % (Manual) Seg Neutrophils # Man Lymphocytes # (Manual) POC ABG pH POC ABG pCO2 POC ABG pO2 Sodium Potassium Chloride Carbon Dioxide BUN Creatinine Glucose POC Glucose 317 H 351 H 293 H Lactic Acid NT-Pro-B Natriuret Pep Albumin 01/16/19 01/17/19 01/17/19 22:04 07:22 11:29 WBC RBC Hgb Hct MCH RDW Lymph % (Auto) [place] % (Auto) Lymph # Seg Neutrophils % Seg Neuts % (Manual) Lymphocytes % (Manual) Seg Neutrophils # Man Lymphocytes # (Manual) POC ABG pH POC ABG pCO2 POC ABG pO2 Sodium Potassium Chloride Carbon Dioxide BUN Creatinine Glucose POC Glucose 382 H 356 H 376 H Lactic Acid NT-Pro-B Natriuret Pep Albumin 01/17/19 01/17/19 01/18/19 17:30 21:09 04:09 WBC 13.6 H RBC 3.55 L Hgb 9.6 L Hct MCH 27 L RDW 15.6 H Lymph % (Auto) [place] % (Auto) Lymph # Seg Neutrophils % Seg Neuts % (Manual) 99.0 H Lymphocytes % (Manual) 1.0 L Seg Neutrophils # Man 13.5 H Lymphocytes # (Manual) 0.1 L POC ABG pH POC ABG pCO2 POC ABG pO2 Sodium Potassium Chloride Carbon Dioxide BUN Creatinine Glucose POC Glucose 409 H 404 H Lactic Acid NT-Pro-B Natriuret Pep Albumin 01/18/19 01/18/19 01/18/19 04:09 07:42 11:30 WBC RBC Hgb Hct MCH RDW Lymph % (Auto) [place] % (Auto) Lymph # Seg Neutrophils % Seg Neuts % (Manual) Lymphocytes % (Manual) Seg Neutrophils # Man Lymphocytes # (Manual) POC ABG pH POC ABG pCO2 POC ABG pO2 Sodium Potassium Chloride 94.2 L Carbon Dioxide 33 H BUN 22 H Creatinine Glucose 355 H POC Glucose 390 H 387 H Lactic Acid NT-Pro-B Natriuret Pep Albumin 3.5 L
[2019-01-18] MEDS: HALOPERIDOL 5 MG TAB PO SCH (17:44)
[2019-01-18] MEDS: DONEPEZIL 10 MG TAB PO SCH (21:44)
[2019-01-19] MEDS: IPRATROPIUM/ALBUTEROL SULFATE 3 ML AMPUL.NEB IH SCH ×4 (02:59→21:02)
[2019-01-19] MEDS: ACETAMINOPHEN 325 MG TAB PO PRN ×3 (05:27→20:05)
[2019-01-19] MEDS: FUROSEMIDE 20 MG TAB PO SCH (05:27)
[2019-01-19] MEDS: hydrALAZINE 100 MG TAB PO SCH ×4 (05:27→21:45)
[2019-01-19] MEDS: LEVOTHYROXINE 88 MCG TAB PO SCH (05:27)
[2019-01-19] MEDS: methylPREDNISolone Sod Succinate 40 MG/1 ML INJ IV SCH ×3 (05:27→21:46)
[2019-01-19] MEDS: GABAPENTIN 400 MG CAP PO SCH ×3 (07:59→19:46)
[2019-01-19] MEDS: INSULIN LISPRO 100 UNIT/ML SUB-Q SCH ×4 (08:00→22:31)
--- NOTE | 2019-01-19 08:24 | Progress Note ---
Assessment and Plan Patient seen and examined medical records from the emergency department reviewed. 68-year-old female patient admitted to the emergency department for worsening shortness of breath as well as cough generalized body pain and weakness. The patient was admitteed to admitted to [facility] and has been on treatment there but her breathing got progressively worse over the past 24 Hours and was thus referred back to the ER for further evaluation and treatment . Patient has history of COPD hypertension on therapy diabetes and has had multiple hospitalizations over the last year on account of recurrence of COPD. After the time of evaluation patient has ongoing shortness of breath, her blood pressure was also reported to be low in the emergency department for which patient was started on Levophed and weaned off of same. Has cough that is productive and she denied any chest pain, no fever or chills but appetite has been poor. - Acute respiratory failure. NC oxygen. Continue with same Continue with Bronchodilator IV antibiotics and aerosol treatments and steroids are started Adolfo steriod some more Pulmonology has been consulted from admission and seeing the patient. - Heart Failure with preserved EF of 55-60% Commence ACEI, hold BB b/c acute of chronic respr failure, continue statin and gentle with strick Is and Os Cardiology consulted - Cor Pulm Continue with Hydrallazine and gently diuresis - Sepsis associated hypotension - resolved. Now hypertensive Has Leukocytosis with initial elevated lactic acid level - resolved No growth so far in the blood or urine Hypotension improved with iv hydration, pressors now discontinued Continue IV antibiotics as ordered. Blood culture no growth so far. - Leukocytosis secondary to steriod admin - Hypokalemia corrected recheck -Debility of senility continue with PT - COPD exacerbation Continue aerosol treatment and steroids and O2 supplementation. IV antibiotics Weaned pt from High flow oxygen to NC and maintaining a saturation of > 90 on 5 liters Adolfo steriod. - Type 2 diabetes mellitus without complications We will hold metformin and start patient on sliding scale coverage with regular insulin with parameters. - Essential (primary) hypertension Her current blood pressure medications and consider monitor blood pressure until the patient is hemodynamically stable - DVT prophylaxis with Lovenox and GI with Pepcid - Disposition: Patient now tolerating oxygen via NC at 5L/min. continue jose wean and transfer to SNF once insurance approves. She had been erlier denied by her insurance for transfer to SNF with PT as she has a histoyr fo frequent fall. Alejandroieal is been appealed Discussed at length with patients daughter. Time spent: 25 minutes Subjective Date of service: 01/19/19 Principal diagnosis: sepsis, exacerbation of COPD Interval history: Pt seen and examined. Still having shortness of breath though better. Afebrile. On supplemental oxygen via nasal canula. No diarrhea. Objective - Exam Narrative Exam: Constitutional: Well-nourished well-developed. In no distress Head: Normocephalic atraumatic Eyes: Pupils are equal round and reactive to light Nose: No enlarged turbinates, no septal deviation. On high flow oxygen via NC Mouth: Moist mucous membranes. Neck: Supple no thyromegaly. No bruit. No JVD Heart: Regular rate and rhythm, S1-S2 normal. No rubs murmurs or gallop Lungs: Decreased breath sounds on auscultation bilaterally. Abdomen: Soft, nontender. Bowel sound are present. Extremities: No edema, no cyanosis, no clubbing. Neuro: Alert oriented Oriented x3. No focal sensory or motor deficit. Skin: No rashes or hyperpigmented spots Musculoskeletal system: No joint pain or swelling.unstable gait and has had frequent falls prior to admission because her legs give way. Hematological: No petechia or subcutanous hemorrhages. Immunological: No multiple septic spots on the skin Lymphatic: No generalized lymphadenopathy Psychiatry: Euthymic. Calm. - Constitutional Vitals: Vital Signs - 12hr 01/18/19 01/18/19 01/19/19 20:51 21:44 02:00 Temperature Pulse Rate 60 64 Pulse Rate [ 64 Anterior Bilateral] Respiratory Rate Respiratory 18 Rate [Anterior Bilateral] Blood Pressure 136/48 O2 Sat by Pulse 95 Oximetry 01/19/19 01/19/19 01/19/19 02:07 02:11 07:12 Temperature 97.3 F L 98.4 F Pulse Rate 58 L 57 L 57 L Pulse Rate [ Anterior Bilateral] Respiratory 22 20 Rate Respiratory Rate [Anterior Bilateral] Blood Pressure 115/43 122/49 O2 Sat by Pulse 89 90 90 Oximetry 01/19/19 01/19/19 07:40 07:41 Temperature Pulse Rate Pulse Rate [ 53 L Anterior Bilateral] Respiratory Rate Respiratory 16 Rate [Anterior Bilateral] Blood Pressure O2 Sat by Pulse 94 Oximetry - Labs CBC & Chem 7: 01/18/19 04:09 01/18/19 04:09 Labs: Abnormal lab results 01/18/19 01/18/19 01/18/19 Range/Units 11:30 17:01 22:28 POC Glucose 387 H 378 H 363 H (70-105) 01/19/19 Range/Units 07:29 POC Glucose 371 H (70-105)
[2019-01-19] MEDS: TRELEGY PO SCH (09:42)
[2019-01-19] MEDS: ASPIRIN 81 MG TAB CHEW PO SCH (09:42)
[2019-01-19] MEDS: FLUoxetine 20 MG CAP PO SCH (09:43)
[2019-01-19] MEDS: ARIPiprazole 10 MG TAB PO SCH (09:43)
[2019-01-19] MEDS: LISINOPRIL 40 MG TAB PO SCH ×2 (09:46→21:44)
[2019-01-19] MEDS: amLODIPine 10 MG TAB PO SCH (09:46)
[2019-01-19] MEDS: CLOTRIMAZOLE/BETAMETHASONE CREAM 15 GM TP SCH ×2 (09:47→21:47)
[2019-01-19] MEDS: HYDROcodone/ACETAMINOPHEN 5-325 MG TAB PO PRN (16:52)
[2019-01-19] MEDS: HALOPERIDOL 5 MG TAB PO SCH (18:28)
[2019-01-19] MEDS: DONEPEZIL 10 MG TAB PO SCH (21:45)
[2019-01-20] MEDS: HYDROcodone/ACETAMINOPHEN 5-325 MG TAB PO PRN (00:16)
[2019-01-20] MEDS: IPRATROPIUM/ALBUTEROL SULFATE 3 ML AMPUL.NEB IH SCH ×4 (02:00→20:14)
[2019-01-20] MEDS: LEVOTHYROXINE 88 MCG TAB PO SCH (05:58)
[2019-01-20] MEDS: FUROSEMIDE 20 MG TAB PO SCH (05:59)
[2019-01-20] MEDS: ACETAMINOPHEN 325 MG TAB PO PRN ×3 (06:00→22:38)
[2019-01-20] MEDS: methylPREDNISolone Sod Succinate 40 MG/1 ML INJ IV SCH ×3 (06:00→22:37)
[2019-01-20] MEDS: hydrALAZINE 100 MG TAB PO SCH ×2 (06:28→13:18)
[2019-01-20] MEDS: INSULIN LISPRO 100 UNIT/ML SUB-Q SCH ×3 (08:30→16:33)
[2019-01-20] MEDS: GABAPENTIN 400 MG CAP PO SCH ×3 (08:39→20:48)
--- NOTE | 2019-01-20 09:18 | Progress Note ---
Assessment and Plan Patient seen and examined medical records from the emergency department reviewed. 68-year-old female patient admitted to the emergency department for worsening shortness of breath as well as cough generalized body pain and weakness. The patient was admitteed to admitted to [facility] and has been on treatment there but her breathing got progressively worse over the past 24 Hours and was thus referred back to the ER for further evaluation and treatment . Patient has history of COPD hypertension on therapy diabetes and has had multiple hospitalizations over the last year on account of recurrence of COPD. After the time of evaluation patient has ongoing shortness of breath, her blood pressure was also reported to be low in the emergency department for which patient was started on Levophed and weaned off of same. Has cough that is productive and she denied any chest pain, no fever or chills but appetite has been poor. - Hypotensive Likely from sepsis Hold all antihypertenidve CXR, UA Blood and urine CX Hold lasix - Acute respiratory failure. NC oxygen. Continue with same Continue with Bronchodilator IV antibiotics and aerosol treatments and steroids are started Adolfo steriod some more Pulmonology has been consulted from admission and seeing the patient. - Heart Failure with preserved EF of 55-60% Commence ACEI, hold BB b/c acute of chronic respr failure, continue statin and gentle with strick Is and Os Cardiology consulted - Cor Pulm Continue with Hydrallazine and gently diuresis - Sepsis associated hypotension - resolved. Now hypertensive Has Leukocytosis with initial elevated lactic acid level - resolved No growth so far in the blood or urine Hypotension improved with iv hydration, pressors now discontinued Continue IV antibiotics as ordered. Blood culture no growth so far. - Leukocytosis secondary to steriod admin - Hypokalemia corrected recheck -Debility of senility continue with PT - COPD exacerbation Continue aerosol treatment and steroids and O2 supplementation. IV antibiotics Weaned pt from High flow oxygen to NC and maintaining a saturation of > 90 on 5 liters Adolfo steriod. - Type 2 diabetes mellitus without complications We will hold metformin and start patient on sliding scale coverage with regular insulin with parameters. - Essential (primary) hypertension Her current blood pressure medications and consider monitor blood pressure until the patient is hemodynamically stable - DVT prophylaxis with Lovenox and GI with Pepcid - Disposition: Patient now tolerating oxygen via NC at 5L/min. continue jose wean and transfer to SNF once insurance approves. She had been erlier denied by her insurance for transfer to SNF with PT as she has a histoyr fo frequent fall. Meera is been appealed Discussed at length with patients daughter. Time spent: 25 minutes Subjective Date of service: 01/20/19 Principal diagnosis: sepsis, exacerbation of COPD, acute on chronic respiratory failure Interval history: Pt seen and examined. Still having shortness of breath though better. Low- grade fever of 100.1. Stated to be hypertensive by her nurse. On supplemental oxygen via nasal cannula. Documented Oxygen sat 88-95% Objective - Exam Narrative Exam: Constitutional: Well-nourished well-developed. Lying quietly in bed. Weak but easily arousable and interactive. In no distress Head: Normocephalic atraumatic Eyes: Pupils are equal round and reactive to light Nose: No enlarged turbinates, no septal deviation. On high flow oxygen via NC Mouth: Moist mucous membranes. Neck: Supple no thyromegaly. No bruit. No JVD Heart: Regular rate and rhythm, S1-S2 normal. No rubs murmurs or gallop Lungs: Decreased breath sounds on auscultation bilaterally. Abdomen: Soft, nontender. Bowel sound are present. Extremities: No edema, no cyanosis, no clubbing. Neuro: Alert oriented Oriented x3. No focal sensory or motor deficit. Skin: No rashes or hyperpigmented spots Musculoskeletal system: No joint pain or swelling.unstable gait and has had frequent falls prior to admission because her legs give way. Hematological: No petechia or subcutanous hemorrhages. Immunological: No multiple septic spots on the skin Lymphatic: No generalized lymphadenopathy Psychiatry: Euthymic. Calm. - Constitutional Vitals: Vital Signs - 12hr 01/19/19 01/20/19 01/20/19 21:44 02:00 02:16 Temperature Pulse Rate 59 L 83 Pulse Rate [ 53 L Anterior Bilateral] Respiratory 27 H Rate Respiratory 18 Rate [Anterior Bilateral] Blood Pressure 125/51 91/40 O2 Sat by Pulse 94 94 Oximetry 01/20/19 01/20/19 01/20/19 02:24 02:31 06:22 Temperature 100.1 F H Pulse Rate 83 Pulse Rate [ Anterior Bilateral] Respiratory Rate Respiratory Rate [Anterior Bilateral] Blood Pressure 91/40 145/115 O2 Sat by Pulse 88 Oximetry 01/20/19 01/20/19 06:25 07:33 Temperature 100.0 F H Pulse Rate 72 Pulse Rate [ Anterior Bilateral] Respiratory 22 Rate Respiratory Rate [Anterior Bilateral] Blood Pressure 82/34 77/34 O2 Sat by Pulse 95 Oximetry - Labs CBC & Chem 7: 01/18/19 04:09 01/18/19 04:09 Labs: Abnormal lab results 01/19/19 01/19/19 01/19/19 Range/Units 11:16 16:13 22:02 POC Glucose 365 H 341 H 416 H (70-105) 01/20/19 Range/Units 07:37 POC Glucose 377 H (70-105)
[2019-01-20 10:31] LABS: Hematocrit 27.7 % (30.3-42.9); Hemoglobin 8.4 gm/dl (10.1-14.3); Mean Corpuscular HGB Conc 30 % (30-34); Mean Corpuscular Volume 88 fl (79-97); Platelet Count 273 K/mm3 (140-440); Red Blood Count 3.15 M/mm3 (3.65-5.03); Red Cell Distribution Width 15.9 % (13.2-15.2)
[2019-01-20] MEDS: FLUoxetine 20 MG CAP PO SCH (10:49)
[2019-01-20] MEDS: ARIPiprazole 10 MG TAB PO SCH (10:49)
[2019-01-20] MEDS: ASPIRIN 81 MG TAB CHEW PO SCH (10:50)
[2019-01-20] MEDS: CLOTRIMAZOLE/BETAMETHASONE CREAM 15 GM TP SCH ×2 (10:50→22:38)
[2019-01-20] MEDS: amLODIPine 10 MG TAB PO SCH (10:50)
[2019-01-20] MEDS: TRELEGY PO SCH (10:50)
[2019-01-20] MEDS: LISINOPRIL 40 MG TAB PO SCH (10:51)
--- NOTE | 2019-01-20 10:54 | XRay Report ---
CHEST 1 VIEW 10:33 AM INDICATION / CLINICAL INFORMATION: Shortness of breath. COMPARISON: 01/12/2019. FINDINGS: SUPPORT DEVICES: None. HEART / MEDIASTINUM: Mild cardiomegaly is stable. LUNGS / PLEURA: Diffuse interstitial lung disease is similar to the prior study and may be related to interstitial edema rather than fibrosis. Minimal left basilar subsegmental atelectasis has increased . No pneumothorax. ADDITIONAL FINDINGS: Surgical changes in the lower cervical spine. IMPRESSION: 1. Mild diffuse nonspecific interstitial lung disease is stable. 2. Minimal left basilar subsegmental atelectasis is new. Signer Name: Magan Wilson MD Signed: 01/20/2019 10:49 AM Workstation Name: [id number]
[2019-01-20 11:20] LABS: Basophils % (Manual) 0 % (0.0-1.8); Eosinophils % (Manual) 0 % (0.0-4.3); Total Cells Counted 100
[2019-01-20 11:22] LABS: Anisocytosis Few; Ovalocytes Rare; Platelet Estimate Consistent w Auto
[2019-01-20] MEDS ORDERED: VANCOMYCIN/NS 1 GM/250 ML 1 GM/250 ML BAG IV SCH (13:00)
[2019-01-20] MEDS ORDERED: PIPERACILLIN/TAZOBACTAM 3.375 3.375 GM/50 ML BAG IV SCH (14:00)
[2019-01-20] MEDS: PIPERACILLIN/TAZOBACTAM 3.375 3.375 GM/50 ML BAG IV SCH ×2 (14:43→22:41)
[2019-01-20] MEDS ORDERED: VANCOMYCIN 1,750 MG in SODIUM CHLORIDE 0.9% 500 ML 500 ML IV ONE (15:00)
[2019-01-20] MEDS: HALOPERIDOL 5 MG TAB PO SCH (17:07)
[2019-01-20] MEDS: DONEPEZIL 10 MG TAB PO SCH (22:37)
[2019-01-21] MEDS: INSULIN LISPRO 100 UNIT/ML SUB-Q SCH ×5 (00:15→23:19)
[2019-01-21] MEDS: hydrALAZINE 100 MG TAB PO SCH ×4 (00:18→22:25)
[2019-01-21] MEDS: LISINOPRIL 40 MG TAB PO SCH ×3 (00:18→22:27)
[2019-01-21] MEDS: SODIUM CHLORIDE 0.9% 1000 ML 1,000 ML IV SCH ×2 (01:44→19:55)
[2019-01-21] MEDS: IPRATROPIUM/ALBUTEROL SULFATE 3 ML AMPUL.NEB IH SCH ×4 (02:30→23:53)
[2019-01-21 05:02] LABS: Hematocrit 29.1 % (30.3-42.9); Mean Corpuscular HGB Conc 31 % (30-34); Mean Corpuscular Volume 89 fl (79-97); Platelet Count 227 K/mm3 (140-440); Red Blood Count 3.28 M/mm3 (3.65-5.03); Red Cell Distribution Width 15.9 % (13.2-15.2)
[2019-01-21 05:10] LABS: INR 1.31 (0.87-1.13)
[2019-01-21] MEDS: methylPREDNISolone Sod Succinate 40 MG/1 ML INJ IV SCH (05:24)
[2019-01-21] MEDS: FUROSEMIDE 20 MG TAB PO SCH (05:24)
[2019-01-21] MEDS: LEVOTHYROXINE 88 MCG TAB PO SCH (05:24)
[2019-01-21 05:25] LABS: Albumin 3.1 g/dL (3.9-5); Calcium 8.3 mg/dL (8.4-10.2)
[2019-01-21 06:38] LABS: Band Neutrophils # (Manual) 1.1 K/mm3; Basophils % (Manual) 0 % (0.0-1.8); Eosinophils % (Manual) 0 % (0.0-4.3); Rouleaux 1+; Total Cells Counted 100
[2019-01-21 06:39] LABS: Schistocytes Rare; Stomatocytes Few
[2019-01-21 06:40] LABS: Ovalocytes Few; Platelet Estimate Consistent w Auto
--- NOTE | 2019-01-21 07:11 | Progress Note ---
Assessment and Plan Patient seen and examined medical records from the emergency department reviewed. 68-year-old female patient admitted to the emergency department for worsening shortness of breath as well as cough generalized body pain and weakness. The patient was admitteed to admitted to [facility] and has been on treatment there but her breathing got progressively worse over the past 24 Hours and was thus referred back to the ER for further evaluation and treatment . Patient has history of COPD hypertension on therapy diabetes and has had multiple hospitalizations over the last year on account of recurrence of COPD. After the time of evaluation patient has ongoing shortness of breath, her blood pressure was also reported to be low in the emergency department for which patient was started on Levophed and weaned off of same. Has cough that is productive and she denied any chest pain, no fever or chills but appetite has been poor. - Hypotensive Likely from sepsis Hold all antihypertenidve CXR showed no infiltrate, UA - pending Blood and urine CX of 01/20 - no growth so far Hold lasix - Acute respiratory failure. Back on high flow oxygen. Continue with same Continue with Bronchodilator IV antibiotics and aerosol treatments and steroids are restarted hold Tappering of steriod Discussed with Pulmonologigst yesterday regarding chnge in pt's status. Advised holding taping of seroid - Heart Failure with preserved EF of 55-60% Commence ACEI, hold BB b/c acute of chronic respr failure, continue statin and gentle with strick Is and Os Cardiology consulted - Cor Pulm Continue with Hydrallazine and gently diuresis - Sepsis associated hypotension - Has Leukocytosis No growth so far in the blood or urine Hypotension improved with iv hydration, recommenced Continue IV antibiotics as ordered. -Debility of senility continue with PT - COPD exacerbation Continue aerosol treatment and steroids and O2 supplementation. IV antibiotics Weaned pt from High flow oxygen to NC and maintaining a saturation of > 90 on 5 liters Adolfo steriod. - Type 2 diabetes mellitus without complications We will hold metformin and start patient on sliding scale coverage with regular insulin with parameters. - Essential (primary) hypertension Her current blood pressure medications and consider monitor blood pressure until the patient is hemodynamically stable - DVT prophylaxis with Lovenox and GI with Pepcid - Disposition: continue to wean off high flow oxygen and transfer to SNF once insurance approves and pt is stable. She had been earlier denied by her insurance for transfer to SNF with PT as she has a history of frequent fall. Denial has been appealed Time spent: 30 mins Subjective Date of service: 01/21/19 Principal diagnosis: sepsis, exacerbation of COPD, acute on chronic respiratory failure Interval history: Pt seen and examined. Still having shortness of breath though better. Low- grade fever of 100.1. Stated to be hypertensive by her nurse. On supplemental oxygen via nasal cannula. feeling better Objective - Exam Narrative Exam: Constitutional: Well-nourished well-developed. Lying quietly in bed. Weak but easily arousable and interactive. Back on high flow oxygen. In no distress Head: Normocephalic atraumatic Eyes: Pupils are equal round and reactive to light Nose: No enlarged turbinates, no septal deviation. On high flow oxygen via NC Mouth: Moist mucous membranes. Neck: Supple no thyromegaly. No bruit. No JVD Heart: Regular rate and rhythm, S1-S2 normal. No rubs murmurs or gallop Lungs: Decreased breath sounds on auscultation bilaterally. Abdomen: Soft, nontender. Bowel sound are present. Extremities: No edema, no cyanosis, no clubbing. Neuro: Alert oriented Oriented x3. No focal sensory or motor deficit. Skin: No rashes or hyperpigmented spots Musculoskeletal system: No joint pain or swelling.unstable gait and has had frequent falls prior to admission because her legs give way. Hematological: No petechia or subcutanous hemorrhages. Immunological: No multiple septic spots on the skin Lymphatic: No generalized lymphadenopathy Psychiatry: Euthymic. Calm. - Constitutional Vitals: Vital Signs - 12hr 01/20/19 01/20/19 01/20/19 20:30 23:17 23:21 Temperature 98.5 F Pulse Rate 71 Pulse Rate [ 68 Anterior Bilateral] Respiratory 24 Rate Respiratory 20 Rate [Anterior Bilateral] Blood Pressure 104/47 O2 Sat by Pulse 96 93 91 Oximetry 01/20/19 01/21/19 01/21/19 23:49 00:18 02:00 Temperature Pulse Rate 74 71 Pulse Rate [ 69 Anterior Bilateral] Respiratory 22 Rate Respiratory 22 Rate [Anterior Bilateral] Blood Pressure 104/47 O2 Sat by Pulse 96 Oximetry 01/21/19 01/21/19 04:31 05:33 Temperature Pulse Rate 75 Pulse Rate [ Anterior Bilateral] Respiratory 28 H Rate Respiratory Rate [Anterior Bilateral] Blood Pressure 97/46 O2 Sat by Pulse 96 Oximetry - Labs CBC & Chem 7: 01/21/19 03:53 01/21/19 03:53 Labs: Abnormal lab results 01/20/19 01/20/19 01/20/19 Range/Units 07:37 10:05 10:15 WBC 44.1 H* (4.5-11.0) K/mm3 RBC 3.15 L (3.65-5.03) M/mm3 Hgb 8.4 L (10.1-14.3) gm/dl Hct 27.7 L (30.3-42.9) % MCH 27 L (28-32) pg RDW 15.9 H (13.2-15.2) % Seg Neuts % (Manual) 96.0 H (40.0-70.0) % Lymphocytes % (Manual) 2.0 L (13.4-35.0) % Seg Neutrophils # Man 42.3 H (1.8-7.7) K/mm3 Lymphocytes # (Manual) 0.9 L (1.2-5.4) K/mm3 Monocytes # (Manual) 0.9 H (0.0-0.8) K/mm3 PT (12.2-14.9) Sec. INR (0.87-1.13) Chloride 95.5 L (98-107) mmol/L Carbon Dioxide (22-30) mmol/L BUN 40 H (7-17) mg/dL Creatinine 1.3 H D (0.7-1.2) mg/dL Glucose 365 H (65-100) mg/dL POC Glucose 377 H (70-105) Calcium 8.0 L (8.4-10.2) mg/dL Magnesium (1.7-2.3) mg/dL Albumin (3.9-5) g/dL 01/20/19 01/20/19 01/20/19 Range/Units 11:12 16:05 23:22 WBC (4.5-11.0) K/mm3 RBC (3.65-5.03) M/mm3 Hgb (10.1-14.3) gm/dl Hct (30.3-42.9) % MCH (28-32) pg RDW (13.2-15.2) % Seg Neuts % (Manual) (40.0-70.0) % Lymphocytes % (Manual) (13.4-35.0) % Seg Neutrophils # Man (1.8-7.7) K/mm3 Lymphocytes # (Manual) (1.2-5.4) K/mm3 Monocytes # (Manual) (0.0-0.8) K/mm3 PT (12.2-14.9) Sec. INR (0.87-1.13) Chloride (98-107) mmol/L Carbon Dioxide (22-30) mmol/L BUN (7-17) mg/dL Creatinine (0.7-1.2) mg/dL Glucose (65-100) mg/dL POC Glucose 336 H 269 H 280 H (70-105) Calcium (8.4-10.2) mg/dL Magnesium (1.7-2.3) mg/dL Albumin (3.9-5) g/dL 01/21/19 01/21/19 01/21/19 Range/Units 03:53 03:53 03:53 WBC 27.1 H (4.5-11.0) K/mm3 RBC 3.28 L (3.65-5.03) M/mm3 Hgb 9.0 L (10.1-14.3) gm/dl Hct 29.1 L (30.3-42.9) % MCH 27 L (28-32) pg RDW 15.9 H (13.2-15.2) % Seg Neuts % (Manual) 93.0 H (40.0-70.0) % Lymphocytes % (Manual) 1.0 L (13.4-35.0) % Seg Neutrophils # Man 25.2 H (1.8-7.7) K/mm3 Lymphocytes # (Manual) 0.3 L (1.2-5.4) K/mm3 Monocytes # (Manual) (0.0-0.8) K/mm3 PT 16.1 H (12.2-14.9) Sec. INR 1.31 H (0.87-1.13) Chloride 93.7 L (98-107) mmol/L Carbon Dioxide 33 H (22-30) mmol/L BUN 34 H (7-17) mg/dL Creatinine (0.7-1.2) mg/dL Glucose 166 H (65-100) mg/dL POC Glucose (70-105) Calcium 8.3 L (8.4-10.2) mg/dL Magnesium 2.50 H (1.7-2.3) mg/dL Albumin 3.1 L (3.9-5) g/dL
[2019-01-21] MEDS: PIPERACILLIN/TAZOBACTAM 3.375 3.375 GM/50 ML BAG IV SCH (07:31)
[2019-01-21] MEDS: GABAPENTIN 400 MG CAP PO SCH ×3 (08:09→19:58)
[2019-01-21] MEDS: TRELEGY PO SCH (10:12)
[2019-01-21] MEDS: ARIPiprazole 10 MG TAB PO SCH (10:12)
[2019-01-21] MEDS: ASPIRIN 81 MG TAB CHEW PO SCH (10:13)
[2019-01-21] MEDS: FLUoxetine 20 MG CAP PO SCH (10:13)
[2019-01-21] MEDS: amLODIPine 10 MG TAB PO SCH (10:18)
[2019-01-21] MEDS: CLOTRIMAZOLE/BETAMETHASONE CREAM 15 GM TP SCH ×2 (10:19→22:28)
[2019-01-21] MEDS: ACETAMINOPHEN 325 MG TAB PO PRN (12:49)
--- NOTE | 2019-01-21 13:27 | Progress Note ---
Assessment and Plan 68 y/o female with acute respiratory failure secondary to COPD exacerbation now with staph bacteremia and acute on chronic respiratory failure. Continue to wean oxygen for sats >88% Changed zosyn to cefepime and agree with Vanc. Await speciation of staph. Continue home trelegy Increased steroids back to [id number] Will start back following along with you. Subjective Date of service: 01/21/19 Principal diagnosis: sepsis, exacerbation of COPD, acute on chronic respiratory failure Interval history: Patient oxygen requirement increased. Now back on HFNC at 30L and 90%. Also with Staph bacteremia. Reviewed CXR from yesterday and actually improved when compared to the . She is awake at the bedside, on the phone. Per nursing, looks better today. Objective Vital Signs - 12hr 01/21/19 01/21/19 01/21/19 02:00 04:31 05:33 Temperature Pulse Rate 75 Pulse Rate [ 69 Anterior Bilateral] Respiratory 28 H Rate Respiratory 22 Rate [Anterior Bilateral] Blood Pressure 97/46 O2 Sat by Pulse 96 Oximetry 01/21/19 01/21/19 01/21/19 07:30 07:55 07:56 Temperature 99.8 F H Pulse Rate 71 Pulse Rate [ 72 Anterior Bilateral] Respiratory 22 Rate Respiratory 20 Rate [Anterior Bilateral] Blood Pressure 108/38 O2 Sat by Pulse 88 90 Oximetry 01/21/19 10:13 Temperature Pulse Rate 73 Pulse Rate [ Anterior Bilateral] Respiratory Rate Respiratory Rate [Anterior Bilateral] Blood Pressure 129/67 O2 Sat by Pulse Oximetry Constitutional: alert (mild distress on hi yolanda 50%), other Eyes: non-icteric ENT: oropharynx moist, other (adentulous) Neck: supple Effort: normal Ascultation: Bilateral: wheezes Tactile fremitus: Bilateral: normal Cardiovascular: regular rate and rhythm Gastrointestinal: normoactive bowel sounds, soft, non-tender, non-distended Integumentary: normal Extremities: no cyanosis, no edema Neurologic: normal mental status, non-focal exam Psychiatric: mood appropriate, affect normal CBC and BMP: 01/21/19 03:53 01/21/19 03:53 ABG, PT/INR, D-dimer: ABG POC ABG pH 7.278 (7.35-7.45) L 01/09/19 05:23 POC ABG pCO2 67.9 (35-45) H 01/09/19 05:23 POC ABG pO2 73 (80-105) L 01/09/19 05:23 POC ABG HCO3 31.7 (22-26 mml/L) 01/09/19 05:23 POC ABG Total CO2 34 (23-27mmol/L) 01/09/19 05:23 POC ABG O2 Sat 91 01/09/19 05:23 PT/INR, D-dimer PT 16.1 Sec. (12.2-14.9) H 01/21/19 03:53 INR 1.31 (0.87-1.13) H 01/21/19 03:53 Abnormal lab findings: Abnormal Labs 01/08/19 01/08/19 01/08/19 14:39 14:39 16:55 WBC RBC 3.17 L Hgb 9.0 L Hct 28.4 L MCH RDW 15.9 H Lymph % (Auto) [place] % (Auto) 7.8 H Lymph # Seg Neutrophils % 71.9 H Seg Neuts % (Manual) Lymphocytes % (Manual) Seg Neutrophils # Man Lymphocytes # (Manual) Monocytes # (Manual) PT INR POC ABG pH POC ABG pCO2 POC ABG pO2 Sodium Potassium Chloride Carbon Dioxide BUN Creatinine Glucose 140 H POC Glucose Lactic Acid 2.90 H* Calcium Magnesium NT-Pro-B Natriuret Pep Albumin 3.7 L 01/08/19 01/08/19 01/08/19 19:34 21:15 23:37 WBC RBC Hgb Hct MCH RDW Lymph % (Auto) [place] % (Auto) Lymph # Seg Neutrophils % Seg Neuts % (Manual) Lymphocytes % (Manual) Seg Neutrophils # Man Lymphocytes # (Manual) Monocytes # (Manual) PT INR POC ABG pH POC ABG pCO2 POC ABG pO2 Sodium Potassium Chloride Carbon Dioxide BUN Creatinine Glucose POC Glucose 224 H Lactic Acid 3.50 H* 3.80 H* Calcium Magnesium NT-Pro-B Natriuret Pep Albumin 01/09/19 01/09/19 01/09/19 04:52 04:52 05:23 WBC RBC 3.12 L Hgb 8.7 L Hct 28.4 L MCH RDW 16.2 H Lymph % (Auto) [place] % (Auto) Lymph # Seg Neutrophils % Seg Neuts % (Manual) 95.0 H Lymphocytes % (Manual) 4.0 L Seg Neutrophils # Man 8.9 H Lymphocytes # (Manual) 0.4 L Monocytes # (Manual) PT INR POC ABG pH 7.278 L POC ABG pCO2 67.9 H POC ABG pO2 73 L Sodium Potassium Chloride Carbon Dioxide BUN 19 H Creatinine Glucose 173 H POC Glucose Lactic Acid Calcium Magnesium NT-Pro-B Natriuret Pep Albumin 3.8 L 01/09/19 01/09/19 01/09/19 05:37 12:01 18:10 WBC RBC Hgb Hct MCH RDW Lymph % (Auto) [place] % (Auto) Lymph # Seg Neutrophils % Seg Neuts % (Manual) Lymphocytes % (Manual) Seg Neutrophils # Man Lymphocytes # (Manual) Monocytes # (Manual) PT INR POC ABG pH POC ABG pCO2 POC ABG pO2 Sodium Potassium Chloride Carbon Dioxide BUN Creatinine Glucose POC Glucose 177 H 186 H 257 H Lactic Acid Calcium Magnesium NT-Pro-B Natriuret Pep Albumin 01/09/19 01/10/19 01/10/19 23:13 08:02 10:09 WBC 14.0 H RBC 2.97 L Hgb 8.2 L Hct 27.0 L MCH RDW 16.4 H Lymph % (Auto) [place] % (Auto) Lymph # Seg Neutrophils % Seg Neuts % (Manual) 95.0 H Lymphocytes % (Manual) 5.0 L Seg Neutrophils # Man 13.3 H Lymphocytes # (Manual) 0.7 L Monocytes # (Manual) PT INR POC ABG pH POC ABG pCO2 POC ABG pO2 Sodium Potassium Chloride Carbon Dioxide BUN Creatinine Glucose POC Glucose 187 H 185 H Lactic Acid Calcium Magnesium NT-Pro-B Natriuret Pep Albumin 01/10/19 01/10/19 01/10/19 10:09 10:09 12:25 WBC RBC Hgb Hct MCH RDW Lymph % (Auto) [place] % (Auto) Lymph # Seg Neutrophils % Seg Neuts % (Manual) Lymphocytes % (Manual) Seg Neutrophils # Man Lymphocytes # (Manual) Monocytes # (Manual) PT INR POC ABG pH POC ABG pCO2 POC ABG pO2 Sodium Potassium Chloride Carbon Dioxide BUN 18 H Creatinine 0.6 L Glucose 251 H POC Glucose 216 H Lactic Acid 2.10 H* Calcium Magnesium NT-Pro-B Natriuret Pep Albumin 3.5 L 01/10/19 01/10/19 01/11/19 16:27 21:44 07:27 WBC RBC Hgb Hct MCH RDW Lymph % (Auto) [place] % (Auto) Lymph # Seg Neutrophils % Seg Neuts % (Manual) Lymphocytes % (Manual) Seg Neutrophils # Man Lymphocytes # (Manual) Monocytes # (Manual) PT INR POC ABG pH POC ABG pCO2 POC ABG pO2 Sodium Potassium Chloride Carbon Dioxide BUN Creatinine Glucose POC Glucose 160 H 210 H 191 H Lactic Acid Calcium Magnesium NT-Pro-B Natriuret Pep Albumin 01/11/19 01/11/19 01/11/19 07:57 07:57 11:16 WBC 12.2 H RBC 2.96 L Hgb 8.1 L Hct 26.9 L MCH 27 L RDW 16.3 H Lymph % (Auto) [place] % (Auto) Lymph # Seg Neutrophils % Seg Neuts % (Manual) 90.0 H Lymphocytes % (Manual) 7.0 L Seg Neutrophils # Man 11.0 H Lymphocytes # (Manual) 0.9 L Monocytes # (Manual) PT INR POC ABG pH POC ABG pCO2 POC ABG pO2 Sodium 147 H Potassium Chloride Carbon Dioxide 31 H BUN 21 H Creatinine 0.6 L Glucose 190 H POC Glucose 177 H Lactic Acid Calcium Magnesium NT-Pro-B Natriuret Pep Albumin 01/11/19 01/11/19 01/11/19 16:03 16:27 22:23 WBC RBC Hgb Hct MCH RDW Lymph % (Auto) [place] % (Auto) Lymph # Seg Neutrophils % Seg Neuts % (Manual) Lymphocytes % (Manual) Seg Neutrophils # Man Lymphocytes # (Manual) Monocytes # (Manual) PT INR POC ABG pH POC ABG pCO2 POC ABG pO2 Sodium Potassium Chloride Carbon Dioxide BUN Creatinine Glucose POC Glucose 217 H 243 H Lactic Acid Calcium Magnesium NT-Pro-B Natriuret Pep 2547 H Albumin 01/12/19 01/12/19 01/12/19 05:34 05:34 07:22 WBC RBC 3.11 L Hgb 8.6 L Hct 27.4 L MCH RDW 15.6 H Lymph % (Auto) 7.0 L [place] % (Auto) Lymph # 0.6 L Seg Neutrophils % 87.5 H Seg Neuts % (Manual) Lymphocytes % (Manual) Seg Neutrophils # Man Lymphocytes # (Manual) Monocytes # (Manual) PT INR POC ABG pH POC ABG pCO2 POC ABG pO2 Sodium 146 H Potassium 3.5 L D Chloride 95.9 L Carbon Dioxide 35 H BUN Creatinine 0.6 L Glucose 248 H POC Glucose 249 H Lactic Acid Calcium Magnesium NT-Pro-B Natriuret Pep Albumin 01/12/19 01/12/19 01/12/19 11:35 16:21 22:07 WBC RBC Hgb Hct MCH RDW Lymph % (Auto) [place] % (Auto) Lymph # Seg Neutrophils % Seg Neuts % (Manual) Lymphocytes % (Manual) Seg Neutrophils # Man Lymphocytes # (Manual) Monocytes # (Manual) PT INR POC ABG pH POC ABG pCO2 POC ABG pO2 Sodium Potassium Chloride Carbon Dioxide BUN Creatinine Glucose POC Glucose 190 H 268 H 263 H Lactic Acid Calcium Magnesium NT-Pro-B Natriuret Pep Albumin 01/13/19 01/13/19 01/13/19 05:07 05:07 07:31 WBC RBC 3.32 L Hgb 9.2 L Hct 29.3 L MCH RDW 15.3 H Lymph % (Auto) [place] % (Auto) 9.8 H Lymph # Seg Neutrophils % 74.8 H Seg Neuts % (Manual) Lymphocytes % (Manual) Seg Neutrophils # Man Lymphocytes # (Manual) Monocytes # (Manual) PT INR POC ABG pH POC ABG pCO2 POC ABG pO2 Sodium Potassium Chloride 97.9 L Carbon Dioxide 37 H BUN Creatinine 0.5 L Glucose 165 H POC Glucose 147 H Lactic Acid Calcium Magnesium NT-Pro-B Natriuret Pep Albumin 3.6 L 01/13/19 01/13/19 01/13/19 12:37 16:51 21:25 WBC RBC Hgb Hct MCH RDW Lymph % (Auto) [place] % (Auto) Lymph # Seg Neutrophils % Seg Neuts % (Manual) Lymphocytes % (Manual) Seg Neutrophils # Man Lymphocytes # (Manual) Monocytes # (Manual) PT INR POC ABG pH POC ABG pCO2 POC ABG pO2 Sodium Potassium Chloride Carbon Dioxide BUN Creatinine Glucose POC Glucose 301 H 149 H 318 H Lactic Acid Calcium Magnesium NT-Pro-B Natriuret Pep Albumin 01/14/19 01/14/19 01/14/19 04:02 04:02 07:34 WBC RBC 3.50 L Hgb 9.7 L Hct MCH RDW 15.5 H Lymph % (Auto) [place] % (Auto) Lymph # Seg Neutrophils % Seg Neuts % (Manual) 94.0 H Lymphocytes % (Manual) 3.0 L Seg Neutrophils # Man 8.1 H Lymphocytes # (Manual) 0.3 L Monocytes # (Manual) PT INR POC ABG pH POC ABG pCO2 POC ABG pO2 Sodium Potassium Chloride 97.0 L Carbon Dioxide 34 H BUN 18 H Creatinine 0.6 L Glucose 287 H POC Glucose 266 H Lactic Acid Calcium Magnesium NT-Pro-B Natriuret Pep Albumin 3.8 L 01/14/19 01/14/19 01/14/19 11:28 16:40 22:08 WBC RBC Hgb Hct MCH RDW Lymph % (Auto) [place] % (Auto) Lymph # Seg Neutrophils % Seg Neuts % (Manual) Lymphocytes % (Manual) Seg Neutrophils # Man Lymphocytes # (Manual) Monocytes # (Manual) PT INR POC ABG pH POC ABG pCO2 POC ABG pO2 Sodium Potassium Chloride Carbon Dioxide BUN Creatinine Glucose POC Glucose 396 H 272 H 315 H Lactic Acid Calcium Magnesium NT-Pro-B Natriuret Pep Albumin 01/15/19 01/15/19 01/15/19 07:38 08:31 08:31 WBC 11.3 H RBC 3.48 L Hgb 9.4 L Hct MCH 27 L RDW 15.4 H Lymph % (Auto) [place] % (Auto) Lymph # Seg Neutrophils % Seg Neuts % (Manual) 98.0 H Lymphocytes % (Manual) 0 L Seg Neutrophils # Man 11.1 H Lymphocytes # (Manual) 0.0 L Monocytes # (Manual) PT INR POC ABG pH POC ABG pCO2 POC ABG pO2 Sodium Potassium Chloride 96.0 L Carbon Dioxide 33 H BUN 18 H Creatinine 0.6 L Glucose 371 H POC Glucose 321 H Lactic Acid Calcium Magnesium NT-Pro-B Natriuret Pep Albumin 3.7 L 01/15/19 01/15/19 01/15/19 11:13 16:13 22:38 WBC RBC Hgb Hct MCH RDW Lymph % (Auto) [place] % (Auto) Lymph # Seg Neutrophils % Seg Neuts % (Manual) Lymphocytes % (Manual) Seg Neutrophils # Man Lymphocytes # (Manual) Monocytes # (Manual) PT INR POC ABG pH POC ABG pCO2 POC ABG pO2 Sodium Potassium Chloride Carbon Dioxide BUN Creatinine Glucose POC Glucose 353 H 150 H 404 H Lactic Acid Calcium Magnesium NT-Pro-B Natriuret Pep Albumin 01/16/19 01/16/19 01/16/19 07:36 12:09 16:12 WBC RBC Hgb Hct MCH RDW Lymph % (Auto) [place] % (Auto) Lymph # Seg Neutrophils % Seg Neuts % (Manual) Lymphocytes % (Manual) Seg Neutrophils # Man Lymphocytes # (Manual) Monocytes # (Manual) PT INR POC ABG pH POC ABG pCO2 POC ABG pO2 Sodium Potassium Chloride Carbon Dioxide BUN Creatinine Glucose POC Glucose 317 H 351 H 293 H Lactic Acid Calcium Magnesium NT-Pro-B Natriuret Pep Albumin 01/16/19 01/17/19 01/17/19 22:04 07:22 11:29 WBC RBC Hgb Hct MCH RDW Lymph % (Auto) [place] % (Auto) Lymph # Seg Neutrophils % Seg Neuts % (Manual) Lymphocytes % (Manual) Seg Neutrophils # Man Lymphocytes # (Manual) Monocytes # (Manual) PT INR POC ABG pH POC ABG pCO2 POC ABG pO2 Sodium Potassium Chloride Carbon Dioxide BUN Creatinine Glucose POC Glucose 382 H 356 H 376 H Lactic Acid Calcium Magnesium NT-Pro-B Natriuret Pep Albumin 01/17/19 01/17/19 01/18/19 17:30 21:09 04:09 WBC 13.6 H RBC 3.55 L Hgb 9.6 L Hct MCH 27 L RDW 15.6 H Lymph % (Auto) [place] % (Auto) Lymph # Seg Neutrophils % Seg Neuts % (Manual) 99.0 H Lymphocytes % (Manual) 1.0 L Seg Neutrophils # Man 13.5 H Lymphocytes # (Manual) 0.1 L Monocytes # (Manual) PT INR POC ABG pH POC ABG pCO2 POC ABG pO2 Sodium Potassium Chloride Carbon Dioxide BUN Creatinine Glucose POC Glucose 409 H 404 H Lactic Acid Calcium Magnesium NT-Pro-B Natriuret Pep Albumin 01/18/19 01/18/19 01/18/19 04:09 07:42 11:30 WBC RBC Hgb Hct MCH RDW Lymph % (Auto) [place] % (Auto) Lymph # Seg Neutrophils % Seg Neuts % (Manual) Lymphocytes % (Manual) Seg Neutrophils # Man Lymphocytes # (Manual) Monocytes # (Manual) PT INR POC ABG pH POC ABG pCO2 POC ABG pO2 Sodium Potassium Chloride 94.2 L Carbon Dioxide 33 H BUN 22 H Creatinine Glucose 355 H POC Glucose 390 H 387 H Lactic Acid Calcium Magnesium NT-Pro-B Natriuret Pep Albumin 3.5 L 01/18/19 01/18/1919 17:01 22:28 07:29 WBC RBC Hgb Hct MCH RDW Lymph % (Auto) [place] % (Auto) Lymph # Seg Neutrophils % Seg Neuts % (Manual) Lymphocytes % (Manual) Seg Neutrophils # Man Lymphocytes # (Manual) Monocytes # (Manual) PT INR POC ABG pH POC ABG pCO2 POC ABG pO2 Sodium Potassium Chloride Carbon Dioxide BUN Creatinine Glucose POC Glucose 378 H 363 H 371 H Lactic Acid Calcium Magnesium NT-Pro-B Natriuret Pep Albumin 01/19/19 01/19/19 01/19/19 11:16 16:13 22:02 WBC RBC Hgb Hct MCH RDW Lymph % (Auto) [place] % (Auto) Lymph # Seg Neutrophils % Seg Neuts % (Manual) Lymphocytes % (Manual) Seg Neutrophils # Man Lymphocytes # (Manual) Monocytes # (Manual) PT INR POC ABG pH POC ABG pCO2 POC ABG pO2 Sodium Potassium Chloride Carbon Dioxide BUN Creatinine Glucose POC Glucose 365 H 341 H 416 H Lactic Acid Calcium Magnesium NT-Pro-B Natriuret Pep Albumin 01/20/19 01/20/19 01/20/19 07:37 10:05 10:15 WBC 44.1 H* RBC 3.15 L Hgb 8.4 L Hct 27.7 L MCH 27 L RDW 15.9 H Lymph % (Auto) [place] % (Auto) Lymph # Seg Neutrophils % Seg Neuts % (Manual) 96.0 H Lymphocytes % (Manual) 2.0 L Seg Neutrophils # Man 42.3 H Lymphocytes # (Manual) 0.9 L Monocytes # (Manual) 0.9 H PT INR POC ABG pH POC ABG pCO2 POC ABG pO2 Sodium Potassium Chloride 95.5 L Carbon Dioxide BUN 40 H Creatinine 1.3 H D Glucose 365 H POC Glucose 377 H Lactic Acid Calcium 8.0 L Magnesium NT-Pro-B Natriuret Pep Albumin 01/20/19 01/20/19 01/20/19 11:12 16:05 23:22 WBC RBC Hgb Hct MCH RDW Lymph % (Auto) [place] % (Auto) Lymph # Seg Neutrophils % Seg Neuts % (Manual) Lymphocytes % (Manual) Seg Neutrophils # Man Lymphocytes # (Manual) Monocytes # (Manual) PT INR POC ABG pH POC ABG pCO2 POC ABG pO2 Sodium Potassium Chloride Carbon Dioxide BUN Creatinine Glucose POC Glucose 336 H 269 H 280 H Lactic Acid Calcium Magnesium NT-Pro-B Natriuret Pep Albumin 01/21/19 01/21/19 01/21/19 03:53 03:53 03:53 WBC 27.1 H RBC 3.28 L Hgb 9.0 L Hct 29.1 L MCH 27 L RDW 15.9 H Lymph % (Auto) [place] % (Auto) Lymph # Seg Neutrophils % Seg Neuts % (Manual) 93.0 H Lymphocytes % (Manual) 1.0 L Seg Neutrophils # Man 25.2 H Lymphocytes # (Manual) 0.3 L Monocytes # (Manual) PT 16.1 H INR 1.31 H POC ABG pH POC ABG pCO2 POC ABG pO2 Sodium Potassium Chloride 93.7 L Carbon Dioxide 33 H BUN 34 H Creatinine Glucose 166 H POC Glucose Lactic Acid Calcium 8.3 L Magnesium 2.50 H NT-Pro-B Natriuret Pep Albumin 3.1 L 01/21/19 01/21/19 07:30 11:23 WBC RBC Hgb Hct MCH RDW Lymph % (Auto) [place] % (Auto) Lymph # Seg Neutrophils % Seg Neuts % (Manual) Lymphocytes % (Manual) Seg Neutrophils # Man Lymphocytes # (Manual) Monocytes # (Manual) PT INR POC ABG pH POC ABG pCO2 POC ABG pO2 Sodium Potassium Chloride Carbon Dioxide BUN Creatinine Glucose POC Glucose 257 H 358 H Lactic Acid Calcium Magnesium NT-Pro-B Natriuret Pep Albumin
[2019-01-21] MEDS ORDERED: CEFEPIME/NS 2 GM/100 ML 2 GM/100 ML BAG IV SCH (14:00)
--- NOTE | 2019-01-21 15:01 | Progress Note ---
Assessment and Plan Cultures: 01/08/2019 blood culture: No growth 01/08/2019 urine culture: No growth 01/20/2019 blood culture: S aureus pending MICs A/P: 68-year-old female with COPD, hypertension, diabetes, acute hypoxic respiratory failure on home oxygen, was [facility], returned back to the hospital in ~2 days with respiratory distress. Accordingly to her family member at bedside, patient had not been receiving her inhalers. Initially, patient was noted to have high PCO2, hypotension, requiring fluids and low-dose pressors: 1) Hypotension, possibly secondary to acute hypercapneic respiratory failure, acidosis: pulm following. No bacteremia, no fever, no initial leucocytosis, no UTI, no pneumonia on CXR. Leucocytosis now is likely from steroids. Sepsis seems unlikely. Procalcitonin is low (<0.05) and pro-BNP is high suggestive of possibl e CHF. Resolved 2) Diarrhea: possibly overflow from constipation and impaction. Per RN, patient passed a hard chunk of stool. Resolved. 3) Acute sepsis - now present with fevers and leukocytosis. Secondary to Staph bacteremia 4) Staph aureus bacteremia - pending MICs. Agree with vancomycin. Unclear etiology. She complained of an abdominal rash, however it was not visible to me. Recs: - continue vancomycin dosed per pharmacy. Goal trough 15-20 - repeat blood cultures ordered for AM - TTE ordered. - CXR improved, ok to stop cefepime Thank you for the consultation, will follow. Meghan Mims MD [facility] ([facility] M: [phone] O: [phone] F: [phone] Subjective Date of service: 01/21/19 Principal diagnosis: sepsis, exacerbation of COPD, acute on chronic respiratory failure Interval history: Spiked fever and WBC count to 44 (now down to 27). Blood cultures now positive with S aureus, as such we are called back to the case. Objective - Exam Narrative Exam: Constitutional: Alert, cooperative. No acute distress Head, Ears, Nose: Normocephalic, atraumatic. External ears, nose normal Eyes: Conjunctivae/corneas clear. No icterus. No ptosis. Neck: Supple, no meningeal signs Oral: edentulous, no thrush Cardiovascular: S1, S2 normal Respiratory: clear b/l GI: Soft, non-tender; bowel sounds normal. No peritoneal signs Musculoskeletal: No pedal edema, no cyanosis. Skin: No rash or abscess Hem/Lymphatic: No palpable cervical or supraclavicular nodes. No lymphangitis Psych: no agitation, flat affect Neurological: Awake, alert - Constitutional Vitals: Vital Signs Temp Pulse Resp BP Pulse Ox 98.3 F 88 22 106/59 90 01/21/19 13:42 01/21/19 13:42 01/21/19 13:42 01/21/19 13:42 01/21/19 13:42 Temperature -Last 24 Hours Temperature 98.3 F Temperature 99.8 F Temperature 98.5 F - Labs CBC & Chem 7: 01/21/19 03:53 01/21/19 03:53 Labs: Abnormal lab results 01/20/19 01/20/19 01/21/19 Range/Units 16:05 23:22 03:53 WBC 27.1 H (4.5-11.0) K/mm3 RBC 3.28 L (3.65-5.03) M/mm3 Hgb 9.0 L (10.1-14.3) gm/dl Hct 29.1 L (30.3-42.9) % MCH 27 L (28-32) pg RDW 15.9 H (13.2-15.2) % Seg Neuts % (Manual) 93.0 H (40.0-70.0) % Lymphocytes % (Manual) 1.0 L (13.4-35.0) % Seg Neutrophils # Man 25.2 H (1.8-7.7) K/mm3 Lymphocytes # (Manual) 0.3 L (1.2-5.4) K/mm3 PT (12.2-14.9) Sec. INR (0.87-1.13) Chloride (98-107) mmol/L Carbon Dioxide (22-30) mmol/L BUN (7-17) mg/dL Glucose (65-100) mg/dL POC Glucose 269 H 280 H (70-105) Calcium (8.4-10.2) mg/dL Magnesium (1.7-2.3) mg/dL Albumin (3.9-5) g/dL 01/21/19 01/21/19 01/21/19 Range/Units 03:53 03:53 07:30 WBC (4.5-11.0) K/mm3 RBC (3.65-5.03) M/mm3 Hgb (10.1-14.3) gm/dl Hct (30.3-42.9) % MCH (28-32) pg RDW (13.2-15.2) % Seg Neuts % (Manual) (40.0-70.0) % Lymphocytes % (Manual) (13.4-35.0) % Seg Neutrophils # Man (1.8-7.7) K/mm3 Lymphocytes # (Manual) (1.2-5.4) K/mm3 PT 16.1 H (12.2-14.9) Sec. INR 1.31 H (0.87-1.13) Chloride 93.7 L (98-107) mmol/L Carbon Dioxide 33 H (22-30) mmol/L BUN 34 H (7-17) mg/dL Glucose 166 H (65-100) mg/dL POC Glucose 257 H (70-105) Calcium 8.3 L (8.4-10.2) mg/dL Magnesium 2.50 H (1.7-2.3) mg/dL Albumin 3.1 L (3.9-5) g/dL 01/21/19 Range/Units 11:23 WBC (4.5-11.0) K/mm3 RBC (3.65-5.03) M/mm3 Hgb (10.1-14.3) gm/dl Hct (30.3-42.9) % MCH (28-32) pg RDW (13.2-15.2) % Seg Neuts % (Manual) (40.0-70.0) % Lymphocytes % (Manual) (13.4-35.0) % Seg Neutrophils # Man (1.8-7.7) K/mm3 Lymphocytes # (Manual) (1.2-5.4) K/mm3 PT (12.2-14.9) Sec. INR (0.87-1.13) Chloride (98-107) mmol/L Carbon Dioxide (22-30) mmol/L BUN (7-17) mg/dL Glucose (65-100) mg/dL POC Glucose 358 H (70-105) Calcium (8.4-10.2) mg/dL Magnesium (1.7-2.3) mg/dL Albumin (3.9-5) g/dL
[2019-01-21] MEDS: methylPREDNISolone Sod Succinate 125 MG/2 ML INJ IV SCH ×2 (16:39→22:26)
[2019-01-21 17:19] LABS: Hematocrit 25.9 % (30.3-42.9); Mean Corpuscular HGB Conc 31 % (30-34); Mean Corpuscular Volume 87 fl (79-97); Platelet Count 188 K/mm3 (140-440); Red Blood Count 2.97 M/mm3 (3.65-5.03); Red Cell Distribution Width 15.8 % (13.2-15.2)
[2019-01-21] MEDS: HALOPERIDOL 5 MG TAB PO SCH (17:41)
[2019-01-21 18:10] LABS: Basophils % (Manual) 0 % (0.0-1.8); Eosinophils % (Manual) 0 % (0.0-4.3); Total Cells Counted 100
[2019-01-21 18:12] LABS: Platelet Estimate Consistent w Auto
[2019-01-21] MEDS: VANCOMYCIN 1,250 MG in SODIUM CHLORIDE 0.9% 250ML 250 ML IV SCH (19:58)
[2019-01-21] MEDS: DONEPEZIL 10 MG TAB PO SCH (22:27)
[2019-01-22] MEDS: IPRATROPIUM/ALBUTEROL SULFATE 3 ML AMPUL.NEB IH SCH ×4 (03:07→20:35)
[2019-01-22] MEDS: methylPREDNISolone Sod Succinate 125 MG/2 ML INJ IV SCH ×4 (04:46→23:52)
[2019-01-22] MEDS: HYDROcodone/ACETAMINOPHEN 5-325 MG TAB PO PRN ×3 (04:47→20:52)
[2019-01-22] MEDS: FUROSEMIDE 20 MG TAB PO SCH (06:08)
[2019-01-22] MEDS: LEVOTHYROXINE 88 MCG TAB PO SCH (06:08)
[2019-01-22] MEDS: SODIUM CHLORIDE 0.9% 1000 ML 1,000 ML IV SCH ×2 (06:10→23:52)
[2019-01-22] MEDS: hydrALAZINE 100 MG TAB PO SCH ×3 (06:15→21:04)
[2019-01-22] MEDS ORDERED: INSULIN LISPRO 100 UNIT/ML SUB-Q ONE (08:06)
--- NOTE | 2019-01-22 08:29 | Progress Note ---
Assessment and Plan Patient seen and examined medical records from the emergency department reviewed. 68-year-old female patient admitted to the emergency department for worsening shortness of breath as well as cough generalized body pain and weakness. The patient was admitteed to [facility] and has been on treatment there but her breathing got progressively worse over the past 24 Hours and was thus referred back to the ER for further evaluation and treatment . Patient has history of COPD on home oxygen, hypertension on therapy diabetes and has had multiple hospitalizations over the last year on account of recurrence of COPD exacerbation. After the time of evaluation patient has ongoing shortness of breath, her blood pressure was also reported to be low in the emergency department for which patient was started on Levophed and weaned off of same. Has cough that is productive and she denied any chest pain, no fever or chills but appetite has been poor. - Hypotensive Likely from sepsis - resolved. Hold all antihypertenidve CXR showed no infiltrate, UA - pending Blood and urine CX of 01/20 - showed MRSA in ateh blood Sepsis from MRSA bacteremia Continue with vanc and cefepime - Acute respiratory failure. Back on high flow oxygen. Continue with same Continue with Bronchodilator IV antibiotics and aerosol treatments and steroids are restarted hold Tappering of steriod Pulmonologigst following. - Heart Failure with preserved EF of 55-60% Commence ACEI, hold BB b/c acute of chronic respr failure, continue statin and gentle diuresis with strick Is and Os Cardiology consulted - Cor Pulm Continue with Hydrallazine and gently diuresis -Debility of senility continue with PT - COPD exacerbation Continue aerosol treatment and steroids and O2 supplementation. IV antibiotics Weaned pt from High flow oxygen to NC and maintaining a saturation of > 88 on 5 liters - Type 2 diabetes mellitus without complications We will hold metformin and start patient on sliding scale coverage with regular insulin with parameters. - Essential (primary) hypertension Holding her current blood pressure medications and continue blood pressure monitoring until the patient is hemodynamically stable - DVT prophylaxis with Lovenox and GI with Pepcid - Disposition: continue to wean off high flow oxygen and transfer to SNF once insurance approves and pt is stable. She had been earlier denied by her insurance for transfer to SNF with Physical therapy as she has a history of frequent fall. Denial has been appealed Time spent: 33 mins Subjective Date of service: 11/02/19 Principal diagnosis: sepsis, exacerbation of COPD, acute on chronic respiratory failure Interval history: Pt seen and examined. Still having shortness of breath though better. Low- grade fever resolved. Tm 99.8 Objective - Exam Narrative Exam: Constitutional: Well-nourished well-developed. Lying quietly in bed. Weak but easily arousable and interactive. Back on high flow oxygen. In no distress Head: Normocephalic atraumatic Eyes: Pupils are equal round and reactive to light Nose: No enlarged turbinates, no septal deviation. On high flow oxygen via NC Mouth: Moist mucous membranes. Neck: Supple no thyromegaly. No bruit. No JVD Heart: Regular rate and rhythm, S1-S2 normal. No rubs murmurs or gallop Lungs: Decreased breath sounds on auscultation bilaterally. Abdomen: Soft, nontender. Bowel sound are present. Extremities: No edema, no cyanosis, no clubbing. Neuro: Alert oriented Oriented x3. No focal sensory or motor deficit. Skin: No rashes or hyperpigmented spots Musculoskeletal system: No joint pain or swelling.unstable gait and has had frequent falls prior to admission because her legs give way. Hematological: No petechia or subcutanous hemorrhages. Immunological: No multiple septic spots on the skin Lymphatic: No generalized lymphadenopathy Psychiatry: Euthymic. Calm. - Constitutional Vitals: Vital Signs - 12hr 01/21/19 01/21/19 01/21/19 22:00 22:27 23:29 Temperature Pulse Rate 80 88 Pulse Rate [ Anterior Bilateral] Pulse Rate [ 74 From Monitor] Respiratory 18 20 Rate Respiratory Rate [Anterior Bilateral] Respiratory 18 Rate [Right Foot] Blood Pressure 97/31 O2 Sat by Pulse 89 Oximetry 01/21/19 01/21/19 01/22/19 23:39 23:54 02:00 Temperature Pulse Rate Pulse Rate [ 73 79 Anterior Bilateral] Pulse Rate [ From Monitor] Respiratory Rate Respiratory 22 21 Rate [Anterior Bilateral] Respiratory Rate [Right Foot] Blood Pressure O2 Sat by Pulse 85 95 Oximetry 01/22/19 01/22/19 01/22/19 02:22 03:12 04:47 Temperature 98.6 F Pulse Rate 71 79 Pulse Rate [ Anterior Bilateral] Pulse Rate [ From Monitor] Respiratory 22 19 18 Rate Respiratory Rate [Anterior Bilateral] Respiratory Rate [Right Foot] Blood Pressure 123/55 O2 Sat by Pulse 95 95 Oximetry 01/22/19 01/22/19 07:22 07:23 Temperature Pulse Rate Pulse Rate [ 66 Anterior Bilateral] Pulse Rate [ From Monitor] Respiratory Rate Respiratory 20 Rate [Anterior Bilateral] Respiratory Rate [Right Foot] Blood Pressure O2 Sat by Pulse 91 Oximetry - Labs CBC & Chem 7: 01/21/19 16:46 01/21/19 03:53 Labs: Abnormal lab results 01/21/19 01/21/19 01/21/19 Range/Units 11:23 16:19 16:46 WBC 20.4 H (4.5-11.0) K/mm3 RBC 2.97 L (3.65-5.03) M/mm3 Hgb 8.0 L (10.1-14.3) gm/dl Hct 25.9 L (30.3-42.9) % MCH 27 L (28-32) pg RDW 15.8 H (13.2-15.2) % Seg Neuts % (Manual) 98.0 H (40.0-70.0) % Lymphocytes % (Manual) 1.0 L (13.4-35.0) % Seg Neutrophils # Man 20.0 H (1.8-7.7) K/mm3 Lymphocytes # (Manual) 0.2 L (1.2-5.4) K/mm3 POC Glucose 358 H 267 H (70-105) 01/21/19 Range/Units 23:10 WBC (4.5-11.0) K/mm3 RBC (3.65-5.03) M/mm3 Hgb (10.1-14.3) gm/dl Hct (30.3-42.9) % MCH (28-32) pg RDW (13.2-15.2) % Seg Neuts % (Manual) (40.0-70.0) % Lymphocytes % (Manual) (13.4-35.0) % Seg Neutrophils # Man (1.8-7.7) K/mm3 Lymphocytes # (Manual) (1.2-5.4) K/mm3 POC Glucose 443 H (70-105)
[2019-01-22] MEDS: GABAPENTIN 400 MG CAP PO SCH ×3 (09:00→21:08)
[2019-01-22] MEDS: TRELEGY PO SCH (09:52)
[2019-01-22] MEDS: FLUoxetine 20 MG CAP PO SCH (09:57)
[2019-01-22] MEDS: ASPIRIN 81 MG TAB CHEW PO SCH (10:11)
[2019-01-22] MEDS: ARIPiprazole 10 MG TAB PO SCH (10:11)
[2019-01-22] MEDS: amLODIPine 10 MG TAB PO SCH (10:13)
[2019-01-22] MEDS: CLOTRIMAZOLE/BETAMETHASONE CREAM 15 GM TP SCH ×2 (10:17→21:09)
[2019-01-22] MEDS: INSULIN LISPRO 100 UNIT/ML SUB-Q SCH ×3 (12:30→22:54)
[2019-01-22] MEDS: ACETAMINOPHEN 325 MG TAB PO PRN (13:34)
[2019-01-22] MEDS: LISINOPRIL 40 MG TAB PO SCH ×2 (14:39→21:05)
--- NOTE | 2019-01-22 15:07 | Progress Note ---
Assessment and Plan Impression Acute on chronic hypoxic respiratory failure COPD with exacerbation MRSA bacteremia and sepsis obesity rule out obstructive sleep apnea Status post cholecystectomy Plan and recommendation Continue with her current regimen of bronchodilators Continue with antibiotics Check arterial blood gases. Subjective Date of service: 01/22/19 Principal diagnosis: sepsis, exacerbation of COPD, acute on chronic respiratory failure Interval history: No new complaints patient is on high flow nasal cannula at 95%. Has cough but denied any significant shortness of breath. Does not want to use BiPAP Objective Vital Signs - 12hr 01/22/19 01/22/19 01/22/19 03:12 04:47 07:22 Temperature Pulse Rate 79 Pulse Rate [ 66 Anterior Bilateral] Respiratory 19 18 Rate Respiratory 20 Rate [Anterior Bilateral] Blood Pressure Blood Pressure [Right] O2 Sat by Pulse 95 Oximetry 01/22/19 01/22/19 01/22/19 07:23 07:51 09:56 Temperature 99.5 F Pulse Rate 65 63 Pulse Rate [ Anterior Bilateral] Respiratory 18 Rate Respiratory Rate [Anterior Bilateral] Blood Pressure 124/33 126/55 Blood Pressure [Right] O2 Sat by Pulse 91 83 L 85 Oximetry 01/22/19 01/22/19 01/22/19 10:10 10:13 13:18 Temperature 98.6 F Pulse Rate 63 63 69 Pulse Rate [ Anterior Bilateral] Respiratory 18 Rate Respiratory Rate [Anterior Bilateral] Blood Pressure 126/55 104/33 Blood Pressure [Right] O2 Sat by Pulse 89 89 Oximetry 01/22/19 01/22/19 01/22/19 13:36 13:40 14:03 Temperature 98.6 F Pulse Rate 64 62 Pulse Rate [ Anterior Bilateral] Respiratory 18 Rate Respiratory Rate [Anterior Bilateral] Blood Pressure 104/49 Blood Pressure 104/33 [Right] O2 Sat by Pulse 92 92 89 Oximetry 01/22/19 01/22/19 14:39 14:52 Temperature 98.6 F Pulse Rate 63 62 Pulse Rate [ Anterior Bilateral] Respiratory 18 Rate Respiratory Rate [Anterior Bilateral] Blood Pressure 126/55 Blood Pressure 104/33 [Right] O2 Sat by Pulse 89 Oximetry Constitutional: alert (mild distress on hi yolanda 50%), other Eyes: non-icteric ENT: oropharynx moist, other (adentulous) Neck: supple Effort: normal Ascultation: Bilateral: diminished breath sounds, rhonchi Tactile fremitus: Bilateral: normal Cardiovascular: regular rate and rhythm Gastrointestinal: normoactive bowel sounds, soft, non-tender, non-distended Integumentary: normal Extremities: no cyanosis, no edema Neurologic: normal mental status, non-focal exam Psychiatric: mood appropriate, affect normal CBC and BMP: 01/21/19 16:46 01/21/19 03:53 ABG, PT/INR, D-dimer: ABG POC ABG pH 7.278 (7.35-7.45) L 01/09/19 05:23 POC ABG pCO2 67.9 (35-45) H 01/09/19 05:23 POC ABG pO2 73 (80-105) L 01/09/19 05:23 POC ABG HCO3 31.7 (22-26 mml/L) 01/09/19 05:23 POC ABG Total CO2 34 (23-27mmol/L) 01/09/19 05:23 POC ABG O2 Sat 91 01/09/19 05:23 PT/INR, D-dimer PT 16.1 Sec. (12.2-14.9) H 01/21/19 03:53 INR 1.31 (0.87-1.13) H 01/21/19 03:53 Abnormal lab findings: Abnormal Labs 01/08/19 01/08/19 01/08/19 14:39 14:39 16:55 WBC RBC 3.17 L Hgb 9.0 L Hct 28.4 L MCH RDW 15.9 H Lymph % (Auto) [place] % (Auto) 7.8 H Lymph # Seg Neutrophils % 71.9 H Seg Neuts % (Manual) Lymphocytes % (Manual) Seg Neutrophils # Man Lymphocytes # (Manual) Monocytes # (Manual) PT INR POC ABG pH POC ABG pCO2 POC ABG pO2 Sodium Potassium Chloride Carbon Dioxide BUN Creatinine Glucose 140 H POC Glucose Lactic Acid 2.90 H* Calcium Magnesium NT-Pro-B Natriuret Pep Albumin 3.7 L 01/08/19 01/08/19 01/08/19 19:34 21:15 23:37 WBC RBC Hgb Hct MCH RDW Lymph % (Auto) [place] % (Auto) Lymph # Seg Neutrophils % Seg Neuts % (Manual) Lymphocytes % (Manual) Seg Neutrophils # Man Lymphocytes # (Manual) Monocytes # (Manual) PT INR POC ABG pH POC ABG pCO2 POC ABG pO2 Sodium Potassium Chloride Carbon Dioxide BUN Creatinine Glucose POC Glucose 224 H Lactic Acid 3.50 H* 3.80 H* Calcium Magnesium NT-Pro-B Natriuret Pep Albumin 01/09/19 01/09/19 01/09/19 04:52 04:52 05:23 WBC RBC 3.12 L Hgb 8.7 L Hct 28.4 L MCH RDW 16.2 H Lymph % (Auto) [place] % (Auto) Lymph # Seg Neutrophils % Seg Neuts % (Manual) 95.0 H Lymphocytes % (Manual) 4.0 L Seg Neutrophils # Man 8.9 H Lymphocytes # (Manual) 0.4 L Monocytes # (Manual) PT INR POC ABG pH 7.278 L POC ABG pCO2 67.9 H POC ABG pO2 73 L Sodium Potassium Chloride Carbon Dioxide BUN 19 H Creatinine Glucose 173 H POC Glucose Lactic Acid Calcium Magnesium NT-Pro-B Natriuret Pep Albumin 3.8 L 01/09/19 01/09/19 01/09/19 05:37 12:01 18:10 WBC RBC Hgb Hct MCH RDW Lymph % (Auto) [place] % (Auto) Lymph # Seg Neutrophils % Seg Neuts % (Manual) Lymphocytes % (Manual) Seg Neutrophils # Man Lymphocytes # (Manual) Monocytes # (Manual) PT INR POC ABG pH POC ABG pCO2 POC ABG pO2 Sodium Potassium Chloride Carbon Dioxide BUN Creatinine Glucose POC Glucose 177 H 186 H 257 H Lactic Acid Calcium Magnesium NT-Pro-B Natriuret Pep Albumin 01/09/19 01/10/19 01/10/19 23:13 08:02 10:09 WBC 14.0 H RBC 2.97 L Hgb 8.2 L Hct 27.0 L MCH RDW 16.4 H Lymph % (Auto) [place] % (Auto) Lymph # Seg Neutrophils % Seg Neuts % (Manual) 95.0 H Lymphocytes % (Manual) 5.0 L Seg Neutrophils # Man 13.3 H Lymphocytes # (Manual) 0.7 L Monocytes # (Manual) PT INR POC ABG pH POC ABG pCO2 POC ABG pO2 Sodium Potassium Chloride Carbon Dioxide BUN Creatinine Glucose POC Glucose 187 H 185 H Lactic Acid Calcium Magnesium NT-Pro-B Natriuret Pep Albumin 01/10/19 01/10/19 01/10/19 10:09 10:09 12:25 WBC RBC Hgb Hct MCH RDW Lymph % (Auto) [place] % (Auto) Lymph # Seg Neutrophils % Seg Neuts % (Manual) Lymphocytes % (Manual) Seg Neutrophils # Man Lymphocytes # (Manual) Monocytes # (Manual) PT INR POC ABG pH POC ABG pCO2 POC ABG pO2 Sodium Potassium Chloride Carbon Dioxide BUN 18 H Creatinine 0.6 L Glucose 251 H POC Glucose 216 H Lactic Acid 2.10 H* Calcium Magnesium NT-Pro-B Natriuret Pep Albumin 3.5 L 01/10/19 01/10/19 01/11/19 16:27 21:44 07:27 WBC RBC Hgb Hct MCH RDW Lymph % (Auto) [place] % (Auto) Lymph # Seg Neutrophils % Seg Neuts % (Manual) Lymphocytes % (Manual) Seg Neutrophils # Man Lymphocytes # (Manual) Monocytes # (Manual) PT INR POC ABG pH POC ABG pCO2 POC ABG pO2 Sodium Potassium Chloride Carbon Dioxide BUN Creatinine Glucose POC Glucose 160 H 210 H 191 H Lactic Acid Calcium Magnesium NT-Pro-B Natriuret Pep Albumin 01/11/19 01/11/19 01/11/19 07:57 07:57 11:16 WBC 12.2 H RBC 2.96 L Hgb 8.1 L Hct 26.9 L MCH 27 L RDW 16.3 H Lymph % (Auto) [place] % (Auto) Lymph # Seg Neutrophils % Seg Neuts % (Manual) 90.0 H Lymphocytes % (Manual) 7.0 L Seg Neutrophils # Man 11.0 H Lymphocytes # (Manual) 0.9 L Monocytes # (Manual) PT INR POC ABG pH POC ABG pCO2 POC ABG pO2 Sodium 147 H Potassium Chloride Carbon Dioxide 31 H BUN 21 H Creatinine 0.6 L Glucose 190 H POC Glucose 177 H Lactic Acid Calcium Magnesium NT-Pro-B Natriuret Pep Albumin 01/11/19 01/11/19 01/11/19 16:03 16:27 22:23 WBC RBC Hgb Hct MCH RDW Lymph % (Auto) [place] % (Auto) Lymph # Seg Neutrophils % Seg Neuts % (Manual) Lymphocytes % (Manual) Seg Neutrophils # Man Lymphocytes # (Manual) Monocytes # (Manual) PT INR POC ABG pH POC ABG pCO2 POC ABG pO2 Sodium Potassium Chloride Carbon Dioxide BUN Creatinine Glucose POC Glucose 217 H 243 H Lactic Acid Calcium Magnesium NT-Pro-B Natriuret Pep 2547 H Albumin 01/12/19 01/12/19 01/12/19 05:34 05:34 07:22 WBC RBC 3.11 L Hgb 8.6 L Hct 27.4 L MCH RDW 15.6 H Lymph % (Auto) 7.0 L [place] % (Auto) Lymph # 0.6 L Seg Neutrophils % 87.5 H Seg Neuts % (Manual) Lymphocytes % (Manual) Seg Neutrophils # Man Lymphocytes # (Manual) Monocytes # (Manual) PT INR POC ABG pH POC ABG pCO2 POC ABG pO2 Sodium 146 H Potassium 3.5 L D Chloride 95.9 L Carbon Dioxide 35 H BUN Creatinine 0.6 L Glucose 248 H POC Glucose 249 H Lactic Acid Calcium Magnesium NT-Pro-B Natriuret Pep Albumin 01/12/19 01/12/19 01/12/19 11:35 16:21 22:07 WBC RBC Hgb Hct MCH RDW Lymph % (Auto) [place] % (Auto) Lymph # Seg Neutrophils % Seg Neuts % (Manual) Lymphocytes % (Manual) Seg Neutrophils # Man Lymphocytes # (Manual) Monocytes # (Manual) PT INR POC ABG pH POC ABG pCO2 POC ABG pO2 Sodium Potassium Chloride Carbon Dioxide BUN Creatinine Glucose POC Glucose 190 H 268 H 263 H Lactic Acid Calcium Magnesium NT-Pro-B Natriuret Pep Albumin 01/13/19 01/13/19 01/13/19 05:07 05:07 07:31 WBC RBC 3.32 L Hgb 9.2 L Hct 29.3 L MCH RDW 15.3 H Lymph % (Auto) [place] % (Auto) 9.8 H Lymph # Seg Neutrophils % 74.8 H Seg Neuts % (Manual) Lymphocytes % (Manual) Seg Neutrophils # Man Lymphocytes # (Manual) Monocytes # (Manual) PT INR POC ABG pH POC ABG pCO2 POC ABG pO2 Sodium Potassium Chloride 97.9 L Carbon Dioxide 37 H BUN Creatinine 0.5 L Glucose 165 H POC Glucose 147 H Lactic Acid Calcium Magnesium NT-Pro-B Natriuret Pep Albumin 3.6 L 01/13/19 01/13/19 01/13/19 12:37 16:51 21:25 WBC RBC Hgb Hct MCH RDW Lymph % (Auto) [place] % (Auto) Lymph # Seg Neutrophils % Seg Neuts % (Manual) Lymphocytes % (Manual) Seg Neutrophils # Man Lymphocytes # (Manual) Monocytes # (Manual) PT INR POC ABG pH POC ABG pCO2 POC ABG pO2 Sodium Potassium Chloride Carbon Dioxide BUN Creatinine Glucose POC Glucose 301 H 149 H 318 H Lactic Acid Calcium Magnesium NT-Pro-B Natriuret Pep Albumin 01/14/19 01/14/19 01/14/19 04:02 04:02 07:34 WBC RBC 3.50 L Hgb 9.7 L Hct MCH RDW 15.5 H Lymph % (Auto) [place] % (Auto) Lymph # Seg Neutrophils % Seg Neuts % (Manual) 94.0 H Lymphocytes % (Manual) 3.0 L Seg Neutrophils # Man 8.1 H Lymphocytes # (Manual) 0.3 L Monocytes # (Manual) PT INR POC ABG pH POC ABG pCO2 POC ABG pO2 Sodium Potassium Chloride 97.0 L Carbon Dioxide 34 H BUN 18 H Creatinine 0.6 L Glucose 287 H POC Glucose 266 H Lactic Acid Calcium Magnesium NT-Pro-B Natriuret Pep Albumin 3.8 L 01/14/19 01/14/19 01/14/19 11:28 16:40 22:08 WBC RBC Hgb Hct MCH RDW Lymph % (Auto) [place] % (Auto) Lymph # Seg Neutrophils % Seg Neuts % (Manual) Lymphocytes % (Manual) Seg Neutrophils # Man Lymphocytes # (Manual) Monocytes # (Manual) PT INR POC ABG pH POC ABG pCO2 POC ABG pO2 Sodium Potassium Chloride Carbon Dioxide BUN Creatinine Glucose POC Glucose 396 H 272 H 315 H Lactic Acid Calcium Magnesium NT-Pro-B Natriuret Pep Albumin 01/15/19 01/15/19 01/15/19 07:38 08:31 08:31 WBC 11.3 H RBC 3.48 L Hgb 9.4 L Hct MCH 27 L RDW 15.4 H Lymph % (Auto) [place] % (Auto) Lymph # Seg Neutrophils % Seg Neuts % (Manual) 98.0 H Lymphocytes % (Manual) 0 L Seg Neutrophils # Man 11.1 H Lymphocytes # (Manual) 0.0 L Monocytes # (Manual) PT INR POC ABG pH POC ABG pCO2 POC ABG pO2 Sodium Potassium Chloride 96.0 L Carbon Dioxide 33 H BUN 18 H Creatinine 0.6 L Glucose 371 H POC Glucose 321 H Lactic Acid Calcium Magnesium NT-Pro-B Natriuret Pep Albumin 3.7 L 01/15/19 01/15/19 01/15/19 11:13 16:13 22:38 WBC RBC Hgb Hct MCH RDW Lymph % (Auto) [place] % (Auto) Lymph # Seg Neutrophils % Seg Neuts % (Manual) Lymphocytes % (Manual) Seg Neutrophils # Man Lymphocytes # (Manual) Monocytes # (Manual) PT INR POC ABG pH POC ABG pCO2 POC ABG pO2 Sodium Potassium Chloride Carbon Dioxide BUN Creatinine Glucose POC Glucose 353 H 150 H 404 H Lactic Acid Calcium Magnesium NT-Pro-B Natriuret Pep Albumin 01/16/19 01/16/19 01/16/19 07:36 12:09 16:12 WBC RBC Hgb Hct MCH RDW Lymph % (Auto) [place] % (Auto) Lymph # Seg Neutrophils % Seg Neuts % (Manual) Lymphocytes % (Manual) Seg Neutrophils # Man Lymphocytes # (Manual) Monocytes # (Manual) PT INR POC ABG pH POC ABG pCO2 POC ABG pO2 Sodium Potassium Chloride Carbon Dioxide BUN Creatinine Glucose POC Glucose 317 H 351 H 293 H Lactic Acid Calcium Magnesium NT-Pro-B Natriuret Pep Albumin 01/16/19 01/17/19 01/17/19 22:04 07:22 11:29 WBC RBC Hgb Hct MCH RDW Lymph % (Auto) [place] % (Auto) Lymph # Seg Neutrophils % Seg Neuts % (Manual) Lymphocytes % (Manual) Seg Neutrophils # Man Lymphocytes # (Manual) Monocytes # (Manual) PT INR POC ABG pH POC ABG pCO2 POC ABG pO2 Sodium Potassium Chloride Carbon Dioxide BUN Creatinine Glucose POC Glucose 382 H 356 H 376 H Lactic Acid Calcium Magnesium NT-Pro-B Natriuret Pep Albumin 01/17/19 01/17/19 01/18/19 17:30 21:09 04:09 WBC 13.6 H RBC 3.55 L Hgb 9.6 L Hct MCH 27 L RDW 15.6 H Lymph % (Auto) [place] % (Auto) Lymph # Seg Neutrophils % Seg Neuts % (Manual) 99.0 H Lymphocytes % (Manual) 1.0 L Seg Neutrophils # Man 13.5 H Lymphocytes # (Manual) 0.1 L Monocytes # (Manual) PT INR POC ABG pH POC ABG pCO2 POC ABG pO2 Sodium Potassium Chloride Carbon Dioxide BUN Creatinine Glucose POC Glucose 409 H 404 H Lactic Acid Calcium Magnesium NT-Pro-B Natriuret Pep Albumin 01/18/19 01/18/19 01/18/19 04:09 07:42 11:30 WBC RBC Hgb Hct MCH RDW Lymph % (Auto) [place] % (Auto) Lymph # Seg Neutrophils % Seg Neuts % (Manual) Lymphocytes % (Manual) Seg Neutrophils # Man Lymphocytes # (Manual) Monocytes # (Manual) PT INR POC ABG pH POC ABG pCO2 POC ABG pO2 Sodium Potassium Chloride 94.2 L Carbon Dioxide 33 H BUN 22 H Creatinine Glucose 355 H POC Glucose 390 H 387 H Lactic Acid Calcium Magnesium NT-Pro-B Natriuret Pep Albumin 3.5 L 01/18/19 01/18/19 01/19/19 17:01 22:28 07:29 WBC RBC Hgb Hct MCH RDW Lymph % (Auto) [place] % (Auto) Lymph # Seg Neutrophils % Seg Neuts % (Manual) Lymphocytes % (Manual) Seg Neutrophils # Man Lymphocytes # (Manual) Monocytes # (Manual) PT INR POC ABG pH POC ABG pCO2 POC ABG pO2 Sodium Potassium Chloride Carbon Dioxide BUN Creatinine Glucose POC Glucose 378 H 363 H 371 H Lactic Acid Calcium Magnesium NT-Pro-B Natriuret Pep Albumin 01/19/19 01/19/19 01/19/19 11:16 16:13 22:02 WBC RBC Hgb Hct MCH RDW Lymph % (Auto) [place] % (Auto) Lymph # Seg Neutrophils % Seg Neuts % (Manual) Lymphocytes % (Manual) Seg Neutrophils # Man Lymphocytes # (Manual) Monocytes # (Manual) PT INR POC ABG pH POC ABG pCO2 POC ABG pO2 Sodium Potassium Chloride Carbon Dioxide BUN Creatinine Glucose POC Glucose 365 H 341 H 416 H Lactic Acid Calcium Magnesium NT-Pro-B Natriuret Pep Albumin 01/20/19 01/20/19 01/20/19 07:37 10:05 10:15 WBC 44.1 H* RBC 3.15 L Hgb 8.4 L Hct 27.7 L MCH 27 L RDW 15.9 H Lymph % (Auto) [place] % (Auto) Lymph # Seg Neutrophils % Seg Neuts % (Manual) 96.0 H Lymphocytes % (Manual) 2.0 L Seg Neutrophils # Man 42.3 H Lymphocytes # (Manual) 0.9 L Monocytes # (Manual) 0.9 H PT INR POC ABG pH POC ABG pCO2 POC ABG pO2 Sodium Potassium Chloride 95.5 L Carbon Dioxide BUN 40 H Creatinine 1.3 H D Glucose 365 H POC Glucose 377 H Lactic Acid Calcium 8.0 L Magnesium NT-Pro-B Natriuret Pep Albumin 01/20/19 01/20/19 01/20/19 11:12 16:05 23:22 WBC RBC Hgb Hct MCH RDW Lymph % (Auto) [place] % (Auto) Lymph # Seg Neutrophils % Seg Neuts % (Manual) Lymphocytes % (Manual) Seg Neutrophils # Man Lymphocytes # (Manual) Monocytes # (Manual) PT INR POC ABG pH POC ABG pCO2 POC ABG pO2 Sodium Potassium Chloride Carbon Dioxide BUN Creatinine Glucose POC Glucose 336 H 269 H 280 H Lactic Acid Calcium Magnesium NT-Pro-B Natriuret Pep Albumin 01/21/19 01/21/19 01/21/19 03:53 03:53 03:53 WBC 27.1 H RBC 3.28 L Hgb 9.0 L Hct 29.1 L MCH 27 L RDW 15.9 H Lymph % (Auto) [place] % (Auto) Lymph # Seg Neutrophils % Seg Neuts % (Manual) 93.0 H Lymphocytes % (Manual) 1.0 L Seg Neutrophils # Man 25.2 H Lymphocytes # (Manual) 0.3 L Monocytes # (Manual) PT 16.1 H INR 1.31 H POC ABG pH POC ABG pCO2 POC ABG pO2 Sodium Potassium Chloride 93.7 L Carbon Dioxide 33 H BUN 34 H Creatinine Glucose 166 H POC Glucose Lactic Acid Calcium 8.3 L Magnesium 2.50 H NT-Pro-B Natriuret Pep Albumin 3.1 L 01/21/19 01/21/19 01/21/19 07:30 11:23 16:19 WBC RBC Hgb Hct MCH RDW Lymph % (Auto) [place] % (Auto) Lymph # Seg Neutrophils % Seg Neuts % (Manual) Lymphocytes % (Manual) Seg Neutrophils # Man Lymphocytes # (Manual) Monocytes # (Manual) PT INR POC ABG pH POC ABG pCO2 POC ABG pO2 Sodium Potassium Chloride Carbon Dioxide BUN Creatinine Glucose POC Glucose 257 H 358 H 267 H Lactic Acid Calcium Magnesium NT-Pro-B Natriuret Pep Albumin 01/21/19 01/21/19 01/22/19 16:46 23:10 07:51 WBC 20.4 H RBC 2.97 L Hgb 8.0 L Hct 25.9 L MCH 27 L RDW 15.8 H Lymph % (Auto) [place] % (Auto) Lymph # Seg Neutrophils % Seg Neuts % (Manual) 98.0 H Lymphocytes % (Manual) 1.0 L Seg Neutrophils # Man 20.0 H Lymphocytes # (Manual) 0.2 L Monocytes # (Manual) PT INR POC ABG pH POC ABG pCO2 POC ABG pO2 Sodium Potassium Chloride Carbon Dioxide BUN Creatinine Glucose POC Glucose 443 H 420 H Lactic Acid Calcium Magnesium NT-Pro-B Natriuret Pep Albumin 01/22/19 12:25 WBC RBC Hgb Hct MCH RDW Lymph % (Auto) [place] % (Auto) Lymph # Seg Neutrophils % Seg Neuts % (Manual) Lymphocytes % (Manual) Seg Neutrophils # Man Lymphocytes # (Manual) Monocytes # (Manual) PT INR POC ABG pH POC ABG pCO2 POC ABG pO2 Sodium Potassium Chloride Carbon Dioxide BUN Creatinine Glucose POC Glucose 339 H Lactic Acid Calcium Magnesium NT-Pro-B Natriuret Pep Albumin Additional Studies: Echocardiogram showed ejection fraction 50-55%
[2019-01-22 16:51] LABS: Hematocrit 23.7 % (30.3-42.9); Hemoglobin 7.4 gm/dl (10.1-14.3); Mean Corpuscular HGB Conc 31 % (30-34); Mean Corpuscular Volume 87 fl (79-97); Platelet Count 177 K/mm3 (140-440); Red Blood Count 2.72 M/mm3 (3.65-5.03); Red Cell Distribution Width 15.8 % (13.2-15.2)
[2019-01-22 18:19] LABS: Basophils % (Manual) 0 % (0.0-1.8); Eosinophils % (Manual) 0 % (0.0-4.3); Total Cells Counted 100
[2019-01-22 18:20] LABS: Anisocytosis Few; Platelet Estimate Consistent w Auto
[2019-01-22] MEDS: HALOPERIDOL 5 MG TAB PO SCH (18:24)
[2019-01-22] MEDS: VANCOMYCIN 1,250 MG in SODIUM CHLORIDE 0.9% 250ML 250 ML IV SCH (21:09)
[2019-01-22] MEDS: DONEPEZIL 10 MG TAB PO SCH (21:09)
[2019-01-22] MEDS: INSULIN GLARGINE 100 UNITS/ML SUB-Q SCH (23:52)
[2019-01-23] MEDS: IPRATROPIUM/ALBUTEROL SULFATE 3 ML AMPUL.NEB IH SCH ×4 (02:25→20:07)
[2019-01-23] MEDS: ACETAMINOPHEN 325 MG TAB PO PRN ×2 (03:27→13:25)
[2019-01-23] MEDS: LEVOTHYROXINE 88 MCG TAB PO SCH (05:44)
[2019-01-23] MEDS: FUROSEMIDE 20 MG TAB PO SCH (05:44)
[2019-01-23] MEDS: methylPREDNISolone Sod Succinate 125 MG/2 ML INJ IV SCH ×3 (05:44→17:58)
[2019-01-23] MEDS: hydrALAZINE 100 MG TAB PO SCH ×2 (06:00→13:22)
[2019-01-23] MEDS: INSULIN LISPRO 100 UNIT/ML SUB-Q SCH ×3 (08:30→17:57)
[2019-01-23] MEDS ORDERED: VANCOMYCIN PHARMACY TO DOSE IV SCH (09:00)
[2019-01-23] MEDS: ARIPiprazole 10 MG TAB PO SCH (09:59)
[2019-01-23] MEDS: FLUoxetine 20 MG CAP PO SCH (09:59)
[2019-01-23] MEDS: LISINOPRIL 40 MG TAB PO SCH (09:59)
[2019-01-23] MEDS: ASPIRIN 81 MG TAB CHEW PO SCH (09:59)
[2019-01-23] MEDS: HYDROcodone/ACETAMINOPHEN 5-325 MG TAB PO PRN ×2 (10:00→21:12)
[2019-01-23] MEDS: amLODIPine 10 MG TAB PO SCH (10:00)
[2019-01-23] MEDS: GABAPENTIN 400 MG CAP PO SCH ×2 (10:00→13:22)
[2019-01-23] MEDS: TRELEGY PO SCH (10:02)
[2019-01-23] MEDS: SODIUM CHLORIDE 0.9% 1000 ML 1,000 ML IV SCH (12:37)
[2019-01-23] MEDS: CLOTRIMAZOLE/BETAMETHASONE CREAM 15 GM TP SCH (12:40)
--- NOTE | 2019-01-23 14:43 | Progress Note ---
Assessment and Plan Impression Acute on chronic hypoxic, hypercapnic respiratory failure COPD with exacerbation MRSA bacteremia and sepsis obesity rule out obstructive sleep apnea Status post cholecystectomy Plan and recommendation Continue with her current regimen of bronchodilators Continue with antibiotics Check chest x-ray If respiratory status deteriorates any further will require transfer to ICU. Subjective Date of service: 01/23/19 Principal diagnosis: sepsis, exacerbation of COPD, acute on chronic respiratory failure Interval history: No new complaints patient is on high flow nasal cannula at 100%. Has cough but denied any significant shortness of breath. Does not want to use BiPAP. Likes to stay flat in bed due to back problem Objective Vital Signs - 12hr 01/23/19 01/23/19 01/23/19 07:29 08:35 08:51 Pulse Rate 56 L Pulse Rate [ 60 Anterior Bilateral] Respiratory 21 Rate Respiratory 20 Rate [Anterior Bilateral] Blood Pressure 121/51 O2 Sat by Pulse 93 89 Oximetry 01/23/19 01/23/19 09:59 10:00 Pulse Rate 56 L 56 L Pulse Rate [ Anterior Bilateral] Respiratory Rate Respiratory Rate [Anterior Bilateral] Blood Pressure 121/51 121/51 O2 Sat by Pulse Oximetry Constitutional: alert (mild distress on hi yolanda 50%), other Eyes: non-icteric ENT: oropharynx moist, other (adentulous) Neck: supple Effort: normal Ascultation: Bilateral: diminished breath sounds, wheezes, rhonchi Tactile fremitus: Bilateral: normal Cardiovascular: regular rate and rhythm Gastrointestinal: normoactive bowel sounds, soft, non-tender, non-distended Integumentary: normal Extremities: no cyanosis, no edema Neurologic: normal mental status, non-focal exam Psychiatric: mood appropriate, affect normal CBC and BMP: 01/22/19 16:38 01/21/19 03:53 ABG, PT/INR, D-dimer: ABG POC ABG pH 7.424 (7.35-7.45) 01/22/19 17:34 POC ABG pCO2 52.6 (35-45) H 01/22/19 17:34 POC ABG pO2 57 (80-105) L 01/22/19 17:34 POC ABG HCO3 34.5 (22-26 mml/L) 01/22/19 17:34 POC ABG Total CO2 36 (23-27mmol/L) 01/22/19 17:34 POC ABG O2 Sat 89 01/22/19 17:34 PT/INR, D-dimer PT 16.1 Sec. (12.2-14.9) H 01/21/19 03:53 INR 1.31 (0.87-1.13) H 01/21/19 03:53 Abnormal lab findings: Abnormal Labs 01/08/19 01/08/19 01/08/19 14:39 14:39 16:55 WBC RBC 3.17 L Hgb 9.0 L Hct 28.4 L MCH RDW 15.9 H Lymph % (Auto) [place] % (Auto) 7.8 H Lymph # Seg Neutrophils % 71.9 H Seg Neuts % (Manual) Lymphocytes % (Manual) Seg Neutrophils # Man Lymphocytes # (Manual) Monocytes # (Manual) PT INR POC ABG pH POC ABG pCO2 POC ABG pO2 Sodium Potassium Chloride Carbon Dioxide BUN Creatinine Glucose 140 H POC Glucose Lactic Acid 2.90 H* Calcium Magnesium NT-Pro-B Natriuret Pep Albumin 3.7 L 01/08/19 01/08/19 01/08/19 19:34 21:15 23:37 WBC RBC Hgb Hct MCH RDW Lymph % (Auto) [place] % (Auto) Lymph # Seg Neutrophils % Seg Neuts % (Manual) Lymphocytes % (Manual) Seg Neutrophils # Man Lymphocytes # (Manual) Monocytes # (Manual) PT INR POC ABG pH POC ABG pCO2 POC ABG pO2 Sodium Potassium Chloride Carbon Dioxide BUN Creatinine Glucose POC Glucose 224 H Lactic Acid 3.50 H* 3.80 H* Calcium Magnesium NT-Pro-B Natriuret Pep Albumin 01/09/19 01/09/19 01/09/19 04:52 04:52 05:23 WBC RBC 3.12 L Hgb 8.7 L Hct 28.4 L MCH RDW 16.2 H Lymph % (Auto) [place] % (Auto) Lymph # Seg Neutrophils % Seg Neuts % (Manual) 95.0 H Lymphocytes % (Manual) 4.0 L Seg Neutrophils # Man 8.9 H Lymphocytes # (Manual) 0.4 L Monocytes # (Manual) PT INR POC ABG pH 7.278 L POC ABG pCO2 67.9 H POC ABG pO2 73 L Sodium Potassium Chloride Carbon Dioxide BUN 19 H Creatinine Glucose 173 H POC Glucose Lactic Acid Calcium Magnesium NT-Pro-B Natriuret Pep Albumin 3.8 L 01/09/19 01/09/19 01/09/19 05:37 12:01 18:10 WBC RBC Hgb Hct MCH RDW Lymph % (Auto) [place] % (Auto) Lymph # Seg Neutrophils % Seg Neuts % (Manual) Lymphocytes % (Manual) Seg Neutrophils # Man Lymphocytes # (Manual) Monocytes # (Manual) PT INR POC ABG pH POC ABG pCO2 POC ABG pO2 Sodium Potassium Chloride Carbon Dioxide BUN Creatinine Glucose POC Glucose 177 H 186 H 257 H Lactic Acid Calcium Magnesium NT-Pro-B Natriuret Pep Albumin 01/09/19 01/10/19 01/10/19 23:13 08:02 10:09 WBC 14.0 H RBC 2.97 L Hgb 8.2 L Hct 27.0 L MCH RDW 16.4 H Lymph % (Auto) [place] % (Auto) Lymph # Seg Neutrophils % Seg Neuts % (Manual) 95.0 H Lymphocytes % (Manual) 5.0 L Seg Neutrophils # Man 13.3 H Lymphocytes # (Manual) 0.7 L Monocytes # (Manual) PT INR POC ABG pH POC ABG pCO2 POC ABG pO2 Sodium Potassium Chloride Carbon Dioxide BUN Creatinine Glucose POC Glucose 187 H 185 H Lactic Acid Calcium Magnesium NT-Pro-B Natriuret Pep Albumin 01/10/19 01/10/19 01/10/19 10:09 10:09 12:25 WBC RBC Hgb Hct MCH RDW Lymph % (Auto) [place] % (Auto) Lymph # Seg Neutrophils % Seg Neuts % (Manual) Lymphocytes % (Manual) Seg Neutrophils # Man Lymphocytes # (Manual) Monocytes # (Manual) PT INR POC ABG pH POC ABG pCO2 POC ABG pO2 Sodium Potassium Chloride Carbon Dioxide BUN 18 H Creatinine 0.6 L Glucose 251 H POC Glucose 216 H Lactic Acid 2.10 H* Calcium Magnesium NT-Pro-B Natriuret Pep Albumin 3.5 L 01/10/19 01/10/19 01/11/19 16:27 21:44 07:27 WBC RBC Hgb Hct MCH RDW Lymph % (Auto) [place] % (Auto) Lymph # Seg Neutrophils % Seg Neuts % (Manual) Lymphocytes % (Manual) Seg Neutrophils # Man Lymphocytes # (Manual) Monocytes # (Manual) PT INR POC ABG pH POC ABG pCO2 POC ABG pO2 Sodium Potassium Chloride Carbon Dioxide BUN Creatinine Glucose POC Glucose 160 H 210 H 191 H Lactic Acid Calcium Magnesium NT-Pro-B Natriuret Pep Albumin 01/11/19 01/11/19 01/11/19 07:57 07:57 11:16 WBC 12.2 H RBC 2.96 L Hgb 8.1 L Hct 26.9 L MCH 27 L RDW 16.3 H Lymph % (Auto) [place] % (Auto) Lymph # Seg Neutrophils % Seg Neuts % (Manual) 90.0 H Lymphocytes % (Manual) 7.0 L Seg Neutrophils # Man 11.0 H Lymphocytes # (Manual) 0.9 L Monocytes # (Manual) PT INR POC ABG pH POC ABG pCO2 POC ABG pO2 Sodium 147 H Potassium Chloride Carbon Dioxide 31 H BUN 21 H Creatinine 0.6 L Glucose 190 H POC Glucose 177 H Lactic Acid Calcium Magnesium NT-Pro-B Natriuret Pep Albumin 01/11/19 01/11/19 01/11/19 16:03 16:27 22:23 WBC RBC Hgb Hct MCH RDW Lymph % (Auto) [place] % (Auto) Lymph # Seg Neutrophils % Seg Neuts % (Manual) Lymphocytes % (Manual) Seg Neutrophils # Man Lymphocytes # (Manual) Monocytes # (Manual) PT INR POC ABG pH POC ABG pCO2 POC ABG pO2 Sodium Potassium Chloride Carbon Dioxide BUN Creatinine Glucose POC Glucose 217 H 243 H Lactic Acid Calcium Magnesium NT-Pro-B Natriuret Pep 2547 H Albumin 01/12/19 01/12/19 01/12/19 05:34 05:34 07:22 WBC RBC 3.11 L Hgb 8.6 L Hct 27.4 L MCH RDW 15.6 H Lymph % (Auto) 7.0 L [place] % (Auto) Lymph # 0.6 L Seg Neutrophils % 87.5 H Seg Neuts % (Manual) Lymphocytes % (Manual) Seg Neutrophils # Man Lymphocytes # (Manual) Monocytes # (Manual) PT INR POC ABG pH POC ABG pCO2 POC ABG pO2 Sodium 146 H Potassium 3.5 L D Chloride 95.9 L Carbon Dioxide 35 H BUN Creatinine 0.6 L Glucose 248 H POC Glucose 249 H Lactic Acid Calcium Magnesium NT-Pro-B Natriuret Pep Albumin 01/12/19 01/12/19 01/12/19 11:35 16:21 22:07 WBC RBC Hgb Hct MCH RDW Lymph % (Auto) [place] % (Auto) Lymph # Seg Neutrophils % Seg Neuts % (Manual) Lymphocytes % (Manual) Seg Neutrophils # Man Lymphocytes # (Manual) Monocytes # (Manual) PT INR POC ABG pH POC ABG pCO2 POC ABG pO2 Sodium Potassium Chloride Carbon Dioxide BUN Creatinine Glucose POC Glucose 190 H 268 H 263 H Lactic Acid Calcium Magnesium NT-Pro-B Natriuret Pep Albumin 01/13/19 01/13/19 01/13/19 05:07 05:07 07:31 WBC RBC 3.32 L Hgb 9.2 L Hct 29.3 L MCH RDW 15.3 H Lymph % (Auto) [place] % (Auto) 9.8 H Lymph # Seg Neutrophils % 74.8 H Seg Neuts % (Manual) Lymphocytes % (Manual) Seg Neutrophils # Man Lymphocytes # (Manual) Monocytes # (Manual) PT INR POC ABG pH POC ABG pCO2 POC ABG pO2 Sodium Potassium Chloride 97.9 L Carbon Dioxide 37 H BUN Creatinine 0.5 L Glucose 165 H POC Glucose 147 H Lactic Acid Calcium Magnesium NT-Pro-B Natriuret Pep Albumin 3.6 L 01/13/19 01/13/19 01/13/19 12:37 16:51 21:25 WBC RBC Hgb Hct MCH RDW Lymph % (Auto) [place] % (Auto) Lymph # Seg Neutrophils % Seg Neuts % (Manual) Lymphocytes % (Manual) Seg Neutrophils # Man Lymphocytes # (Manual) Monocytes # (Manual) PT INR POC ABG pH POC ABG pCO2 POC ABG pO2 Sodium Potassium Chloride Carbon Dioxide BUN Creatinine Glucose POC Glucose 301 H 149 H 318 H Lactic Acid Calcium Magnesium NT-Pro-B Natriuret Pep Albumin 01/14/19 01/14/19 01/14/19 04:02 04:02 07:34 WBC RBC 3.50 L Hgb 9.7 L Hct MCH RDW 15.5 H Lymph % (Auto) [place] % (Auto) Lymph # Seg Neutrophils % Seg Neuts % (Manual) 94.0 H Lymphocytes % (Manual) 3.0 L Seg Neutrophils # Man 8.1 H Lymphocytes # (Manual) 0.3 L Monocytes # (Manual) PT INR POC ABG pH POC ABG pCO2 POC ABG pO2 Sodium Potassium Chloride 97.0 L Carbon Dioxide 34 H BUN 18 H Creatinine 0.6 L Glucose 287 H POC Glucose 266 H Lactic Acid Calcium Magnesium NT-Pro-B Natriuret Pep Albumin 3.8 L 01/14/19 01/14/19 01/14/19 11:28 16:40 22:08 WBC RBC Hgb Hct MCH RDW Lymph % (Auto) [place] % (Auto) Lymph # Seg Neutrophils % Seg Neuts % (Manual) Lymphocytes % (Manual) Seg Neutrophils # Man Lymphocytes # (Manual) Monocytes # (Manual) PT INR POC ABG pH POC ABG pCO2 POC ABG pO2 Sodium Potassium Chloride Carbon Dioxide BUN Creatinine Glucose POC Glucose 396 H 272 H 315 H Lactic Acid Calcium Magnesium NT-Pro-B Natriuret Pep Albumin 01/15/19 01/15/19 01/15/19 07:38 08:31 08:31 WBC 11.3 H RBC 3.48 L Hgb 9.4 L Hct MCH 27 L RDW 15.4 H Lymph % (Auto) [place] % (Auto) Lymph # Seg Neutrophils % Seg Neuts % (Manual) 98.0 H Lymphocytes % (Manual) 0 L Seg Neutrophils # Man 11.1 H Lymphocytes # (Manual) 0.0 L Monocytes # (Manual) PT INR POC ABG pH POC ABG pCO2 POC ABG pO2 Sodium Potassium Chloride 96.0 L Carbon Dioxide 33 H BUN 18 H Creatinine 0.6 L Glucose 371 H POC Glucose 321 H Lactic Acid Calcium Magnesium NT-Pro-B Natriuret Pep Albumin 3.7 L 01/15/19 01/15/19 01/15/19 11:13 16:13 22:38 WBC RBC Hgb Hct MCH RDW Lymph % (Auto) [place] % (Auto) Lymph # Seg Neutrophils % Seg Neuts % (Manual) Lymphocytes % (Manual) Seg Neutrophils # Man Lymphocytes # (Manual) Monocytes # (Manual) PT INR POC ABG pH POC ABG pCO2 POC ABG pO2 Sodium Potassium Chloride Carbon Dioxide BUN Creatinine Glucose POC Glucose 353 H 150 H 404 H Lactic Acid Calcium Magnesium NT-Pro-B Natriuret Pep Albumin 01/16/19 01/16/19 01/16/19 07:36 12:09 16:12 WBC RBC Hgb Hct MCH RDW Lymph % (Auto) [place] % (Auto) Lymph # Seg Neutrophils % Seg Neuts % (Manual) Lymphocytes % (Manual) Seg Neutrophils # Man Lymphocytes # (Manual) Monocytes # (Manual) PT INR POC ABG pH POC ABG pCO2 POC ABG pO2 Sodium Potassium Chloride Carbon Dioxide BUN Creatinine Glucose POC Glucose 317 H 351 H 293 H Lactic Acid Calcium Magnesium NT-Pro-B Natriuret Pep Albumin 01/16/19 01/17/19 01/17/19 22:04 07:22 11:29 WBC RBC Hgb Hct MCH RDW Lymph % (Auto) [place] % (Auto) Lymph # Seg Neutrophils % Seg Neuts % (Manual) Lymphocytes % (Manual) Seg Neutrophils # Man Lymphocytes # (Manual) Monocytes # (Manual) PT INR POC ABG pH POC ABG pCO2 POC ABG pO2 Sodium Potassium Chloride Carbon Dioxide BUN Creatinine Glucose POC Glucose 382 H 356 H 376 H Lactic Acid Calcium Magnesium NT-Pro-B Natriuret Pep Albumin 01/17/19 01/17/19 01/18/19 17:30 21:09 04:09 WBC 13.6 H RBC 3.55 L Hgb 9.6 L Hct MCH 27 L RDW 15.6 H Lymph % (Auto) [place] % (Auto) Lymph # Seg Neutrophils % Seg Neuts % (Manual) 99.0 H Lymphocytes % (Manual) 1.0 L Seg Neutrophils # Man 13.5 H Lymphocytes # (Manual) 0.1 L Monocytes # (Manual) PT INR POC ABG pH POC ABG pCO2 POC ABG pO2 Sodium Potassium Chloride Carbon Dioxide BUN Creatinine Glucose POC Glucose 409 H 404 H Lactic Acid Calcium Magnesium NT-Pro-B Natriuret Pep Albumin 01/18/19 01/18/19 01/18/19 04:09 07:42 11:30 WBC RBC Hgb Hct MCH RDW Lymph % (Auto) [place] % (Auto) Lymph # Seg Neutrophils % Seg Neuts % (Manual) Lymphocytes % (Manual) Seg Neutrophils # Man Lymphocytes # (Manual) Monocytes # (Manual) PT INR POC ABG pH POC ABG pCO2 POC ABG pO2 Sodium Potassium Chloride 94.2 L Carbon Dioxide 33 H BUN 22 H Creatinine Glucose 355 H POC Glucose 390 H 387 H Lactic Acid Calcium Magnesium NT-Pro-B Natriuret Pep Albumin 3.5 L 01/18/19 01/18/19 01/19/19 17:01 22:28 07:29 WBC RBC Hgb Hct MCH RDW Lymph % (Auto) [place] % (Auto) Lymph # Seg Neutrophils % Seg Neuts % (Manual) Lymphocytes % (Manual) Seg Neutrophils # Man Lymphocytes # (Manual) Monocytes # (Manual) PT INR POC ABG pH POC ABG pCO2 POC ABG pO2 Sodium Potassium Chloride Carbon Dioxide BUN Creatinine Glucose POC Glucose 378 H 363 H 371 H Lactic Acid Calcium Magnesium NT-Pro-B Natriuret Pep Albumin 01/19/19 01/19/19 01/19/19 11:16 16:13 22:02 WBC RBC Hgb Hct MCH RDW Lymph % (Auto) [place] % (Auto) Lymph # Seg Neutrophils % Seg Neuts % (Manual) Lymphocytes % (Manual) Seg Neutrophils # Man Lymphocytes # (Manual) Monocytes # (Manual) PT INR POC ABG pH POC ABG pCO2 POC ABG pO2 Sodium Potassium Chloride Carbon Dioxide BUN Creatinine Glucose POC Glucose 365 H 341 H 416 H Lactic Acid Calcium Magnesium NT-Pro-B Natriuret Pep Albumin 01/20/19 01/20/19 01/20/19 07:37 10:05 10:15 WBC 44.1 H* RBC 3.15 L Hgb 8.4 L Hct 27.7 L MCH 27 L RDW 15.9 H Lymph % (Auto) [place] % (Auto) Lymph # Seg Neutrophils % Seg Neuts % (Manual) 96.0 H Lymphocytes % (Manual) 2.0 L Seg Neutrophils # Man 42.3 H Lymphocytes # (Manual) 0.9 L Monocytes # (Manual) 0.9 H PT INR POC ABG pH POC ABG pCO2 POC ABG pO2 Sodium Potassium Chloride 95.5 L Carbon Dioxide BUN 40 H Creatinine 1.3 H D Glucose 365 H POC Glucose 377 H Lactic Acid Calcium 8.0 L Magnesium NT-Pro-B Natriuret Pep Albumin 01/20/19 01/20/19 01/20/19 11:12 16:05 23:22 WBC RBC Hgb Hct MCH RDW Lymph % (Auto) [place] % (Auto) Lymph # Seg Neutrophils % Seg Neuts % (Manual) Lymphocytes % (Manual) Seg Neutrophils # Man Lymphocytes # (Manual) Monocytes # (Manual) PT INR POC ABG pH POC ABG pCO2 POC ABG pO2 Sodium Potassium Chloride Carbon Dioxide BUN Creatinine Glucose POC Glucose 336 H 269 H 280 H Lactic Acid Calcium Magnesium NT-Pro-B Natriuret Pep Albumin 01/21/19 01/21/19 01/21/19 03:53 03:53 03:53 WBC 27.1 H RBC 3.28 L Hgb 9.0 L Hct 29.1 L MCH 27 L RDW 15.9 H Lymph % (Auto) [place] % (Auto) Lymph # Seg Neutrophils % Seg Neuts % (Manual) 93.0 H Lymphocytes % (Manual) 1.0 L Seg Neutrophils # Man 25.2 H Lymphocytes # (Manual) 0.3 L Monocytes # (Manual) PT 16.1 H INR 1.31 H POC ABG pH POC ABG pCO2 POC ABG pO2 Sodium Potassium Chloride 93.7 L Carbon Dioxide 33 H BUN 34 H Creatinine Glucose 166 H POC Glucose Lactic Acid Calcium 8.3 L Magnesium 2.50 H NT-Pro-B Natriuret Pep Albumin 3.1 L 01/21/19 01/21/19 01/21/19 07:30 11:23 16:19 WBC RBC Hgb Hct MCH RDW Lymph % (Auto) [place] % (Auto) Lymph # Seg Neutrophils % Seg Neuts % (Manual) Lymphocytes % (Manual) Seg Neutrophils # Man Lymphocytes # (Manual) Monocytes # (Manual) PT INR POC ABG pH POC ABG pCO2 POC ABG pO2 Sodium Potassium Chloride Carbon Dioxide BUN Creatinine Glucose POC Glucose 257 H 358 H 267 H Lactic Acid Calcium Magnesium NT-Pro-B Natriuret Pep Albumin 01/21/19 01/21/19 01/22/19 16:46 23:10 07:51 WBC 20.4 H RBC 2.97 L Hgb 8.0 L Hct 25.9 L MCH 27 L RDW 15.8 H Lymph % (Auto) [place] % (Auto) Lymph # Seg Neutrophils % Seg Neuts % (Manual) 98.0 H Lymphocytes % (Manual) 1.0 L Seg Neutrophils # Man 20.0 H Lymphocytes # (Manual) 0.2 L Monocytes # (Manual) PT INR POC ABG pH POC ABG pCO2 POC ABG pO2 Sodium Potassium Chloride Carbon Dioxide BUN Creatinine Glucose POC Glucose 443 H 420 H Lactic Acid Calcium Magnesium NT-Pro-B Natriuret Pep Albumin 01/22/19 01/22/19 01/22/19 12:25 16:38 17:23 WBC 17.3 H RBC 2.72 L Hgb 7.4 L Hct 23.7 L MCH 27 L RDW 15.8 H Lymph % (Auto) [place] % (Auto) Lymph # Seg Neutrophils % Seg Neuts % (Manual) 98.0 H Lymphocytes % (Manual) 1.0 L Seg Neutrophils # Man 17.0 H Lymphocytes # (Manual) 0.2 L Monocytes # (Manual) PT INR POC ABG pH POC ABG pCO2 POC ABG pO2 Sodium Potassium Chloride Carbon Dioxide BUN Creatinine Glucose POC Glucose 339 H 269 H Lactic Acid Calcium Magnesium NT-Pro-B Natriuret Pep Albumin 01/22/19 01/22/19 01/23/19 17:34 21:53 07:37 WBC RBC Hgb Hct MCH RDW Lymph % (Auto) [place] % (Auto) Lymph # Seg Neutrophils % Seg Neuts % (Manual) Lymphocytes % (Manual) Seg Neutrophils # Man Lymphocytes # (Manual) Monocytes # (Manual) PT INR POC ABG pH POC ABG pCO2 52.6 H POC ABG pO2 57 L Sodium Potassium Chloride Carbon Dioxide BUN Creatinine Glucose POC Glucose 326 H 359 H Lactic Acid Calcium Magnesium NT-Pro-B Natriuret Pep Albumin 01/23/19 11:35 WBC RBC Hgb Hct MCH RDW Lymph % (Auto) [place] % (Auto) Lymph # Seg Neutrophils % Seg Neuts % (Manual) Lymphocytes % (Manual) Seg Neutrophils # Man Lymphocytes # (Manual) Monocytes # (Manual) PT INR POC ABG pH POC ABG pCO2 POC ABG pO2 Sodium Potassium Chloride Carbon Dioxide BUN Creatinine Glucose POC Glucose 405 H Lactic Acid Calcium Magnesium NT-Pro-B Natriuret Pep Albumin
[2019-01-23 15:32] LABS: Hematocrit 23.2 % (30.3-42.9); Hemoglobin 7.2 gm/dl (10.1-14.3); Mean Corpuscular HGB Conc 31 % (30-34); Mean Corpuscular Volume 87 fl (79-97); Platelet Count 156 K/mm3 (140-440); Red Blood Count 2.66 M/mm3 (3.65-5.03); Red Cell Distribution Width 15.8 % (13.2-15.2)
--- NOTE | 2019-01-23 16:00 | XRay Report ---
CHEST 1 VIEW INDICATION: respiratory failure. COMPARISON: 01/20/2019 FINDINGS: Support devices: None. Heart: Within normal limits. Lungs/Pleura: There is mild interstitial edema and an ovoid opacity over the left lung apex which cou ld represent a loculated effusion or a mass. Additional findings: None. IMPRESSION: 1. Pulmonary findings as above. Consider follow-up CT chest with contrast for further evaluation. Signer Name: Huseyin Adams MD Signed: 01/23/2019 3:55 PM Workstation Name: [id number]
[2019-01-23 16:43] LABS: Basophils % (Manual) 0 % (0.0-1.8); Eosinophils % (Manual) 0 % (0.0-4.3); RBC Morphology Normal; Total Cells Counted 100
[2019-01-23] MEDS: HALOPERIDOL 5 MG TAB PO SCH (17:58)
--- NOTE | 2019-01-23 20:37 | Progress Note ---
Assessment and Plan Patient seen and examined medical records from the emergency department reviewed. 68-year-old female patient admitted to the emergency department for worsening shortness of breath as well as cough generalized body pain and weakness. The patient was admitteed to [facility] and has been on treatment there but her breathing got progressively worse over the past 24 Hours and was thus referred back to the ER for further evaluation and treatment . Patient has history of COPD on home oxygen, hypertension on therapy diabetes and has had multiple hospitalizations over the last year on account of recurrence of COPD exacerbation. After the time of evaluation patient has ongoing shortness of breath, her blood pressure was also reported to be low in the emergency department for which patient was started on Levophed and weaned off of same. Has cough that is productive and she denied any chest pain, no fever or chills but appetite has been poor. - Hypotensive Likely from sepsis - resolved. Hold all antihypertenidve CXR showed no infiltrate, UA - pending Blood and urine CX of 01/20 - showed MRSA in ateh blood - Sepsis from MRSA bacteremia Continue with vanc and cefepime - Acute respiratory failure. Back on high flow oxygen. Continue with same Continue with Bronchodilator IV antibiotics and aerosol treatments and steroids are restarted hold Tappering of steriod Pulmonologigst following. - Heart Failure with preserved EF of 55-60% Commence ACEI, hold BB b/c acute of chronic respr failure, continue statin and gentle diuresis with strick Is and Os Cardiology consulted - Cor Pulm Continue with Hydrallazine and gently diuresis - Cjhronic back pain from spina stenosis continue with narcotic -Debility of senility continue with PT - COPD exacerbation Continue aerosol treatment and steroids and O2 supplementation. IV antibiotics Weaned pt from High flow oxygen to NC and maintaining a saturation of > 88 on 5 liters - Type 2 diabetes mellitus without complications We will hold metformin and start patient on sliding scale coverage with regular insulin with parameters. - Essential (primary) hypertension Holding her current blood pressure medications and continue blood pressure monitoring until the patient is hemodynamically stable - DVT prophylaxis with Lovenox and GI with Pepcid - Disposition: continue to wean off high flow oxygen and transfer to SNF once insurance approves and pt is stable. She had been earlier denied by her insurance for transfer to SNF with Physical therapy as she has a history of frequent fall. Denial has been appealed Time spent: 33 mins Subjective Date of service: 01/23/19 Principal diagnosis: sepsis, exacerbation of COPD, acute on chronic respiratory failure Interval history: Pt seen and examined. Still having shortness of breath though better. C/o back pain. Objective - Exam Narrative Exam: Constitutional: Well-nourished well-developed. Lying quietly in bed. Alert and interactive, c/o back pain on high flow oxygen. Head: Normocephalic atraumatic Eyes: Pupils are equal round and reactive to light Nose: No enlarged turbinates, no septal deviation. On high flow oxygen via NC Mouth: Moist mucous membranes. Neck: Supple no thyromegaly. No bruit. No JVD Heart: Regular rate and rhythm, S1-S2 normal. No rubs murmurs or gallop Lungs: Decreased breath sounds on auscultation bilaterally. Abdomen: Soft, nontender. Bowel sound are present. Extremities: No edema, no cyanosis, no clubbing. Neuro: Alert oriented Oriented x3. No focal sensory or motor deficit. Skin: No rashes or hyperpigmented spots Musculoskeletal system: No joint pain or swelling.unstable gait and has had frequent falls prior to admission because her legs give way. Hematological: No petechia or subcutanous hemorrhages. Immunological: No multiple septic spots on the skin Lymphatic: No generalized lymphadenopathy Psychiatry: Euthymic. Calm. - Constitutional Vitals: Vital Signs - 12hr 01/23/19 01/23/19 01/23/19 08:51 09:59 10:00 Temperature Pulse Rate 56 L 56 L Pulse Rate [ Anterior Bilateral] Pulse Rate [ 55 L From Monitor] Respiratory 18 Rate Respiratory Rate [Anterior Bilateral] Blood Pressure 121/51 121/51 O2 Sat by Pulse 89 Oximetry 01/23/19 01/23/19 01/23/19 13:25 14:48 15:15 Temperature 99.6 F Pulse Rate 79 Pulse Rate [ 61 Anterior Bilateral] Pulse Rate [ From Monitor] Respiratory 20 Rate Respiratory 20 Rate [Anterior Bilateral] Blood Pressure 122/42 O2 Sat by Pulse 89 91 Oximetry 01/23/19 01/23/19 19:28 20:09 Temperature 98.6 F Pulse Rate 58 L Pulse Rate [ 66 Anterior Bilateral] Pulse Rate [ From Monitor] Respiratory 20 Rate Respiratory 24 Rate [Anterior Bilateral] Blood Pressure 134/46 O2 Sat by Pulse 95 Oximetry - Labs CBC & Chem 7: 01/23/19 15:19 01/21/19 03:53 Labs: Abnormal lab results 01/22/19 01/23/19 01/23/19 Range/Units 21:53 07:37 11:35 WBC (4.5-11.0) K/mm3 RBC (3.65-5.03) M/mm3 Hgb (10.1-14.3) gm/dl Hct (30.3-42.9) % MCH (28-32) pg RDW (13.2-15.2) % Seg Neuts % (Manual) (40.0-70.0) % Lymphocytes % (Manual) (13.4-35.0) % Seg Neutrophils # Man (1.8-7.7) K/mm3 Lymphocytes # (Manual) (1.2-5.4) K/mm3 POC Glucose 326 H 359 H 405 H (70-105) 01/23/19 01/23/19 Range/Units 15:19 16:52 WBC 13.7 H (4.5-11.0) K/mm3 RBC 2.66 L (3.65-5.03) M/mm3 Hgb 7.2 L (10.1-14.3) gm/dl Hct 23.2 L (30.3-42.9) % MCH 27 L (28-32) pg RDW 15.8 H (13.2-15.2) % Seg Neuts % (Manual) 91.0 H (40.0-70.0) % Lymphocytes % (Manual) 4.0 L (13.4-35.0) % Seg Neutrophils # Man 12.5 H (1.8-7.7) K/mm3 Lymphocytes # (Manual) 0.5 L (1.2-5.4) K/mm3 POC Glucose 381 H (70-105)
[2019-01-24] MEDS: GABAPENTIN 400 MG CAP PO SCH ×4 (00:07→23:15)
[2019-01-24] MEDS: VANCOMYCIN 1,250 MG in SODIUM CHLORIDE 0.9% 250ML 250 ML IV SCH (00:07)
[2019-01-24] MEDS: methylPREDNISolone Sod Succinate 125 MG/2 ML INJ IV SCH ×5 (00:07→23:43)
[2019-01-24] MEDS: INSULIN LISPRO 100 UNIT/ML SUB-Q SCH ×5 (00:08→23:17)
[2019-01-24] MEDS: INSULIN GLARGINE 100 UNITS/ML SUB-Q SCH ×2 (00:08→23:18)
[2019-01-24] MEDS: hydrALAZINE 100 MG TAB PO SCH ×4 (00:09→23:16)
[2019-01-24] MEDS: DONEPEZIL 10 MG TAB PO SCH ×2 (00:09→23:17)
[2019-01-24] MEDS: CLOTRIMAZOLE/BETAMETHASONE CREAM 15 GM TP SCH ×2 (00:09→10:04)
[2019-01-24] MEDS: LISINOPRIL 40 MG TAB PO SCH ×3 (00:10→23:19)
[2019-01-24] MEDS: ACETAMINOPHEN 325 MG TAB PO PRN ×2 (02:37→09:43)
[2019-01-24] MEDS: SODIUM CHLORIDE 0.9% 1000 ML 1,000 ML IV SCH ×2 (02:43→18:18)
[2019-01-24] MEDS: IPRATROPIUM/ALBUTEROL SULFATE 3 ML AMPUL.NEB IH SCH ×4 (02:45→20:48)
[2019-01-24] MEDS: LEVOTHYROXINE 88 MCG TAB PO SCH (05:06)
[2019-01-24] MEDS: HYDROcodone/ACETAMINOPHEN 5-325 MG TAB PO PRN ×2 (05:06→18:15)
[2019-01-24] MEDS: FUROSEMIDE 20 MG TAB PO SCH (05:06)
[2019-01-24] MEDS: ASPIRIN 81 MG TAB CHEW PO SCH (09:44)
[2019-01-24] MEDS: TRELEGY PO SCH (09:46)
[2019-01-24] MEDS: FLUoxetine 20 MG CAP PO SCH (09:46)
[2019-01-24] MEDS: VANCOMYCIN 1,500 MG in SODIUM CHLORIDE 0.9% 500 ML 500 ML IV SCH ×2 (09:48→23:19)
[2019-01-24] MEDS: amLODIPine 10 MG TAB PO SCH (09:57)
[2019-01-24] MEDS: ARIPiprazole 10 MG TAB PO SCH (10:04)
--- NOTE | 2019-01-24 12:01 | Progress Note ---
Assessment and Plan 68 y/o female with acute respiratory failure secondary to COPD exacerbation now with staph bacteremia and acute on chronic respiratory failure. Continue to wean oxygen for sats >88% ID now following. Continue home trelegy Increased steroids back to 60q6 and continue for now. This patient has significant COPD, given her increase oxygen requirement and sepsis, suggest looking into LTACH. Will need CM consult for help with this. Subjective Date of service: 01/24/19 Principal diagnosis: sepsis, exacerbation of COPD, acute on chronic respiratory failure Interval history: Remains on HFNC at 30LPM and 100%. Last documented sat was 91% on 75 based on RT note. Objective Vital Signs - 12hr 01/24/19 01/24/19 01/24/19 00:20 02:29 02:45 Temperature 98.0 F Pulse Rate 68 79 Pulse Rate [ 68 Anterior Bilateral] Pulse Rate [ From Monitor] Respiratory 19 20 Rate Respiratory 21 Rate [Anterior Bilateral] Blood Pressure Blood Pressure 140/77 [Right] O2 Sat by Pulse 96 94 Oximetry 01/24/19 01/24/19 01/24/19 03:05 07:09 08:03 Temperature 98.0 F Pulse Rate 66 69 71 Pulse Rate [ 73 Anterior Bilateral] Pulse Rate [ From Monitor] Respiratory 26 H 20 23 Rate Respiratory 20 Rate [Anterior Bilateral] Blood Pressure 108/72 Blood Pressure [Right] O2 Sat by Pulse 94 92 91 Oximetry 01/24/19 01/24/19 09:57 10:00 Temperature Pulse Rate 81 Pulse Rate [ Anterior Bilateral] Pulse Rate [ 70 From Monitor] Respiratory 20 Rate Respiratory Rate [Anterior Bilateral] Blood Pressure 114/59 Blood Pressure [Right] O2 Sat by Pulse Oximetry Constitutional: alert (mild distress on hi yolanda 50%), other Eyes: non-icteric ENT: oropharynx moist, other (adentulous) Neck: supple Effort: normal Ascultation: Bilateral: diminished breath sounds, wheezes, rhonchi Tactile fremitus: Bilateral: normal Cardiovascular: regular rate and rhythm Gastrointestinal: normoactive bowel sounds, soft, non-tender, non-distended Integumentary: normal Extremities: no cyanosis, no edema Neurologic: normal mental status, non-focal exam Psychiatric: mood appropriate, affect normal CBC and BMP: 01/23/19 15:19 01/21/19 03:53 ABG, PT/INR, D-dimer: ABG POC ABG pH 7.424 (7.35-7.45) 01/22/19 17:34 POC ABG pCO2 52.6 (35-45) H 01/22/19 17:34 POC ABG pO2 57 (80-105) L 01/22/19 17:34 POC ABG HCO3 34.5 (22-26 mml/L) 01/22/19 17:34 POC ABG Total CO2 36 (23-27mmol/L) 01/22/19 17:34 POC ABG O2 Sat 89 01/22/19 17:34 PT/INR, D-dimer PT 16.1 Sec. (12.2-14.9) H 01/21/19 03:53 INR 1.31 (0.87-1.13) H 01/21/19 03:53 Abnormal lab findings: Abnormal Labs 01/08/19 01/08/19 01/08/19 14:39 14:39 16:55 WBC RBC 3.17 L Hgb 9.0 L Hct 28.4 L MCH RDW 15.9 H Lymph % (Auto) [place] % (Auto) 7.8 H Lymph # Seg Neutrophils % 71.9 H Seg Neuts % (Manual) Lymphocytes % (Manual) Seg Neutrophils # Man Lymphocytes # (Manual) Monocytes # (Manual) PT INR POC ABG pH POC ABG pCO2 POC ABG pO2 Sodium Potassium Chloride Carbon Dioxide BUN Creatinine Glucose 140 H POC Glucose Lactic Acid 2.90 H* Calcium Magnesium NT-Pro-B Natriuret Pep Albumin 3.7 L Vancomycin Trough 01/08/19 01/08/19 01/08/19 19:34 21:15 23:37 WBC RBC Hgb Hct MCH RDW Lymph % (Auto) [place] % (Auto) Lymph # Seg Neutrophils % Seg Neuts % (Manual) Lymphocytes % (Manual) Seg Neutrophils # Man Lymphocytes # (Manual) Monocytes # (Manual) PT INR POC ABG pH POC ABG pCO2 POC ABG pO2 Sodium Potassium Chloride Carbon Dioxide BUN Creatinine Glucose POC Glucose 224 H Lactic Acid 3.50 H* 3.80 H* Calcium Magnesium NT-Pro-B Natriuret Pep Albumin Vancomycin Trough 01/09/19 01/09/19 01/09/19 04:52 04:52 05:23 WBC RBC 3.12 L Hgb 8.7 L Hct 28.4 L MCH RDW 16.2 H Lymph % (Auto) [place] % (Auto) Lymph # Seg Neutrophils % Seg Neuts % (Manual) 95.0 H Lymphocytes % (Manual) 4.0 L Seg Neutrophils # Man 8.9 H Lymphocytes # (Manual) 0.4 L Monocytes # (Manual) PT INR POC ABG pH 7.278 L POC ABG pCO2 67.9 H POC ABG pO2 73 L Sodium Potassium Chloride Carbon Dioxide BUN 19 H Creatinine Glucose 173 H POC Glucose Lactic Acid Calcium Magnesium NT-Pro-B Natriuret Pep Albumin 3.8 L Vancomycin Trough 01/09/19 01/09/19 01/09/19 05:37 12:01 18:10 WBC RBC Hgb Hct MCH RDW Lymph % (Auto) [place] % (Auto) Lymph # Seg Neutrophils % Seg Neuts % (Manual) Lymphocytes % (Manual) Seg Neutrophils # Man Lymphocytes # (Manual) Monocytes # (Manual) PT INR POC ABG pH POC ABG pCO2 POC ABG pO2 Sodium Potassium Chloride Carbon Dioxide BUN Creatinine Glucose POC Glucose 177 H 186 H 257 H Lactic Acid Calcium Magnesium NT-Pro-B Natriuret Pep Albumin Vancomycin Trough 01/09/19 01/10/19 01/10/19 23:13 08:02 10:09 WBC 14.0 H RBC 2.97 L Hgb 8.2 L Hct 27.0 L MCH RDW 16.4 H Lymph % (Auto) [place] % (Auto) Lymph # Seg Neutrophils % Seg Neuts % (Manual) 95.0 H Lymphocytes % (Manual) 5.0 L Seg Neutrophils # Man 13.3 H Lymphocytes # (Manual) 0.7 L Monocytes # (Manual) PT INR POC ABG pH POC ABG pCO2 POC ABG pO2 Sodium Potassium Chloride Carbon Dioxide BUN Creatinine Glucose POC Glucose 187 H 185 H Lactic Acid Calcium Magnesium NT-Pro-B Natriuret Pep Albumin Vancomycin Trough 01/10/19 01/10/19 01/10/19 10:09 10:09 12:25 WBC RBC Hgb Hct MCH RDW Lymph % (Auto) [place] % (Auto) Lymph # Seg Neutrophils % Seg Neuts % (Manual) Lymphocytes % (Manual) Seg Neutrophils # Man Lymphocytes # (Manual) Monocytes # (Manual) PT INR POC ABG pH POC ABG pCO2 POC ABG pO2 Sodium Potassium Chloride Carbon Dioxide BUN 18 H Creatinine 0.6 L Glucose 251 H POC Glucose 216 H Lactic Acid 2.10 H* Calcium Magnesium NT-Pro-B Natriuret Pep Albumin 3.5 L Vancomycin Trough 01/10/19 01/10/19 01/11/19 16:27 21:44 07:27 WBC RBC Hgb Hct MCH RDW Lymph % (Auto) [place] % (Auto) Lymph # Seg Neutrophils % Seg Neuts % (Manual) Lymphocytes % (Manual) Seg Neutrophils # Man Lymphocytes # (Manual) Monocytes # (Manual) PT INR POC ABG pH POC ABG pCO2 POC ABG pO2 Sodium Potassium Chloride Carbon Dioxide BUN Creatinine Glucose POC Glucose 160 H 210 H 191 H Lactic Acid Calcium Magnesium NT-Pro-B Natriuret Pep Albumin Vancomycin Trough 01/11/19 01/11/19 01/11/19 07:57 07:57 11:16 WBC 12.2 H RBC 2.96 L Hgb 8.1 L Hct 26.9 L MCH 27 L RDW 16.3 H Lymph % (Auto) [place] % (Auto) Lymph # Seg Neutrophils % Seg Neuts % (Manual) 90.0 H Lymphocytes % (Manual) 7.0 L Seg Neutrophils # Man 11.0 H Lymphocytes # (Manual) 0.9 L Monocytes # (Manual) PT INR POC ABG pH POC ABG pCO2 POC ABG pO2 Sodium 147 H Potassium Chloride Carbon Dioxide 31 H BUN 21 H Creatinine 0.6 L Glucose 190 H POC Glucose 177 H Lactic Acid Calcium Magnesium NT-Pro-B Natriuret Pep Albumin Vancomycin Trough 01/11/19 01/11/19 01/11/19 16:03 16:27 22:23 WBC RBC Hgb Hct MCH RDW Lymph % (Auto) [place] % (Auto) Lymph # Seg Neutrophils % Seg Neuts % (Manual) Lymphocytes % (Manual) Seg Neutrophils # Man Lymphocytes # (Manual) Monocytes # (Manual) PT INR POC ABG pH POC ABG pCO2 POC ABG pO2 Sodium Potassium Chloride Carbon Dioxide BUN Creatinine Glucose POC Glucose 217 H 243 H Lactic Acid Calcium Magnesium NT-Pro-B Natriuret Pep 2547 H Albumin Vancomycin Trough 01/12/19 01/12/19 01/12/19 05:34 05:34 07:22 WBC RBC 3.11 L Hgb 8.6 L Hct 27.4 L MCH RDW 15.6 H Lymph % (Auto) 7.0 L [place] % (Auto) Lymph # 0.6 L Seg Neutrophils % 87.5 H Seg Neuts % (Manual) Lymphocytes % (Manual) Seg Neutrophils # Man Lymphocytes # (Manual) Monocytes # (Manual) PT INR POC ABG pH POC ABG pCO2 POC ABG pO2 Sodium 146 H Potassium 3.5 L D Chloride 95.9 L Carbon Dioxide 35 H BUN Creatinine 0.6 L Glucose 248 H POC Glucose 249 H Lactic Acid Calcium Magnesium NT-Pro-B Natriuret Pep Albumin Vancomycin Trough 01/12/19 01/12/19 01/12/19 11:35 16:21 22:07 WBC RBC Hgb Hct MCH RDW Lymph % (Auto) [place] % (Auto) Lymph # Seg Neutrophils % Seg Neuts % (Manual) Lymphocytes % (Manual) Seg Neutrophils # Man Lymphocytes # (Manual) Monocytes # (Manual) PT INR POC ABG pH POC ABG pCO2 POC ABG pO2 Sodium Potassium Chloride Carbon Dioxide BUN Creatinine Glucose POC Glucose 190 H 268 H 263 H Lactic Acid Calcium Magnesium NT-Pro-B Natriuret Pep Albumin Vancomycin Trough 01/13/19 01/13/19 01/13/19 05:07 05:07 07:31 WBC RBC 3.32 L Hgb 9.2 L Hct 29.3 L MCH RDW 15.3 H Lymph % (Auto) [place] % (Auto) 9.8 H Lymph # Seg Neutrophils % 74.8 H Seg Neuts % (Manual) Lymphocytes % (Manual) Seg Neutrophils # Man Lymphocytes # (Manual) Monocytes # (Manual) PT INR POC ABG pH POC ABG pCO2 POC ABG pO2 Sodium Potassium Chloride 97.9 L Carbon Dioxide 37 H BUN Creatinine 0.5 L Glucose 165 H POC Glucose 147 H Lactic Acid Calcium Magnesium NT-Pro-B Natriuret Pep Albumin 3.6 L Vancomycin Trough 01/13/19 01/13/19 01/13/19 12:37 16:51 21:25 WBC RBC Hgb Hct MCH RDW Lymph % (Auto) [place] % (Auto) Lymph # Seg Neutrophils % Seg Neuts % (Manual) Lymphocytes % (Manual) Seg Neutrophils # Man Lymphocytes # (Manual) Monocytes # (Manual) PT INR POC ABG pH POC ABG pCO2 POC ABG pO2 Sodium Potassium Chloride Carbon Dioxide BUN Creatinine Glucose POC Glucose 301 H 149 H 318 H Lactic Acid Calcium Magnesium NT-Pro-B Natriuret Pep Albumin Vancomycin Trough 01/14/19 01/14/19 01/14/19 04:02 04:02 07:34 WBC RBC 3.50 L Hgb 9.7 L Hct MCH RDW 15.5 H Lymph % (Auto) [place] % (Auto) Lymph # Seg Neutrophils % Seg Neuts % (Manual) 94.0 H Lymphocytes % (Manual) 3.0 L Seg Neutrophils # Man 8.1 H Lymphocytes # (Manual) 0.3 L Monocytes # (Manual) PT INR POC ABG pH POC ABG pCO2 POC ABG pO2 Sodium Potassium Chloride 97.0 L Carbon Dioxide 34 H BUN 18 H Creatinine 0.6 L Glucose 287 H POC Glucose 266 H Lactic Acid Calcium Magnesium NT-Pro-B Natriuret Pep Albumin 3.8 L Vancomycin Trough 01/14/19 01/14/19 01/14/19 11:28 16:40 22:08 WBC RBC Hgb Hct MCH RDW Lymph % (Auto) [place] % (Auto) Lymph # Seg Neutrophils % Seg Neuts % (Manual) Lymphocytes % (Manual) Seg Neutrophils # Man Lymphocytes # (Manual) Monocytes # (Manual) PT INR POC ABG pH POC ABG pCO2 POC ABG pO2 Sodium Potassium Chloride Carbon Dioxide BUN Creatinine Glucose POC Glucose 396 H 272 H 315 H Lactic Acid Calcium Magnesium NT-Pro-B Natriuret Pep Albumin Vancomycin Trough 01/15/19 01/15/19 01/15/19 07:38 08:31 08:31 WBC 11.3 H RBC 3.48 L Hgb 9.4 L Hct MCH 27 L RDW 15.4 H Lymph % (Auto) [place] % (Auto) Lymph # Seg Neutrophils % Seg Neuts % (Manual) 98.0 H Lymphocytes % (Manual) 0 L Seg Neutrophils # Man 11.1 H Lymphocytes # (Manual) 0.0 L Monocytes # (Manual) PT INR POC ABG pH POC ABG pCO2 POC ABG pO2 Sodium Potassium Chloride 96.0 L Carbon Dioxide 33 H BUN 18 H Creatinine 0.6 L Glucose 371 H POC Glucose 321 H Lactic Acid Calcium Magnesium NT-Pro-B Natriuret Pep Albumin 3.7 L Vancomycin Trough 01/15/19 01/15/19 01/15/19 11:13 16:13 22:38 WBC RBC Hgb Hct MCH RDW Lymph % (Auto) [place] % (Auto) Lymph # Seg Neutrophils % Seg Neuts % (Manual) Lymphocytes % (Manual) Seg Neutrophils # Man Lymphocytes # (Manual) Monocytes # (Manual) PT INR POC ABG pH POC ABG pCO2 POC ABG pO2 Sodium Potassium Chloride Carbon Dioxide BUN Creatinine Glucose POC Glucose 353 H 150 H 404 H Lactic Acid Calcium Magnesium NT-Pro-B Natriuret Pep Albumin Vancomycin Trough 01/16/19 01/16/19 01/16/19 07:36 12:09 16:12 WBC RBC Hgb Hct MCH RDW Lymph % (Auto) [place] % (Auto) Lymph # Seg Neutrophils % Seg Neuts % (Manual) Lymphocytes % (Manual) Seg Neutrophils # Man Lymphocytes # (Manual) Monocytes # (Manual) PT INR POC ABG pH POC ABG pCO2 POC ABG pO2 Sodium Potassium Chloride Carbon Dioxide BUN Creatinine Glucose POC Glucose 317 H 351 H 293 H Lactic Acid Calcium Magnesium NT-Pro-B Natriuret Pep Albumin Vancomycin Trough 01/16/19 01/17/19 01/17/19 22:04 07:22 11:29 WBC RBC Hgb Hct MCH RDW Lymph % (Auto) [place] % (Auto) Lymph # Seg Neutrophils % Seg Neuts % (Manual) Lymphocytes % (Manual) Seg Neutrophils # Man Lymphocytes # (Manual) Monocytes # (Manual) PT INR POC ABG pH POC ABG pCO2 POC ABG pO2 Sodium Potassium Chloride Carbon Dioxide BUN Creatinine Glucose POC Glucose 382 H 356 H 376 H Lactic Acid Calcium Magnesium NT-Pro-B Natriuret Pep Albumin Vancomycin Trough 01/17/19 01/17/19 01/18/19 17:30 21:09 04:09 WBC 13.6 H RBC 3.55 L Hgb 9.6 L Hct MCH 27 L RDW 15.6 H Lymph % (Auto) [place] % (Auto) Lymph # Seg Neutrophils % Seg Neuts % (Manual) 99.0 H Lymphocytes % (Manual) 1.0 L Seg Neutrophils # Man 13.5 H Lymphocytes # (Manual) 0.1 L Monocytes # (Manual) PT INR POC ABG pH POC ABG pCO2 POC ABG pO2 Sodium Potassium Chloride Carbon Dioxide BUN Creatinine Glucose POC Glucose 409 H 404 H Lactic Acid Calcium Magnesium NT-Pro-B Natriuret Pep Albumin Vancomycin Trough 01/18/19 01/18/19 01/18/19 04:09 07:42 11:30 WBC RBC Hgb Hct MCH RDW Lymph % (Auto) [place] % (Auto) Lymph # Seg Neutrophils % Seg Neuts % (Manual) Lymphocytes % (Manual) Seg Neutrophils # Man Lymphocytes # (Manual) Monocytes # (Manual) PT INR POC ABG pH POC ABG pCO2 POC ABG pO2 Sodium Potassium Chloride 94.2 L Carbon Dioxide 33 H BUN 22 H Creatinine Glucose 355 H POC Glucose 390 H 387 H Lactic Acid Calcium Magnesium NT-Pro-B Natriuret Pep Albumin 3.5 L Vancomycin Trough 01/18/19 01/18/19 01/19/19 17:01 22:28 07:29 WBC RBC Hgb Hct MCH RDW Lymph % (Auto) [place] % (Auto) Lymph # Seg Neutrophils % Seg Neuts % (Manual) Lymphocytes % (Manual) Seg Neutrophils # Man Lymphocytes # (Manual) Monocytes # (Manual) PT INR POC ABG pH POC ABG pCO2 POC ABG pO2 Sodium Potassium Chloride Carbon Dioxide BUN Creatinine Glucose POC Glucose 378 H 363 H 371 H Lactic Acid Calcium Magnesium NT-Pro-B Natriuret Pep Albumin Vancomycin Trough 01/19/19 01/19/19 01/19/19 11:16 16:13 22:02 WBC RBC Hgb Hct MCH RDW Lymph % (Auto) [place] % (Auto) Lymph # Seg Neutrophils % Seg Neuts % (Manual) Lymphocytes % (Manual) Seg Neutrophils # Man Lymphocytes # (Manual) Monocytes # (Manual) PT INR POC ABG pH POC ABG pCO2 POC ABG pO2 Sodium Potassium Chloride Carbon Dioxide BUN Creatinine Glucose POC Glucose 365 H 341 H 416 H Lactic Acid Calcium Magnesium NT-Pro-B Natriuret Pep Albumin Vancomycin Trough 01/20/19 01/20/19 01/20/19 07:37 10:05 10:15 WBC 44.1 H* RBC 3.15 L Hgb 8.4 L Hct 27.7 L MCH 27 L RDW 15.9 H Lymph % (Auto) [place] % (Auto) Lymph # Seg Neutrophils % Seg Neuts % (Manual) 96.0 H Lymphocytes % (Manual) 2.0 L Seg Neutrophils # Man 42.3 H Lymphocytes # (Manual) 0.9 L Monocytes # (Manual) 0.9 H PT INR POC ABG pH POC ABG pCO2 POC ABG pO2 Sodium Potassium Chloride 95.5 L Carbon Dioxide BUN 40 H Creatinine 1.3 H D Glucose 365 H POC Glucose 377 H Lactic Acid Calcium 8.0 L Magnesium NT-Pro-B Natriuret Pep Albumin Vancomycin Trough 01/20/19 01/20/19 01/20/19 11:12 16:05 23:22 WBC RBC Hgb Hct MCH RDW Lymph % (Auto) [place] % (Auto) Lymph # Seg Neutrophils % Seg Neuts % (Manual) Lymphocytes % (Manual) Seg Neutrophils # Man Lymphocytes # (Manual) Monocytes # (Manual) PT INR POC ABG pH POC ABG pCO2 POC ABG pO2 Sodium Potassium Chloride Carbon Dioxide BUN Creatinine Glucose POC Glucose 336 H 269 H 280 H Lactic Acid Calcium Magnesium NT-Pro-B Natriuret Pep Albumin Vancomycin Trough 01/21/19 01/21/19 01/21/19 03:53 03:53 03:53 WBC 27.1 H RBC 3.28 L Hgb 9.0 L Hct 29.1 L MCH 27 L RDW 15.9 H Lymph % (Auto) [place] % (Auto) Lymph # Seg Neutrophils % Seg Neuts % (Manual) 93.0 H Lymphocytes % (Manual) 1.0 L Seg Neutrophils # Man 25.2 H Lymphocytes # (Manual) 0.3 L Monocytes # (Manual) PT 16.1 H INR 1.31 H POC ABG pH POC ABG pCO2 POC ABG pO2 Sodium Potassium Chloride 93.7 L Carbon Dioxide 33 H BUN 34 H Creatinine Glucose 166 H POC Glucose Lactic Acid Calcium 8.3 L Magnesium 2.50 H NT-Pro-B Natriuret Pep Albumin 3.1 L Vancomycin Trough 01/21/19 01/21/19 01/21/19 07:30 11:23 16:19 WBC RBC Hgb Hct MCH RDW Lymph % (Auto) [place] % (Auto) Lymph # Seg Neutrophils % Seg Neuts % (Manual) Lymphocytes % (Manual) Seg Neutrophils # Man Lymphocytes # (Manual) Monocytes # (Manual) PT INR POC ABG pH POC ABG pCO2 POC ABG pO2 Sodium Potassium Chloride Carbon Dioxide BUN Creatinine Glucose POC Glucose 257 H 358 H 267 H Lactic Acid Calcium Magnesium NT-Pro-B Natriuret Pep Albumin Vancomycin Trough 01/21/19 01/21/19 01/22/19 16:46 23:10 07:51 WBC 20.4 H RBC 2.97 L Hgb 8.0 L Hct 25.9 L MCH 27 L RDW 15.8 H Lymph % (Auto) [place] % (Auto) Lymph # Seg Neutrophils % Seg Neuts % (Manual) 98.0 H Lymphocytes % (Manual) 1.0 L Seg Neutrophils # Man 20.0 H Lymphocytes # (Manual) 0.2 L Monocytes # (Manual) PT INR POC ABG pH POC ABG pCO2 POC ABG pO2 Sodium Potassium Chloride Carbon Dioxide BUN Creatinine Glucose POC Glucose 443 H 420 H Lactic Acid Calcium Magnesium NT-Pro-B Natriuret Pep Albumin Vancomycin Trough 01/22/19 01/22/19 01/22/19 12:25 16:38 17:23 WBC 17.3 H RBC 2.72 L Hgb 7.4 L Hct 23.7 L MCH 27 L RDW 15.8 H Lymph % (Auto) [place] % (Auto) Lymph # Seg Neutrophils % Seg Neuts % (Manual) 98.0 H Lymphocytes % (Manual) 1.0 L Seg Neutrophils # Man 17.0 H Lymphocytes # (Manual) 0.2 L Monocytes # (Manual) PT INR POC ABG pH POC ABG pCO2 POC ABG pO2 Sodium Potassium Chloride Carbon Dioxide BUN Creatinine Glucose POC Glucose 339 H 269 H Lactic Acid Calcium Magnesium NT-Pro-B Natriuret Pep Albumin Vancomycin Trough 01/22/19 01/22/19 01/23/19 17:34 21:53 07:37 WBC RBC Hgb Hct MCH RDW Lymph % (Auto) [place] % (Auto) Lymph # Seg Neutrophils % Seg Neuts % (Manual) Lymphocytes % (Manual) Seg Neutrophils # Man Lymphocytes # (Manual) Monocytes # (Manual) PT INR POC ABG pH POC ABG pCO2 52.6 H POC ABG pO2 57 L Sodium Potassium Chloride Carbon Dioxide BUN Creatinine Glucose POC Glucose 326 H 359 H Lactic Acid Calcium Magnesium NT-Pro-B Natriuret Pep Albumin Vancomycin Trough 01/23/19 01/23/19 01/23/19 11:35 15:19 16:52 WBC 13.7 H RBC 2.66 L Hgb 7.2 L Hct 23.2 L MCH 27 L RDW 15.8 H Lymph % (Auto) [place] % (Auto) Lymph # Seg Neutrophils % Seg Neuts % (Manual) 91.0 H Lymphocytes % (Manual) 4.0 L Seg Neutrophils # Man 12.5 H Lymphocytes # (Manual) 0.5 L Monocytes # (Manual) PT INR POC ABG pH POC ABG pCO2 POC ABG pO2 Sodium Potassium Chloride Carbon Dioxide BUN Creatinine Glucose POC Glucose 405 H 381 H Lactic Acid Calcium Magnesium NT-Pro-B Natriuret Pep Albumin Vancomycin Trough 01/23/19 01/23/1901/24/19 20:07 21:24 07:28 WBC RBC Hgb Hct MCH RDW Lymph % (Auto) [place] % (Auto) Lymph # Seg Neutrophils % Seg Neuts % (Manual) Lymphocytes % (Manual) Seg Neutrophils # Man Lymphocytes # (Manual) Monocytes # (Manual) PT INR POC ABG pH POC ABG pCO2 POC ABG pO2 Sodium Potassium Chloride Carbon Dioxide BUN Creatinine Glucose POC Glucose 288 H 288 H Lactic Acid Calcium Magnesium NT-Pro-B Natriuret Pep Albumin Vancomycin Trough 4.0 L 01/24/19 11:49 WBC RBC Hgb Hct MCH RDW Lymph % (Auto) [place] % (Auto) Lymph # Seg Neutrophils % Seg Neuts % (Manual) Lymphocytes % (Manual) Seg Neutrophils # Man Lymphocytes # (Manual) Monocytes # (Manual) PT INR POC ABG pH POC ABG pCO2 POC ABG pO2 Sodium Potassium Chloride Carbon Dioxide BUN Creatinine Glucose POC Glucose 327 H Lactic Acid Calcium Magnesium NT-Pro-B Natriuret Pep Albumin Vancomycin Trough
--- NOTE | 2019-01-24 13:34 | Progress Note ---
Assessment and Plan Cultures: 01/08/2019 blood culture: No growth 01/08/2019 urine culture: No growth 01/20/2019 blood culture: MRSA 4/4 01/22/19 blood culture: MRSA 03/24 A/P: 68-year-old female with COPD, hypertension, diabetes, acute hypoxic respiratory failure on home oxygen, was [facility], returned back to the hospital in ~2 days with respiratory d istress. Accordingly to her family member at bedside, patient had not been receiving her inhalers. Initially, patient was noted to have high PCO2, hypotension, requiring fluids and low-dose pressors: 1) Hypotension, possibly secondary to acute hypercapneic respiratory failure, acidosis: pulm following. No bacteremia, no fever, no initial leucocytosis, no UTI, no pneumonia on CXR. Leucocytosis now is likely from steroids. Sepsis seems unlikely. Procalcitonin is low (<0.05) and pro-BNP is high suggestive of possible CHF. Resolved 2) Diarrhea: possibly overflow from constipation and impaction. Per RN, patient passed a hard chunk of stool. Resolved. 3) Acute sepsis - now present with fevers and leukocytosis. Secondary to Staph bacteremia 4) Staph aureus bacteremia - pending MICs. Agree with vancomycin. Unclear etiology. She complained of an abdominal rash, however it was not visible to me. Recs: - continue vancomycin dosed per pharmacy. Goal trough 15-20 - repeat blood cultures ordered for AM - If repeat cultures still positive would get LUCY as aortic valve poorly visualized. Thank you for the consultation, will follow. Meghan Mims MD [facility] M: [phone] O: [phone] F: [phone] Subjective Date of service: 01/24/19 Principal diagnosis: sepsis, exacerbation of COPD, acute on chronic respiratory failure Interval history: Improved WBC and afebrile now. Cultures still positive for MRSA. Objective - Exam Narrative Exam: Constitutional: Alert, cooperative. No acute distress Head, Ears, Nose: Normocephalic, atraumatic. External ears, nose normal Eyes: Conjunctivae/corneas clear. No icterus. No ptosis. Neck: Supple, no meningeal signs Oral: edentulous, no thrush Cardiovascular: S1, S2 normal Respiratory: clear b/l GI: Soft, non-tender; bowel sounds normal. No peritoneal signs Musculoskeletal: No pedal edema, no cyanosis. Skin: No rash or abscess Hem/Lymphatic: No palpable cervical or supraclavicular nodes. No lymphangitis Psych: no agitation, flat affect Neurological: Awake, alert - Constitutional Vitals: Vital Signs Temp Pulse Resp BP Pulse Ox 98.0 F 70 20 114/59 91 01/24/19 07:09 01/24/19 10:00 01/24/19 10:00 01/24/19 09:57 01/24/19 08:03 Temperature -Last 24 Hours Temperature 98.0 F Temperature 98.0 F Temperature 98.6 F - Labs CBC & Chem 7: 01/23/19 15:19 01/21/19 03:53 Labs: Abnormal lab results 01/23/19 01/23/19 01/23/19 Range/Units 15:19 16:52 20:07 WBC 13.7 H (4.5-11.0) K/mm3 RBC 2.66 L (3.65-5.03) M/mm3 Hgb 7.2 L (10.1-14.3) gm/dl Hct 23.2 L (30.3-42.9) % MCH 27 L (28-32) pg RDW 15.8 H (13.2-15.2) % Seg Neuts % (Manual) 91.0 H (40.0-70.0) % Lymphocytes % (Manual) 4.0 L (13.4-35.0) % Seg Neutrophils # Man 12.5 H (1.8-7.7) K/mm3 Lymphocytes # (Manual) 0.5 L (1.2-5.4) K/mm3 POC Glucose 381 H (70-105) Vancomycin Trough 4.0 L (5.0-20.0) ug/mL 01/23/19 01/24/19 01/24/19 Range/Units 21:24 07:28 11:49 WBC (4.5-11.0) K/mm3 RBC (3.65-5.03) M/mm3 Hgb (10.1-14.3) gm/dl Hct (30.3-42.9) % MCH (28-32) pg RDW (13.2-15.2) % Seg Neuts % (Manual) (40.0-70.0) % Lymphocytes % (Manual) (13.4-35.0) % Seg Neutrophils # Man (1.8-7.7) K/mm3 Lymphocytes # (Manual) (1.2-5.4) K/mm3 POC Glucose 288 H 288 H 327 H (70-105) Vancomycin Trough (5.0-20.0) ug/mL
--- NOTE | 2019-01-24 14:15 | Progress Note ---
Assessment and Plan Patient seen and examined medical records from the emergency department reviewed. 68-year-old female patient admitted to the emergency department for worsening shortness of breath as well as cough generalized body pain and weakness. The patient was admitteed to [facility] and has been on treatment there but her breathing got progressively worse over the past 24 Hours and was thus referred back to the ER for further evaluation and treatment . Patient has history of COPD on home oxygen, hypertension on therapy diabetes and has had multiple hospitalizations over the last year on account of recurrence of COPD exacerbation. After the time of evaluation patient has ongoing shortness of breath, her blood pressure was also reported to be low in the emergency department for which patient was started on Levophed and weaned off of same. Has cough that is productive and she denied any chest pain, no fever or chills but appetite has been poor. - Hypotensive Likely from sepsis - resolved. Hold all antihypertenidve CXR showed no infiltrate, UA - pending Blood and urine CX of 01/20 - showed MRSA in ateh blood - Sepsis from MRSA bacteremia Continue with vanc and cefepime - Acute respiratory failure. Back on high flow oxygen. Continue with same Continue with Bronchodilator IV antibiotics and aerosol treatments and steroids are restarted hold Tappering of steriod Pulmonologigst following. - Heart Failure with preserved EF of 55-60% Commence ACEI, hold BB b/c acute of chronic respr failure, continue statin and gentle diuresis with strick Is and Os Cardiology consulted - Cor Pulm Continue with Hydrallazine and gently diuresis - Cjhronic back pain from spina stenosis continue with narcotic -Debility of senility continue with PT - COPD exacerbation Continue aerosol treatment and steroids and O2 supplementation. IV antibiotics Weaned pt from High flow oxygen to NC and maintaining a saturation of > 88 on 5 liters - Type 2 diabetes mellitus without complications We will hold metformin and start patient on sliding scale coverage with regular insulin with parameters. - Essential (primary) hypertension Holding her current blood pressure medications and continue blood pressure monitoring until the patient is hemodynamically stable - DVT prophylaxis with Lovenox and GI with Pepcid - Disposition: continue to wean off high flow oxygen and transfer to SNF once insurance approves and pt is stable. She had been earlier denied by her insurance for transfer to SNF with Physical therapy as she has a history of frequent fall. Denial has been appealed Time spent: 32 mins Subjective Date of service: 01/24/19 Principal diagnosis: sepsis, exacerbation of COPD, acute on chronic respiratory failure Interval history: Pt seen and examined. Still having shortness of breath though better. C/o back pain. Objective - Exam Narrative Exam: Constitutional: Well-nourished well-developed. Lying quietly in bed. Alert and interactive, c/o back pain on high flow oxygen. Head: Normocephalic atraumatic Eyes: Pupils are equal round and reactive to light Nose: No enlarged turbinates, no septal deviation. On high flow oxygen via NC Mouth: Moist mucous membranes. Neck: Supple no thyromegaly. No bruit. No JVD Heart: Regular rate and rhythm, S1-S2 normal. No rubs murmurs or gallop Lungs: Decreased breath sounds on auscultation bilaterally. Abdomen: Soft, nontender. Bowel sound are present. Extremities: No edema, no cyanosis, no clubbing. Neuro: Alert oriented Oriented x3. No focal sensory or motor deficit. Skin: No rashes or hyperpigmented spots Musculoskeletal system: No joint pain or swelling.unstable gait and has had frequent falls prior to admission because her legs give way. Hematological: No petechia or subcutanous hemorrhages. Immunological: No multiple septic spots on the skin Lymphatic: No generalized lymphadenopathy Psychiatry: Euthymic. Calm. - Constitutional Vitals: Vital Signs - 12hr 01/24/19 01/24/19 01/24/19 02:29 02:45 03:05 Temperature 98.0 F Pulse Rate 79 66 Pulse Rate [ 68 Anterior Bilateral] Pulse Rate [ From Monitor] Respiratory 20 26 H Rate Respiratory 21 Rate [Anterior Bilateral] Blood Pressure Blood Pressure 140/77 [Right] O2 Sat by Pulse 94 94 Oximetry 01/24/19 01/24/19 01/24/19 07:09 08:03 09:57 Temperature 98.0 F Pulse Rate 69 71 81 Pulse Rate [ 73 Anterior Bilateral] Pulse Rate [ From Monitor] Respiratory 20 23 Rate Respiratory 20 Rate [Anterior Bilateral] Blood Pressure 108/72 114/59 Blood Pressure [Right] O2 Sat by Pulse 92 91 Oximetry 01/24/19 01/24/19 10:00 13:31 Temperature 99.7 F H Pulse Rate 76 Pulse Rate [ Anterior Bilateral] Pulse Rate [ 70 From Monitor] Respiratory 20 22 Rate Respiratory Rate [Anterior Bilateral] Blood Pressure 123/57 Blood Pressure [Right] O2 Sat by Pulse 87 Oximetry - Labs CBC & Chem 7: 01/23/19 15:19 01/21/19 03:53 Labs: Abnormal lab results 01/23/19 01/23/19 01/23/19 Range/Units 15:19 16:52 20:07 WBC 13.7 H (4.5-11.0) K/mm3 RBC 2.66 L (3.65-5.03) M/mm3 Hgb 7.2 L (10.1-14.3) gm/dl Hct 23.2 L (30.3-42.9) % MCH 27 L (28-32) pg RDW 15.8 H (13.2-15.2) % Seg Neuts % (Manual) 91.0 H (40.0-70.0) % Lymphocytes % (Manual) 4.0 L (13.4-35.0) % Seg Neutrophils # Man 12.5 H (1.8-7.7) K/mm3 Lymphocytes # (Manual) 0.5 L (1.2-5.4) K/mm3 POC Glucose 381 H (70-105) Vancomycin Trough 4.0 L (5.0-20.0) ug/mL 01/23/19 01/24/19 01/24/19 Range/Units 21:24 07:28 11:49 WBC (4.5-11.0) K/mm3 RBC (3.65-5.03) M/mm3 Hgb (10.1-14.3) gm/dl Hct (30.3-42.9) % MCH (28-32) pg RDW (13.2-15.2) % Seg Neuts % (Manual) (40.0-70.0) % Lymphocytes % (Manual) (13.4-35.0) % Seg Neutrophils # Man (1.8-7.7) K/mm3 Lymphocytes # (Manual) (1.2-5.4) K/mm3 POC Glucose 288 H 288 H 327 H (70-105) Vancomycin Trough (5.0-20.0) ug/mL
[2019-01-24] MEDS: HALOPERIDOL 5 MG TAB PO SCH (17:22)
[2019-01-25] MEDS: ACETAMINOPHEN 325 MG TAB PO PRN (00:10)
[2019-01-25] MEDS: CLOTRIMAZOLE/BETAMETHASONE CREAM 15 GM TP SCH ×3 (00:50→21:41)
[2019-01-25] MEDS: IPRATROPIUM/ALBUTEROL SULFATE 3 ML AMPUL.NEB IH SCH ×4 (02:15→20:15)
[2019-01-25] MEDS: methylPREDNISolone Sod Succinate 125 MG/2 ML INJ IV SCH ×4 (04:26→21:45)
[2019-01-25 04:45] LABS: Hemoglobin 7.1 gm/dl (10.1-14.3); Mean Corpuscular HGB Conc 31 % (30-34); Mean Corpuscular Volume 86 fl (79-97); Platelet Count 128 K/mm3 (140-440); Red Blood Count 2.67 M/mm3 (3.65-5.03)
[2019-01-25 05:08] LABS: Alanine Aminotransferase 24 units/L (7-56); Albumin 2.1 g/dL (3.9-5); BUN/Creatinine Ratio 22; Blood Urea Nitrogen 11 mg/dL (7-17); Calcium 7.9 mg/dL (8.4-10.2); Hemolysis Index 1
[2019-01-25] MEDS: HYDROcodone/ACETAMINOPHEN 5-325 MG TAB PO PRN ×3 (06:10→23:17)
[2019-01-25] MEDS: LEVOTHYROXINE 88 MCG TAB PO SCH (06:11)
[2019-01-25] MEDS: hydrALAZINE 100 MG TAB PO SCH (06:11)
[2019-01-25] MEDS: FUROSEMIDE 20 MG TAB PO SCH (06:11)
[2019-01-25] MEDS: SODIUM CHLORIDE 0.9% 1000 ML 1,000 ML IV SCH ×2 (06:36→20:19)
[2019-01-25] MEDS: GABAPENTIN 400 MG CAP PO SCH ×3 (08:13→21:40)
[2019-01-25] MEDS: INSULIN LISPRO 100 UNIT/ML SUB-Q SCH ×4 (08:13→21:41)
[2019-01-25 08:32] LABS: Basophils % (Manual) 0 % (0.0-1.8); Eosinophils % (Manual) 0 % (0.0-4.3); Total Cells Counted 100
[2019-01-25 08:33] LABS: Anisocytosis 1+; Platelet Estimate Consistent w Auto
--- NOTE | 2019-01-25 09:16 | Progress Note ---
Assessment and Plan 68-year-old female patient admitted to the emergency department for worsening shortness of breath as well as cough generalized body pain and weakness. The [facility] and has been on treatment there but her breathing got progressively worse over the past 24 Hours and was thus referred back to the ER for further evaluation and treatment . Patient has history of COPD on home oxygen, hypertension on therapy diabetes and has had multiple hospitalizations over the last year on account of recurrence of COPD exacerbation. After the time of evaluation patient has ongoing shortness of breath, her blood pressure was also reported to be low in the emergency department for which patient was started on Levophed and weaned off of same. Has cough that is productive and she denied any chest pain, no fever or chills but appetite has been poor. -Still Hypotensive from sepsis - Hold all antihypertenidve CXR showed no infiltrate, UA - pending Blood and urine CX of 01/20 - showed MRSA in ateh blood - Sepsis from MRSA bacteremia Continue with vanc and cefepime Infectious disease following - Acute respiratory failure. Back on high flow oxygen. Continue with same Continue with Bronchodilator IV antibiotics and aerosol treatments and steroids are restarted hold Tappering of steriod Pulmonologigst following. - Heart Failure with preserved EF of 55-60% Commence ACEI, hold BB b/c acute of chronic respr failure, continue statin and gentle diuresis with strick Is and Os Cardiology consulted - Anemia of chronic disease Trend H&H and transfuse when necessary - Cor Pulm Continue with Hydrallazine and gently diuresis - Chronic back pain from spina stenosis continue with narcotic -Debility of senility continue with PT - COPD exacerbation Continue aerosol treatment and steroids and O2 supplementation. IV antibiotics Weaned pt from High flow oxygen to NC and maintaining a saturation of > 88 on 5 liters - Type 2 diabetes mellitus without complications We will hold metformin and start patient on sliding scale coverage with regular insulin with parameters. - Essential (primary) hypertension Holding her current blood pressure medications and continue blood pressure monitoring until the patient is hemodynamically stable - DVT prophylaxis with Lovenox and GI with Pepcid - Disposition: Infiltration persistent decline with current hypotension and sepsis and that was then pulmonary function I discussed with family members. We'll transfer to LTAC at this point while we'll continue to work with insurance companies for her next level of care. She had been earlier denied by her insurance for transfer to SNF with Physical therapy as she has a history of frequent fall. Denial has been appealed Time spent: 32 mins Subjective Date of service: 01/25/19 Principal diagnosis: sepsis, exacerbation of COPD, acute on chronic respiratory failure Interval history: Pt seen and examined. Was said to have gone into respiratory distress last night for which a code MET was called. Patient was transferred to [facility] placed on BiPAP [id number]. Objective - Exam Narrative Exam: Constitutional: Well-nourished well-developed. Lying quietly in bed. On BiPAP. C/o back pain. Head: Normocephalic atraumatic Eyes: Pupils are equal round and reactive to light Nose: No enlarged turbinates, no septal deviation. On high flow oxygen via NC Mouth: Moist mucous membranes. Neck: Supple no thyromegaly. No bruit. No JVD Heart: Regular rate and rhythm, S1-S2 normal. No rubs murmurs or gallop Lungs: Decreased breath sounds on auscultation bilaterally. Abdomen: Soft, nontender. Bowel sound are present. Extremities: No edema, no cyanosis, no clubbing. Neuro: Alert oriented Oriented x3. No focal sensory or motor deficit. Skin: No rashes or hyperpigmented spots Musculoskeletal system: No joint pain or swelling.unstable gait and has had frequent falls prior to admission because her legs give way. Hematological: No petechia or subcutanous hemorrhages. Immunological: No multiple septic spots on the skin Lymphatic: No generalized lymphadenopathy Psychiatry: Euthymic. Calm. - Constitutional Vitals: Vital Signs - 12hr 01/24/19 01/24/19 01/24/19 22:00 23:19 23:43 Temperature 98.5 F Pulse Rate 82 Pulse Rate [ Anterior Bilateral] Pulse Rate [ 82 From Monitor] Respiratory 17 Rate Respiratory Rate [Anterior Bilateral] Blood Pressure 129/75 O2 Sat by Pulse 98 Oximetry 01/25/19 01/25/19 01/25/19 00:10 02:15 03:53 Temperature 99.7 F H Pulse Rate 71 Pulse Rate [ 101 H Anterior Bilateral] Pulse Rate [ From Monitor] Respiratory 30 H Rate Respiratory 16 Rate [Anterior Bilateral] Blood Pressure O2 Sat by Pulse 96 Oximetry 01/25/19 01/25/19 01/25/19 04:00 04:11 06:10 Temperature Pulse Rate 67 Pulse Rate [ Anterior Bilateral] Pulse Rate [ 75 From Monitor] Respiratory 20 18 21 Rate Respiratory Rate [Anterior Bilateral] Blood Pressure O2 Sat by Pulse 92 92 Oximetry 01/25/19 01/25/19 01/25/19 07:34 07:35 07:37 Temperature Pulse Rate 120 H Pulse Rate [ 134 H Anterior Bilateral] Pulse Rate [ From Monitor] Respiratory 32 H Rate Respiratory 26 H Rate [Anterior Bilateral] Blood Pressure O2 Sat by Pulse 92 92 Oximetry - Labs CBC & Chem 7: 01/25/19 04:06 01/25/19 04:06 Labs: Abnormal lab results 01/24/19 01/24/19 01/24/19 Range/Units 11:49 16:33 21:49 WBC (4.5-11.0) K/mm3 RBC (3.65-5.03) M/mm3 Hgb (10.1-14.3) gm/dl Hct (30.3-42.9) % MCH (28-32) pg RDW (13.2-15.2) % Plt Count (140-440) K/mm3 Seg Neuts % (Manual) (40.0-70.0) % Lymphocytes % (Manual) (13.4-35.0) % Seg Neutrophils # Man (1.8-7.7) K/mm3 Lymphocytes # (Manual) (1.2-5.4) K/mm3 Potassium (3.6-5.0) mmol/L Chloride (98-107) mmol/L Carbon Dioxide (22-30) mmol/L Creatinine (0.7-1.2) mg/dL Glucose (65-100) mg/dL POC Glucose 327 H 340 H 265 H (70-105) Calcium (8.4-10.2) mg/dL Total Protein (6.3-8.2) g/dL Albumin (3.9-5) g/dL 01/25/19 01/25/19 01/25/19 Range/Units 04:06 04:06 07:55 WBC 13.5 H (4.5-11.0) K/mm3 RBC 2.67 L (3.65-5.03) M/mm3 Hgb 7.1 L (10.1-14.3) gm/dl Hct 23.0 L (30.3-42.9) % MCH 27 L (28-32) pg RDW 16.0 H (13.2-15.2) % Plt Count 128 L (140-440) K/mm3 Seg Neuts % (Manual) 98.0 H (40.0-70.0) % Lymphocytes % (Manual) 1.0 L (13.4-35.0) % Seg Neutrophils # Man 13.2 H (1.8-7.7) K/mm3 Lymphocytes # (Manual) 0.1 L (1.2-5.4) K/mm3 Potassium 3.3 L (3.6-5.0) mmol/L Chloride 97.1 L (98-107) mmol/L Carbon Dioxide 33 H (22-30) mmol/L Creatinine 0.5 L (0.7-1.2) mg/dL Glucose 164 H (65-100) mg/dL POC Glucose 284 H (70-105) Calcium 7.9 L (8.4-10.2) mg/dL Total Protein 5.2 L (6.3-8.2) g/dL Albumin 2.1 L (3.9-5) g/dL
[2019-01-25] MEDS: amLODIPine 10 MG TAB PO SCH (10:08)
[2019-01-25] MEDS: ASPIRIN 81 MG TAB CHEW PO SCH (10:15)
[2019-01-25] MEDS: TRELEGY PO SCH (10:15)
[2019-01-25] MEDS: FLUoxetine 20 MG CAP PO SCH (10:16)
[2019-01-25] MEDS: VANCOMYCIN 1,500 MG in SODIUM CHLORIDE 0.9% 500 ML 500 ML IV SCH ×2 (10:16→21:43)
[2019-01-25] MEDS: ARIPiprazole 10 MG TAB PO SCH (10:17)
[2019-01-25] MEDS: LISINOPRIL 40 MG TAB PO SCH (10:17)
--- NOTE | 2019-01-25 11:19 | Progress Note ---
Assessment and Plan 68 y/o female with acute respiratory failure secondary to COPD exacerbation now with staph bacteremia and acute on chronic respiratory failure. Stopped all BP meds Currently on maintenance fluids at 50cc/hr. CXR shows pulmonary edema but BP is low. Will attempt to give BP time to rise on its own but may need a bolus. As long as mental state remains stable, will watch. Continue steroids at current dosing Abx therapy per ID given staph bacteremia. Last positive culture was 01/22. All Methicillin Resistant Unable to take trelegy. Will add back BID pulmicort Subjective Date of service: 01/25/19 Principal diagnosis: sepsis, exacerbation of COPD, acute on chronic respiratory failure Interval history: Transfered to [facility] yesterday secondary to bipap requirements and failing of HFNC. Currently on 80%. Decent sats. Awake. easily arousable. Objective Vital Signs - 12hr 01/24/19 01/24/19 01/25/19 23:19 23:43 00:10 Temperature 98.5 F Pulse Rate 82 71 Pulse Rate [ Anterior Bilateral] Pulse Rate [ From Monitor] Respiratory 30 H Rate Respiratory Rate [Anterior Bilateral] Blood Pressure 129/75 O2 Sat by Pulse 96 Oximetry 01/25/19 01/25/19 01/25/19 02:15 03:53 04:00 Temperature 99.7 F H Pulse Rate Pulse Rate [ 101 H Anterior Bilateral] Pulse Rate [ 75 From Monitor] Respiratory 20 Rate Respiratory 16 Rate [Anterior Bilateral] Blood Pressure O2 Sat by Pulse 92 Oximetry 01/25/19 01/25/19 01/25/19 04:11 06:10 07:34 Temperature Pulse Rate 67 Pulse Rate [ Anterior Bilateral] Pulse Rate [ From Monitor] Respiratory 18 21 Rate Respiratory Rate [Anterior Bilateral] Blood Pressure O2 Sat by Pulse 92 92 Oximetry 01/25/19 01/25/19 01/25/19 07:35 07:37 10:08 Temperature Pulse Rate 120 H 88 Pulse Rate [ 134 H Anterior Bilateral] Pulse Rate [ From Monitor] Respiratory 32 H Rate Respiratory 26 H Rate [Anterior Bilateral] Blood Pressure 122/32 O2 Sat by Pulse 92 Oximetry 01/25/19 10:17 Temperature Pulse Rate 82 Pulse Rate [ Anterior Bilateral] Pulse Rate [ From Monitor] Respiratory Rate Respiratory Rate [Anterior Bilateral] Blood Pressure 122/32 O2 Sat by Pulse Oximetry Constitutional: alert (mild distress on hi yolanda 50%), other Eyes: non-icteric ENT: oropharynx moist, other (adentulous) Neck: supple Effort: normal Ascultation: Bilateral: diminished breath sounds, wheezes, rhonchi Tactile fremitus: Bilateral: normal Cardiovascular: regular rate and rhythm Gastrointestinal: normoactive bowel sounds, soft, non-tender, non-distended Integumentary: normal Extremities: no cyanosis, no edema Neurologic: normal mental status, non-focal exam Psychiatric: mood appropriate, affect normal CBC and BMP: 01/25/19 04:06 01/25/19 04:06 ABG, PT/INR, D-dimer: ABG POC ABG pH 7.424 (7.35-7.45) 01/22/19 17:34 POC ABG pCO2 52.6 (35-45) H 01/22/19 17:34 POC ABG pO2 57 (80-105) L 01/22/19 17:34 POC ABG HCO3 34.5 (22-26 mml/L) 01/22/19 17:34 POC ABG Total CO2 36 (23-27mmol/L) 01/22/19 17:34 POC ABG O2 Sat 89 01/22/19 17:34 PT/INR, D-dimer PT 16.1 Sec. (12.2-14.9) H 01/21/19 03:53 INR 1.31 (0.87-1.13) H 01/21/19 03:53 Abnormal lab findings: Abnormal Labs 01/08/19 01/08/19 01/08/19 14:39 14:39 16:55 WBC RBC 3.17 L Hgb 9.0 L Hct 28.4 L MCH RDW 15.9 H Plt Count Lymph % (Auto) [place] % (Auto) 7.8 H Lymph # Seg Neutrophils % 71.9 H Seg Neuts % (Manual) Lymphocytes % (Manual) Seg Neutrophils # Man Lymphocytes # (Manual) Monocytes # (Manual) PT INR POC ABG pH POC ABG pCO2 POC ABG pO2 Sodium Potassium Chloride Carbon Dioxide BUN Creatinine Glucose 140 H POC Glucose Lactic Acid 2.90 H* Calcium Magnesium NT-Pro-B Natriuret Pep Total Protein Albumin 3.7 L Vancomycin Trough 01/08/19 01/08/19 01/08/19 19:34 21:15 23:37 WBC RBC Hgb Hct MCH RDW Plt Count Lymph % (Auto) [place] % (Auto) Lymph # Seg Neutrophils % Seg Neuts % (Manual) Lymphocytes % (Manual) Seg Neutrophils # Man Lymphocytes # (Manual) Monocytes # (Manual) PT INR POC ABG pH POC ABG pCO2 POC ABG pO2 Sodium Potassium Chloride Carbon Dioxide BUN Creatinine Glucose POC Glucose 224 H Lactic Acid 3.50 H* 3.80 H* Calcium Magnesium NT-Pro-B Natriuret Pep Total Protein Albumin Vancomycin Trough 01/09/19 01/09/19 01/09/19 04:52 04:52 05:23 WBC RBC 3.12 L Hgb 8.7 L Hct 28.4 L MCH RDW 16.2 H Plt Count Lymph % (Auto) [place] % (Auto) Lymph # Seg Neutrophils % Seg Neuts % (Manual) 95.0 H Lymphocytes % (Manual) 4.0 L Seg Neutrophils # Man 8.9 H Lymphocytes # (Manual) 0.4 L Monocytes # (Manual) PT INR POC ABG pH 7.278 L POC ABG pCO2 67.9 H POC ABG pO2 73 L Sodium Potassium Chloride Carbon Dioxide BUN 19 H Creatinine Glucose 173 H POC Glucose Lactic Acid Calcium Magnesium NT-Pro-B Natriuret Pep Total Protein Albumin 3.8 L Vancomycin Trough 01/09/19 01/09/19 01/09/19 05:37 12:01 18:10 WBC RBC Hgb Hct MCH RDW Plt Count Lymph % (Auto) [place] % (Auto) Lymph # Seg Neutrophils % Seg Neuts % (Manual) Lymphocytes % (Manual) Seg Neutrophils # Man Lymphocytes # (Manual) Monocytes # (Manual) PT INR POC ABG pH POC ABG pCO2 POC ABG pO2 Sodium Potassium Chloride Carbon Dioxide BUN Creatinine Glucose POC Glucose 177 H 186 H 257 H Lactic Acid Calcium Magnesium NT-Pro-B Natriuret Pep Total Protein Albumin Vancomycin Trough 01/09/19 01/10/19 01/10/19 23:13 08:02 10:09 WBC 14.0 H RBC 2.97 L Hgb 8.2 L Hct 27.0 L MCH RDW 16.4 H Plt Count Lymph % (Auto) [place] % (Auto) Lymph # Seg Neutrophils % Seg Neuts % (Manual) 95.0 H Lymphocytes % (Manual) 5.0 L Seg Neutrophils # Man 13.3 H Lymphocytes # (Manual) 0.7 L Monocytes # (Manual) PT INR POC ABG pH POC ABG pCO2 POC ABG pO2 Sodium Potassium Chloride Carbon Dioxide BUN Creatinine Glucose POC Glucose 187 H 185 H Lactic Acid Calcium Magnesium NT-Pro-B Natriuret Pep Total Protein Albumin Vancomycin Trough 01/10/19 01/10/19 01/10/19 10:09 10:09 12:25 WBC RBC Hgb Hct MCH RDW Plt Count Lymph % (Auto) [place] % (Auto) Lymph # Seg Neutrophils % Seg Neuts % (Manual) Lymphocytes % (Manual) Seg Neutrophils # Man Lymphocytes # (Manual) Monocytes # (Manual) PT INR POC ABG pH POC ABG pCO2 POC ABG pO2 Sodium Potassium Chloride Carbon Dioxide BUN 18 H Creatinine 0.6 L Glucose 251 H POC Glucose 216 H Lactic Acid 2.10 H* Calcium Magnesium NT-Pro-B Natriuret Pep Total Protein Albumin 3.5 L Vancomycin Trough 01/10/19 01/10/19 01/11/19 16:27 21:44 07:27 WBC RBC Hgb Hct MCH RDW Plt Count Lymph % (Auto) [place] % (Auto) Lymph # Seg Neutrophils % Seg Neuts % (Manual) Lymphocytes % (Manual) Seg Neutrophils # Man Lymphocytes # (Manual) Monocytes # (Manual) PT INR POC ABG pH POC ABG pCO2 POC ABG pO2 Sodium Potassium Chloride Carbon Dioxide BUN Creatinine Glucose POC Glucose 160 H 210 H 191 H Lactic Acid Calcium Magnesium NT-Pro-B Natriuret Pep Total Protein Albumin Vancomycin Trough 01/11/19 01/11/19 01/11/19 07:57 07:57 11:16 WBC 12.2 H RBC 2.96 L Hgb 8.1 L Hct 26.9 L MCH 27 L RDW 16.3 H Plt Count Lymph % (Auto) [place] % (Auto) Lymph # Seg Neutrophils % Seg Neuts % (Manual) 90.0 H Lymphocytes % (Manual) 7.0 L Seg Neutrophils # Man 11.0 H Lymphocytes # (Manual) 0.9 L Monocytes # (Manual) PT INR POC ABG pH POC ABG pCO2 POC ABG pO2 Sodium 147 H Potassium Chloride Carbon Dioxide 31 H BUN 21 H Creatinine 0.6 L Glucose 190 H POC Glucose 177 H Lactic Acid Calcium Magnesium NT-Pro-B Natriuret Pep Total Protein Albumin Vancomycin Trough 01/11/19 01/11/19 01/11/19 16:03 16:27 22:23 WBC RBC Hgb Hct MCH RDW Plt Count Lymph % (Auto) [place] % (Auto) Lymph # Seg Neutrophils % Seg Neuts % (Manual) Lymphocytes % (Manual) Seg Neutrophils # Man Lymphocytes # (Manual) Monocytes # (Manual) PT INR POC ABG pH POC ABG pCO2 POC ABG pO2 Sodium Potassium Chloride Carbon Dioxide BUN Creatinine Glucose POC Glucose 217 H 243 H Lactic Acid Calcium Magnesium NT-Pro-B Natriuret Pep 2547 H Total Protein Albumin Vancomycin Trough 01/12/19 01/12/19 01/12/19 05:34 05:34 07:22 WBC RBC 3.11 L Hgb 8.6 L Hct 27.4 L MCH RDW 15.6 H Plt Count Lymph % (Auto) 7.0 L [place] % (Auto) Lymph # 0.6 L Seg Neutrophils % 87.5 H Seg Neuts % (Manual) Lymphocytes % (Manual) Seg Neutrophils # Man Lymphocytes # (Manual) Monocytes # (Manual) PT INR POC ABG pH POC ABG pCO2 POC ABG pO2 Sodium 146 H Potassium 3.5 L D Chloride 95.9 L Carbon Dioxide 35 H BUN Creatinine 0.6 L Glucose 248 H POC Glucose 249 H Lactic Acid Calcium Magnesium NT-Pro-B Natriuret Pep Total Protein Albumin Vancomycin Trough 01/12/19 01/12/19 01/12/19 11:35 16:21 22:07 WBC RBC Hgb Hct MCH RDW Plt Count Lymph % (Auto) [place] % (Auto) Lymph # Seg Neutrophils % Seg Neuts % (Manual) Lymphocytes % (Manual) Seg Neutrophils # Man Lymphocytes # (Manual) Monocytes # (Manual) PT INR POC ABG pH POC ABG pCO2 POC ABG pO2 Sodium Potassium Chloride Carbon Dioxide BUN Creatinine Glucose POC Glucose 190 H 268 H 263 H Lactic Acid Calcium Magnesium NT-Pro-B Natriuret Pep Total Protein Albumin Vancomycin Trough 01/13/19 01/13/19 01/13/19 05:07 05:07 07:31 WBC RBC 3.32 L Hgb 9.2 L Hct 29.3 L MCH RDW 15.3 H Plt Count Lymph % (Auto) [place] % (Auto) 9.8 H Lymph # Seg Neutrophils % 74.8 H Seg Neuts % (Manual) Lymphocytes % (Manual) Seg Neutrophils # Man Lymphocytes # (Manual) Monocytes # (Manual) PT INR POC ABG pH POC ABG pCO2 POC ABG pO2 Sodium Potassium Chloride 97.9 L Carbon Dioxide 37 H BUN Creatinine 0.5 L Glucose 165 H POC Glucose 147 H Lactic Acid Calcium Magnesium NT-Pro-B Natriuret Pep Total Protein Albumin 3.6 L Vancomycin Trough 01/13/19 01/13/19 01/13/19 12:37 16:51 21:25 WBC RBC Hgb Hct MCH RDW Plt Count Lymph % (Auto) [place] % (Auto) Lymph # Seg Neutrophils % Seg Neuts % (Manual) Lymphocytes % (Manual) Seg Neutrophils # Man Lymphocytes # (Manual) Monocytes # (Manual) PT INR POC ABG pH POC ABG pCO2 POC ABG pO2 Sodium Potassium Chloride Carbon Dioxide BUN Creatinine Glucose POC Glucose 301 H 149 H 318 H Lactic Acid Calcium Magnesium NT-Pro-B Natriuret Pep Total Protein Albumin Vancomycin Trough 01/14/19 01/14/19 01/14/19 04:02 04:02 07:34 WBC RBC 3.50 L Hgb 9.7 L Hct MCH RDW 15.5 H Plt Count Lymph % (Auto) [place] % (Auto) Lymph # Seg Neutrophils % Seg Neuts % (Manual) 94.0 H Lymphocytes % (Manual) 3.0 L Seg Neutrophils # Man 8.1 H Lymphocytes # (Manual) 0.3 L Monocytes # (Manual) PT INR POC ABG pH POC ABG pCO2 POC ABG pO2 Sodium Potassium Chloride 97.0 L Carbon Dioxide 34 H BUN 18 H Creatinine 0.6 L Glucose 287 H POC Glucose 266 H Lactic Acid Calcium Magnesium NT-Pro-B Natriuret Pep Total Protein Albumin 3.8 L Vancomycin Trough 01/14/19 01/14/19 01/14/19 11:28 16:40 22:08 WBC RBC Hgb Hct MCH RDW Plt Count Lymph % (Auto) [place] % (Auto) Lymph # Seg Neutrophils % Seg Neuts % (Manual) Lymphocytes % (Manual) Seg Neutrophils # Man Lymphocytes # (Manual) Monocytes # (Manual) PT INR POC ABG pH POC ABG pCO2 POC ABG pO2 Sodium Potassium Chloride Carbon Dioxide BUN Creatinine Glucose POC Glucose 396 H 272 H 315 H Lactic Acid Calcium Magnesium NT-Pro-B Natriuret Pep Total Protein Albumin Vancomycin Trough 01/15/19 01/15/19 01/15/19 07:38 08:31 08:31 WBC 11.3 H RBC 3.48 L Hgb 9.4 L Hct MCH 27 L RDW 15.4 H Plt Count Lymph % (Auto) [place] % (Auto) Lymph # Seg Neutrophils % Seg Neuts % (Manual) 98.0 H Lymphocytes % (Manual) 0 L Seg Neutrophils # Man 11.1 H Lymphocytes # (Manual) 0.0 L Monocytes # (Manual) PT INR POC ABG pH POC ABG pCO2 POC ABG pO2 Sodium Potassium Chloride 96.0 L Carbon Dioxide 33 H BUN 18 H Creatinine 0.6 L Glucose 371 H POC Glucose 321 H Lactic Acid Calcium Magnesium NT-Pro-B Natriuret Pep Total Protein Albumin 3.7 L Vancomycin Trough 01/15/19 01/15/19 01/15/19 11:13 16:13 22:38 WBC RBC Hgb Hct MCH RDW Plt Count Lymph % (Auto) [place] % (Auto) Lymph # Seg Neutrophils % Seg Neuts % (Manual) Lymphocytes % (Manual) Seg Neutrophils # Man Lymphocytes # (Manual) Monocytes # (Manual) PT INR POC ABG pH POC ABG pCO2 POC ABG pO2 Sodium Potassium Chloride Carbon Dioxide BUN Creatinine Glucose POC Glucose 353 H 150 H 404 H Lactic Acid Calcium Magnesium NT-Pro-B Natriuret Pep Total Protein Albumin Vancomycin Trough 01/16/19 01/16/19 01/16/19 07:36 12:09 16:12 WBC RBC Hgb Hct MCH RDW Plt Count Lymph % (Auto) [place] % (Auto) Lymph # Seg Neutrophils % Seg Neuts % (Manual) Lymphocytes % (Manual) Seg Neutrophils # Man Lymphocytes # (Manual) Monocytes # (Manual) PT INR POC ABG pH POC ABG pCO2 POC ABG pO2 Sodium Potassium Chloride Carbon Dioxide BUN Creatinine Glucose POC Glucose 317 H 351 H 293 H Lactic Acid Calcium Magnesium NT-Pro-B Natriuret Pep Total Protein Albumin Vancomycin Trough 01/16/19 01/17/19 01/17/19 22:04 07:22 11:29 WBC RBC Hgb Hct MCH RDW Plt Count Lymph % (Auto) [place] % (Auto) Lymph # Seg Neutrophils % Seg Neuts % (Manual) Lymphocytes % (Manual) Seg Neutrophils # Man Lymphocytes # (Manual) Monocytes # (Manual) PT INR POC ABG pH POC ABG pCO2 POC ABG pO2 Sodium Potassium Chloride Carbon Dioxide BUN Creatinine Glucose POC Glucose 382 H 356 H 376 H Lactic Acid Calcium Magnesium NT-Pro-B Natriuret Pep Total Protein Albumin Vancomycin Trough 01/17/19 01/17/19 01/18/19 17:30 21:09 04:09 WBC 13.6 H RBC 3.55 L Hgb 9.6 L Hct MCH 27 L RDW 15.6 H Plt Count Lymph % (Auto) [place] % (Auto) Lymph # Seg Neutrophils % Seg Neuts % (Manual) 99.0 H Lymphocytes % (Manual) 1.0 L Seg Neutrophils # Man 13.5 H Lymphocytes # (Manual) 0.1 L Monocytes # (Manual) PT INR POC ABG pH POC ABG pCO2 POC ABG pO2 Sodium Potassium Chloride Carbon Dioxide BUN Creatinine Glucose POC Glucose 409 H 404 H Lactic Acid Calcium Magnesium NT-Pro-B Natriuret Pep Total Protein Albumin Vancomycin Trough 01/18/19 01/18/19 01/18/19 04:09 07:42 11:30 WBC RBC Hgb Hct MCH RDW Plt Count Lymph % (Auto) [place] % (Auto) Lymph # Seg Neutrophils % Seg Neuts % (Manual) Lymphocytes % (Manual) Seg Neutrophils # Man Lymphocytes # (Manual) Monocytes # (Manual) PT INR POC ABG pH POC ABG pCO2 POC ABG pO2 Sodium Potassium Chloride 94.2 L Carbon Dioxide 33 H BUN 22 H Creatinine Glucose 355 H POC Glucose 390 H 387 H Lactic Acid Calcium Magnesium NT-Pro-B Natriuret Pep Total Protein Albumin 3.5 L Vancomycin Trough 01/18/19 01/18/19 01/19/19 17:01 22:28 07:29 WBC RBC Hgb Hct MCH RDW Plt Count Lymph % (Auto) [place] % (Auto) Lymph # Seg Neutrophils % Seg Neuts % (Manual) Lymphocytes % (Manual) Seg Neutrophils # Man Lymphocytes # (Manual) Monocytes # (Manual) PT INR POC ABG pH POC ABG pCO2 POC ABG pO2 Sodium Potassium Chloride Carbon Dioxide BUN Creatinine Glucose POC Glucose 378 H 363 H 371 H Lactic Acid Calcium Magnesium NT-Pro-B Natriuret Pep Total Protein Albumin Vancomycin Trough 01/19/19 01/19/19 01/19/19 11:16 16:13 22:02 WBC RBC Hgb Hct MCH RDW Plt Count Lymph % (Auto) [place] % (Auto) Lymph # Seg Neutrophils % Seg Neuts % (Manual) Lymphocytes % (Manual) Seg Neutrophils # Man Lymphocytes # (Manual) Monocytes # (Manual) PT INR POC ABG pH POC ABG pCO2 POC ABG pO2 Sodium Potassium Chloride Carbon Dioxide BUN Creatinine Glucose POC Glucose 365 H 341 H 416 H Lactic Acid Calcium Magnesium NT-Pro-B Natriuret Pep Total Protein Albumin Vancomycin Trough 01/20/19 01/20/19 01/20/19 07:37 10:05 10:15 WBC 44.1 H* RBC 3.15 L Hgb 8.4 L Hct 27.7 L MCH 27 L RDW 15.9 H Plt Count Lymph % (Auto) [place] % (Auto) Lymph # Seg Neutrophils % Seg Neuts % (Manual) 96.0 H Lymphocytes % (Manual) 2.0 L Seg Neutrophils # Man 42.3 H Lymphocytes # (Manual) 0.9 L Monocytes # (Manual) 0.9 H PT INR POC ABG pH POC ABG pCO2 POC ABG pO2 Sodium Potassium Chloride 95.5 L Carbon Dioxide BUN 40 H Creatinine 1.3 H D Glucose 365 H POC Glucose 377 H Lactic Acid Calcium 8.0 L Magnesium NT-Pro-B Natriuret Pep Total Protein Albumin Vancomycin Trough 01/20/19 01/20/19 01/20/19 11:12 16:05 23:22 WBC RBC Hgb Hct MCH RDW Plt Count Lymph % (Auto) [place] % (Auto) Lymph # Seg Neutrophils % Seg Neuts % (Manual) Lymphocytes % (Manual) Seg Neutrophils # Man Lymphocytes # (Manual) Monocytes # (Manual) PT INR POC ABG pH POC ABG pCO2 POC ABG pO2 Sodium Potassium Chloride Carbon Dioxide BUN Creatinine Glucose POC Glucose 336 H 269 H 280 H Lactic Acid Calcium Magnesium NT-Pro-B Natriuret Pep Total Protein Albumin Vancomycin Trough 01/21/19 01/21/19 01/21/19 03:53 03:53 03:53 WBC 27.1 H RBC 3.28 L Hgb 9.0 L Hct 29.1 L MCH 27 L RDW 15.9 H Plt Count Lymph % (Auto) [place] % (Auto) Lymph # Seg Neutrophils % Seg Neuts % (Manual) 93.0 H Lymphocytes % (Manual) 1.0 L Seg Neutrophils # Man 25.2 H Lymphocytes # (Manual) 0.3 L Monocytes # (Manual) PT 16.1 H INR 1.31 H POC ABG pH POC ABG pCO2 POC ABG pO2 Sodium Potassium Chloride 93.7 L Carbon Dioxide 33 H BUN 34 H Creatinine Glucose 166 H POC Glucose Lactic Acid Calcium 8.3 L Magnesium 2.50 H NT-Pro-B Natriuret Pep Total Protein Albumin 3.1 L Vancomycin Trough 01/21/19 01/21/19 01/21/19 07:30 11:23 16:19 WBC RBC Hgb Hct MCH RDW Plt Count Lymph % (Auto) [place] % (Auto) Lymph # Seg Neutrophils % Seg Neuts % (Manual) Lymphocytes % (Manual) Seg Neutrophils # Man Lymphocytes # (Manual) Monocytes # (Manual) PT INR POC ABG pH POC ABG pCO2 POC ABG pO2 Sodium Potassium Chloride Carbon Dioxide BUN Creatinine Glucose POC Glucose 257 H 358 H 267 H Lactic Acid Calcium Magnesium NT-Pro-B Natriuret Pep Total Protein Albumin Vancomycin Trough 01/21/19 01/21/19 01/22/19 16:46 23:10 07:51 WBC 20.4 H RBC 2.97 L Hgb 8.0 L Hct 25.9 L MCH 27 L RDW 15.8 H Plt Count Lymph % (Auto) [place] % (Auto) Lymph # Seg Neutrophils % Seg Neuts % (Manual) 98.0 H Lymphocytes % (Manual) 1.0 L Seg Neutrophils # Man 20.0 H Lymphocytes # (Manual) 0.2 L Monocytes # (Manual) PT INR POC ABG pH POC ABG pCO2 POC ABG pO2 Sodium Potassium Chloride Carbon Dioxide BUN Creatinine Glucose POC Glucose 443 H 420 H Lactic Acid Calcium Magnesium NT-Pro-B Natriuret Pep Total Protein Albumin Vancomycin Trough 01/22/19 01/22/19 01/22/19 12:25 16:38 17:23 WBC 17.3 H RBC 2.72 L Hgb 7.4 L Hct 23.7 L MCH 27 L RDW 15.8 H Plt Count Lymph % (Auto) [place] % (Auto) Lymph # Seg Neutrophils % Seg Neuts % (Manual) 98.0 H Lymphocytes % (Manual) 1.0 L Seg Neutrophils # Man 17.0 H Lymphocytes # (Manual) 0.2 L Monocytes # (Manual) PT INR POC ABG pH POC ABG pCO2 POC ABG pO2 Sodium Potassium Chloride Carbon Dioxide BUN Creatinine Glucose POC Glucose 339 H 269 H Lactic Acid Calcium Magnesium NT-Pro-B Natriuret Pep Total Protein Albumin Vancomycin Trough 01/22/19 01/22/19 01/23/19 17:34 21:53 07:37 WBC RBC Hgb Hct MCH RDW Plt Count Lymph % (Auto) [place] % (Auto) Lymph # Seg Neutrophils % Seg Neuts % (Manual) Lymphocytes % (Manual) Seg Neutrophils # Man Lymphocytes # (Manual) Monocytes # (Manual) PT INR POC ABG pH POC ABG pCO2 52.6 H POC ABG pO2 57 L Sodium Potassium Chloride Carbon Dioxide BUN Creatinine Glucose POC Glucose 326 H 359 H Lactic Acid Calcium Magnesium NT-Pro-B Natriuret Pep Total Protein Albumin Vancomycin Trough 01/23/19 01/23/19 01/23/19 11:35 15:19 16:52 WBC 13.7 H RBC 2.66 L Hgb 7.2 L Hct 23.2 L MCH 27 L RDW 15.8 H Plt Count Lymph % (Auto) [place] % (Auto) Lymph # Seg Neutrophils % Seg Neuts % (Manual) 91.0 H Lymphocytes % (Manual) 4.0 L Seg Neutrophils # Man 12.5 H Lymphocytes # (Manual) 0.5 L Monocytes # (Manual) PT INR POC ABG pH POC ABG pCO2 POC ABG pO2 Sodium Potassium Chloride Carbon Dioxide BUN Creatinine Glucose POC Glucose 405 H 381 H Lactic Acid Calcium Magnesium NT-Pro-B Natriuret Pep Total Protein Albumin Vancomycin Trough 01/23/19 01/23/19 01/24/19 20:07 21:24 07:28 WBC RBC Hgb Hct MCH RDW Plt Count Lymph % (Auto) [place] % (Auto) Lymph # Seg Neutrophils % Seg Neuts % (Manual) Lymphocytes % (Manual) Seg Neutrophils # Man Lymphocytes # (Manual) Monocytes # (Manual) PT INR POC ABG pH POC ABG pCO2 POC ABG pO2 Sodium Potassium Chloride Carbon Dioxide BUN Creatinine Glucose POC Glucose 288 H 288 H Lactic Acid Calcium Magnesium NT-Pro-B Natriuret Pep Total Protein Albumin Vancomycin Trough 4.0 L 01/24/19 01/24/19 01/24/19 11:49 16:33 21:49 WBC RBC Hgb Hct MCH RDW Plt Count Lymph % (Auto) [place] % (Auto) Lymph # Seg Neutrophils % Seg Neuts % (Manual) Lymphocytes % (Manual) Seg Neutrophils # Man Lymphocytes # (Manual) Monocytes # (Manual) PT INR POC ABG pH POC ABG pCO2 POC ABG pO2 Sodium Potassium Chloride Carbon Dioxide BUN Creatinine Glucose POC Glucose 327 H 340 H 265 H Lactic Acid Calcium Magnesium NT-Pro-B Natriuret Pep Total Protein Albumin Vancomycin Trough 01/25/19 01/25/19 01/25/19 04:06 04:06 07:55 WBC 13.5 H RBC 2.67 L Hgb 7.1 L Hct 23.0 L MCH 27 L RDW 16.0 H Plt Count 128 L Lymph % (Auto) [place] % (Auto) Lymph # Seg Neutrophils % Seg Neuts % (Manual) 98.0 H Lymphocytes % (Manual) 1.0 L Seg Neutrophils # Man 13.2 H Lymphocytes # (Manual) 0.1 L Monocytes # (Manual) PT INR POC ABG pH POC ABG pCO2 POC ABG pO2 Sodium Potassium 3.3 L Chloride 97.1 L Carbon Dioxide 33 H BUN Creatinine 0.5 L Glucose 164 H POC Glucose 284 H Lactic Acid Calcium 7.9 L Magnesium NT-Pro-B Natriuret Pep Total Protein 5.2 L Albumin 2.1 L Vancomycin Trough
--- NOTE | 2019-01-25 16:10 | Progress Note ---
Assessment and Plan Cultures: 01/08/2019 blood culture: No growth 01/08/2019 urine culture: No growth 01/20/2019 blood culture: MRSA 06/2401/22/19 blood culture: MRSA 06/2401/25/2019 blood culture: NGTD A/P: 68-year-old female with COPD, hypertension, diabetes, acute hypoxic respiratory failure on home oxygen, [facility], returned back to the hospital in ~2 days with respiratory distress. Accordingly to her family member at bedside, patient had not been receiving her inhalers. Initially, patient was noted to have high PCO2, hypotension, requiring fluids and low-dose pressors: 1) Hypotension, possibly secondary to acute hypercapneic respiratory failure, acidosis: pulm following. No bacteremia, no fever, no initial leucocytosis, no UTI, no pneumonia on CXR. Leucocytosis now is likely from steroids. Sepsis seems unlikely. Procalcitonin is low (<0.05) and pro-BNP is high suggestive of possible CHF. Resolved 2) Diarrhea: possibly overflow from constipation and impaction. Per RN, patient passed a hard chunk of stool. Resolved. 3) Acute sepsis - now present with fevers and leukocytosis. Secondary to Staph bacteremia 4) Staph aureus bacteremia - pending MICs. Agree with vancomycin. Unclear etiology. She complained of an abdominal rash, however it was not visible to me. Recs: - continue vancomycin dosed per pharmacy. Goal trough 15-20 - repeat blood cultures ordered for AM - If repeat cultures still positive would get LUCY as aortic valve poorly visualized. If positive will also change therapy to dapto/ceftaroline Thank you for the consultation, will follow. Meghan Mims MD [facility] ([facility]) M: [phone] O: [phone] F: [phone] Subjective Date of service: 01/25/19 Principal diagnosis: sepsis, exacerbation of COPD, acute on chronic respiratory failure Interval history: Improved WBC and afebrile now. Cultures still positive for MRSA. Objective - Exam Narrative Exam: Constitutional: Alert, cooperative. No acute distress Head, Ears, Nose: Normocephalic, atraumatic. External ears, nose normal Eyes: Conjunctivae/corneas clear. No icterus. No ptosis. Neck: Supple, no meningeal signs Oral: edentulous, no thrush Cardiovascular: S1, S2 normal Respiratory: clear b/l GI: Soft, non-tender; bowel sounds normal. No peritoneal signs Musculoskeletal: No pedal edema, no cyanosis. Skin: No rash or abscess Hem/Lymphatic: No palpable cervical or supraclavicular nodes. No lymphangitis Psych: no agitation, flat affect Neurological: Awake, alert - Constitutional Vitals: Vital Signs Temp Pulse Resp BP Pulse Ox 99.7 F H 82 32 H 122/32 93 01/25/19 03:53 01/25/19 10:17 01/25/19 07:37 01/25/19 10:17 01/25/19 14:00 Temperature -Last 24 Hours Temperature 99.7 F Temperature 98.5 F Temperature 97.6 F Temperature 99.4 F - Labs CBC & Chem 7: 01/25/19 04:06 01/25/19 04:06 Labs: Abnormal lab results 01/24/19 01/24/19 01/25/19 Range/Units 16:33 21:49 04:06 WBC 13.5 H (4.5-11.0) K/mm3 RBC 2.67 L (3.65-5.03) M/mm3 Hgb 7.1 L (10.1-14.3) gm/dl Hct 23.0 L (30.3-42.9) % MCH 27 L (28-32) pg RDW 16.0 H (13.2-15.2) % Plt Count 128 L (140-440) K/mm3 Seg Neuts % (Manual) 98.0 H (40.0-70.0) % Lymphocytes % (Manual) 1.0 L (13.4-35.0) % Seg Neutrophils # Man 13.2 H (1.8-7.7) K/mm3 Lymphocytes # (Manual) 0.1 L (1.2-5.4) K/mm3 Potassium (3.6-5.0) mmol/L Chloride (98-107) mmol/L Carbon Dioxide (22-30) mmol/L Creatinine (0.7-1.2) mg/dL Glucose (65-100) mg/dL POC Glucose 340 H 265 H (70-105) Calcium (8.4-10.2) mg/dL Total Protein (6.3-8.2) g/dL Albumin (3.9-5) g/dL 01/25/19 01/25/19 01/25/19 Range/Units 04:06 07:55 11:28 WBC (4.5-11.0) K/mm3 RBC (3.65-5.03) M/mm3 Hgb (10.1-14.3) gm/dl Hct (30.3-42.9) % MCH (28-32) pg RDW (13.2-15.2) % Plt Count (140-440) K/mm3 Seg Neuts % (Manual) (40.0-70.0) % Lymphocytes % (Manual) (13.4-35.0) % Seg Neutrophils # Man (1.8-7.7) K/mm3 Lymphocytes # (Manual) (1.2-5.4) K/mm3 Potassium 3.3 L (3.6-5.0) mmol/L Chloride 97.1 L (98-107) mmol/L Carbon Dioxide 33 H (22-30) mmol/L Creatinine 0.5 L (0.7-1.2) mg/dL Glucose 164 H (65-100) mg/dL POC Glucose 284 H 260 H (70-105) Calcium 7.9 L (8.4-10.2) mg/dL Total Protein 5.2 L (6.3-8.2) g/dL Albumin 2.1 L (3.9-5) g/dL
[2019-01-25] MEDS: HALOPERIDOL 5 MG TAB PO SCH (17:54)
[2019-01-25] MEDS: DONEPEZIL 10 MG TAB PO SCH (21:40)
[2019-01-25] MEDS: INSULIN GLARGINE 100 UNITS/ML SUB-Q SCH (21:42)
[2019-01-26] MEDS: IPRATROPIUM/ALBUTEROL SULFATE 3 ML AMPUL.NEB IH SCH ×4 (02:30→22:00)
[2019-01-26] MEDS: methylPREDNISolone Sod Succinate 125 MG/2 ML INJ IV SCH ×4 (04:23→23:07)
[2019-01-26] MEDS: ACETAMINOPHEN 325 MG TAB PO PRN ×2 (05:25→21:21)
[2019-01-26] MEDS: LEVOTHYROXINE 88 MCG TAB PO SCH (05:25)
[2019-01-26 05:51] LABS: Hematocrit 24.5 % (30.3-42.9); Hemoglobin 7.6 gm/dl (10.1-14.3); Mean Corpuscular HGB Conc 31 % (30-34); Mean Corpuscular Volume 87 fl (79-97); Platelet Count 127 K/mm3 (140-440); Red Blood Count 2.81 M/mm3 (3.65-5.03); Red Cell Distribution Width 16.3 % (13.2-15.2)
[2019-01-26 06:15] LABS: Alanine Aminotransferase 26 units/L (7-56); Albumin 2.3 g/dL (3.9-5); BUN/Creatinine Ratio 28; Blood Urea Nitrogen 14 mg/dL (7-17); Hemolysis Index 0
[2019-01-26] MEDS: HYDROcodone/ACETAMINOPHEN 5-325 MG TAB PO PRN ×2 (06:51→14:25)
[2019-01-26 06:53] LABS: Basophils % (Manual) 0 % (0.0-1.8); Monocytes % (Manual) 0 % (0.0-7.3); Total Cells Counted 100
[2019-01-26 06:54] LABS: Anisocytosis 1+; Eosinophils % (Manual) 0 % (0.0-4.3); Platelet Estimate Consistent w Auto
[2019-01-26] MEDS: GABAPENTIN 400 MG CAP PO SCH ×3 (08:14→21:21)
[2019-01-26] MEDS: SODIUM CHLORIDE 0.9% 1000 ML 1,000 ML IV SCH ×2 (08:14→23:06)
[2019-01-26] MEDS: INSULIN LISPRO 100 UNIT/ML SUB-Q SCH ×4 (08:15→23:06)
--- NOTE | 2019-01-26 08:35 | Progress Note ---
Assessment and Plan 68-year-old female patient admitted to the emergency department for worsening shortness of breath as well as cough generalized body pain and weakness. The patient was admitteed to [facility] and has been on treatment there but her breathing got progressively worse over the past 24 Hours and was thus referred back to the ER for further evaluation and treatment . Patient has history of COPD on home oxygen, hypertension on therapy diabetes and has had multiple hospitalizations over the last year on account of recurrence of COPD exacerbation. After the time of evaluation patient has ongoing shortness of breath, her blood pressure was also reported to be low in the emergency department for which patient was started on Levophed and weaned off of same. Has cough that is productive and she denied any chest pain, no fever or chills but appetite has been poor. - Acute respiratory failure. Back on high flow oxygen. Continue with same Continue with Bronchodilator IV antibiotics and aerosol treatments and steroids are restarted hold Tappering of steriod Pulmonologigst following. CXR shows mild pul edema with persistent left epical mass -Still Hypotensive from sepsis Hold all antihypertenidve CXR showed no infiltrate, UA - pending Blood CX of 01/20 - showed MRSA in the blood - Sepsis from MRSA bacteremia Continue with vanc and cefepime Infectious disease following - Heart Failure with preserved EF of 55-60% Commence ACEI, hold BB b/c acute of chronic respr failure, continue statin and gentle diuresis with strick Is and Os Cardiology consulted - Anemia of chronic disease Trend H&H and transfuse when necessary - Cor Pulm Continue with Hydrallazine and gently diuresis - Chronic back pain from spina stenosis continue with narcotic -Debility of senility continue with PT - COPD exacerbation Continue aerosol treatment and steroids and O2 supplementation. IV antibiotics Weaned pt from High flow oxygen to NC and maintaining a saturation of > 88 on 5 liters - Type 2 diabetes mellitus without complications We will hold metformin and start patient on sliding scale coverage with regular insulin with parameters. - Essential (primary) hypertension Holding her current blood pressure medications b/c hypotension and continue blood pressure monitoring until the patient is hemodynamically stable - DVT prophylaxis with Lovenox and GI with Pepcid - Disposition: Discussed at lent with patient's [id number] regarding DNR while still awaitign placment in LTAC. Discussed with counter caser. Awaiting insurance approval for LTAC. She had been earlier denied by her insurance for transfer to SNF with Physical therapy as she has a history of sever debility and frequent fall. Denial has been appealed CCT: 35 mins Subjective Date of service: 01/26/19 (\) Principal diagnosis: sepsis, exacerbation of COPD, acute on chronic respiratory failure Interval history: Pt seen and examined. Still on HF oxygen at 40%. Constantly requesting pain meds for back pain. Pt's daughter and sister in the room Objective - Exam Narrative Exam: Constitutional: Well-nourished well-developed. Lying quietly in bed. On BiPAP now. Head: Normocephalic atraumatic Eyes: Pupils are equal round and reactive to light Nose: No enlarged turbinates, no septal deviation. On high flow oxygen via NC Mouth: Moist mucous membranes. Neck: Supple no thyromegaly. No bruit. No JVD Heart: Regular rate and rhythm, S1-S2 normal. No rubs murmurs or gallop Lungs: Decreased breath sounds on auscultation bilaterally. Abdomen: Soft, nontender. Bowel sound are present. Extremities: No edema, no cyanosis, no clubbing. Neuro: Alert oriented Oriented x3. No focal sensory or motor deficit. Skin: No rashes or hyperpigmented spots Musculoskeletal system: No joint pain or swelling.unstable gait and has had frequent falls prior to admission because her legs give way. Hematological: No petechia or subcutanous hemorrhages. Immunological: No multiple septic spots on the skin Lymphatic: No generalized lymphadenopathy Psychiatry: Euthymic. Calm. - Constitutional Vitals: Vital Signs - 12hr 01/25/19 01/26/19 01/26/19 23:17 00:00 02:38 Temperature 99.2 F Pulse Rate 70 Pulse Rate [ Anterior Bilateral] Pulse Rate [ 76 From Monitor] Respiratory 24 17 19 Rate Respiratory Rate [Anterior Bilateral] Blood Pressure 109/50 O2 Sat by Pulse 95 94 Oximetry 01/26/19 01/26/19 01/26/19 02:40 04:00 05:25 Temperature 98.9 F Pulse Rate 107 H Pulse Rate [ 72 Anterior Bilateral] Pulse Rate [ 64 From Monitor] Respiratory 15 19 Rate Respiratory 20 Rate [Anterior Bilateral] Blood Pressure 106/76 O2 Sat by Pulse 90 Oximetry 01/26/19 06:51 Temperature Pulse Rate Pulse Rate [ Anterior Bilateral] Pulse Rate [ From Monitor] Respiratory 21 Rate Respiratory Rate [Anterior Bilateral] Blood Pressure O2 Sat by Pulse Oximetry - Labs CBC & Chem 7: 01/26/19 05:06 01/26/19 05:06 Labs: Abnormal lab results 01/25/19 01/25/19 01/25/19 Range/Units 04:06 11:28 16:08 WBC (4.5-11.0) K/mm3 RBC (3.65-5.03) M/mm3 Hgb (10.1-14.3) gm/dl Hct (30.3-42.9) % MCH (28-32) pg RDW (13.2-15.2) % Plt Count (140-440) K/mm3 Seg Neuts % (Manual) 98.0 H (40.0-70.0) % Lymphocytes % (Manual) 1.0 L (13.4-35.0) % Seg Neutrophils # Man 13.2 H (1.8-7.7) K/mm3 Lymphocytes # (Manual) 0.1 L (1.2-5.4) K/mm3 Potassium (3.6-5.0) mmol/L Carbon Dioxide (22-30) mmol/L Creatinine (0.7-1.2) mg/dL Glucose (65-100) mg/dL POC Glucose 260 H 313 H (70-105) Calcium (8.4-10.2) mg/dL Total Protein (6.3-8.2) g/dL Albumin (3.9-5) g/dL 01/25/19 01/26/19 01/26/19 Range/Units 21:40 05:06 05:06 WBC 11.2 H (4.5-11.0) K/mm3 RBC 2.81 L (3.65-5.03) M/mm3 Hgb 7.6 L (10.1-14.3) gm/dl Hct 24.5 L (30.3-42.9) % MCH 27 L (28-32) pg RDW 16.3 H (13.2-15.2) % Plt Count 127 L (140-440) K/mm3 Seg Neuts % (Manual) 97.0 H (40.0-70.0) % Lymphocytes % (Manual) 3.0 L (13.4-35.0) % Seg Neutrophils # Man 10.9 H (1.8-7.7) K/mm3 Lymphocytes # (Manual) 0.3 L (1.2-5.4) K/mm3 Potassium 3.4 L (3.6-5.0) mmol/L Carbon Dioxide 33 H (22-30) mmol/L Creatinine 0.5 L (0.7-1.2) mg/dL Glucose 143 H (65-100) mg/dL POC Glucose 287 H (70-105) Calcium 8.0 L (8.4-10.2) mg/dL Total Protein 5.6 L (6.3-8.2) g/dL Albumin 2.3 L (3.9-5) g/dL 01/26/19 Range/Units 07:38 WBC (4.5-11.0) K/mm3 RBC (3.65-5.03) M/mm3 Hgb (10.1-14.3) gm/dl Hct (30.3-42.9) % MCH (28-32) pg RDW (13.2-15.2) % Plt Count (140-440) K/mm3 Seg Neuts % (Manual) (40.0-70.0) % Lymphocytes % (Manual) (13.4-35.0) % Seg Neutrophils # Man (1.8-7.7) K/mm3 Lymphocytes # (Manual) (1.2-5.4) K/mm3 Potassium (3.6-5.0) mmol/L Carbon Dioxide (22-30) mmol/L Creatinine (0.7-1.2) mg/dL Glucose (65-100) mg/dL POC Glucose 226 H (70-105) Calcium (8.4-10.2) mg/dL Total Protein (6.3-8.2) g/dL Albumin (3.9-5) g/dL
[2019-01-26] MEDS: VANCOMYCIN 1,750 MG in SODIUM CHLORIDE 0.9% 500 ML 500 ML IV SCH ×2 (11:33→21:22)
[2019-01-26] MEDS: FLUoxetine 20 MG CAP PO SCH (11:34)
[2019-01-26] MEDS: ASPIRIN 81 MG TAB CHEW PO SCH (11:34)
[2019-01-26] MEDS: ARIPiprazole 10 MG TAB PO SCH (11:34)
[2019-01-26] MEDS: CLOTRIMAZOLE/BETAMETHASONE CREAM 15 GM TP SCH ×2 (11:35→21:23)
--- NOTE | 2019-01-26 13:45 | Progress Note ---
Assessment and Plan 68 y/o female with acute respiratory failure secondary to COPD exacerbation now with staph bacteremia and acute on chronic respiratory failure. Stopped all BP meds Family and has now made patient DNR/DNI, signed this am, awaiting primary s ignature Continue steroids at current dosing Abx therapy per ID given staph bacteremia. Last positive culture was 01/22. All Methicillin Resistant Unable to take trelegy. Will add back BID pulmicort Consider blood transfusion Overall prognosis is guarded to poor. Subjective Date of service: 01/26/19 Principal diagnosis: sepsis, exacerbation of COPD, acute on chronic respiratory failure Interval history: Clinically not really better. BP has improved but still low. Off all scheduled antihypertensive therapy. Objective Vital Signs - 12hr 01/26/19 01/26/19 01/26/19 01:45 02:01 02:15 Temperature Pulse Rate 56 L 80 87 Pulse Rate [ Anterior Bilateral] Pulse Rate [ From Monitor] Respiratory 13 16 17 Rate Respiratory Rate [Anterior Bilateral] Blood Pressure 96/58 102/67 107/52 O2 Sat by Pulse 94 94 94 Oximetry 01/26/19 01/26/19 01/26/19 02:30 02:38 02:40 Temperature Pulse Rate 62 70 Pulse Rate [ 72 Anterior Bilateral] Pulse Rate [ From Monitor] Respiratory 15 19 Rate Respiratory 20 Rate [Anterior Bilateral] Blood Pressure 107/52 109/50 O2 Sat by Pulse 98 94 Oximetry 01/26/19 01/26/19 01/26/19 02:45 03:01 03:15 Temperature Pulse Rate 74 67 68 Pulse Rate [ Anterior Bilateral] Pulse Rate [ From Monitor] Respiratory 19 16 15 Rate Respiratory Rate [Anterior Bilateral] Blood Pressure 101/46 104/49 102/53 O2 Sat by Pulse 96 93 93 Oximetry 01/26/19 01/26/19 01/26/19 03:30 03:45 04:00 Temperature 98.9 F Pulse Rate 74 74 107 H Pulse Rate [ Anterior Bilateral] Pulse Rate [ 64 From Monitor] Respiratory 16 18 15 Rate Respiratory Rate [Anterior Bilateral] Blood Pressure 104/49 117/54 106/76 O2 Sat by Pulse 92 91 90 Oximetry 01/26/19 01/26/19 01/26/19 04:01 04:15 04:31 Temperature Pulse Rate 71 59 L 60 Pulse Rate [ Anterior Bilateral] Pulse Rate [ From Monitor] Respiratory 15 15 18 Rate Respiratory Rate [Anterior Bilateral] Blood Pressure 102/55 111/57 112/51 O2 Sat by Pulse 89 89 87 Oximetry 01/26/19 01/26/19 01/26/19 04:45 05:01 05:16 Temperature Pulse Rate 67 64 71 Pulse Rate [ Anterior Bilateral] Pulse Rate [ From Monitor] Respiratory 11 L 20 17 Rate Respiratory Rate [Anterior Bilateral] Blood Pressure 117/52 112/48 129/48 O2 Sat by Pulse 88 89 91 Oximetry 01/26/19 01/26/19 01/26/19 05:25 05:30 05:46 Temperature Pulse Rate 80 97 H Pulse Rate [ Anterior Bilateral] Pulse Rate [ From Monitor] Respiratory 19 13 19 Rate Respiratory Rate [Anterior Bilateral] Blood Pressure 129/48 O2 Sat by Pulse 88 88 Oximetry 01/26/19 01/26/19 01/26/19 06:00 06:16 06:30 Temperature Pulse Rate 82 82 88 Pulse Rate [ Anterior Bilateral] Pulse Rate [ From Monitor] Respiratory 11 L 16 18 Rate Respiratory Rate [Anterior Bilateral] Blood Pressure 147/115 106/76 122/93 O2 Sat by Pulse 93 93 87 Oximetry 01/26/19 01/26/19 01/26/19 06:46 06:51 07:00 Temperature Pulse Rate 105 H 81 Pulse Rate [ Anterior Bilateral] Pulse Rate [ From Monitor] Respiratory 31 H 21 16 Rate Respiratory Rate [Anterior Bilateral] Blood Pressure 140/76 127/76 O2 Sat by Pulse 93 92 Oximetry 01/26/19 01/26/19 01/26/19 07:16 07:30 07:46 Temperature Pulse Rate 74 74 73 Pulse Rate [ Anterior Bilateral] Pulse Rate [ From Monitor] Respiratory 20 15 24 Rate Respiratory Rate [Anterior Bilateral] Blood Pressure 92/48 92/43 92/43 O2 Sat by Pulse 94 87 91 Oximetry 01/26/19 01/26/19 01/26/19 08:00 08:16 08:30 Temperature Pulse Rate 75 68 67 Pulse Rate [ Anterior Bilateral] Pulse Rate [ From Monitor] Respiratory 10 L 12 13 Rate Respiratory Rate [Anterior Bilateral] Blood Pressure 73/43 97/51 97/51 O2 Sat by Pulse 90 90 89 Oximetry 01/26/19 01/26/19 01/26/19 08:46 09:00 09:16 Temperature Pulse Rate 82 92 H 92 H Pulse Rate [ Anterior Bilateral] Pulse Rate [ From Monitor] Respiratory 14 28 H 20 Rate Respiratory Rate [Anterior Bilateral] Blood Pressure 101/50 101/50 108/76 O2 Sat by Pulse 79 L 89 87 Oximetry Constitutional: alert (mild distress on hi yolanda 50%), other Eyes: non-icteric ENT: oropharynx moist, other (adentulous) Neck: supple Effort: normal Ascultation: Bilateral: diminished breath sounds, wheezes, rhonchi Tactile fremitus: Bilateral: normal Cardiovascular: regular rate and rhythm Gastrointestinal: normoactive bowel sounds, soft, non-tender, non-distended Integumentary: normal Extremities: no cyanosis, no edema Neurologic: normal mental status, non-focal exam Psychiatric: mood appropriate, affect normal CBC and BMP: 01/26/19 05:06 01/26/19 05:06 ABG, PT/INR, D-dimer: ABG POC ABG pH 7.424 (7.35-7.45) 01/22/19 17:34 POC ABG pCO2 52.6 (35-45) H 01/22/19 17:34 POC ABG pO2 57 (80-105) L 01/22/19 17:34 POC ABG HCO3 34.5 (22-26 mml/L) 01/22/19 17:34 POC ABG Total CO2 36 (23-27mmol/L) 01/22/19 17:34 POC ABG O2 Sat 89 01/22/19 17:34 PT/INR, D-dimer PT 16.1 Sec. (12.2-14.9) H 01/21/19 03:53 INR 1.31 (0.87-1.13) H 01/21/19 03:53 Abnormal lab findings: Abnormal Labs 01/08/19 01/08/19 01/08/19 14:39 14:39 16:55 WBC RBC 3.17 L Hgb 9.0 L Hct 28.4 L MCH RDW 15.9 H Plt Count Lymph % (Auto) [place] % (Auto) 7.8 H Lymph # Seg Neutrophils % 71.9 H Seg Neuts % (Manual) Lymphocytes % (Manual) Seg Neutrophils # Man Lymphocytes # (Manual) Monocytes # (Manual) PT INR POC ABG pH POC ABG pCO2 POC ABG pO2 Sodium Potassium Chloride Carbon Dioxide BUN Creatinine Glucose 140 H POC Glucose Lactic Acid 2.90 H* Calcium Magnesium NT-Pro-B Natriuret Pep Total Protein Albumin 3.7 L Vancomycin Trough 01/08/19 01/08/19 01/08/19 19:34 21:15 23:37 WBC RBC Hgb Hct MCH RDW Plt Count Lymph % (Auto) [place] % (Auto) Lymph # Seg Neutrophils % Seg Neuts % (Manual) Lymphocytes % (Manual) Seg Neutrophils # Man Lymphocytes # (Manual) Monocytes # (Manual) PT INR POC ABG pH POC ABG pCO2 POC ABG pO2 Sodium Potassium Chloride Carbon Dioxide BUN Creatinine Glucose POC Glucose 224 H Lactic Acid 3.50 H* 3.80 H* Calcium Magnesium NT-Pro-B Natriuret Pep Total Protein Albumin Vancomycin Trough 01/09/19 01/09/19 01/09/19 04:52 04:52 05:23 WBC RBC 3.12 L Hgb 8.7 L Hct 28.4 L MCH RDW 16.2 H Plt Count Lymph % (Auto) [place] % (Auto) Lymph # Seg Neutrophils % Seg Neuts % (Manual) 95.0 H Lymphocytes % (Manual) 4.0 L Seg Neutrophils # Man 8.9 H Lymphocytes # (Manual) 0.4 L Monocytes # (Manual) PT INR POC ABG pH 7.278 L POC ABG pCO2 67.9 H POC ABG pO2 73 L Sodium Potassium Chloride Carbon Dioxide BUN 19 H Creatinine Glucose 173 H POC Glucose Lactic Acid Calcium Magnesium NT-Pro-B Natriuret Pep Total Protein Albumin 3.8 L Vancomycin Trough 01/09/19 01/09/19 01/09/19 05:37 12:01 18:10 WBC RBC Hgb Hct MCH RDW Plt Count Lymph % (Auto) [place] % (Auto) Lymph # Seg Neutrophils % Seg Neuts % (Manual) Lymphocytes % (Manual) Seg Neutrophils # Man Lymphocytes # (Manual) Monocytes # (Manual) PT INR POC ABG pH POC ABG pCO2 POC ABG pO2 Sodium Potassium Chloride Carbon Dioxide BUN Creatinine Glucose POC Glucose 177 H 186 H 257 H Lactic Acid Calcium Magnesium NT-Pro-B Natriuret Pep Total Protein Albumin Vancomycin Trough 01/09/19 01/10/19 01/10/19 23:13 08:02 10:09 WBC 14.0 H RBC 2.97 L Hgb 8.2 L Hct 27.0 L MCH RDW 16.4 H Plt Count Lymph % (Auto) [place] % (Auto) Lymph # Seg Neutrophils % Seg Neuts % (Manual) 95.0 H Lymphocytes % (Manual) 5.0 L Seg Neutrophils # Man 13.3 H Lymphocytes # (Manual) 0.7 L Monocytes # (Manual) PT INR POC ABG pH POC ABG pCO2 POC ABG pO2 Sodium Potassium Chloride Carbon Dioxide BUN Creatinine Glucose POC Glucose 187 H 185 H Lactic Acid Calcium Magnesium NT-Pro-B Natriuret Pep Total Protein Albumin Vancomycin Trough 01/10/19 01/10/19 01/10/19 10:09 10:09 12:25 WBC RBC Hgb Hct MCH RDW Plt Count Lymph % (Auto) [place] % (Auto) Lymph # Seg Neutrophils % Seg Neuts % (Manual) Lymphocytes % (Manual) Seg Neutrophils # Man Lymphocytes # (Manual) Monocytes # (Manual) PT INR POC ABG pH POC ABG pCO2 POC ABG pO2 Sodium Potassium Chloride Carbon Dioxide BUN 18 H Creatinine 0.6 L Glucose 251 H POC Glucose 216 H Lactic Acid 2.10 H* Calcium Magnesium NT-Pro-B Natriuret Pep Total Protein Albumin 3.5 L Vancomycin Trough 01/10/19 01/10/19 01/11/19 16:27 21:44 07:27 WBC RBC Hgb Hct MCH RDW Plt Count Lymph % (Auto) [place] % (Auto) Lymph # Seg Neutrophils % Seg Neuts % (Manual) Lymphocytes % (Manual) Seg Neutrophils # Man Lymphocytes # (Manual) Monocytes # (Manual) PT INR POC ABG pH POC ABG pCO2 POC ABG pO2 Sodium Potassium Chloride Carbon Dioxide BUN Creatinine Glucose POC Glucose 160 H 210 H 191 H Lactic Acid Calcium Magnesium NT-Pro-B Natriuret Pep Total Protein Albumin Vancomycin Trough 01/11/19 01/11/19 01/11/19 07:57 07:57 11:16 WBC 12.2 H RBC 2.96 L Hgb 8.1 L Hct 26.9 L MCH 27 L RDW 16.3 H Plt Count Lymph % (Auto) [place] % (Auto) Lymph # Seg Neutrophils % Seg Neuts % (Manual) 90.0 H Lymphocytes % (Manual) 7.0 L Seg Neutrophils # Man 11.0 H Lymphocytes # (Manual) 0.9 L Monocytes # (Manual) PT INR POC ABG pH POC ABG pCO2 POC ABG pO2 Sodium 147 H Potassium Chloride Carbon Dioxide 31 H BUN 21 H Creatinine 0.6 L Glucose 190 H POC Glucose 177 H Lactic Acid Calcium Magnesium NT-Pro-B Natriuret Pep Total Protein Albumin Vancomycin Trough 01/11/19 01/11/19 01/11/19 16:03 16:27 22:23 WBC RBC Hgb Hct MCH RDW Plt Count Lymph % (Auto) [place] % (Auto) Lymph # Seg Neutrophils % Seg Neuts % (Manual) Lymphocytes % (Manual) Seg Neutrophils # Man Lymphocytes # (Manual) Monocytes # (Manual) PT INR POC ABG pH POC ABG pCO2 POC ABG pO2 Sodium Potassium Chloride Carbon Dioxide BUN Creatinine Glucose POC Glucose 217 H 243 H Lactic Acid Calcium Magnesium NT-Pro-B Natriuret Pep 2547 H Total Protein Albumin Vancomycin Trough 01/12/19 01/12/19 01/12/19 05:34 05:34 07:22 WBC RBC 3.11 L Hgb 8.6 L Hct 27.4 L MCH RDW 15.6 H Plt Count Lymph % (Auto) 7.0 L [place] % (Auto) Lymph # 0.6 L Seg Neutrophils % 87.5 H Seg Neuts % (Manual) Lymphocytes % (Manual) Seg Neutrophils # Man Lymphocytes # (Manual) Monocytes # (Manual) PT INR POC ABG pH POC ABG pCO2 POC ABG pO2 Sodium 146 H Potassium 3.5 L D Chloride 95.9 L Carbon Dioxide 35 H BUN Creatinine 0.6 L Glucose 248 H POC Glucose 249 H Lactic Acid Calcium Magnesium NT-Pro-B Natriuret Pep Total Protein Albumin Vancomycin Trough 01/12/19 01/12/19 01/12/19 11:35 16:21 22:07 WBC RBC Hgb Hct MCH RDW Plt Count Lymph % (Auto) [place] % (Auto) Lymph # Seg Neutrophils % Seg Neuts % (Manual) Lymphocytes % (Manual) Seg Neutrophils # Man Lymphocytes # (Manual) Monocytes # (Manual) PT INR POC ABG pH POC ABG pCO2 POC ABG pO2 Sodium Potassium Chloride Carbon Dioxide BUN Creatinine Glucose POC Glucose 190 H 268 H 263 H Lactic Acid Calcium Magnesium NT-Pro-B Natriuret Pep Total Protein Albumin Vancomycin Trough 01/13/19 01/13/19 01/13/19 05:07 05:07 07:31 WBC RBC 3.32 L Hgb 9.2 L Hct 29.3 L MCH RDW 15.3 H Plt Count Lymph % (Auto) [place] % (Auto) 9.8 H Lymph # Seg Neutrophils % 74.8 H Seg Neuts % (Manual) Lymphocytes % (Manual) Seg Neutrophils # Man Lymphocytes # (Manual) Monocytes # (Manual) PT INR POC ABG pH POC ABG pCO2 POC ABG pO2 Sodium Potassium Chloride 97.9 L Carbon Dioxide 37 H BUN Creatinine 0.5 L Glucose 165 H POC Glucose 147 H Lactic Acid Calcium Magnesium NT-Pro-B Natriuret Pep Total Protein Albumin 3.6 L Vancomycin Trough 01/13/19 01/13/19 01/13/19 12:37 16:51 21:25 WBC RBC Hgb Hct MCH RDW Plt Count Lymph % (Auto) [place] % (Auto) Lymph # Seg Neutrophils % Seg Neuts % (Manual) Lymphocytes % (Manual) Seg Neutrophils # Man Lymphocytes # (Manual) Monocytes # (Manual) PT INR POC ABG pH POC ABG pCO2 POC ABG pO2 Sodium Potassium Chloride Carbon Dioxide BUN Creatinine Glucose POC Glucose 301 H 149 H 318 H Lactic Acid Calcium Magnesium NT-Pro-B Natriuret Pep Total Protein Albumin Vancomycin Trough 01/14/19 01/14/19 01/14/19 04:02 04:02 07:34 WBC RBC 3.50 L Hgb 9.7 L Hct MCH RDW 15.5 H Plt Count Lymph % (Auto) [place] % (Auto) Lymph # Seg Neutrophils % Seg Neuts % (Manual) 94.0 H Lymphocytes % (Manual) 3.0 L Seg Neutrophils # Man 8.1 H Lymphocytes # (Manual) 0.3 L Monocytes # (Manual) PT INR POC ABG pH POC ABG pCO2 POC ABG pO2 Sodium Potassium Chloride 97.0 L Carbon Dioxide 34 H BUN 18 H Creatinine 0.6 L Glucose 287 H POC Glucose 266 H Lactic Acid Calcium Magnesium NT-Pro-B Natriuret Pep Total Protein Albumin 3.8 L Vancomycin Trough 01/14/19 01/14/19 01/14/19 11:28 16:40 22:08 WBC RBC Hgb Hct MCH RDW Plt Count Lymph % (Auto) [place] % (Auto) Lymph # Seg Neutrophils % Seg Neuts % (Manual) Lymphocytes % (Manual) Seg Neutrophils # Man Lymphocytes # (Manual) Monocytes # (Manual) PT INR POC ABG pH POC ABG pCO2 POC ABG pO2 Sodium Potassium Chloride Carbon Dioxide BUN Creatinine Glucose POC Glucose 396 H 272 H 315 H Lactic Acid Calcium Magnesium NT-Pro-B Natriuret Pep Total Protein Albumin Vancomycin Trough 01/15/19 01/15/19 01/15/19 07:38 08:31 08:31 WBC 11.3 H RBC 3.48 L Hgb 9.4 L Hct MCH 27 L RDW 15.4 H Plt Count Lymph % (Auto) [place] % (Auto) Lymph # Seg Neutrophils % Seg Neuts % (Manual) 98.0 H Lymphocytes % (Manual) 0 L Seg Neutrophils # Man 11.1 H Lymphocytes # (Manual) 0.0 L Monocytes # (Manual) PT INR POC ABG pH POC ABG pCO2 POC ABG pO2 Sodium Potassium Chloride 96.0 L Carbon Dioxide 33 H BUN 18 H Creatinine 0.6 L Glucose 371 H POC Glucose 321 H Lactic Acid Calcium Magnesium NT-Pro-B Natriuret Pep Total Protein Albumin 3.7 L Vancomycin Trough 01/15/19 01/15/19 01/15/19 11:13 16:13 22:38 WBC RBC Hgb Hct MCH RDW Plt Count Lymph % (Auto) [place] % (Auto) Lymph # Seg Neutrophils % Seg Neuts % (Manual) Lymphocytes % (Manual) Seg Neutrophils # Man Lymphocytes # (Manual) Monocytes # (Manual) PT INR POC ABG pH POC ABG pCO2 POC ABG pO2 Sodium Potassium Chloride Carbon Dioxide BUN Creatinine Glucose POC Glucose 353 H 150 H 404 H Lactic Acid Calcium Magnesium NT-Pro-B Natriuret Pep Total Protein Albumin Vancomycin Trough 01/16/19 01/16/19 01/16/19 07:36 12:09 16:12 WBC RBC Hgb Hct MCH RDW Plt Count Lymph % (Auto) [place] % (Auto) Lymph # Seg Neutrophils % Seg Neuts % (Manual) Lymphocytes % (Manual) Seg Neutrophils # Man Lymphocytes # (Manual) Monocytes # (Manual) PT INR POC ABG pH POC ABG pCO2 POC ABG pO2 Sodium Potassium Chloride Carbon Dioxide BUN Creatinine Glucose POC Glucose 317 H 351 H 293 H Lactic Acid Calcium Magnesium NT-Pro-B Natriuret Pep Total Protein Albumin Vancomycin Trough 01/16/19 01/17/19 01/17/19 22:04 07:22 11:29 WBC RBC Hgb Hct MCH RDW Plt Count Lymph % (Auto) [place] % (Auto) Lymph # Seg Neutrophils % Seg Neuts % (Manual) Lymphocytes % (Manual) Seg Neutrophils # Man Lymphocytes # (Manual) Monocytes # (Manual) PT INR POC ABG pH POC ABG pCO2 POC ABG pO2 Sodium Potassium Chloride Carbon Dioxide BUN Creatinine Glucose POC Glucose 382 H 356 H 376 H Lactic Acid Calcium Magnesium NT-Pro-B Natriuret Pep Total Protein Albumin Vancomycin Trough 01/17/19 01/17/19 01/18/19 17:30 21:09 04:09 WBC 13.6 H RBC 3.55 L Hgb 9.6 L Hct MCH 27 L RDW 15.6 H Plt Count Lymph % (Auto) [place] % (Auto) Lymph # Seg Neutrophils % Seg Neuts % (Manual) 99.0 H Lymphocytes % (Manual) 1.0 L Seg Neutrophils # Man 13.5 H Lymphocytes # (Manual) 0.1 L Monocytes # (Manual) PT INR POC ABG pH POC ABG pCO2 POC ABG pO2 Sodium Potassium Chloride Carbon Dioxide BUN Creatinine Glucose POC Glucose 409 H 404 H Lactic Acid Calcium Magnesium NT-Pro-B Natriuret Pep Total Protein Albumin Vancomycin Trough 01/18/19 01/18/19 01/18/19 04:09 07:42 11:30 WBC RBC Hgb Hct MCH RDW Plt Count Lymph % (Auto) [place] % (Auto) Lymph # Seg Neutrophils % Seg Neuts % (Manual) Lymphocytes % (Manual) Seg Neutrophils # Man Lymphocytes # (Manual) Monocytes # (Manual) PT INR POC ABG pH POC ABG pCO2 POC ABG pO2 Sodium Potassium Chloride 94.2 L Carbon Dioxide 33 H BUN 22 H Creatinine Glucose 355 H POC Glucose 390 H 387 H Lactic Acid Calcium Magnesium NT-Pro-B Natriuret Pep Total Protein Albumin 3.5 L Vancomycin Trough 01/18/19 01/18/19 01/19/19 17:01 22:28 07:29 WBC RBC Hgb Hct MCH RDW Plt Count Lymph % (Auto) [place] % (Auto) Lymph # Seg Neutrophils % Seg Neuts % (Manual) Lymphocytes % (Manual) Seg Neutrophils # Man Lymphocytes # (Manual) Monocytes # (Manual) PT INR POC ABG pH POC ABG pCO2 POC ABG pO2 Sodium Potassium Chloride Carbon Dioxide BUN Creatinine Glucose POC Glucose 378 H 363 H 371 H Lactic Acid Calcium Magnesium NT-Pro-B Natriuret Pep Total Protein Albumin Vancomycin Trough 01/19/19 01/19/19 01/19/19 11:16 16:13 22:02 WBC RBC Hgb Hct MCH RDW Plt Count Lymph % (Auto) [place] % (Auto) Lymph # Seg Neutrophils % Seg Neuts % (Manual) Lymphocytes % (Manual) Seg Neutrophils # Man Lymphocytes # (Manual) Monocytes # (Manual) PT INR POC ABG pH POC ABG pCO2 POC ABG pO2 Sodium Potassium Chloride Carbon Dioxide BUN Creatinine Glucose POC Glucose 365 H 341 H 416 H Lactic Acid Calcium Magnesium NT-Pro-B Natriuret Pep Total Protein Albumin Vancomycin Trough 01/20/19 01/20/19 01/20/19 07:37 10:05 10:15 WBC 44.1 H* RBC 3.15 L Hgb 8.4 L Hct 27.7 L MCH 27 L RDW 15.9 H Plt Count Lymph % (Auto) [place] % (Auto) Lymph # Seg Neutrophils % Seg Neuts % (Manual) 96.0 H Lymphocytes % (Manual) 2.0 L Seg Neutrophils # Man 42.3 H Lymphocytes # (Manual) 0.9 L Monocytes # (Manual) 0.9 H PT INR POC ABG pH POC ABG pCO2 POC ABG pO2 Sodium Potassium Chloride 95.5 L Carbon Dioxide BUN 40 H Creatinine 1.3 H D Glucose 365 H POC Glucose 377 H Lactic Acid Calcium 8.0 L Magnesium NT-Pro-B Natriuret Pep Total Protein Albumin Vancomycin Trough 01/20/19 01/20/19 01/20/19 11:12 16:05 23:22 WBC RBC Hgb Hct MCH RDW Plt Count Lymph % (Auto) [place] % (Auto) Lymph # Seg Neutrophils % Seg Neuts % (Manual) Lymphocytes % (Manual) Seg Neutrophils # Man Lymphocytes # (Manual) Monocytes # (Manual) PT INR POC ABG pH POC ABG pCO2 POC ABG pO2 Sodium Potassium Chloride Carbon Dioxide BUN Creatinine Glucose POC Glucose 336 H 269 H 280 H Lactic Acid Calcium Magnesium NT-Pro-B Natriuret Pep Total Protein Albumin Vancomycin Trough 01/21/19 01/21/19 01/21/19 03:53 03:53 03:53 WBC 27.1 H RBC 3.28 L Hgb 9.0 L Hct 29.1 L MCH 27 L RDW 15.9 H Plt Count Lymph % (Auto) [place] % (Auto) Lymph # Seg Neutrophils % Seg Neuts % (Manual) 93.0 H Lymphocytes % (Manual) 1.0 L Seg Neutrophils # Man 25.2 H Lymphocytes # (Manual) 0.3 L Monocytes # (Manual) PT 16.1 H INR 1.31 H POC ABG pH POC ABG pCO2 POC ABG pO2 Sodium Potassium Chloride 93.7 L Carbon Dioxide 33 H BUN 34 H Creatinine Glucose 166 H POC Glucose Lactic Acid Calcium 8.3 L Magnesium 2.50 H NT-Pro-B Natriuret Pep Total Protein Albumin 3.1 L Vancomycin Trough 01/21/19 01/21/19 01/21/19 07:30 11:23 16:19 WBC RBC Hgb Hct MCH RDW Plt Count Lymph % (Auto) [place] % (Auto) Lymph # Seg Neutrophils % Seg Neuts % (Manual) Lymphocytes % (Manual) Seg Neutrophils # Man Lymphocytes # (Manual) Monocytes # (Manual) PT INR POC ABG pH POC ABG pCO2 POC ABG pO2 Sodium Potassium Chloride Carbon Dioxide BUN Creatinine Glucose POC Glucose 257 H 358 H 267 H Lactic Acid Calcium Magnesium NT-Pro-B Natriuret Pep Total Protein Albumin Vancomycin Trough 01/21/19 01/21/19 01/22/19 16:46 23:10 07:51 WBC 20.4 H RBC 2.97 L Hgb 8.0 L Hct 25.9 L MCH 27 L RDW 15.8 H Plt Count Lymph % (Auto) [place] % (Auto) Lymph # Seg Neutrophils % Seg Neuts % (Manual) 98.0 H Lymphocytes % (Manual) 1.0 L Seg Neutrophils # Man 20.0 H Lymphocytes # (Manual) 0.2 L Monocytes # (Manual) PT INR POC ABG pH POC ABG pCO2 POC ABG pO2 Sodium Potassium Chloride Carbon Dioxide BUN Creatinine Glucose POC Glucose 443 H 420 H Lactic Acid Calcium Magnesium NT-Pro-B Natriuret Pep Total Protein Albumin Vancomycin Trough 01/22/19 01/22/19 01/22/19 12:25 16:38 17:23 WBC 17.3 H RBC 2.72 L Hgb 7.4 L Hct 23.7 L MCH 27 L RDW 15.8 H Plt Count Lymph % (Auto) [place] % (Auto) Lymph # Seg Neutrophils % Seg Neuts % (Manual) 98.0 H Lymphocytes % (Manual) 1.0 L Seg Neutrophils # Man 17.0 H Lymphocytes # (Manual) 0.2 L Monocytes # (Manual) PT INR POC ABG pH POC ABG pCO2 POC ABG pO2 Sodium Potassium Chloride Carbon Dioxide BUN Creatinine Glucose POC Glucose 339 H 269 H Lactic Acid Calcium Magnesium NT-Pro-B Natriuret Pep Total Protein Albumin Vancomycin Trough 01/22/19 01/22/19 01/23/19 17:34 21:53 07:37 WBC RBC Hgb Hct MCH RDW Plt Count Lymph % (Auto) [place] % (Auto) Lymph # Seg Neutrophils % Seg Neuts % (Manual) Lymphocytes % (Manual) Seg Neutrophils # Man Lymphocytes # (Manual) Monocytes # (Manual) PT INR POC ABG pH POC ABG pCO2 52.6 H POC ABG pO2 57 L Sodium Potassium Chloride Carbon Dioxide BUN Creatinine Glucose POC Glucose 326 H 359 H Lactic Acid Calcium Magnesium NT-Pro-B Natriuret Pep Total Protein Albumin Vancomycin Trough 01/23/19 01/23/19 01/23/19 11:35 15:19 16:52 WBC 13.7 H RBC 2.66 L Hgb 7.2 L Hct 23.2 L MCH 27 L RDW 15.8 H Plt Count Lymph % (Auto) [place] % (Auto) Lymph # Seg Neutrophils % Seg Neuts % (Manual) 91.0 H Lymphocytes % (Manual) 4.0 L Seg Neutrophils # Man 12.5 H Lymphocytes # (Manual) 0.5 L Monocytes # (Manual) PT INR POC ABG pH POC ABG pCO2 POC ABG pO2 Sodium Potassium Chloride Carbon Dioxide BUN Creatinine Glucose POC Glucose 405 H 381 H Lactic Acid Calcium Magnesium NT-Pro-B Natriuret Pep Total Protein Albumin Vancomycin Trough 01/23/19 01/23/19 01/24/19 20:07 21:24 07:28 WBC RBC Hgb Hct MCH RDW Plt Count Lymph % (Auto) [place] % (Auto) Lymph # Seg Neutrophils % Seg Neuts % (Manual) Lymphocytes % (Manual) Seg Neutrophils # Man Lymphocytes # (Manual) Monocytes # (Manual) PT INR POC ABG pH POC ABG pCO2 POC ABG pO2 Sodium Potassium Chloride Carbon Dioxide BUN Creatinine Glucose POC Glucose 288 H 288 H Lactic Acid Calcium Magnesium NT-Pro-B Natriuret Pep Total Protein Albumin Vancomycin Trough 4.0 L 01/24/19 01/24/19 01/24/19 11:49 16:33 21:49 WBC RBC Hgb Hct MCH RDW Plt Count Lymph % (Auto) [place] % (Auto) Lymph # Seg Neutrophils % Seg Neuts % (Manual) Lymphocytes % (Manual) Seg Neutrophils # Man Lymphocytes # (Manual) Monocytes # (Manual) PT INR POC ABG pH POC ABG pCO2 POC ABG pO2 Sodium Potassium Chloride Carbon Dioxide BUN Creatinine Glucose POC Glucose 327 H 340 H 265 H Lactic Acid Calcium Magnesium NT-Pro-B Natriuret Pep Total Protein Albumin Vancomycin Trough 01/25/19 01/25/19 01/25/19 04:06 04:06 07:55 WBC 13.5 H RBC 2.67 L Hgb 7.1 L Hct 23.0 L MCH 27 L RDW 16.0 H Plt Count 128 L Lymph % (Auto) [place] % (Auto) Lymph # Seg Neutrophils % Seg Neuts % (Manual) 98.0 H Lymphocytes % (Manual) 1.0 L Seg Neutrophils # Man 13.2 H Lymphocytes # (Manual) 0.1 L Monocytes # (Manual) PT INR POC ABG pH POC ABG pCO2 POC ABG pO2 Sodium Potassium 3.3 L Chloride 97.1 L Carbon Dioxide 33 H BUN Creatinine 0.5 L Glucose 164 H POC Glucose 284 H Lactic Acid Calcium 7.9 L Magnesium NT-Pro-B Natriuret Pep Total Protein 5.2 L Albumin 2.1 L Vancomycin Trough 01/25/19 01/25/19 01/25/19 11:28 16:08 21:40 WBC RBC Hgb Hct MCH RDW Plt Count Lymph % (Auto) [place] % (Auto) Lymph # Seg Neutrophils % Seg Neuts % (Manual) Lymphocytes % (Manual) Seg Neutrophils # Man Lymphocytes # (Manual) Monocytes # (Manual) PT INR POC ABG pH POC ABG pCO2 POC ABG pO2 Sodium Potassium Chloride Carbon Dioxide BUN Creatinine Glucose POC Glucose 260 H 313 H 287 H Lactic Acid Calcium Magnesium NT-Pro-B Natriuret Pep Total Protein Albumin Vancomycin Trough 01/26/19 01/26/19 01/26/19 05:06 05:06 07:38 WBC 11.2 H RBC 2.81 L Hgb 7.6 L Hct 24.5 L MCH 27 L RDW 16.3 H Plt Count 127 L Lymph % (Auto) [place] % (Auto) Lymph # Seg Neutrophils % Seg Neuts % (Manual) 97.0 H Lymphocytes % (Manual) 3.0 L Seg Neutrophils # Man 10.9 H Lymphocytes # (Manual) 0.3 L Monocytes # (Manual) PT INR POC ABG pH POC ABG pCO2 POC ABG pO2 Sodium Potassium 3.4 L Chloride Carbon Dioxide 33 H BUN Creatinine 0.5 L Glucose 143 H POC Glucose 226 H Lactic Acid Calcium 8.0 L Magnesium NT-Pro-B Natriuret Pep Total Protein 5.6 L Albumin 2.3 L Vancomycin Trough 01/26/19 11:18 WBC RBC Hgb Hct MCH RDW Plt Count Lymph % (Auto) [place] % (Auto) Lymph # Seg Neutrophils % Seg Neuts % (Manual) Lymphocytes % (Manual) Seg Neutrophils # Man Lymphocytes # (Manual) Monocytes # (Manual) PT INR POC ABG pH POC ABG pCO2 POC ABG pO2 Sodium Potassium Chloride Carbon Dioxide BUN Creatinine Glucose POC Glucose 228 H Lactic Acid Calcium Magnesium NT-Pro-B Natriuret Pep Total Protein Albumin Vancomycin Trough
--- NOTE | 2019-01-26 17:20 | Progress Note ---
Assessment and Plan Cultures: 01/08/2019 blood culture: No growth 01/08/2019 urine culture: No growth 01/20/2019 blood culture: MRSA 06/2401/22/19 blood culture: MRSA 4 01/25/2019 blood culture: MRSA A/P: 68-year-old female with COPD, hypertension, diabetes, acute hypoxic respiratory failure on home oxygen, was [facility], returned back to the hospital in ~2 days with respiratory distress. Accordingly to her family member at bedside, patient had not been receiving her inhalers. Initially, patient was noted to have high PCO2, hypotension, requiring fluids and low-dose pressors: 1) Hypotension, possibly secondary to acute hypercapneic respiratory failure, acidosis: pulm following. No bacteremia, no fever, no initial leucocytosis, no UTI, no pneumonia on CXR. Leucocytosis now is likely from steroids. Sepsis seems unlikely. Procalcitonin is low (<0.05) and pro-BNP is high suggestive of possible CHF. Resolved 2) Diarrhea: possibly overflow from constipation and impaction. Per RN, patient passed a hard chunk of stool. Resolved. 3) Acute sepsis - now present with fevers and leukocytosis. Secondary to Staph bacteremia 4) Staph aureus bacteremia - MRSA. Agree with vancomycin. Unclear etiology. She complained of an abdominal rash, however it was not visible to me. Recs: - continue vancomycin dosed per pharmacy. Goal trough 15-20 - she was not therapeutic on vancomycin yesterday when blood cultures were taken. Likely therapeutic now - repeat blood cultures ordered for AM - Ordered LUCY - If 01/27 cultures become positive will change to daptomycin/ceftaroline as she will have failed therapeutic vancomycin, or will be having difficulty achieving therapeutic concentrations. Thank you for the consultation, will follow. Meghan Mims MD [facility] M: [phone] O: [phone] F: [phone] Subjective Date of service: 01/26/19 Principal diagnosis: sepsis, exacerbation of COPD, acute on chronic respiratory failure Interval history: Improved WBC and afebrile now. Cultures still positive for MRSA. Objective - Exam Narrative Exam: Constitutional: Alert, cooperative. No acute distress Head, Ears, Nose: Normocephalic, atraumatic. External ears, nose normal Eyes: Conjunctivae/corneas clear. No icterus. No ptosis. Neck: Supple, no meningeal signs Oral: edentulous, no thrush Cardiovascular: S1, S2 normal Respiratory: clear b/l GI: Soft, non-tender; bowel sounds normal. No peritoneal signs Musculoskeletal: No pedal edema, no cyanosis. Skin: No rash or abscess Hem/Lymphatic: No palpable cervical or supraclavicular nodes. No lymphangitis Psych: no agitation, flat affect Neurological: Awake, alert - Constitutional Vitals: Vital Signs Temp Pulse Resp BP Pulse Ox 98.9 F 92 H 20 108/76 87 01/26/19 04:00 01/26/19 09:16 01/26/19 09:16 01/26/19 09:16 01/26/19 09:16 Temperature -Last 24 Hours Temperature 98.9 F Temperature 99.2 F Temperature 99.0 F - Labs CBC & Chem 7: 01/26/19 05:06 01/26/19 05:06 Labs: Abnormal lab results 01/25/19 01/26/19 01/26/19 Range/Units 21:40 05:06 05:06 WBC 11.2 H (4.5-11.0) K/mm3 RBC 2.81 L (3.65-5.03) M/mm3 Hgb 7.6 L (10.1-14.3) gm/dl Hct 24.5 L (30.3-42.9) % MCH 27 L (28-32) pg RDW 16.3 H (13.2-15.2) % Plt Count 127 L (140-440) K/mm3 Seg Neuts % (Manual) 97.0 H (40.0-70.0) % Lymphocytes % (Manual) 3.0 L (13.4-35.0) % Seg Neutrophils # Man 10.9 H (1.8-7.7) K/mm3 Lymphocytes # (Manual) 0.3 L (1.2-5.4) K/mm3 Potassium 3.4 L (3.6-5.0) mmol/L Carbon Dioxide 33 H (22-30) mmol/L Creatinine 0.5 L (0.7-1.2) mg/dL Glucose 143 H (65-100) mg/dL POC Glucose 287 H (70-105) Calcium 8.0 L (8.4-10.2) mg/dL Total Protein 5.6 L (6.3-8.2) g/dL Albumin 2.3 L (3.9-5) g/dL 01/26/19 01/26/19 01/26/19 Range/Units 07:38 11:18 16:31 WBC (4.5-11.0) K/mm3 RBC (3.65-5.03) M/mm3 Hgb (10.1-14.3) gm/dl Hct (30.3-42.9) % MCH (28-32) pg RDW (13.2-15.2) % Plt Count (140-440) K/mm3 Seg Neuts % (Manual) (40.0-70.0) % Lymphocytes % (Manual) (13.4-35.0) % Seg Neutrophils # Man (1.8-7.7) K/mm3 Lymphocytes # (Manual) (1.2-5.4) K/mm3 Potassium (3.6-5.0) mmol/L Carbon Dioxide (22-30) mmol/L Creatinine (0.7-1.2) mg/dL Glucose (65-100) mg/dL POC Glucose 226 H 228 H 191 H (70-105) Calcium (8.4-10.2) mg/dL Total Protein (6.3-8.2) g/dL Albumin (3.9-5) g/dL
[2019-01-26] MEDS: HALOPERIDOL 5 MG TAB PO SCH (17:31)
[2019-01-26] MEDS: DONEPEZIL 10 MG TAB PO SCH (21:21)
[2019-01-26] MEDS: INSULIN GLARGINE 100 UNITS/ML SUB-Q SCH (23:06)
[2019-01-27] MEDS: IPRATROPIUM/ALBUTEROL SULFATE 3 ML AMPUL.NEB IH SCH ×3 (02:45→14:05)
[2019-01-27 05:11] LABS: Hematocrit 22.1 % (30.3-42.9); Hemoglobin 6.9 gm/dl (10.1-14.3); Mean Corpuscular HGB Conc 31 % (30-34); Mean Corpuscular Volume 89 fl (79-97); Platelet Count 118 K/mm3 (140-440); Red Cell Distribution Width 16.4 % (13.2-15.2)
[2019-01-27] MEDS: methylPREDNISolone Sod Succinate 125 MG/2 ML INJ IV SCH ×2 (05:32→11:19)
[2019-01-27] MEDS: LEVOTHYROXINE 88 MCG TAB PO SCH (05:32)
[2019-01-27 05:33] LABS: Albumin 1.8 g/dL (3.9-5); Calcium 7.5 mg/dL (8.4-10.2)
[2019-01-27] MEDS: HYDROcodone/ACETAMINOPHEN 5-325 MG TAB PO PRN (05:38)
[2019-01-27 06:31] LABS: Anisocytosis 1+; Basophils % (Manual) 0 % (0.0-1.8); Eosinophils % (Manual) 0 % (0.0-4.3); Platelet Estimate Consistent w Auto; Total Cells Counted 100
[2019-01-27] MEDS: MORPHINE 2 MG/1 ML INJ IV PRN ×2 (06:36→12:32)
--- NOTE | 2019-01-27 08:46 | Progress Note ---
Assessment and Plan 68-year-old female patient admitted to the emergency department for worsening shortness of breath as well as cough generalized body pain and weakness. The patient was admitteed to [facility] and has been on treatment there but her breathing got progressively worse over the past 24 Hours and was thus referred back to the ER for further evaluation and treatment . Patient has history of COPD on home oxygen, hypertension on therapy diabetes and has had multiple hospitalizations over the last year on account of recurrence of COPD exacerbation. After the time of evaluation patient has ongoing shortness of breath, her blood pressure was also reported to be low in the emergency department for which patient was started on Levophed and weaned off of same. Has cough that is productive and she denied any chest pain, no fever or chills but appetite has been poor. On HFNC oxygen still in distress - Acute respiratory failure. Back on high flow oxygen. Continue with same Continue with Bronchodilator IV antibiotics and aerosol treatments and steroids are restarted hold Tappering of steriod Pulmonologigst following. CXR shows mild pul edema with persistent left apical mass Poor prognosis -Still Hypotensive Hold all antihypertenidve Blood CX of 01/20 - showed MRSA in the blood - Sepsis from MRSA bacteremia Continue with vanc and cefepime Infectious disease following - Heart Failure with preserved EF of 55-60% Commence ACEI, hold BB b/c acute of chronic respr failure, continue statin and gentle diuresis with strick Is and Os Cardiology consulted - Anemia of chronic disease Trend H&H and transfuse when necessary - Cor Pulm Continue with Hydrallazine and gently diuresis - Chronic back pain from spina stenosis continue with narcotic -Debility of senility continue with PT - COPD exacerbation Continue aerosol treatment and steroids and O2 supplementation. IV antibiotics Weaned pt from High flow oxygen to NC and maintaining a saturation of > 88 on 5 liters - Type 2 diabetes mellitus without complications We will hold metformin and start patient on sliding scale coverage with regular insulin with parameters. - Essential (primary) hypertension Holding her current blood pressure medications b/c hypotension and continue blood pressure monitoring until the patient is hemodynamically stable - DVT prophylaxis with Lovenox and GI with Pepcid - Disposition: Daughter now made pt DNR and wants home hospice. Will discharge to home hospice today CCT: 35 mins Subjective Date of service: 01/27/19 Principal diagnosis: sepsis, exacerbation of COPD, acute on chronic respiratory failure Interval history: Still very short of breath. Lethergic Objective - Exam Narrative Exam: Constitutional: Well-nourished well-developed. On BiPAP now alternating with HFNC oxygen but still in respiratory distress Head: Normocephalic atraumatic Eyes: Pupils are equal round and reactive to light Nose: No enlarged turbinates, no septal deviation. On high flow oxygen via NC Mouth: Moist mucous membranes. Neck: Supple no thyromegaly. No bruit. No JVD Heart: Regular rate and rhythm, S1-S2 normal. No rubs murmurs or gallop Lungs: Decreased breath sounds on auscultation bilaterally. Abdomen: Soft, nontender. Bowel sound are present. Extremities: No edema, no cyanosis, no clubbing. Neuro: Alert oriented Oriented x3. No focal sensory or motor deficit. Skin: No rashes or hyperpigmented spots Musculoskeletal system: No joint pain or swelling.unstable gait and has had frequent falls prior to admission because her legs give way. Hematological: No petechia or subcutanous hemorrhages. Immunological: No multiple septic spots on the skin Lymphatic: No generalized lymphadenopathy Psychiatry: Euthymic. Calm. - Constitutional Vitals: Vital Signs - 12hr 01/26/19 01/26/19 01/26/19 20:50 21:00 21:10 Temperature Pulse Rate 75 69 78 Pulse Rate [ Anterior Bilateral] Pulse Rate [ From Monitor] Respiratory 15 20 14 Rate Respiratory Rate [Anterior Bilateral] Blood Pressure 112/59 112/59 110/52 O2 Sat by Pulse 92 91 93 Oximetry 01/26/19 01/26/19 01/26/19 21:20 21:30 21:40 Temperature Pulse Rate 89 102 H 92 H Pulse Rate [ Anterior Bilateral] Pulse Rate [ From Monitor] Respiratory 18 22 22 Rate Respiratory Rate [Anterior Bilateral] Blood Pressure 110/52 110/52 110/52 O2 Sat by Pulse 90 84 87 Oximetry 01/26/19 01/26/19 01/26/19 21:50 22:00 22:01 Temperature Pulse Rate 79 72 Pulse Rate [ 83 Anterior Bilateral] Pulse Rate [ From Monitor] Respiratory 19 20 Rate Respiratory 26 H Rate [Anterior Bilateral] Blood Pressure 110/52 110/52 O2 Sat by Pulse 87 88 Oximetry 01/26/19 01/26/19 01/26/19 22:10 22:20 22:30 Temperature Pulse Rate 82 78 83 Pulse Rate [ Anterior Bilateral] Pulse Rate [ From Monitor] Respiratory 17 24 21 Rate Respiratory Rate [Anterior Bilateral] Blood Pressure 103/59 103/59 110/69 O2 Sat by Pulse 88 87 86 Oximetry 01/26/19 01/26/19 01/26/19 22:40 22:50 23:00 Temperature Pulse Rate 79 93 H 91 H Pulse Rate [ Anterior Bilateral] Pulse Rate [ From Monitor] Respiratory 24 21 27 H Rate Respiratory Rate [Anterior Bilateral] Blood Pressure 103/59 103/59 103/59 O2 Sat by Pulse 86 84 81 L Oximetry 01/26/19 01/26/19 01/26/19 23:10 23:20 23:30 Temperature Pulse Rate 87 76 76 Pulse Rate [ Anterior Bilateral] Pulse Rate [ From Monitor] Respiratory 26 H 21 24 Rate Respiratory Rate [Anterior Bilateral] Blood Pressure 98/40 98/40 98/40 O2 Sat by Pulse 85 86 85 Oximetry 01/26/19 01/26/19 01/26/19 23:40 23:50 23:52 Temperature Pulse Rate 80 91 H 91 H Pulse Rate [ Anterior Bilateral] Pulse Rate [ From Monitor] Respiratory 19 21 Rate Respiratory Rate [Anterior Bilateral] Blood Pressure 102/62 102/62 O2 Sat by Pulse 87 85 Oximetry 01/26/19 01/26/19 01/27/19 23:54 23:57 00:00 Temperature 97.7 F Pulse Rate 78 82 Pulse Rate [ Anterior Bilateral] Pulse Rate [ 87 From Monitor] Respiratory 17 19 Rate Respiratory Rate [Anterior Bilateral] Blood Pressure 102/62 102/62 O2 Sat by Pulse 88 87 Oximetry 01/27/19 01/27/19 01/27/19 00:10 00:20 00:30 Temperature Pulse Rate 91 H 95 H 89 Pulse Rate [ Anterior Bilateral] Pulse Rate [ From Monitor] Respiratory 18 21 24 Rate Respiratory Rate [Anterior Bilateral] Blood Pressure 81/58 81/58 128/72 O2 Sat by Pulse 85 83 L 84 Oximetry 01/27/19 01/27/19 01/27/19 00:40 00:46 00:50 Temperature Pulse Rate 116 H 81 95 H Pulse Rate [ Anterior Bilateral] Pulse Rate [ From Monitor] Respiratory 30 H 24 26 H Rate Respiratory Rate [Anterior Bilateral] Blood Pressure 128/72 128/72 128/72 O2 Sat by Pulse 80 L 87 83 L Oximetry 01/27/19 01/27/19 01/27/19 01:00 01:10 01:20 Temperature Pulse Rate 112 H 110 H 106 H Pulse Rate [ Anterior Bilateral] Pulse Rate [ From Monitor] Respiratory 22 24 21 Rate Respiratory Rate [Anterior Bilateral] Blood Pressure 128/72 128/72 128/72 O2 Sat by Pulse 81 L 79 L 77 L Oximetry 01/27/19 01/27/19 01/27/19 01:30 01:40 01:50 Temperature Pulse Rate 106 H 96 H 89 Pulse Rate [ Anterior Bilateral] Pulse Rate [ From Monitor] Respiratory 27 H 20 17 Rate Respiratory Rate [Anterior Bilateral] Blood Pressure 128/72 128/72 128/72 O2 Sat by Pulse 80 L 80 L 81 L Oximetry 01/27/19 01/27/19 01/27/19 02:00 02:10 02:20 Temperature Pulse Rate 91 H 78 83 Pulse Rate [ Anterior Bilateral] Pulse Rate [ From Monitor] Respiratory 17 18 18 Rate Respiratory Rate [Anterior Bilateral] Blood Pressure 128/72 128/72 128/72 O2 Sat by Pulse 83 L 84 85 Oximetry 01/27/19 01/27/19 01/27/19 02:30 02:40 02:45 Temperature Pulse Rate 71 81 Pulse Rate [ 89 Anterior Bilateral] Pulse Rate [ From Monitor] Respiratory 17 19 Rate Respiratory 19 Rate [Anterior Bilateral] Blood Pressure 128/72 128/72 O2 Sat by Pulse 86 88 Oximetry 01/27/19 01/27/19 01/27/19 02:50 03:00 03:10 Temperature 98.3 F Pulse Rate 84 71 78 Pulse Rate [ Anterior Bilateral] Pulse Rate [ From Monitor] Respiratory 18 19 19 Rate Respiratory Rate [Anterior Bilateral] Blood Pressure 128/72 128/72 128/72 O2 Sat by Pulse 88 88 90 Oximetry 01/27/19 01/27/19 01/27/19 03:20 03:30 03:40 Temperature Pulse Rate 70 78 82 Pulse Rate [ Anterior Bilateral] Pulse Rate [ From Monitor] Respiratory 20 18 19 Rate Respiratory Rate [Anterior Bilateral] Blood Pressure 128/72 128/72 O2 Sat by Pulse 89 90 90 Oximetry 01/27/19 01/27/19 01/27/19 03:50 04:00 04:10 Temperature Pulse Rate 86 83 74 Pulse Rate [ Anterior Bilateral] Pulse Rate [ 71 From Monitor] Respiratory 18 18 18 Rate Respiratory Rate [Anterior Bilateral] Blood Pressure 128/72 128/72 96/36 O2 Sat by Pulse 90 90 90 Oximetry 01/27/19 01/27/19 01/27/19 04:20 04:30 04:40 Temperature Pulse Rate 72 71 71 Pulse Rate [ Anterior Bilateral] Pulse Rate [ From Monitor] Respiratory 19 19 17 Rate Respiratory Rate [Anterior Bilateral] Blood Pressure 96/36 96/36 96/36 O2 Sat by Pulse 90 91 89 Oximetry 01/27/19 01/27/19 01/27/19 04:50 05:00 05:10 Temperature Pulse Rate 72 82 74 Pulse Rate [ Anterior Bilateral] Pulse Rate [ From Monitor] Respiratory 17 17 17 Rate Respiratory Rate [Anterior Bilateral] Blood Pressure 96/36 96/36 96/36 O2 Sat by Pulse 90 89 90 Oximetry 01/27/19 01/27/19 01/27/19 05:20 05:30 05:40 Temperature Pulse Rate 77 82 82 Pulse Rate [ Anterior Bilateral] Pulse Rate [ From Monitor] Respiratory 19 19 11 L Rate Respiratory Rate [Anterior Bilateral] Blood Pressure 96/36 96/36 96/36 O2 Sat by Pulse 88 89 86 Oximetry 01/27/19 01/27/19 01/27/19 05:50 06:00 06:27 Temperature 98.9 F Pulse Rate 74 79 Pulse Rate [ Anterior Bilateral] Pulse Rate [ From Monitor] Respiratory 20 22 Rate Respiratory Rate [Anterior Bilateral] Blood Pressure 96/36 96/36 O2 Sat by Pulse 85 83 L Oximetry 01/27/19 08:00 Temperature 97.9 F Pulse Rate Pulse Rate [ Anterior Bilateral] Pulse Rate [ From Monitor] Respiratory Rate Respiratory Rate [Anterior Bilateral] Blood Pressure O2 Sat by Pulse Oximetry - Labs CBC & Chem 7: 01/27/19 04:26 01/27/19 04:26 Labs: Abnormal lab results 01/26/19 01/26/19 01/26/19 Range/Units 11:18 16:31 22:14 RBC (3.65-5.03) M/mm3 Hgb (10.1-14.3) gm/dl Hct (30.3-42.9) % RDW (13.2-15.2) % Plt Count (140-440) K/mm3 Seg Neuts % (Manual) (40.0-70.0) % Lymphocytes % (Manual) (13.4-35.0) % Seg Neutrophils # Man (1.8-7.7) K/mm3 Lymphocytes # (Manual) (1.2-5.4) K/mm3 BUN (7-17) mg/dL Glucose (65-100) mg/dL POC Glucose 228 H 191 H 260 H (70-105) Calcium (8.4-10.2) mg/dL Total Protein (6.3-8.2) g/dL Albumin (3.9-5) g/dL 01/27/19 01/27/19 Range/Units 04:26 04:26 RBC 2.50 L (3.65-5.03) M/mm3 Hgb 6.9 L (10.1-14.3) gm/dl Hct 22.1 L (30.3-42.9) % RDW 16.4 H (13.2-15.2) % Plt Count 118 L (140-440) K/mm3 Seg Neuts % (Manual) 97.0 H (40.0-70.0) % Lymphocytes % (Manual) 1.0 L (13.4-35.0) % Seg Neutrophils # Man 8.1 H (1.8-7.7) K/mm3 Lymphocytes # (Manual) 0.1 L (1.2-5.4) K/mm3 BUN 20 H (7-17) mg/dL Glucose 214 H (65-100) mg/dL POC Glucose (70-105) Calcium 7.5 L (8.4-10.2) mg/dL Total Protein 5.2 L (6.3-8.2) g/dL Albumin 1.8 L (3.9-5) g/dL
[2019-01-27] MEDS: FLUoxetine 20 MG CAP PO SCH (09:05)
[2019-01-27] MEDS: ASPIRIN 81 MG TAB CHEW PO SCH (09:05)
[2019-01-27] MEDS: CLOTRIMAZOLE/BETAMETHASONE CREAM 15 GM TP SCH (09:05)
[2019-01-27] MEDS: GABAPENTIN 400 MG CAP PO SCH ×2 (09:05→14:31)
[2019-01-27] MEDS: INSULIN LISPRO 100 UNIT/ML SUB-Q SCH ×2 (09:06→11:59)
[2019-01-27] MEDS: ARIPiprazole 10 MG TAB PO SCH (09:07)
[2019-01-27] MEDS: TRELEGY PO SCH ×2 (09:07→10:12)
--- NOTE | 2019-01-27 09:10 | Discharge Summary ---
Providers - Providers Date of Admission: 01/08/19 16:54 Date of discharge: 01/27/19 Attending physician: YESSY HUSTON 01/08/19 20:12 Consult to Physician [CONS] Routine Comment: Consulting Provider: JOSEE BENNETT Physician Instructions: Reason For Exam: Acute Respiratory failure 01/09/19 19:18 Consult to Dietitian/Nutrition [CONS] Routine Physician Instructions: Reason For Exam: Reason for Consult: Diet education 01/10/19 12:01 Occupational Therapy Evaluate and Treat [CONS] Routine Comment: Reason For Exam: Debility Physical Therapy Evaluation and Treat [CONS] Routine Comment: Reason For Exam: Debility 01/11/19 09:32 Consult to Physician [CONS] Routine Comment: Consulting Provider: CHANO MENEZES Physician Instructions: Reason For Exam: sepsis, diarrhea 01/21/19 14:01 Consult to Physician [CONS] Routine Comment: Consulting Provider: CHANO MENEZES Physician Instructions: Reason For Exam: Staph Bacteremia Primary care physician: CLASSIFIER OPERATOR Hospitalization Reason for admission: Acute respiratory failure. Sepsis with MRA, COPD exercebation Condition: Fair Pertinent studies: CXR that showed mild pul edema ECHO with EF 55-60% with diastolic failure EKG Procedures: none Hospital course: Patient is a 68-year-old lady who has terminal COPD on home oxygen at 2 L/m recently was admitted to halfway facility presented emergency department on [birth year]/09/1940 was no shortness of breath cough congestion. On admission patient was commenced on broncho-dilators. Was still hypoxic. Was placed on high flow oxygen. Pulmonary Consult was obtained. Patient was also placed on IV Solu- Medrol and IV antibiotics. Chest x-ray was unremarkable for any acute event. Echocardiogram was done. Ejection fraction was found to be 55-60% with impaired relaxation. There was also evidence of increased right ventricular pressure. Diagnosis of Cor Pulmonale was made. Patient was gently diuresed. Wean off of high flow oxygen and placed back oxygen via nasal cannula. Shortness of breath improved. Has chronic pain from spinal stenosis that was controlled with narcotics. Patient was therefore discharged back to halfway facility on 01/18/19. However this was declined by her insurance. The decline was appealed. Patient suddently became hypotensive again and was place back on high flow oxygen with nasal canula. Blood culture yielded MRSA. Antibiotic regimen adjusted by ID with vancomycin iv in the treatment regimen. ID has been on consult since admission. Patient continue to desaturate even on removing her BIAPA that was alternating with HFNC with 40L/min on 100% oxygen. Discussed re gualrly with maris's daughter . Patient was made DNR and discharged to home hospice today, 01/27/19 as she persistently has very high oxygen demand and desturate within few minutes of feeding of giving her something to drink. Condition on discharger was poor. Disposition: DC-50 TO HOSPICE (HOME) Time spent for discharge: 40 min - Discharge Diagnoses (1) Sepsis due to methicillin resistant Staphylococcus aureus (MRSA) Status: Acute (2) Cor pulmonale, acute Status: Acute (3) Acute heart failure with preserved ejection fraction Status: Acute (4) Acute on chronic respiratory failure Status: Acute (5) COPD exacerbation Status: Acute (6) Essential (primary) hypertension Status: Acute (7) Sepsis associated hypotension Status: Acute (8) Diabetes Status: Chronic Qualifiers: Diabetes mellitus type: type 2 Diabetes mellitus [employer] insulin use: without fci use Diabetes mellitus complication status: without complication Qualified Code(s): E11.9 - Type 2 diabetes mellitus without complications (9) Pulmonary HTN Status: Chronic Core Measure Documentation - Palliative Care Palliative Care/ Comfort Measures: Hospice Care Exam - Physical Exam Narrative exam: Constitutional: Well-nourished well-developed. On BiPAP now alternating with HFNC oxygen but still in respiratory distress Head: Normocephalic atraumatic Eyes: Pupils are equal round and reactive to light Nose: No enlarged turbinates, no septal deviation. On high flow oxygen via NC Mouth: Moist mucous membranes. Neck: Supple no thyromegaly. No bruit. No JVD Heart: Regular rate and rhythm, S1-S2 normal. No rubs murmurs or gallop Lungs: Decreased breath sounds on auscultation bilaterally. Abdomen: Soft, nontender. Bowel sound are present. Extremities: No edema, no cyanosis, no clubbing. Neuro: Alert oriented Oriented x3. No focal sensory or motor deficit. Skin: No rashes or hyperpigmented spots Musculoskeletal system: No joint pain or swelling.unstable gait and has had frequent falls prior to admission because her legs give way. Hematological: No petechia or subcutanous hemorrhages. Immunological: No multiple septic spots on the skin Lymphatic: No generalized lymphadenopathy Psychiatry: Euthymic. Calm. - Constitutional Vitals: Temp Pulse Resp BP Pulse Ox 97.9 F 79 22 96/36 83 L 01/27/19 08:00 01/27/19 06:00 01/27/19 06:00 01/27/19 06:00 01/27/19 06:00 Plan Activity: fall precautions Weight Bearing Status: Non-Weight Bearing Diet: diabetic Follow up with: PRIMARY MD CRISTOBAL [Primary Care Provider] - 6 Weeks YESSY HUSTON MD [Staff Physician] - 3 Days Prescriptions: HYDROcodone/APAP 5-325 5 mg PO Q8HR PRN #8 PRN Reason: Pain, Moderate (4-6) Insulin Glargine [Lantus VIAL] 10 units SUB-Q QHS #200 units HYDROcodone/APAP 5-325 [[place] 5-325 mg TAB] 1 each PO Q6H PRN #10 tablet PRN Reason: Pain, Moderate (4-6) Prednisone [predniSONE (Doug) ER TAB] 20 mg PO QDAY #30 tablet.
--- NOTE | 2019-01-27 11:08 | Consultation ---
History of Present Illness Consult date: 01/27/19 Requesting physician: YESSY HUSTON Consult reason: other (LUCY) History of present illness: The pt is a 68 YO female with a past medical history significant for HTN, HLP, DM, CAD s/p angioplasty approx 10 years ago at [facility] per pt report, end stage COPD, chronic respiratory failure (noncompliant with home O2), RAE (noncompliant with CPAP), former tobacco smoker, hypothyroidism, spinal stenosis, dementia. She has been seen by our practice on prior hospitalization. Her PCP is Dr. Huston. She initially presented from [facility] to ED emergency department on 01/08/2019 with shortness of breath, cough, congestion. On admission patient was commenced on broncho-dilators. Was still hypoxic. Was placed on high flow oxygen. Pulmonary Consult was obtained. Patient was also placed on IV Solu-Medrol and IV antibiotics. Chest x-ray was unremarkable for any acute event. Echocardiogram was done. Ejection fraction was found to be 55- 60% with impaired relaxation. There was also evidence of increased right ventricular pressure. Diagnosis of Cor Pulmonale was made. Patient was gently diuresed. Wean off of high flow oxygen and placed back oxygen via nasal cannula. Shortness of breath improved. Has chronic pain from spinal stenosis that was controlled with narcotics. Patient was therefore discharged back to [facility] on 01/18/19. However this was declined by her insurance. The decline was appealed. Patient suddenly became hypotensive again and was place back on high flow oxygen with nasal canula. Blood culture yielded MRSA. Antibiotic regimen adjusted by ID with vancomycin iv in the treatment regimen. ID has been on consult since admission. Patient continued to desaturate even on removing her BIAPA that was alternating with HFNC with 40L/min on 100% oxygen. Patient was subsequently made DNR and is being discharged to home hospice today. Cardiology was consulted to perform LUCY per ID recommendations, however, this has been cancelled as she is being discharged to home hospice. Past History Past Medical History: CAD, COPD, diabetes, hypertension, hyperlipidemia, hypothyroidism Past Surgical History: No surgical history Social history: , lives with family, other (presently in rehab, hx of tobacco abuse) Family history: hypertension Medications and Allergies Allergies Allergy/AdvReac Type Severity Reaction Status Date / Time No Known Allergies Allergy Verified 12/10/12 08:15 Home Medications Medication Instructions Recorded Confirmed Last Taken Type ARIPiprazole [Abilify TAB] 10 mg PO QAM 12/31/18 01/08/19 Unknown History Buprenorphine [Butrans] 1 each TD Q7D 12/31/18 01/08/19 Unknown History Diclofenac 1% topical gel 1 applic TP QID 12/31/18 01/08/19 Unknown History FLUoxetine HCL [PROzac] 40 mg PO QAM 12/31/18 01/08/19 Unknown History Fluticasone/Umeclidin/Vilanter 1 each IH QAM 12/31/18 01/09/19 Unknown History [Trelegy Ellipta 100-62.5-25] Gabapentin [Neurontin] 800 mg PO TID 12/31/18 01/08/19 Unknown History Ipratropium/Albuter (Nf) 1 puff IH Q6H PRN 12/31/18 01/08/19 Unknown History [Combivent Inhaler] Metformin HCl [Metformin HCl ER] 500 mg PO QAM 12/31/18 01/08/19 Unknown History ALBUTEROL NEB's [Proventil 0.083% 2.5 mg IH Q4HRT PRN nebu 01/04/19 01/08/19 Unknown Rx NEBS] Donepezil [Aricept] 10 mg PO HS tablet 01/04/19 01/08/19 Unknown Rx Ketoconazole 2% [Nizoral] 1 applic TP BID tube 01/04/19 01/09/19 Unknown Rx Lisinopril [Zestril TAB] 20 mg PO QAM tablet 01/04/19 01/08/19 Unknown Rx Clotrimazole/Betamethasone 1 applic TP BID #60 tube 01/06/19 01/09/19 Unknown Rx Docusate Sodium [Colace CAP] 100 mg PO BID #60 capsule 01/06/19 01/09/19 Unknown Rx Fluticasone/Umeclidin/Vilanter 1 each IH QAM 01/08/19 01/08/19 Unknown History [Trelegy Ellipta 100-62.5-25] ALBUTEROL NEB's [Proventil 0.083% 2.5 mg IH Q6HRT PRN nebu 01/18/19 Unknown Rx NEBS] Aspirin [Aspirin BABY CHEW TAB] 81 mg PO QDAY tab.chew 01/18/19 Unknown Rx AtorvaSTATin [Lipitor] 40 mg PO QPM tablet 01/18/19 Unknown Rx Clotrimazole/Betamethasone 1 applic TP BID tube 01/18/19 Unknown Rx FLUoxetine [PROzac] 40 mg PO QDAY capsule 01/18/19 Unknown Rx Gabapentin 800 mg PO TID capsule 01/18/19 Unknown Rx HYDROcodone/APAP 5-325 5 mg PO Q8HR PRN #8 01/18/19 Unknown Rx HYDROcodone/APAP 5-325 [[place] 1 each PO Q8H PRN tablet 01/18/19 Unknown Rx 5-325 mg TAB] Haloperidol [Haldol] 5 mg PO QPM tablet 01/18/19 Unknown Rx Ipratropium/Albuterol Sulfate 1 ampul IH Q6HRT ampul.neb 01/18/19 Unknown Rx [DUONEB *Not for PRN Use*] Levothyroxine [Synthroid] 88 mcg PO QAM@0600 tablet 01/18/19 Unknown Rx Lisinopril [Zestril TAB] 40 mg PO BID tablet 01/18/19 Unknown Rx Nf Trelegy 1 puff PO DAILY 01/18/19 Unknown Rx Prednisone [predniSONE (Doug) ER 20 mg PO QDAY #30 tablet. 01/18/19 Unknown Rx TAB] amLODIPine 10 mg PO QDAY tablet 01/18/19 Unknown Rx HYDROcodone/APAP 5-325 [[place] 1 each PO Q6H PRN #10 tablet 01/27/19 Unknown Rx 5-325 mg TAB] Insulin Glargine [Lantus VIAL] 10 units SUB-Q QHS #200 units 01/27/19 Unknown Rx Active Meds: Active Medications Acetaminophen (Tylenol) 650 mg PO Q6H PRN PRN Reason: Pain, Mild (1-3) Last Admin: 01/26/19 21:21 Dose: 650 mg Documented by: Acetaminophen/Hydrocodone Bitart ([place] 5/325) 1 each PO Q6H PRN PRN Reason: Pain, Moderate (4-6) Last Admin: 01/27/19 05:38 Dose: 1 each Documented by: Albuterol (Proventil) 2.5 mg IH Q6HRT PRN PRN Reason: Wheezing Albuterol/Ipratropium (Duoneb *Not For Prn Use*) 1 ampul IH Q6HRT [facility] Last Admin: 01/27/19 02:45 Dose: 1 ampul Documented by: Aripiprazole (Aripiprazole) 10 mg PO QAM [facility] Last Admin: 01/27/19 09:07 Dose: 10 mg Documented by: Aspirin (Baby Aspirin) 81 mg PO QDAY [facility] Last Admin: 01/27/19 09:05 Dose: 81 mg Documented by: Atorvastatin Calcium (Lipitor) 40 mg PO QPM [facility] Last Admin: 01/26/19 17:31 Dose: 40 mg Documented by: Clotrimazole (Clotrimazole/Betamethasone) 1 applic TP BID [facility] Last Admin: 01/27/19 09:05 Dose: 1 applic Documented by: Dextrose (D50w (25gm) Syringe) 50 ml IV Q30MIN PRN PRN Reason: Hypoglycemia Donepezil HCl (Aricept) 10 mg PO HS [facility] Last Admin: 01/26/19 21:21 Dose: 10 mg Documented by: Fluoxetine HCl (Prozac) 40 mg PO QDAY [facility] Last Admin: 01/27/19 09:05 Dose: 40 mg Documented by: Gabapentin (Neurontin) 800 mg PO TID [facility] Last Admin: 01/27/19 09:05 Dose: 800 mg Documented by: Haloperidol (Haldol) 5 mg PO QPM [facility] Last Admin: 01/26/19 17:31 Dose: 5 mg Documented by: Hydralazine HCl (Apresoline) 10 mg IV Q6H PRN PRN Reason: Hypertension Last Admin: 01/12/19 03:43 Dose: 10 mg Documented by: Sodium Chloride (Nacl 0.9% 1000 Ml) 1,000 mls @ 100 mls/hr IV DIRECT [facility] Last Admin: 01/26/19 23:06 Dose: 100 mls/hr Documented by: Vancomycin HCl 1,750 mg/ (Sodium Chloride) 535 mls @ 333.333 mls/hr IV Q12HR [facility] Last Admin: 01/26/19 21:22 Dose: 333.333 mls/hr Documented by: Insulin Glargine (Lantus) 10 units SUB-Q QHS [facility] Last Admin: 01/26/19 23:06 Dose: 10 units Documented by: Insulin Human Lispro (Humalog) 0 unit SUB-Q ACHS [facility]; Protocol Last Admin: 01/27/19 09:06 Dose: 4 unit Documented by: Levothyroxine Sodium (Synthroid) 88 mcg PO QAM@0600 [facility] Last Admin: 01/27/19 05:32 Dose: Not Given Documented by: Methylprednisolone Sodium Succinate (Solu-Medrol) 60 mg IV Q6H [facility] Last Admin: 01/27/19 05:32 Dose: 60 mg Documented by: Miscellaneous Medication (Nf Trelegy) 1 puff PO DAILY [facility] Last Admin: 01/27/19 09:07 Dose: 1 puff Documented by: Morphine Sulfate (Morphine) 2 mg IV Q4H PRN PRN Reason: Pain, Moderate (4-6) Last Admin: 01/27/19 06:36 Dose: 2 mg Documented by: Review of Systems Constitutional: no weight loss, no weight gain Ears, nose, mouth and throat: no ear pain, no nose pain, no sinus pressure, no sinus pain Cardiovascular: shortness of breath, dyspnea on exertion, no chest pain, no orthopnea, no palpitations, no rapid/irregular heart beat, no edema, no syncope, no lightheadedness Respiratory: cough, shortness of breath, dyspnea on exertion, congestion, wheezing, no pain on inspiration Gastrointestinal: no abdominal pain, no nausea, no vomiting, no diarrhea, no constipation, no change in bowel habits Genitourinary Female: no pelvic pain, no flank pain, no dysuria, no urinary frequency, no urgency Musculoskeletal: no neck stiffness, no neck pain, no shooting arm pain, no arm numbness/tingling, no low back pain, no shooting leg pain Integumentary: no rash, no pruritis, no redness, no sores, no wounds Neurological: no head injury Psychiatric: no anxiety Endocrine: no cold intolerance, no heat intolerance Hematologic/Lymphatic: no easy bruising, no easy bleeding Allergic/Immunologic: no urticaria Physical Examination Vital Signs Pulse Ox 92 01/08/19 14:24 General appearance: other (lethargic, on bipap) HEENT: Positive: PERRL Neck: Positive: neck supple, trachea midline Cardiac: Positive: Reg Rate and Rhythm, S1/S2 Lungs: Positive: Decreased Breath Sounds, Oxygen Neuro: Positive: Grossly Intact Abdomen: Negative: Tender Skin: Negative: Rash Musculoskeletal: No Pain Results 01/27/19 04:26 01/27/19 04:26 Cardiac Enzymes 01/27/19 Range/Units 04:26 AST 36 (5-40) units/L CBC 01/27/19 Range/Units 04:26 WBC 8.4 (4.5-11.0) K/mm3 RBC 2.50 L (3.65-5.03) M/mm3 Hgb 6.9 L (10.1-14.3) gm/dl Hct 22.1 L (30.3-42.9) % Plt Count 118 L (140-440) K/mm3 Comprehensive Metabolic Panel 01/27/19 Range/Units 04:26 Sodium 141 (137-145) mmol/L Potassium 3.6 (3.6-5.0) mmol/L Chloride 101.5 (98-107) mmol/L Carbon Dioxide 30 (22-30) mmol/L BUN 20 H (7-17) mg/dL Creatinine 1.0 D (0.7-1.2) mg/dL Glucose 214 H (65-100) mg/dL Calcium 7.5 L (8.4-10.2) mg/dL AST 36 (5-40) units/L ALT 27 (7-56) units/L Alkaline Phosphatase 58 (35-129) units/L Total Protein 5.2 L (6.3-8.2) g/dL Albumin 1.8 L (3.9-5) g/dL - Imaging and Cardiology Echo: report reviewed ( EF 55-60%, impaired relaxation, pulm HTN with RVSP 44mmHg.) EKG: report reviewed, image reviewed EKG interpretations - Telemetry EKG Rhythm: Sinus Tachycardia - EKG Sinus rhythms and dysrhythmias: sinus rhythm Assessment and Plan Cardiology was consulted to perform LUCY per ID recommendations, however, this has been cancelled as she is being discharged to home hospice. Nothing further to add from cardiac perspective at this time. D/w Dr. Huston. Will sign off. The patient has been seen in conjunction with Dr. Schaeffer who agrees with the assessment and plan of care. - Patient Problems (1) Acute on chronic respiratory failure Current Visit: Yes Status: Acute (2) COPD exacerbation Current Visit: Yes Status: Acute (3) Acute heart failure with preserved ejection fraction Current Visit: Yes Status: Acute (4) CAD (coronary artery disease) Current Visit: Yes Status: Chronic (5) Mitral valve annular calcification Current Visit: Yes Status: Chronic (6) HTN (hypertension) Current Visit: Yes Status: Chronic (7) Obstructive sleep apnea Current Visit: Yes Status: Chronic (8) Hyperlipidemia Current Visit: Yes Status: Chronic (9) Diabetes Current Visit: Yes Status: Chronic Qualifiers: Diabetes mellitus type: type 2 Diabetes mellitus long-term insulin use: without vermin exterminator use Diabetes mellitus complication status: without complication Qualified Code(s): E11.9 - Type 2 diabetes mellitus without complications (10) Hypothyroidism Current Visit: Yes Status: Chronic (11) Pulmonary HTN Current Visit: Yes Status: Chronic
[2019-01-27] MEDS: VANCOMYCIN 1,750 MG in SODIUM CHLORIDE 0.9% 500 ML 500 ML IV SCH (11:21)
--- NOTE | 2019-01-27 12:10 | Progress Note ---
Assessment and Plan 68 y/o female with acute respiratory failure secondary to COPD exacerbation now with staph bacteremia and acute on chronic respiratory failure. Agree with hospice Supportive measures only. Subjective Date of service: 01/27/19 Principal diagnosis: sepsis, exacerbation of COPD, acute on chronic respiratory failure Interval history: Family has elected home hospice Objective Vital Signs - 12hr 01/27/19 01/27/19 01/27/19 00:10 00:20 00:30 Temperature Pulse Rate 91 H 95 H 89 Pulse Rate [ Anterior Bilateral] Pulse Rate [ From Monitor] Respiratory 18 21 24 Rate Respiratory Rate [Anterior Bilateral] Blood Pressure 81/58 81/58 128/72 O2 Sat by Pulse 85 83 L 84 Oximetry 01/27/19 01/27/19 01/27/19 00:40 00:46 00:50 Temperature Pulse Rate 116 H 81 95 H Pulse Rate [ Anterior Bilateral] Pulse Rate [ From Monitor] Respiratory 30 H 24 26 H Rate Respiratory Rate [Anterior Bilateral] Blood Pressure 128/72 128/72 128/72 O2 Sat by Pulse 80 L 87 83 L Oximetry 01/27/19 01/27/19 01/27/19 01:00 01:10 01:20 Temperature Pulse Rate 112 H 110 H 106 H Pulse Rate [ Anterior Bilateral] Pulse Rate [ From Monitor] Respiratory 22 24 21 Rate Respiratory Rate [Anterior Bilateral] Blood Pressure 128/72 128/72 128/72 O2 Sat by Pulse 81 L 79 L 77 L Oximetry 01/27/19 01/27/19 01/27/19 01:30 01:40 01:50 Temperature Pulse Rate 106 H 96 H 89 Pulse Rate [ Anterior Bilateral] Pulse Rate [ From Monitor] Respiratory 27 H 20 17 Rate Respiratory Rate [Anterior Bilateral] Blood Pressure 128/72 128/72 128/72 O2 Sat by Pulse 80 L 80 L 81 L Oximetry 01/27/19 01/27/19 01/27/19 02:00 02:10 02:20 Temperature Pulse Rate 91 H 78 83 Pulse Rate [ Anterior Bilateral] Pulse Rate [ From Monitor] Respiratory 17 18 18 Rate Respiratory Rate [Anterior Bilateral] Blood Pressure 128/72 128/72 128/72 O2 Sat by Pulse 83 L 84 85 Oximetry 01/27/19 01/27/19 01/27/19 02:30 02:40 02:45 Temperature Pulse Rate 71 81 Pulse Rate [ 89 Anterior Bilateral] Pulse Rate [ From Monitor] Respiratory 17 19 Rate Respiratory 19 Rate [Anterior Bilateral] Blood Pressure 128/72 128/72 O2 Sat by Pulse 86 88 Oximetry 01/27/19 01/27/19 01/27/19 02:50 03:00 03:10 Temperature 98.3 F Pulse Rate 84 71 78 Pulse Rate [ Anterior Bilateral] Pulse Rate [ From Monitor] Respiratory 18 19 19 Rate Respiratory Rate [Anterior Bilateral] Blood Pressure 128/72 128/72 128/72 O2 Sat by Pulse 88 88 90 Oximetry 01/27/19 01/27/19 01/27/19 03:20 03:30 03:40 Temperature Pulse Rate 70 78 82 Pulse Rate [ Anterior Bilateral] Pulse Rate [ From Monitor] Respiratory 20 18 19 Rate Respiratory Rate [Anterior Bilateral] Blood Pressure 128/72 128/72 O2 Sat by Pulse 89 90 90 Oximetry 01/27/19 01/27/19 01/27/19 03:50 04:00 04:10 Temperature Pulse Rate 86 83 74 Pulse Rate [ Anterior Bilateral] Pulse Rate [ 71 From Monitor] Respiratory 18 18 18 Rate Respiratory Rate [Anterior Bilateral] Blood Pressure 128/72 128/72 96/36 O2 Sat by Pulse 90 90 90 Oximetry 01/27/19 01/27/19 01/27/19 04:20 04:30 04:40 Temperature Pulse Rate 72 71 71 Pulse Rate [ Anterior Bilateral] Pulse Rate [ From Monitor] Respiratory 19 19 17 Rate Respiratory Rate [Anterior Bilateral] Blood Pressure 96/36 96/36 96/36 O2 Sat by Pulse 90 91 89 Oximetry 01/27/19 01/27/19 01/27/19 04:50 05:00 05:10 Temperature Pulse Rate 72 82 74 Pulse Rate [ Anterior Bilateral] Pulse Rate [ From Monitor] Respiratory 17 17 17 Rate Respiratory Rate [Anterior Bilateral] Blood Pressure 96/36 96/36 96/36 O2 Sat by Pulse 90 89 90 Oximetry 01/27/19 01/27/19 01/27/19 05:20 05:30 05:40 Temperature Pulse Rate 77 82 82 Pulse Rate [ Anterior Bilateral] Pulse Rate [ From Monitor] Respiratory 19 19 11 L Rate Respiratory Rate [Anterior Bilateral] Blood Pressure 96/36 96/36 96/36 O2 Sat by Pulse 88 89 86 Oximetry 01/27/19 01/27/19 01/27/19 05:50 06:00 06:27 Temperature 98.9 F Pulse Rate 74 79 Pulse Rate [ Anterior Bilateral] Pulse Rate [ From Monitor] Respiratory 20 22 Rate Respiratory Rate [Anterior Bilateral] Blood Pressure 96/36 96/36 O2 Sat by Pulse 85 83 L Oximetry 01/27/19 08:00 Temperature 97.9 F Pulse Rate Pulse Rate [ Anterior Bilateral] Pulse Rate [ From Monitor] Respiratory Rate Respiratory Rate [Anterior Bilateral] Blood Pressure O2 Sat by Pulse Oximetry Constitutional: alert (mild distress on hi yolanda 50%), other Eyes: non-icteric ENT: oropharynx moist, other (adentulous) Neck: supple Effort: normal Ascultation: Bilateral: diminished breath sounds, wheezes, rhonchi Tactile fremitus: Bilateral: normal Cardiovascular: regular rate and rhythm Gastrointestinal: normoactive bowel sounds, soft, non-tender, non-distended Integumentary: normal Extremities: no cyanosis, no edema Neurologic: normal mental status, non-focal exam Psychiatric: mood appropriate, affect normal CBC and BMP: 01/27/19 04:26 01/27/19 04:26 ABG, PT/INR, D-dimer: ABG POC ABG pH 7.424 (7.35-7.45) 01/22/19 17:34 POC ABG pCO2 52.6 (35-45) H 01/22/19 17:34 POC ABG pO2 57 (80-105) L 01/22/19 17:34 POC ABG HCO3 34.5 (22-26 mml/L) 01/22/19 17:34 POC ABG Total CO2 36 (23-27mmol/L) 01/22/19 17:34 POC ABG O2 Sat 89 01/22/19 17:34 PT/INR, D-dimer PT 16.1 Sec. (12.2-14.9) H 01/21/19 03:53 INR 1.31 (0.87-1.13) H 01/21/19 03:53 Abnormal lab findings: Abnormal Labs 01/08/19 01/08/19 01/08/19 14:39 14:39 16:55 WBC RBC 3.17 L Hgb 9.0 L Hct 28.4 L MCH RDW 15.9 H Plt Count Lymph % (Auto) [place] % (Auto) 7.8 H Lymph # Seg Neutrophils % 71.9 H Seg Neuts % (Manual) Lymphocytes % (Manual) Seg Neutrophils # Man Lymphocytes # (Manual) Monocytes # (Manual) PT INR POC ABG pH POC ABG pCO2 POC ABG pO2 Sodium Potassium Chloride Carbon Dioxide BUN Creatinine Glucose 140 H POC Glucose Lactic Acid 2.90 H* Calcium Magnesium NT-Pro-B Natriuret Pep Total Protein Albumin 3.7 L Vancomycin Trough 01/08/19 01/08/19 01/08/19 19:34 21:15 23:37 WBC RBC Hgb Hct MCH RDW Plt Count Lymph % (Auto) [place] % (Auto) Lymph # Seg Neutrophils % Seg Neuts % (Manual) Lymphocytes % (Manual) Seg Neutrophils # Man Lymphocytes # (Manual) Monocytes # (Manual) PT INR POC ABG pH POC ABG pCO2 POC ABG pO2 Sodium Potassium Chloride Carbon Dioxide BUN Creatinine Glucose POC Glucose 224 H Lactic Acid 3.50 H* 3.80 H* Calcium Magnesium NT-Pro-B Natriuret Pep Total Protein Albumin Vancomycin Trough 01/09/19 01/09/19 01/09/19 04:52 04:52 05:23 WBC RBC 3.12 L Hgb 8.7 L Hct 28.4 L MCH RDW 16.2 H Plt Count Lymph % (Auto) [place] % (Auto) Lymph # Seg Neutrophils % Seg Neuts % (Manual) 95.0 H Lymphocytes % (Manual) 4.0 L Seg Neutrophils # Man 8.9 H Lymphocytes # (Manual) 0.4 L Monocytes # (Manual) PT INR POC ABG pH 7.278 L POC ABG pCO2 67.9 H POC ABG pO2 73 L Sodium Potassium Chloride Carbon Dioxide BUN 19 H Creatinine Glucose 173 H POC Glucose Lactic Acid Calcium Magnesium NT-Pro-B Natriuret Pep Total Protein Albumin 3.8 L Vancomycin Trough 01/09/19 01/09/19 01/09/19 05:37 12:01 18:10 WBC RBC Hgb Hct MCH RDW Plt Count Lymph % (Auto) [place] % (Auto) Lymph # Seg Neutrophils % Seg Neuts % (Manual) Lymphocytes % (Manual) Seg Neutrophils # Man Lymphocytes # (Manual) Monocytes # (Manual) PT INR POC ABG pH POC ABG pCO2 POC ABG pO2 Sodium Potassium Chloride Carbon Dioxide BUN Creatinine Glucose POC Glucose 177 H 186 H 257 H Lactic Acid Calcium Magnesium NT-Pro-B Natriuret Pep Total Protein Albumin Vancomycin Trough 01/09/19 01/10/19 01/10/19 23:13 08:02 10:09 WBC 14.0 H RBC 2.97 L Hgb 8.2 L Hct 27.0 L MCH RDW 16.4 H Plt Count Lymph % (Auto) [place] % (Auto) Lymph # Seg Neutrophils % Seg Neuts % (Manual) 95.0 H Lymphocytes % (Manual) 5.0 L Seg Neutrophils # Man 13.3 H Lymphocytes # (Manual) 0.7 L Monocytes # (Manual) PT INR POC ABG pH POC ABG pCO2 POC ABG pO2 Sodium Potassium Chloride Carbon Dioxide BUN Creatinine Glucose POC Glucose 187 H 185 H Lactic Acid Calcium Magnesium NT-Pro-B Natriuret Pep Total Protein Albumin Vancomycin Trough 01/10/19 01/10/19 01/10/19 10:09 10:09 12:25 WBC RBC Hgb Hct MCH RDW Plt Count Lymph % (Auto) [place] % (Auto) Lymph # Seg Neutrophils % Seg Neuts % (Manual) Lymphocytes % (Manual) Seg Neutrophils # Man Lymphocytes # (Manual) Monocytes # (Manual) PT INR POC ABG pH POC ABG pCO2 POC ABG pO2 Sodium Potassium Chloride Carbon Dioxide BUN 18 H Creatinine 0.6 L Glucose 251 H POC Glucose 216 H Lactic Acid 2.10 H* Calcium Magnesium NT-Pro-B Natriuret Pep Total Protein Albumin 3.5 L Vancomycin Trough 01/10/19 01/10/19 01/11/19 16:27 21:44 07:27 WBC RBC Hgb Hct MCH RDW Plt Count Lymph % (Auto) [place] % (Auto) Lymph # Seg Neutrophils % Seg Neuts % (Manual) Lymphocytes % (Manual) Seg Neutrophils # Man Lymphocytes # (Manual) Monocytes # (Manual) PT INR POC ABG pH POC ABG pCO2 POC ABG pO2 Sodium Potassium Chloride Carbon Dioxide BUN Creatinine Glucose POC Glucose 160 H 210 H 191 H Lactic Acid Calcium Magnesium NT-Pro-B Natriuret Pep Total Protein Albumin Vancomycin Trough 01/11/19 01/11/19 01/11/19 07:57 07:57 11:16 WBC 12.2 H RBC 2.96 L Hgb 8.1 L Hct 26.9 L MCH 27 L RDW 16.3 H Plt Count Lymph % (Auto) [place] % (Auto) Lymph # Seg Neutrophils % Seg Neuts % (Manual) 90.0 H Lymphocytes % (Manual) 7.0 L Seg Neutrophils # Man 11.0 H Lymphocytes # (Manual) 0.9 L Monocytes # (Manual) PT INR POC ABG pH POC ABG pCO2 POC ABG pO2 Sodium 147 H Potassium Chloride Carbon Dioxide 31 H BUN 21 H Creatinine 0.6 L Glucose 190 H POC Glucose 177 H Lactic Acid Calcium Magnesium NT-Pro-B Natriuret Pep Total Protein Albumin Vancomycin Trough 01/11/19 01/11/19 01/11/19 16:03 16:27 22:23 WBC RBC Hgb Hct MCH RDW Plt Count Lymph % (Auto) [place] % (Auto) Lymph # Seg Neutrophils % Seg Neuts % (Manual) Lymphocytes % (Manual) Seg Neutrophils # Man Lymphocytes # (Manual) Monocytes # (Manual) PT INR POC ABG pH POC ABG pCO2 POC ABG pO2 Sodium Potassium Chloride Carbon Dioxide BUN Creatinine Glucose POC Glucose 217 H 243 H Lactic Acid Calcium Magnesium NT-Pro-B Natriuret Pep 2547 H Total Protein Albumin Vancomycin Trough 01/12/19 01/12/19 01/12/19 05:34 05:34 07:22 WBC RBC 3.11 L Hgb 8.6 L Hct 27.4 L MCH RDW 15.6 H Plt Count Lymph % (Auto) 7.0 L [place] % (Auto) Lymph # 0.6 L Seg Neutrophils % 87.5 H Seg Neuts % (Manual) Lymphocytes % (Manual) Seg Neutrophils # Man Lymphocytes # (Manual) Monocytes # (Manual) PT INR POC ABG pH POC ABG pCO2 POC ABG pO2 Sodium 146 H Potassium 3.5 L D Chloride 95.9 L Carbon Dioxide 35 H BUN Creatinine 0.6 L Glucose 248 H POC Glucose 249 H Lactic Acid Calcium Magnesium NT-Pro-B Natriuret Pep Total Protein Albumin Vancomycin Trough 01/12/19 01/12/19 01/12/19 11:35 16:21 22:07 WBC RBC Hgb Hct MCH RDW Plt Count Lymph % (Auto) [place] % (Auto) Lymph # Seg Neutrophils % Seg Neuts % (Manual) Lymphocytes % (Manual) Seg Neutrophils # Man Lymphocytes # (Manual) Monocytes # (Manual) PT INR POC ABG pH POC ABG pCO2 POC ABG pO2 Sodium Potassium Chloride Carbon Dioxide BUN Creatinine Glucose POC Glucose 190 H 268 H 263 H Lactic Acid Calcium Magnesium NT-Pro-B Natriuret Pep Total Protein Albumin Vancomycin Trough 01/13/19 01/13/19 01/13/19 05:07 05:07 07:31 WBC RBC 3.32 L Hgb 9.2 L Hct 29.3 L MCH RDW 15.3 H Plt Count Lymph % (Auto) [place] % (Auto) 9.8 H Lymph # Seg Neutrophils % 74.8 H Seg Neuts % (Manual) Lymphocytes % (Manual) Seg Neutrophils # Man Lymphocytes # (Manual) Monocytes # (Manual) PT INR POC ABG pH POC ABG pCO2 POC ABG pO2 Sodium Potassium Chloride 97.9 L Carbon Dioxide 37 H BUN Creatinine 0.5 L Glucose 165 H POC Glucose 147 H Lactic Acid Calcium Magnesium NT-Pro-B Natriuret Pep Total Protein Albumin 3.6 L Vancomycin Trough 01/13/19 01/13/19 01/13/19 12:37 16:51 21:25 WBC RBC Hgb Hct MCH RDW Plt Count Lymph % (Auto) [place] % (Auto) Lymph # Seg Neutrophils % Seg Neuts % (Manual) Lymphocytes % (Manual) Seg Neutrophils # Man Lymphocytes # (Manual) Monocytes # (Manual) PT INR POC ABG pH POC ABG pCO2 POC ABG pO2 Sodium Potassium Chloride Carbon Dioxide BUN Creatinine Glucose POC Glucose 301 H 149 H 318 H Lactic Acid Calcium Magnesium NT-Pro-B Natriuret Pep Total Protein Albumin Vancomycin Trough 01/14/19 01/14/19 01/14/19 04:02 04:02 07:34 WBC RBC 3.50 L Hgb 9.7 L Hct MCH RDW 15.5 H Plt Count Lymph % (Auto) [place] % (Auto) Lymph # Seg Neutrophils % Seg Neuts % (Manual) 94.0 H Lymphocytes % (Manual) 3.0 L Seg Neutrophils # Man 8.1 H Lymphocytes # (Manual) 0.3 L Monocytes # (Manual) PT INR POC ABG pH POC ABG pCO2 POC ABG pO2 Sodium Potassium Chloride 97.0 L Carbon Dioxide 34 H BUN 18 H Creatinine 0.6 L Glucose 287 H POC Glucose 266 H Lactic Acid Calcium Magnesium NT-Pro-B Natriuret Pep Total Protein Albumin 3.8 L Vancomycin Trough 01/14/19 01/14/19 01/14/19 11:28 16:40 22:08 WBC RBC Hgb Hct MCH RDW Plt Count Lymph % (Auto) [place] % (Auto) Lymph # Seg Neutrophils % Seg Neuts % (Manual) Lymphocytes % (Manual) Seg Neutrophils # Man Lymphocytes # (Manual) Monocytes # (Manual) PT INR POC ABG pH POC ABG pCO2 POC ABG pO2 Sodium Potassium Chloride Carbon Dioxide BUN Creatinine Glucose POC Glucose 396 H 272 H 315 H Lactic Acid Calcium Magnesium NT-Pro-B Natriuret Pep Total Protein Albumin Vancomycin Trough 01/15/19 01/15/19 01/15/19 07:38 08:31 08:31 WBC 11.3 H RBC 3.48 L Hgb 9.4 L Hct MCH 27 L RDW 15.4 H Plt Count Lymph % (Auto) [place] % (Auto) Lymph # Seg Neutrophils % Seg Neuts % (Manual) 98.0 H Lymphocytes % (Manual) 0 L Seg Neutrophils # Man 11.1 H Lymphocytes # (Manual) 0.0 L Monocytes # (Manual) PT INR POC ABG pH POC ABG pCO2 POC ABG pO2 Sodium Potassium Chloride 96.0 L Carbon Dioxide 33 H BUN 18 H Creatinine 0.6 L Glucose 371 H POC Glucose 321 H Lactic Acid Calcium Magnesium NT-Pro-B Natriuret Pep Total Protein Albumin 3.7 L Vancomycin Trough 01/15/19 01/15/19 01/15/19 11:13 16:13 22:38 WBC RBC Hgb Hct MCH RDW Plt Count Lymph % (Auto) [place] % (Auto) Lymph # Seg Neutrophils % Seg Neuts % (Manual) Lymphocytes % (Manual) Seg Neutrophils # Man Lymphocytes # (Manual) Monocytes # (Manual) PT INR POC ABG pH POC ABG pCO2 POC ABG pO2 Sodium Potassium Chloride Carbon Dioxide BUN Creatinine Glucose POC Glucose 353 H 150 H 404 H Lactic Acid Calcium Magnesium NT-Pro-B Natriuret Pep Total Protein Albumin Vancomycin Trough 01/16/19 01/16/19 01/16/19 07:36 12:09 16:12 WBC RBC Hgb Hct MCH RDW Plt Count Lymph % (Auto) [place] % (Auto) Lymph # Seg Neutrophils % Seg Neuts % (Manual) Lymphocytes % (Manual) Seg Neutrophils # Man Lymphocytes # (Manual) Monocytes # (Manual) PT INR POC ABG pH POC ABG pCO2 POC ABG pO2 Sodium Potassium Chloride Carbon Dioxide BUN Creatinine Glucose POC Glucose 317 H 351 H 293 H Lactic Acid Calcium Magnesium NT-Pro-B Natriuret Pep Total Protein Albumin Vancomycin Trough 01/16/19 01/17/19 01/17/19 22:04 07:22 11:29 WBC RBC Hgb Hct MCH RDW Plt Count Lymph % (Auto) [place] % (Auto) Lymph # Seg Neutrophils % Seg Neuts % (Manual) Lymphocytes % (Manual) Seg Neutrophils # Man Lymphocytes # (Manual) Monocytes # (Manual) PT INR POC ABG pH POC ABG pCO2 POC ABG pO2 Sodium Potassium Chloride Carbon Dioxide BUN Creatinine Glucose POC Glucose 382 H 356 H 376 H Lactic Acid Calcium Magnesium NT-Pro-B Natriuret Pep Total Protein Albumin Vancomycin Trough 01/17/19 01/17/19 01/18/19 17:30 21:09 04:09 WBC 13.6 H RBC 3.55 L Hgb 9.6 L Hct MCH 27 L RDW 15.6 H Plt Count Lymph % (Auto) [place] % (Auto) Lymph # Seg Neutrophils % Seg Neuts % (Manual) 99.0 H Lymphocytes % (Manual) 1.0 L Seg Neutrophils # Man 13.5 H Lymphocytes # (Manual) 0.1 L Monocytes # (Manual) PT INR POC ABG pH POC ABG pCO2 POC ABG pO2 Sodium Potassium Chloride Carbon Dioxide BUN Creatinine Glucose POC Glucose 409 H 404 H Lactic Acid Calcium Magnesium NT-Pro-B Natriuret Pep Total Protein Albumin Vancomycin Trough 01/18/19 01/18/19 01/18/19 04:09 07:42 11:30 WBC RBC Hgb Hct MCH RDW Plt Count Lymph % (Auto) [place] % (Auto) Lymph # Seg Neutrophils % Seg Neuts % (Manual) Lymphocytes % (Manual) Seg Neutrophils # Man Lymphocytes # (Manual) Monocytes # (Manual) PT INR POC ABG pH POC ABG pCO2 POC ABG pO2 Sodium Potassium Chloride 94.2 L Carbon Dioxide 33 H BUN 22 H Creatinine Glucose 355 H POC Glucose 390 H 387 H Lactic Acid Calcium Magnesium NT-Pro-B Natriuret Pep Total Protein Albumin 3.5 L Vancomycin Trough 01/18/19 01/18/19 01/19/19 17:01 22:28 07:29 WBC RBC Hgb Hct MCH RDW Plt Count Lymph % (Auto) [place] % (Auto) Lymph # Seg Neutrophils % Seg Neuts % (Manual) Lymphocytes % (Manual) Seg Neutrophils # Man Lymphocytes # (Manual) Monocytes # (Manual) PT INR POC ABG pH POC ABG pCO2 POC ABG pO2 Sodium Potassium Chloride Carbon Dioxide BUN Creatinine Glucose POC Glucose 378 H 363 H 371 H Lactic Acid Calcium Magnesium NT-Pro-B Natriuret Pep Total Protein Albumin Vancomycin Trough 01/19/19 01/19/19 01/19/19 11:16 16:13 22:02 WBC RBC Hgb Hct MCH RDW Plt Count Lymph % (Auto) [place] % (Auto) Lymph # Seg Neutrophils % Seg Neuts % (Manual) Lymphocytes % (Manual) Seg Neutrophils # Man Lymphocytes # (Manual) Monocytes # (Manual) PT INR POC ABG pH POC ABG pCO2 POC ABG pO2 Sodium Potassium Chloride Carbon Dioxide BUN Creatinine Glucose POC Glucose 365 H 341 H 416 H Lactic Acid Calcium Magnesium NT-Pro-B Natriuret Pep Total Protein Albumin Vancomycin Trough 01/20/19 01/20/19 01/20/19 07:37 10:05 10:15 WBC 44.1 H* RBC 3.15 L Hgb 8.4 L Hct 27.7 L MCH 27 L RDW 15.9 H Plt Count Lymph % (Auto) [place] % (Auto) Lymph # Seg Neutrophils % Seg Neuts % (Manual) 96.0 H Lymphocytes % (Manual) 2.0 L Seg Neutrophils # Man 42.3 H Lymphocytes # (Manual) 0.9 L Monocytes # (Manual) 0.9 H PT INR POC ABG pH POC ABG pCO2 POC ABG pO2 Sodium Potassium Chloride 95.5 L Carbon Dioxide BUN 40 H Creatinine 1.3 H D Glucose 365 H POC Glucose 377 H Lactic Acid Calcium 8.0 L Magnesium NT-Pro-B Natriuret Pep Total Protein Albumin Vancomycin Trough 01/20/19 01/20/19 01/20/19 11:12 16:05 23:22 WBC RBC Hgb Hct MCH RDW Plt Count Lymph % (Auto) [place] % (Auto) Lymph # Seg Neutrophils % Seg Neuts % (Manual) Lymphocytes % (Manual) Seg Neutrophils # Man Lymphocytes # (Manual) Monocytes # (Manual) PT INR POC ABG pH POC ABG pCO2 POC ABG pO2 Sodium Potassium Chloride Carbon Dioxide BUN Creatinine Glucose POC Glucose 336 H 269 H 280 H Lactic Acid Calcium Magnesium NT-Pro-B Natriuret Pep Total Protein Albumin Vancomycin Trough 01/21/19 01/21/19 01/21/19 03:53 03:53 03:53 WBC 27.1 H RBC 3.28 L Hgb 9.0 L Hct 29.1 L MCH 27 L RDW 15.9 H Plt Count Lymph % (Auto) [place] % (Auto) Lymph # Seg Neutrophils % Seg Neuts % (Manual) 93.0 H Lymphocytes % (Manual) 1.0 L Seg Neutrophils # Man 25.2 H Lymphocytes # (Manual) 0.3 L Monocytes # (Manual) PT 16.1 H INR 1.31 H POC ABG pH POC ABG pCO2 POC ABG pO2 Sodium Potassium Chloride 93.7 L Carbon Dioxide 33 H BUN 34 H Creatinine Glucose 166 H POC Glucose Lactic Acid Calcium 8.3 L Magnesium 2.50 H NT-Pro-B Natriuret Pep Total Protein Albumin 3.1 L Vancomycin Trough 01/21/19 01/21/19 01/21/19 07:30 11:23 16:19 WBC RBC Hgb Hct MCH RDW Plt Count Lymph % (Auto) [place] % (Auto) Lymph # Seg Neutrophils % Seg Neuts % (Manual) Lymphocytes % (Manual) Seg Neutrophils # Man Lymphocytes # (Manual) Monocytes # (Manual) PT INR POC ABG pH POC ABG pCO2 POC ABG pO2 Sodium Potassium Chloride Carbon Dioxide BUN Creatinine Glucose POC Glucose 257 H 358 H 267 H Lactic Acid Calcium Magnesium NT-Pro-B Natriuret Pep Total Protein Albumin Vancomycin Trough 01/21/19 01/21/19 01/22/19 16:46 23:10 07:51 WBC 20.4 H RBC 2.97 L Hgb 8.0 L Hct 25.9 L MCH 27 L RDW 15.8 H Plt Count Lymph % (Auto) [place] % (Auto) Lymph # Seg Neutrophils % Seg Neuts % (Manual) 98.0 H Lymphocytes % (Manual) 1.0 L Seg Neutrophils # Man 20.0 H Lymphocytes # (Manual) 0.2 L Monocytes # (Manual) PT INR POC ABG pH POC ABG pCO2 POC ABG pO2 Sodium Potassium Chloride Carbon Dioxide BUN Creatinine Glucose POC Glucose 443 H 420 H Lactic Acid Calcium Magnesium NT-Pro-B Natriuret Pep Total Protein Albumin Vancomycin Trough 01/22/19 01/22/19 01/22/19 12:25 16:38 17:23 WBC 17.3 H RBC 2.72 L Hgb 7.4 L Hct 23.7 L MCH 27 L RDW 15.8 H Plt Count Lymph % (Auto) [place] % (Auto) Lymph # Seg Neutrophils % Seg Neuts % (Manual) 98.0 H Lymphocytes % (Manual) 1.0 L Seg Neutrophils # Man 17.0 H Lymphocytes # (Manual) 0.2 L Monocytes # (Manual) PT INR POC ABG pH POC ABG pCO2 POC ABG pO2 Sodium Potassium Chloride Carbon Dioxide BUN Creatinine Glucose POC Glucose 339 H 269 H Lactic Acid Calcium Magnesium NT-Pro-B Natriuret Pep Total Protein Albumin Vancomycin Trough 01/22/19 01/22/19 01/23/19 17:34 21:53 07:37 WBC RBC Hgb Hct MCH RDW Plt Count Lymph % (Auto) [place] % (Auto) Lymph # Seg Neutrophils % Seg Neuts % (Manual) Lymphocytes % (Manual) Seg Neutrophils # Man Lymphocytes # (Manual) Monocytes # (Manual) PT INR POC ABG pH POC ABG pCO2 52.6 H POC ABG pO2 57 L Sodium Potassium Chloride Carbon Dioxide BUN Creatinine Glucose POC Glucose 326 H 359 H Lactic Acid Calcium Magnesium NT-Pro-B Natriuret Pep Total Protein Albumin Vancomycin Trough 01/23/19 01/23/19 01/23/19 11:35 15:19 16:52 WBC 13.7 H RBC 2.66 L Hgb 7.2 L Hct 23.2 L MCH 27 L RDW 15.8 H Plt Count Lymph % (Auto) [place] % (Auto) Lymph # Seg Neutrophils % Seg Neuts % (Manual) 91.0 H Lymphocytes % (Manual) 4.0 L Seg Neutrophils # Man 12.5 H Lymphocytes # (Manual) 0.5 L Monocytes # (Manual) PT INR POC ABG pH POC ABG pCO2 POC ABG pO2 Sodium Potassium Chloride Carbon Dioxide BUN Creatinine Glucose POC Glucose 405 H 381 H Lactic Acid Calcium Magnesium NT-Pro-B Natriuret Pep Total Protein Albumin Vancomycin Trough 01/23/19 01/23/19 01/24/19 20:07 21:24 07:28 WBC RBC Hgb Hct MCH RDW Plt Count Lymph % (Auto) [place] % (Auto) Lymph # Seg Neutrophils % Seg Neuts % (Manual) Lymphocytes % (Manual) Seg Neutrophils # Man Lymphocytes # (Manual) Monocytes # (Manual) PT INR POC ABG pH POC ABG pCO2 POC ABG pO2 Sodium Potassium Chloride Carbon Dioxide BUN Creatinine Glucose POC Glucose 288 H 288 H Lactic Acid Calcium Magnesium NT-Pro-B Natriuret Pep Total Protein Albumin Vancomycin Trough 4.0 L 01/24/19 01/24/19 01/24/19 11:49 16:33 21:49 WBC RBC Hgb Hct MCH RDW Plt Count Lymph % (Auto) [place] % (Auto) Lymph # Seg Neutrophils % Seg Neuts % (Manual) Lymphocytes % (Manual) Seg Neutrophils # Man Lymphocytes # (Manual) Monocytes # (Manual) PT INR POC ABG pH POC ABG pCO2 POC ABG pO2 Sodium Potassium Chloride Carbon Dioxide BUN Creatinine Glucose POC Glucose 327 H 340 H 265 H Lactic Acid Calcium Magnesium NT-Pro-B Natriuret Pep Total Protein Albumin Vancomycin Trough 01/25/19 01/25/19 01/25/19 04:06 04:06 07:55 WBC 13.5 H RBC 2.67 L Hgb 7.1 L Hct 23.0 L MCH 27 L RDW 16.0 H Plt Count 128 L Lymph % (Auto) [place] % (Auto) Lymph # Seg Neutrophils % Seg Neuts % (Manual) 98.0 H Lymphocytes % (Manual) 1.0 L Seg Neutrophils # Man 13.2 H Lymphocytes # (Manual) 0.1 L Monocytes # (Manual) PT INR POC ABG pH POC ABG pCO2 POC ABG pO2 Sodium Potassium 3.3 L Chloride 97.1 L Carbon Dioxide 33 H BUN Creatinine 0.5 L Glucose 164 H POC Glucose 284 H Lactic Acid Calcium 7.9 L Magnesium NT-Pro-B Natriuret Pep Total Protein 5.2 L Albumin 2.1 L Vancomycin Trough 01/25/19 01/25/19 01/25/19 11:28 16:08 21:40 WBC RBC Hgb Hct MCH RDW Plt Count Lymph % (Auto) [place] % (Auto) Lymph # Seg Neutrophils % Seg Neuts % (Manual) Lymphocytes % (Manual) Seg Neutrophils # Man Lymphocytes # (Manual) Monocytes # (Manual) PT INR POC ABG pH POC ABG pCO2 POC ABG pO2 Sodium Potassium Chloride Carbon Dioxide BUN Creatinine Glucose POC Glucose 260 H 313 H 287 H Lactic Acid Calcium Magnesium NT-Pro-B Natriuret Pep Total Protein Albumin Vancomycin Trough 01/26/19 01/26/19 01/26/19 05:06 05:06 07:38 WBC 11.2 H RBC 2.81 L Hgb 7.6 L Hct 24.5 L MCH 27 L RDW 16.3 H Plt Count 127 L Lymph % (Auto) [place] % (Auto) Lymph # Seg Neutrophils % Seg Neuts % (Manual) 97.0 H Lymphocytes % (Manual) 3.0 L Seg Neutrophils # Man 10.9 H Lymphocytes # (Manual) 0.3 L Monocytes # (Manual) PT INR POC ABG pH POC ABG pCO2 POC ABG pO2 Sodium Potassium 3.4 L Chloride Carbon Dioxide 33 H BUN Creatinine 0.5 L Glucose 143 H POC Glucose 226 H Lactic Acid Calcium 8.0 L Magnesium NT-Pro-B Natriuret Pep Total Protein 5.6 L Albumin 2.3 L Vancomycin Trough 01/26/19 01/26/19 01/26/19 11:18 16:31 22:14 WBC RBC Hgb Hct MCH RDW Plt Count Lymph % (Auto) [place] % (Auto) Lymph # Seg Neutrophils % Seg Neuts % (Manual) Lymphocytes % (Manual) Seg Neutrophils # Man Lymphocytes # (Manual) Monocytes # (Manual) PT INR POC ABG pH POC ABG pCO2 POC ABG pO2 Sodium Potassium Chloride Carbon Dioxide BUN Creatinine Glucose POC Glucose 228 H 191 H 260 H Lactic Acid Calcium Magnesium NT-Pro-B Natriuret Pep Total Protein Albumin Vancomycin Trough 01/27/19 01/27/19 01/27/19 04:26 04:26 07:29 WBC RBC 2.50 L Hgb 6.9 L Hct 22.1 L MCH RDW 16.4 H Plt Count 118 L Lymph % (Auto) [place] % (Auto) Lymph # Seg Neutrophils % Seg Neuts % (Manual) 97.0 H Lymphocytes % (Manual) 1.0 L Seg Neutrophils # Man 8.1 H Lymphocytes # (Manual) 0.1 L Monocytes # (Manual) PT INR POC ABG pH POC ABG pCO2 POC ABG pO2 Sodium Potassium Chloride Carbon Dioxide BUN 20 H Creatinine Glucose 214 H POC Glucose 220 H Lactic Acid Calcium 7.5 L Magnesium NT-Pro-B Natriuret Pep Total Protein 5.2 L Albumin 1.8 L Vancomycin Trough
--- NOTE | 2019-01-27 12:57 | Progress Note ---
Assessment and Plan Cultures: 01/08/2019 blood culture: No growth 01/08/2019 urine culture: No growth 01/20/2019 blood culture: MRSA 4/4 01/22/19 blood culture: MRSA 44 01/25/2019 blood culture: MRSA 01/27/2019 blood culture - A/P: 68-year-old female with COPD, hypertension, diabetes, acute hypoxic respiratory failure on home oxygen, was recently [facility], returned back to the hospital in ~2 days with respiratory distress. Accordingly to her family member at bedside, patient had not been receiving her inhalers. Initially, patient was noted to have high PCO2, hypotension, requiring fluids and low-dose pressors: 1) Hypotension, possibly secondary to acute hypercapneic respiratory failure, acidosis: pulm following. No bacteremia, no fever, no initial leukocytosis, no UTI, no pneumonia on CXR. Leucocytosis now is likely from steroids. Sepsis seems unlikely. Procalcitonin is low (<0.05) and pro-BNP is high suggestive of possible CHF. Resolved 2) Diarrhea: possibly overflow from constipation and impaction. Per RN, patient passed a hard chunk of stool. Resolved. 3) Acute sepsis - now present with fevers and leukocytosis. Secondary to Staph bacteremia 4) Staph aureus bacteremia - MRSA. Agree with vancomycin. Unclear etiology. She complained of an abdominal rash, however it was not visible to me. Recs: - continue vancomycin dosed per pharmacy. Goal trough 15-20 - she was not therapeutic on vancomycin yesterday when blood cultures were taken. Likely therapeutic now - repeat blood cultures ordered for AM - Ordered LUCY - If 01/27 cultures become positive will change to daptomycin/ceftaroline as she will have failed therapeutic vancomycin, or will be having difficulty achieving therapeutic concentrations. - noted patient being discharged to home hospice today. Thank you for the consultation, will follow. Meghan Mims MD [facility] M: [phone] O: [phone] F: [phone] Subjective Date of service: 01/27/19 Principal diagnosis: sepsis, exacerbation of COPD, acute on chronic respiratory failure Interval history: Improved WBC and afebrile now. Cultures still positive for MRSA. Objective - Exam Narrative Exam: Constitutional: Alert, cooperative. No acute distress Head, Ears, Nose: Normocephalic, atraumatic. External ears, nose normal Eyes: Conjunctivae/corneas clear. No icterus. No ptosis. Neck: Supple, no meningeal signs Oral: edentulous, no thrush Cardiovascular: S1, S2 normal Respiratory: clear b/l GI: Soft, non-tender; bowel sounds normal. No peritoneal signs Musculoskeletal: No pedal edema, no cyanosis. Skin: No rash or abscess Hem/Lymphatic: No palpable cervical or supraclavicular nodes. No lymphangitis Psych: no agitation, flat affect Neurological: Awake, alert - Constitutional Vitals: Vital Signs Temp Pulse Resp BP Pulse Ox 97.9 F 79 22 96/36 83 L 01/27/19 12:00 01/27/19 06:00 01/27/19 06:00 01/27/19 06:00 01/27/19 06:00 Temperature -Last 24 Hours Temperature 97.9 F Temperature 97.9 F Temperature 98.9 F Temperature 98.3 F Temperature 97.7 F Temperature 99.7 F Temperature 99.7 F - Labs CBC & Chem 7: 01/27/19 04:26 01/27/19 04:26 Labs: Abnormal lab results 01/26/19 01/26/19 01/27/19 Range/Units 16:31 22:14 04:26 RBC 2.50 L (3.65-5.03) M/mm3 Hgb 6.9 L (10.1-14.3) gm/dl Hct 22.1 L (30.3-42.9) % RDW 16.4 H (13.2-15.2) % Plt Count 118 L (140-440) K/mm3 Seg Neuts % (Manual) 97.0 H (40.0-70.0) % Lymphocytes % (Manual) 1.0 L (13.4-35.0) % Seg Neutrophils # Man 8.1 H (1.8-7.7) K/mm3 Lymphocytes # (Manual) 0.1 L (1.2-5.4) K/mm3 BUN (7-17) mg/dL Glucose (65-100) mg/dL POC Glucose 191 H 260 H (70-105) Calcium (8.4-10.2) mg/dL Total Protein (6.3-8.2) g/dL Albumin (3.9-5) g/dL 01/27/19 01/27/19 Range/Units 04:26 07:29 RBC (3.65-5.03) M/mm3 Hgb (10.1-14.3) gm/dl Hct (30.3-42.9) % RDW (13.2-15.2) % Plt Count (140-440) K/mm3 Seg Neuts % (Manual) (40.0-70.0) % Lymphocytes % (Manual) (13.4-35.0) % Seg Neutrophils # Man (1.8-7.7) K/mm3 Lymphocytes # (Manual) (1.2-5.4) K/mm3 BUN 20 H (7-17) mg/dL Glucose 214 H (65-100) mg/dL POC Glucose 220 H (70-105) Calcium 7.5 L (8.4-10.2) mg/dL Total Protein 5.2 L (6.3-8.2) g/dL Albumin 1.8 L (3.9-5) g/dL
[2019-01-27 18:14] VITALS: BP 112/53
== END 2019-01-27 17:30 | disposition hospice, home (50) | DRG 871 ==
LOC: ED 14:17 → IMCU 16:54 → CC1 18:07 → 2B-ACE 01-10 14:18 → IMCU 01-24 20:10
PROVIDERS: ADMIT Family Medicine; ATTEND Family Medicine
PROC: 06HY33Z Insertion of Infusion Device into Lower Vein, Percutaneous Approach (ICD-10-PCS; 2019-01-08)
PROC: B54BZZA Ultrasonography of Right Lower Extremity Veins, Guidance (ICD-10-PCS; 2019-01-08)
PROC: 4A033R1 Measurement of Arterial Saturation, Peripheral, Percutaneous Approach (ICD-10-PCS; principal; 2019-01-09)
PROC: 5A09357 Assistance with Respiratory Ventilation, Less than 24 Consecutive Hours, Continuous Positive Airway Pressure (ICD-10-PCS; 2019-01-09)
PROC: 5A09357 Assistance with Respiratory Ventilation, Less than 24 Consecutive Hours, Continuous Positive Airway Pressure (ICD-10-PCS; 2019-01-10)
PROC: 5A09357 Assistance with Respiratory Ventilation, Less than 24 Consecutive Hours, Continuous Positive Airway Pressure (ICD-10-PCS; 2019-01-14)
PROC: 5A09357 Assistance with Respiratory Ventilation, Less than 24 Consecutive Hours, Continuous Positive Airway Pressure (ICD-10-PCS; 2019-01-16)
PROC: 5A09357 Assistance with Respiratory Ventilation, Less than 24 Consecutive Hours, Continuous Positive Airway Pressure (ICD-10-PCS; 2019-01-20)
PROC: 5A09357 Assistance with Respiratory Ventilation, Less than 24 Consecutive Hours, Continuous Positive Airway Pressure (ICD-10-PCS; 2019-01-21)
PROC: 5A09357 Assistance with Respiratory Ventilation, Less than 24 Consecutive Hours, Continuous Positive Airway Pressure (ICD-10-PCS; 2019-01-22)
PROC: 5A09357 Assistance with Respiratory Ventilation, Less than 24 Consecutive Hours, Continuous Positive Airway Pressure (ICD-10-PCS; 2019-01-23)
PROC: 5A09357 Assistance with Respiratory Ventilation, Less than 24 Consecutive Hours, Continuous Positive Airway Pressure (ICD-10-PCS; 2019-01-24)
PROC: 5A09357 Assistance with Respiratory Ventilation, Less than 24 Consecutive Hours, Continuous Positive Airway Pressure (ICD-10-PCS; 2019-01-25)
PROC: 5A09357 Assistance with Respiratory Ventilation, Less than 24 Consecutive Hours, Continuous Positive Airway Pressure (ICD-10-PCS; 2019-01-26)
PROC: 5A09357 Assistance with Respiratory Ventilation, Less than 24 Consecutive Hours, Continuous Positive Airway Pressure (ICD-10-PCS; 2019-01-27)
DX: A41.02 Sepsis due to Methicillin resistant Staphylococcus aureus (principal); I50.31 Acute diastolic (congestive) heart failure; I26.09 Other pulmonary embolism with acute cor pulmonale; J96.21 Acute and chronic respiratory failure with hypoxia; J44.1 Chronic obstructive pulmonary disease with (acute) exacerbation; E11.9 Type 2 diabetes mellitus without complications; Z66 Do not resuscitate; I11.0 Hypertensive heart disease with heart failure; I27.20 Pulmonary hypertension, unspecified; D63.8 Anemia in other chronic diseases classified elsewhere; G89.29 Other chronic pain; M54.9 Dorsalgia, unspecified; M48.00 Spinal stenosis, site unspecified; I95.89 Other hypotension; M19.90 Unspecified osteoarthritis, unspecified site; G43.909 Migraine, unspecified, not intractable, without status migrainosus; E66.9 Obesity, unspecified; F03.90 Unspecified dementia, unspecified severity, without behavioral disturbance, psychotic disturbance, mood disturbance, and anxiety; G47.33 Obstructive sleep apnea (adult) (pediatric); E78.5 Hyperlipidemia, unspecified; E03.9 Hypothyroidism, unspecified; Z82.49 Family history of ischemic heart disease and other diseases of the circulatory system; Z79.899 Other long term (current) drug therapy; Z68.34 Body mass index [BMI] 34.0-34.9, adult; Z90.49 Acquired absence of other specified parts of digestive tract
CPT/HCPCS: 36415; 36600; 71045; 80048; 80053; 80202; 81001; 82140; 82803; 82805; 82962; 83735; 83880; 84100; 84145; 85007; 85025; 85610; 87040; 87076; 87086; 87186; 93005; 93010; 93306; 93308; 93321; 93325; 94640; 94644; 94660; 94760; 96365; 96375; G0378; A9270-GY; J0360; J0692; J0696; J1815; J1940; J1956; J2270; J2405; J2543; J2920; J2930; J3370; J3475; J3480; J7030; J7040; J7050